=== PATIENT | male | born 1940 | race Caucasian/White ===

== ENCOUNTER → 2018-01-01 | Outpatient (CLI) | payer MEDICARE, OTHER ==
[~2018-01-01] VITALS: Ht 177.8 cm; Wt 96.2 kg
[~2018-01-01] MED LIST: ACET325T49 PO; ACHYD1T PO; ACYSUS PO; ASP81TEC; Amiodarone Hcl PO; Apixaban PO; CATHETER FLUSH 10 ML SYR IV PRN; DICL100G13 TOP; FAMO20TA3 PO; FRSM40T PO; GUAI600T43 PO; HCTZ12.5T; HYDR-32; KCL20TCR PO; LEVO125T6 PO; LEVO200T30; LISI5TAB14 PO; LORA10CA PO; LVT.025T PO; LVT.112T PO; Lidocaine Hcl PO; METO25TA2 PO; OMG1KC PO; PNT40TEC PO; PRNMV1T; REGADENOSON 0.4 MG/5 ML SYR (LEXISCAN) IV ONE; TAMS0.4C2 PO; TRAM50TA2 PO; TRZ100T; VLS80C
[2018-01-01 13:09] VITALS: BP 167/67
[2018-01-01 13:13] VITALS: BP 163/94
[2018-01-01 13:15] VITALS: BP 160/91
--- NOTE | 2018-01-01 14:46 | Cardiology Stress Test Report ---
Stress Test Report Type of NM Stress Test: Test Type: LEXISCAN 0.4MG/5ML Date of Procedure/Referring: Date of Procedure: Jan 01, 2018 PCP Bryon Regalado MD Admitting Physician Meghan Bhat MD Indications: This is a 77-year-old gentleman with history of non-STEMI, cardiogenic shock, systolic dysfunction previously. Plans to undergo gallbladder surgery under general anesthesia. Poor functional capacity. Nuclear stress test was done as a part of preoperative cardiovascular risk assessment. Baseline Heart Rate: 87 Baseline Blood Pressure: Blood Pressure Systolic: 157 Blood Pressure Diastolic: 83 Baseline EKG: Baseline EKG: sinus rhythm with prolonged VT interval. Summary: The patient was brought to the stress lab of informed consent was taken. Lexiscan stress test was performed according to the protocol. Low-grade exercise was performed. Baseline EKG showed sinus rhythm with PACs at 70 BPM. Blood pressure 167/67 mmHg. Maximum heart rate 90 bpm and blood pressure 163/ 94 mmHg. No chest pain, ST-T wave abnormalities, arrhythmias noted. 10.74 mCi of Myoview was given for rest imaging and 29.3 mCi of Myoview was given for stress imaging. Transient ischemic dilatation score 0.96. Ejection fraction 82 percent with no wall motion abnormalities. There is a mild small anterior reversible defect noted. SSS 2. Conclusion: Pharmacological nuclear stress test is negative for ischemia. Normal LV function with no wall motion abnormalities. Evidence of small area of anterior ischemia. Clinical correlation is recommended. Bryon REGALADO MD Jan 01, 2018 2:46 pm
[2018-01-01 15:04] VITALS: BP 157/83
== END ==
LOC: CARD 11:12
PROVIDERS: ATTEND Internal Medicine Interventional Cardiology
DX: Z01.810 Encounter for preprocedural cardiovascular examination (principal); I25.10 Atherosclerotic heart disease of native coronary artery without angina pectoris; I42.9 Cardiomyopathy, unspecified; I48.0 Paroxysmal atrial fibrillation
CPT/HCPCS: 78452; 93017

== ENCOUNTER 2018-01-02 09:54 | Day surgery (SDC) | payer MEDICARE, OTHER ==
[2018-01-02] VITALS (11 sets, daily range): BP systolic 126–172; BP diastolic 72–96
[~2018-01-02] VITALS: Ht 177.8 cm; Wt 96.2 kg
[~2018-01-02 09:54] MED LIST changes: -ACET325T49 PO; -CATHETER FLUSH 10 ML SYR IV PRN; -FAMO20TA3 PO; -GUAI600T43 PO; -LEVO125T6 PO; -LORA10CA PO; -OMG1KC PO; -REGADENOSON 0.4 MG/5 ML SYR (LEXISCAN) IV ONE; -TAMS0.4C2 PO; -TRAM50TA2 PO
[2018-01-02] MEDS ORDERED: LIDOCAINE 1% INJ 50 ML (XYLOCAINE) VIAL ONE (10:02)
[2018-01-02] MEDS ORDERED: HEParin (CATH LAB) 2,000 ML IV ONE (10:02)
[2018-01-02] MEDS ORDERED: NS IV 1000 ML 1,000 ML ONE (10:02)
[2018-01-02] MEDS ORDERED: NS IV 1000 ML 1,000 ML IV SCH ×2 (10:17→15:08)
[2018-01-02 10:41] LABS: HEMOGLOBIN 13.9 G/DL (13.3-17.7); MEAN PLATELET VOLUME 8.9 FL (7.4-10.4); RED BLOOD COUNT 3.86 10^6/uL (4.35-5.85); RED CELL DISTRIBUTION WIDTH 12.7 % (10.0-14.5); WHITE BLOOD COUNT 5.7 10^3/uL (4.3-11.0)
[2018-01-02 10:51] LABS: PROTHROMBIN TIME PATIENT 13.7 SEC (12.2-14.7)
[2018-01-02 10:58] LABS: ALANINE AMINOTRANSFERASE 19 U/L (0-55); ALBUMIN 3.8 GM/DL (3.2-4.5); ALKALINE PHOSPHATASE 91 U/L (40-136); BILIRUBIN,TOTAL 0.9 MG/DL (0.1-1.0); BUN/CREATININE RATIO 11; CALCIUM 9.2 MG/DL (8.5-10.1); CARBON DIOXIDE 24 MMOL/L (21-32); CHLORIDE 105 MMOL/L (98-107); CREATININE SERUM 0.89 MG/DL (0.60-1.30); GFR ESTIMATED > 60; GLUCOSE 112 MG/DL (70-105); POTASSIUM 4.2 MMOL/L (3.6-5.0); SODIUM 137 MMOL/L (135-145); TOTAL PROTEIN 7.3 GM/DL (6.4-8.2)
[2018-01-02] MEDS ORDERED: LEVO125T6 PO ×2 (10:58)
[2018-01-02] MEDS ORDERED: FAMO20TA3 PO ×2 (10:58)
[2018-01-02] MEDS ORDERED: GUAI600T43 PO ×2 (10:58)
[2018-01-02] MEDS ORDERED: OMG1KC PO ×2 (10:58)
[2018-01-02] MEDS ORDERED: TRAM50TA2 PO ×2 (10:58)
[2018-01-02] MEDS ORDERED: LORA10CA PO ×2 (10:58)
[2018-01-02] MEDS ORDERED: ACET325T49 PO ×2 (10:58)
[2018-01-02] MEDS ORDERED: TAMS0.4C2 PO ×2 (10:58)
--- NOTE | 2018-01-02 14:04 | Cardiac Procedure Note-CS/ASA ---
Pre-Procedure Note Pre-Op Procedure Note H&P Reviewed The H&P was reviewed, patient examined and no changes noted. Date H&P Reviewed: Jan 02, 2018 Time H&P Reviewed: 12:00 Conscious Sedation Pre-Proced Time Reviewed: 12:00 ASA Class: 3 Airway Mallampati Classification: (tyonek appropriate class) I. II. III, IV Lungs Heart ASA score ASA 1: a normal healthy patient ASA 2: a patient with a mild systemic disease (mid diabetes, controlled hypertension, obesity ASA 3: a patient with a severe systemic disease that limits activity (angina , COPD, prior Myocardial infarction) ASA 4: a patient with an incapacitating disease that is a constant threat to life (CHF, renal failure) ASA 5: a moribund patient not expected to survive 24 hrs. (ruptured aneurysm) ASA 6: a declared brain patient whose organs are being harvested. For emergent operations, add the letter E after the classification Grade 1 Sedation Plan: Analgesia, Amnesia, Plan communicated to team members, Discussed options with patient/fam, Discussed risks with patient/fam Note The patient is an appropriate candidate to undergo the planned procedure, sedation, and anesthesia. The patient immediately re-assessed prior to indication. Bryon SOSA MD Jan 02, 2018 2:04 pm
[2018-01-02] MEDS ORDERED: fentaNYL INJECTION 100 MCG/2 ML AMP ONE (14:06)
[2018-01-02] MEDS ORDERED: MIDAZOLAM 5 MG/5 ML (VERSED) VIAL ONE (14:06)
[2018-01-02] MEDS ORDERED: HEParin 1000 UNIT/ML (10ML VIAL) FOR BOLUS ONE (14:06)
[2018-01-02] MEDS ORDERED: NITROGLYCERIN DRIP 25 MG/D5W 250 ML IV ONE (14:06)
[2018-01-02] MEDS ORDERED: VERAPAMIL 5 MG/2 ML (CALAN) VIAL IV ONE (14:06)
--- NOTE | 2018-01-02 15:08 | Coronary Angiography Report ---
Coronary Angiography Report DATE OF PROCEDURE: 01/02/18 INDICATION: Preoperative cardiovascular risk assessment, history of non-STEMI, cardiogenic shock, severe LV systolic dysfunction, shortness of breath, abnormal nuclear stress test. PREOPERATIVE DIAGNOSIS: Preoperative cardiovascular risk assessment, history of non-STEMI, cardiogenic shock, severe LV systolic dysfunction, shortness of breath, abnormal nuclear stress test. POSTOPERATIVE DIAGNOSIS: 1. Mild to moderate CAD. 2. Normal LV function. HISTORY: this is a 77-year-old gentleman who needs to undergo gallbladder surgery under general anesthesia. He has complicated past medical history including history of non-STEMI, cardiogenic shock, severe LV systolic dysfunction, shortness of breath. Nuclear stress test was performed with showed evidence of mild apical ischemia.Therefore, the patient was scheduled for coronary angiography. PROCEDURES PERFORMED: 1.Coronary angiography. 2.Left heart catheterization. 3. Aortic root injection. 4. Aortic arch angiography. COMPLICATIONS: None. SPECIMENS: None. ESTIMATED BLOOD LOSS: 10 mL ANESTHESIA: Conscious sedation ANTICOAGULATION: IV heparin CONTRAST: 93 mL of Omnipaque. FLUOROSCOPY: 6.5 minutes. FLOUROSCOPY DOSE:477 mgy. PROCEDURE DETAILS: The patient is a 77 male and was brought to the laboratory engineer after informed consent was taken. All the risks and complications were explained in detail; this included the risk of bleeding, vascular damage, stroke , AL and even . The patient was draped and prepped in the usual sterile fashion. Access was gained in the right radial artery with a 6 Pashto sheath. Coronary angiography of the left coronary system, aortic root injection, aortic arch angiography and left heart catheterization was performed with the [place] catheter. coronary angiography of the right coronary system was performed with a JR4 catheter. FINDINGS: 1.Left main: patent. 2.LAD: mild CAD with calcification. Transapical vessel. 3.Left circumflex artery: mild disease with calcification. 4.RCA: moderate proximal and mid disease. Stenosis severity 40-50 percent. Dominant vessel. 5.Left heart catheterization: aortic pressure 101/65 mmHg. LV pressure 95/10 mmHg. LVEDP 15 mmHg. Normal LV function with no wall motion abnormalities. There is no gradient across the aortic valve. 6. Aortic root injection: No significant aortic regurgitation and patent ostium of the left main. 7. Aortic arch angiography: No evidence of aneurysm or dissection. CONCLUSIONS: [id number] coronary artery disease. Normal LV function. Roxie Regalado MD, FACP, FACC, [facility] Interventional Cardiology Bryon REGALADO MD Jan 02, 2018 3:08 pm
--- NOTE | 2018-01-02 15:10 | Discharge Inst-Post CATH ---
Discharge Inst-CATH Post Cardiac Cath D/C Inst Follow Up/Plan Dr Regalado in one month CARDIAC CATH DISCHARGE INSTRUCTIONS *Hold Metformin for 48 hours post heart cath. ACTIVITY * Go Home directly and rest. * Limit activity of the leg (or wrist if it was used) for 7 days including aerobics, swimming, jogging, bicycling, etc. * Restrict stair-climbing for 7 days if possible, if not, climb up with your non -cath leg, then bring together on the same step. * Avoid lifting, pushing, pulling or excessive movement of the affected extremity for 7 days. * Customary sexual activity may be resumed after 2 days-use caution not to use a position that strains or causes pain to the affected extremity. * No driving for 24 hours. * NO SMOKING. * Avoid straining for bowel movements for 7 days. * Gentle walking on level ground is allowed. * Returning to work will depend on the type of procedure and the results. Your doctor will discuss this with you. CALL YOUR DOCTOR FOR ANY OF THE FOLLOWING: *If bleeding from the puncture site occurs- Apply gentle pressure to site with clean cloth and call your doctor or EMS. * If a knot or lump forms under the skin, increases in size, or causes pain. * If bruising appears to be worsening or moving further down your leg instead of disappearing. * Temperature above 101 F. CARE OF YOUR GROIN INCISION; * Bruising or purple discoloration of the skin near the puncture site is common. * You may shower only, no bathtub bathing for 5 days. Be careful to avoid slipping as your leg may feel stiff. * If a closure device was used on your femoral artery, please see the attached guide regarding care of the device and your leg. * REMOVE the dressing from your groin the next day after your procedure in the shower. CARE OF YOUR WRIST INCISION; * Bruising or purple discoloration of the skin near the puncture site is common. * You may shower. * DO NOT submerge wrist. * Remove dressing in 24 hours. Bryon REGALADO MD Jan 02, 2018 3:10 pm
[2018-01-02] MEDS ORDERED: PATIENT MAY USE OWN MEDS, ALL PO SCH (15:15)
--- NOTE | 2018-01-02 15:15 | Cardiology Discharge Summary ---
Diagnosis/Chief Complaint Date of Admission 01/02/2018 Date of Discharge 01/02/2018 Admission Diagnosis shortness of breath, preoperative cardiovascular risk assessment, history of non -STEMI, history of severe LV systolic dysfunction, abnormal nuclear stress test. Final/Discharge Diagnosis mild to moderate CAD. Normal LV function. Chief Complaint/HPI Chief Complaint/HPI this is a 77-year-old gentleman who needs to undergo gallbladder surgery under general anesthesia. Preoperative cardiovascular risk assessment was requested. Patient has history of shortness of breath, previous history of non-STEMI, cardiac shock, severe LV systolic dysfunction. Nuclear stress test was performed which showed mild apical ischemia. Coronary angiography was recommended. Discharge Summary Procedures coronary angiography showed mild to moderate CAD. Normal LV systolic function. Discharge Physical Examination unremarkable. Hospital Course stable. Pending Labs Laboratory Tests 01/02/18 10:31: White Blood Count 5.7, Red Blood Count 3.86, Hemoglobin 13.9, Hematocrit 40, Mean Corpuscular Volume 104, Mean Corpuscular Hemoglobin 36, Mean Corpuscular Hemoglobin Concent 35, Red Cell Distribution Width 12.7, Platelet Count 199, Mean Platelet Volume 8.9, Prothrombin Time 13.7, INR Comment 1.0, Activated Partial Thromboplast Time 28, Sodium Level 137, Potassium Level 4.2, Chloride Level 105, Carbon Dioxide Level 24, Anion Gap 8, Blood Urea Nitrogen 10, Creatinine 0.89, Estimat Glomerular Filtration Rate > 60, BUN/Creatinine Ratio 11, Glucose Level 112, Calcium Level 9.2, Total Bilirubin 0.9, Aspartate Amino Transf (AST/SGOT) 20, Alanine Aminotransferase (ALT/SGPT) 19, Alkaline Phosphatase 91, Total Protein 7.3, Albumin 3.8 Discussion & Recommendations Discussion continue secondary prevention for CAD. No cardiac contraindication to gallbladder surgery. Patient is at intermediate risk. Follow up appt.: Dr. Regalado in one month. Dicharge Diet: Cardiac Diet Activity as Tolerated: Yes Home Medications Reviewed patient Home Medication Reconciliation Form Discharge Home Medications: Reviewed and agree with Discharge Medication list on patient's Discharge Instruction sheet Condition at discharge stable Instructions to patient/family Dr Regalado in one month Bryon REGALADO MD Jan 02, 2018 3:14 pm
== END 2018-01-02 19:15 | disposition home or self-care (01) ==
LOC: CATH 09:54
PROVIDERS: ATTEND Internal Medicine Interventional Cardiology
DX: I25.10 Atherosclerotic heart disease of native coronary artery without angina pectoris (principal); I10 Essential (primary) hypertension; E78.5 Hyperlipidemia, unspecified; E11.9 Type 2 diabetes mellitus without complications; I48.0 Paroxysmal atrial fibrillation; E03.9 Hypothyroidism, unspecified; F10.10 Alcohol abuse, uncomplicated; I25.2 Old myocardial infarction; Z79.82 Long term (current) use of aspirin; Z79.899 Other long term (current) drug therapy; Z87.891 Personal history of nicotine dependence
CPT/HCPCS: 36221; 36415; 80053; 85027; 85610; 85730; 87081; 93458; 93567

== ENCOUNTER → 2018-04-23 | Outpatient (CLI) | payer MEDICARE, OTHER ==
[~2018-04-23] MED LIST changes: +ACET325T49 PO; +FAMO20TA3 PO; +GUAI600T43 PO; +LEVO125T6 PO; +LORA10CA PO; +OMG1KC PO; +TAMS0.4C2 PO; +TRAM50TA2 PO
[2018-04-23 16:45] LABS: BASOPHILS % (AUTO) 0 % (0-10); EOSINOPHILS # (AUTO) 0.2 10^3/uL (0.0-0.3); EOSINOPHILS % (AUTO) 3 % (0-10); HEMATOCRIT 39 % (40-54); HEMOGLOBIN 13.1 G/DL (13.3-17.7); LYMPHOCYTES # (AUTO) 2.3 X 10^3 (1.0-4.0); LYMPHOCYTES % (AUTO) 38 % (12-44); MEAN CORPUSCULAR HEMOGLOBIN 33 PG (25-34); MEAN CORPUSCULAR HGB CONC 34 G/DL (32-36); MEAN CORPUSCULAR VOLUME 96 FL (80-99); MEAN PLATELET VOLUME 8.7 FL (7.4-10.4); MONOCYTES # (AUTO) 0.6 X 10^3 (0.0-1.0); MONOCYTES % (AUTO) 11 % (0-12); NEUTROPHILS % (AUTO) 49 % (42-75); PLATELET COUNT 219 10^3/uL (130-400); RED BLOOD COUNT 4.03 10^6/uL (4.35-5.85); RED CELL DISTRIBUTION WIDTH 12.9 % (10.0-14.5); WHITE BLOOD COUNT 6.1 10^3/uL (4.3-11.0)
[2018-04-23 17:03] LABS: ALANINE AMINOTRANSFERASE 24 U/L (0-55); ALBUMIN 3.8 GM/DL (3.2-4.5); ALKALINE PHOSPHATASE 89 U/L (40-136); BILIRUBIN,TOTAL 0.5 MG/DL (0.1-1.0); BUN/CREATININE RATIO 21; CALCIUM 9.5 MG/DL (8.5-10.1); CARBON DIOXIDE 21 MMOL/L (21-32); CHLORIDE 103 MMOL/L (98-107); CREATININE SERUM 0.78 MG/DL (0.60-1.30); GFR ESTIMATED > 60; GLUCOSE 93 MG/DL (70-105); POTASSIUM 4.2 MMOL/L (3.6-5.0); SODIUM 135 MMOL/L (135-145); TOTAL PROTEIN 7.7 GM/DL (6.4-8.2)
== END ==
LOC: LAB 16:19
PROVIDERS: ATTEND Surgery
DX: I70.232 Atherosclerosis of native arteries of right leg with ulceration of calf (principal); L97.212 Non-pressure chronic ulcer of right calf with fat layer exposed; I87.331 Chronic venous hypertension (idiopathic) with ulcer and inflammation of right lower extremity; I87.322 Chronic venous hypertension (idiopathic) with inflammation of left lower extremity
CPT/HCPCS: 36415; 80053; 85025

== ENCOUNTER → 2018-04-23 | Outpatient (CLI) | payer MEDICARE, OTHER | LOC: WOUNDCARE 14:13 | PROVIDERS: ATTEND Surgery | DX: I70.232 Atherosclerosis of native arteries of right leg with ulceration of calf (principal); L97.212 Non-pressure chronic ulcer of right calf with fat layer exposed; I87.331 Chronic venous hypertension (idiopathic) with ulcer and inflammation of right lower extremity; I87.322 Chronic venous hypertension (idiopathic) with inflammation of left lower extremity | CPT/HCPCS: 99214 ==

== ENCOUNTER → 2018-04-30 | Outpatient (CLI) | payer MEDICARE, OTHER | LOC: WOUNDCARE 11:30 | PROVIDERS: ATTEND Surgery | DX: I70.232 Atherosclerosis of native arteries of right leg with ulceration of calf (principal); L97.212 Non-pressure chronic ulcer of right calf with fat layer exposed; I87.331 Chronic venous hypertension (idiopathic) with ulcer and inflammation of right lower extremity; I87.322 Chronic venous hypertension (idiopathic) with inflammation of left lower extremity | CPT/HCPCS: 11042; 87070; 87075; 87077; 87186; 87205 ==

== ENCOUNTER → 2018-05-14 | Outpatient (CLI) | payer MEDICARE, OTHER | LOC: WOUNDCARE 11:00 | PROVIDERS: ATTEND Surgery | DX: L72.12 Trichodermal cyst (principal); I87.331 Chronic venous hypertension (idiopathic) with ulcer and inflammation of right lower extremity; I87.322 Chronic venous hypertension (idiopathic) with inflammation of left lower extremity; I70.232 Atherosclerosis of native arteries of right leg with ulceration of calf | CPT/HCPCS: 15271 ==

== ENCOUNTER → 2018-05-21 | Outpatient (CLI) | payer MEDICARE, OTHER | LOC: WOUNDCARE 11:30 | PROVIDERS: ATTEND Surgery | DX: I70.232 Atherosclerosis of native arteries of right leg with ulceration of calf (principal); I87.331 Chronic venous hypertension (idiopathic) with ulcer and inflammation of right lower extremity; L97.212 Non-pressure chronic ulcer of right calf with fat layer exposed; I87.322 Chronic venous hypertension (idiopathic) with inflammation of left lower extremity | CPT/HCPCS: 11042 ==

== ENCOUNTER → 2018-05-28 | Outpatient (CLI) | payer MEDICARE, OTHER | LOC: WOUNDCARE 11:29 | PROVIDERS: ATTEND Surgery | DX: I70.232 Atherosclerosis of native arteries of right leg with ulceration of calf (principal); L97.212 Non-pressure chronic ulcer of right calf with fat layer exposed; I87.331 Chronic venous hypertension (idiopathic) with ulcer and inflammation of right lower extremity; I87.322 Chronic venous hypertension (idiopathic) with inflammation of left lower extremity | CPT/HCPCS: 87070; 87075; 87186; 87205 ==

== ENCOUNTER → 2018-05-30 | Outpatient (CLI) | payer MEDICARE, OTHER | LOC: WOUNDCARE 08:10 | PROVIDERS: ATTEND Surgery | DX: I70.232 Atherosclerosis of native arteries of right leg with ulceration of calf (principal); L97.212 Non-pressure chronic ulcer of right calf with fat layer exposed; I87.331 Chronic venous hypertension (idiopathic) with ulcer and inflammation of right lower extremity; I87.322 Chronic venous hypertension (idiopathic) with inflammation of left lower extremity | CPT/HCPCS: 99212 ==

== ENCOUNTER → 2018-06-04 | Outpatient (CLI) | payer MEDICARE, OTHER | LOC: WOUNDCARE 10:56 | PROVIDERS: ATTEND Surgery | DX: I70.232 Atherosclerosis of native arteries of right leg with ulceration of calf (principal); I87.331 Chronic venous hypertension (idiopathic) with ulcer and inflammation of right lower extremity; L97.212 Non-pressure chronic ulcer of right calf with fat layer exposed; I87.322 Chronic venous hypertension (idiopathic) with inflammation of left lower extremity; L97.221 Non-pressure chronic ulcer of left calf limited to breakdown of skin | CPT/HCPCS: 15271 ==

== ENCOUNTER → 2018-06-11 | Outpatient (CLI) | payer MEDICARE, OTHER | LOC: WOUNDCARE 11:32 | PROVIDERS: ATTEND Surgery | DX: I70.232 Atherosclerosis of native arteries of right leg with ulceration of calf (principal); I87.331 Chronic venous hypertension (idiopathic) with ulcer and inflammation of right lower extremity; L97.212 Non-pressure chronic ulcer of right calf with fat layer exposed; I87.322 Chronic venous hypertension (idiopathic) with inflammation of left lower extremity; L97.221 Non-pressure chronic ulcer of left calf limited to breakdown of skin | CPT/HCPCS: 29581 ==

== ENCOUNTER → 2018-06-18 | Outpatient (CLI) | payer MEDICARE, OTHER | LOC: WOUNDCARE 11:27 | PROVIDERS: ATTEND Surgery | DX: I70.232 Atherosclerosis of native arteries of right leg with ulceration of calf (principal); I87.331 Chronic venous hypertension (idiopathic) with ulcer and inflammation of right lower extremity; L97.212 Non-pressure chronic ulcer of right calf with fat layer exposed | CPT/HCPCS: 99212 ==

== ENCOUNTER 2019-06-09 09:28 | Inpatient (IN) | payer MEDICARE, OTHER ==
[~2019-06-09] VITALS: Ht 172.7 cm; Wt 97.8 kg
--- NOTE | 2019-06-09 09:28 | NUR ---
Freeman Caballero admitted to room 225-1, with an admitting diagnosis of R hip and R elbow ORIF, on 06/09/19 from [facility] via EMS, accompanied by staff.FREEMAN CABALLERO introduced to surroundings, call light, bed controls, phone, TV, temperature control, lights, meal times, smoking policy, visitor policy, side rail policy, bathrooms and showers. Patient Rights given to patient in the handbook.FREEMAN CABALLERO verbalizes understanding that [facility] is not responsible for the loss or damage to any personal effects or valuables that are kept in the patients possession during their hospitalization. The following Patient Care Plans were discussed with the patient: Discharge Planning, Fracture, Activity Intolerance, Pain Control. FREEMAN CABALLERO verbalizes understanding of Interdisciplinary Patient Education. Patient received Patient Rights Booklet, which includes Privacy Act Statement and Data Collection Information Summary.
[2019-06-09 10:21] VITALS: BP 139/68
[2019-06-09] MEDS ORDERED: BISACODYL 10 MG SUPP (DULCOLAX) PR PRN ×2 (10:30→15:30)
[2019-06-09] MEDS ORDERED: MILK OF MAGNESIA 400 MG/5 ML 30 ML UDC PO PRN (10:30)
[2019-06-09 11:01] LABS: BASOPHILS % (AUTO) 0 % (0-10); EOSINOPHILS # (AUTO) 0.1 10^3/uL (0.0-0.3); EOSINOPHILS % (AUTO) 1 % (0-10); HEMATOCRIT 23 % (40-54); HEMOGLOBIN 7.5 G/DL (13.3-17.7); LYMPHOCYTES # (AUTO) 1.1 X 10^3 (1.0-4.0); LYMPHOCYTES % (AUTO) 13 % (12-44); MEAN CORPUSCULAR HEMOGLOBIN 31 PG (25-34); MEAN CORPUSCULAR HGB CONC 33 G/DL (32-36); MEAN CORPUSCULAR VOLUME 94 FL (80-99); MONOCYTES # (AUTO) 0.6 X 10^3 (0.0-1.0); MONOCYTES % (AUTO) 8 % (0-12); NEUTROPHILS # (AUTO) 6.4 X 10^3 (1.8-7.8); NEUTROPHILS % (AUTO) 78 % (42-75); PLATELET COUNT 174 10^3/uL (130-400); RED CELL DISTRIBUTION WIDTH 13.5 % (10.0-14.5); WHITE BLOOD COUNT 8.2 10^3/uL (4.3-11.0)
[2019-06-09 11:17] LABS: ALANINE AMINOTRANSFERASE 9 U/L (0-55); ALBUMIN 2.7 GM/DL (3.2-4.5); ALKALINE PHOSPHATASE 56 U/L (40-136); BILIRUBIN,TOTAL 0.9 MG/DL (0.1-1.0); BUN/CREATININE RATIO 13; CALCIUM 8.4 MG/DL (8.5-10.1); CARBON DIOXIDE 29 MMOL/L (21-32); CHLORIDE 94 MMOL/L (98-107); CREATININE SERUM 0.75 MG/DL (0.60-1.30); GFR ESTIMATED > 60; GLUCOSE 207 MG/DL (70-105); POTASSIUM 4.1 MMOL/L (3.6-5.0); SODIUM 133 MMOL/L (135-145); TOTAL PROTEIN 5.6 GM/DL (6.4-8.2)
--- NOTE | 2019-06-09 11:33 | PM&R H&P / Post Admit Assess ---
History of Present Illness HPI/Chief Complaint Chief complaint: Right hip fracture and right elbow fracture in need of inpatient rehab to return home History of present illness: This is a 79-year-old white male known to me from prior admissions long ago whose primary care provider is Dr. Bhat but who does not see a glue clamp operator regularly who has a history of atrial fibrillation, diabetes mellitus and falls in the past who presented to inpatient rehab after discharge from [facility] after suffering a right femoral fracture and right elbow fracture which required surgery for repair after a fall sustained at home when he was using his leaf blower on 06/04/2019. He did not require a transfusion while hospitalized at [facility]. He has not had a bowel movement for 5 days. Pain is currently controlled with oxycodone. Patient does not usually require oxygen or CPAP machine. His prior level of functioning was without assistive device and completely independent with ADLs. I will consult Dr Rgealado for Cardiology management. Source: patient, RN/, old records Exam Limitations: no limitations Date Seen 06/09/19 Time Seen by a Provider: 10:10 Attending Physician María Mascorro Lisa A MD Referring Physician Date of Admission Jun 09, 2019 at 09:28 Home Medications & Allergies Home Medications Reviewed patient Home Medication Reconciliation performed by pharmacy medication reconciliations formula technician and/or nursing. Patients Allergies have been reviewed. Allergies Allergies Coded Allergies No Known Drug Allergies (Unverified Allergy, Mild, 09/30/08) No Known Allergies (Verified Allergy, Unknown, 01/09/06) Past [id number] Hx Past Med/Social Hx: Reviewed Nursing Past Med/Soc Hx, Reviewed and Corrections made Patient Social History Marrital Status: , cohabiting Employed/Student: retired Alcohol Use: Denies Use Smoking Status: Never a Smoker Former Smoker, Quit: Jan 02, 1997 Type Used: Cigarettes Recent Foreign Travel: No Contact w/other who traveled: No Recent Infectious Disease Expo: No Immunizations Up To Date Date of Pneumonia Vaccine: Feb 04, 2014 Date of Influenza Vaccine: Sep 01, 2017 Past Medical History Surgeries: Abdominal, Orthopedic Cardiac: Atrial Fibrillation, Coronary Artery Disease, High Cholesterol, Hypertension Reproductive: No Sexually Transmitted Disease: No Musculoskeletal: Chronic Back Pain Endocrine: Diabetes, Non-Insulin dep Psychosocial: Anxiety, Depression Review of Systems Constitutional: see HPI EENTM: no symptoms reported Respiratory: no symptoms reported Cardiovascular: no symptoms reported Gastrointestinal: constipation Genitourinary: no symptoms reported Musculoskeletal: joint pain (right elbow and right hip) Skin: no symptoms reported Psychiatric/Neurological: No Symptoms Reported All Other Systems Reviewed Negative Unless Noted: Yes Physical Exam Exam Vital Signs Vital Signs Date Time Temp Pulse Resp B/P (MAP) Pulse Ox O2 Delivery O2 Flow Rate FiO2 06/09/19 19:45 99.8 06/09/19 17:15 89 17 127/67 (87) 94 Nasal Cannula 2.00 Capillary Refill : General Appearance: No Apparent Distress, WD/WN, Chronically ill, Obese HEENT: PERRL/EOMI, Normal ENT Inspection, Pharynx Normal, Moist Mucous Membranes Neck: Full Range of Motion, Normal Inspection, Non Tender, Supple Respiratory: Chest Non Tender, Lungs Clear, Normal Breath Sounds, No Accessory Muscle Use, No Respiratory Distress Cardiovascular: Regular Rate, Rhythm, No Edema, No Gallop, No JVD, No Murmur Gastrointestinal: Normal Bowel Sounds, No Organomegaly, No Pulsatile Mass, Non Tender, Soft Back: Normal Inspection, No CVA Tenderness, No Vertebral Tenderness Extremity: Normal Capillary Refill, Normal Inspection, Normal Range of Motion (except right arm in sling and dressing and right leg due to hip pain), Non Tender, No Calf Tenderness, No Pedal Edema Neurologic/Psychiatric: Alert, Oriented x3, No Motor/Sensory Deficits, Normal Mood/Affect Skin: Normal Color, Warm/Dry Lymphatic: No Adenopathy Results Results/Procedures Labs Laboratory Tests 06/09/19 10:55 Patient resulted labs reviewed. Assessment/Plan Assessment and Plan Assess & Plan/Chief Complaint Assessment: Status post right femoral fracture on 06/04/2019 Right elbow fracture status post repair 06/04/2019 History of atrial fibrillation on amiodarone Multiple falls in the past Emotional problems Hypothyroidism GERD Hypertension Diabetes mellitus insulin requiring line hyperlipidemia Anemia from acute blood loss Iron deficiency Hyponatremia Low albumin Plan: Pain control Constipation resolution Home meds Monitor labs IV iron infusions Fall risk prevention Inpatient rehab protocols (1) Right femoral fracture (2) Elbow fracture, right (3) Anemia due to acute blood loss (4) Iron deficiency (5) Atrial fibrillation (6) Hypertension (7) Fall (8) Constipation (9) Fever (10) GERD without esophagitis (11) Hypothyroidism (12) Hx of emotional problems (13) Hyponatremia (14) Serum albumin decreased (15) Diabetes mellitus Post Admission Physician Asses Date seen by provider: Jun 09, 2019 Time seen by provider: 10:10 Admisison Dx: (1) Right femoral fracture The preadmission screen agrees with the post admission assessment that the p atient is a good candidate for inpatient rehabilitation. The patient will have a comprehensive program of inpatient rehabilitation with a goal of maximizing level of functional independence prior to discharge home with family. The patient will have PT/OT ninety minutes per day, each discipline, f brigitte days a week for gait, strengthening, conditioning, balance, ADLs, any patient/family/caregiver training as necessary. Speech therapy to do cognitive assessment and treat as indicated. Rehabilitation nursing to assist with bowel, bladder, skin, wound care, medication administration, pain management. Rag Cutting Machine Tender to assist with discharge planning, community reentry. SCD's for DVT prophylaxis. He appears to be well motivated to participate in three hours of therapy a day. He should be able to tolerate three hours of therapy a day from a medical standpoint. He should benefit from the three hours of therapy a day. He has a reasonable discharge plan, reasonable discharge rehabilitation goals and a supportive family. He has various comorbidities that need to be closely monitored with medications and treatments adjusted on a daily basis as needed. These include: see list Barriers to discharge for this patient who had been independent prior to this are for him to be modified independent to supervision for ADLs and mobility skills prior to discharge home with family, so as to lessen the burden of the caregivers. Risks for this patient include: 1. Fall 2. Fracture 3. DVT 4. Pulmonary embolism 5. Wound infection 6. Skin breakdown 7. Contractures 8. Poorly controlled pain 9. Urinary retention 10. UTI 11. Respiratory infection 12. Aspiration Estimated Length of Stay: 10 days Prognosis: Rehab prognosis appears good for goal of discharge home with family modified independent to supervision for ADLs and mobility skills. MARÍA MASCORRO DO Jun 09, 2019 11:33
--- NOTE | 2019-06-09 11:43 | Consultation-Cardiology ---
HPI-Cardiology Cardiology Consultation: Date of Consultation 06/09/19 Date of Admission Attending Physician María Mascorro DO Admitting Physician Meghan Bhat MD Consulting Physician Bryon REGALADO MD HPI: Time Seen by a Provider: 11:00 Chief Complaint: mechanical fall This is a 79-year-old gentleman who presented with a mechanical fall and injured his right arm and right hip. He is status post right hip surgery at [facility]. He has been transferred to our hospital for inpatient rehabilitation. He denies any cardiac complaints and any cardiac history. However he is on am iodarone and does not know whether he has atrial fibrillation or not. According to the patient he had cardiac workup 3-5 years ago which according to him was negative. Review of Systems-Cardiology Review of Systems Constitutional: As described under HPI; No As described under HPI, No no symptoms reported, No chills, No fever, No lightheadedness Eyes: No As described under HPI, No no symptoms reported, No blindness, No blurred vision, No contact lenses, No drainage, No decreased acuity, No foreign body sensation, No pain, No vision change Ears/Nose/Throat: No As described under HPI, No no symptoms reported, No chronic hearing loss, No ear discharge, No ear pain, No nasal drainage, No ulcerations Respiratory: No no symptoms reported; As described under HPI; No As described u nder HPI, No cough, No orthopnea, No shortness of breath, No SOB with excertion Cardiovascular: No no symptoms reported; As described under HPI; No As described under HPI, No chest pain, No edema, No irregular heart rate, No lightheadedness, No palpitations Gastrointestinal: No no symptoms reported, No As described under HPI, No abdomen distended, No abdominal pain, No blood streaked bowels, No constipation, No diarrhea, No nausea, No vomiting, No stool coloration changes Genitourinary: No As described under HPI, No burning, No dysuria, No discharge, No frequency, No flank pain, No hematuria, No urgency Skin: No rash, No skin related problems, No ulcerations Psychiatric/Neurological: No anxiety, No depression, No seizure, No focal weakness, No syncope Hematologic: No bleeding abnormalities [id number] Hx Patient Social History Type Used: Cigarettes Recent Foreign Travel: No Recent Infectious Disease Expo: No Immunizations Up To Date Date of Pneumonia Vaccine: Feb 04, 2014 Date of Influenza Vaccine: Sep 01, 2017 Past Medical History PMH As described under Assessment. Allergies and Home Medications Allergies Coded Allergies: No Known Drug Allergies (Unverified Allergy, Mild, 09/30/08) No Known Allergies (Verified Allergy, Unknown, 01/09/06) Home Medications Acetaminophen 325 Mg Tablet, 325 MG PO DAILY, (Reported) Famotidine 20 Mg Tablet, 20 MG PO BID, (Reported) Guaifenesin 600 Mg Tab.er.12h, 600 MG PO Q12H, (Reported) Levothyroxine Sodium 125 Mcg Tablet, 125 MCG PO DAILY, (Reported) Loratadine 10 Mg Capsule, 10 MG PO DAILY, (Reported) Metoprolol Tartrate 25 Mg Tablet, 25 MG PO BID Prescribed by: MYLA BEACH on 02/19/15 1027 [place] 3 Polyunsat Fatty Acids 1,000 Mg Cap, 1,000 MG PO DAILY, (Reported) Pantoprazole Sod 40 Mg Tab, 40 MG PO DAILY@0700 Prescribed by: INGRID STERLING on 02/19/15 1656 Tamsulosin HCl 0.4 Mg Cap.er.24h, 0.4 MG PO DAILY, (Reported) Tramadol HCl 50 Mg Tablet, 50 MG PO TID PRN for PAIN-MODERATE, (Reported) Patient Home Medication List Home Medication List Reviewed: Yes Physical Exam-Cardiology Physical Exam Vital Signs/I&O 06/09/19 10:21 Temp 98.4 Pulse 76 Resp 18 B/P (MAP) 139/68 Pulse Ox 99 O2 Delivery Nasal Cannula O2 Flow Rate 2.00 Capillary Refill : Constitutional: appears stated age, AAO x 3; No apparent distress; well- developed, well-nourished HEENT: PERRL; No normal ENT inspection, No TMs normal, No pharynx normal, No scleral icterus (R), No scleral icterus (L), No pale conjunctivae (R), No pale conjunctivae (L), No photophobia, No TM abnormal (R), No TM abnormal (L), No pharyngeal erythema, No tonsillar exudate, No other, No discharge, No EOMI; hearing is well preserved; No hard of hearing; oral hygience is good; No ulceration, No xanthelasmas are seen Neck: No non-tender, No full range of motion, No supple, No normal inspection, No carotid bruit, No limited range of motion, No lymphadenopathy (R), No lymphadenopathy (L), No tender lateral, No tender midline, No thyromegaly, No other; carotid pulses are 2 + bilaterally; No with good upstrokes Respiratory: No accessory muscle use, No respiratory distress, No chest tender, No chest expansion is symmetric; chest is bilaterally symmetric; No lungs clear to percussion; lungs clear to auscultation; No crackles, No rhonchi, No rales, No stridor, No wheezing, No pleural rub, No other Cardiovascular: regular rate-rhythm; No irregularly irregular, No extra beats, No parasternal heave is noted, No JVD, No edema, No bradycardia, No tachycardia, No point of maximal impulse, No cardiac thrills are palpable; S1 and S2; No ga llop/S3, No gallop/S4, No diastolic murmur, No systolic murmur, No friction rub, No click, No other Gastrointestinal: No tender, No soft, No round, No distended, No pulsatile mass, No organomegaly, No guarding, No rebound, No tenderness, No hernia, No mass, No audible bowel sounds, No abnormal bowel sounds, No abdominal bruits, No spleenomegaly, No other Rectal: deferred Extremities: No normal range of motion, No non-tender, No normal inspection, No pedal edema, No calf tenderness, No normal capillary refill, No pelvis stable, No calf tenderness, No inflammation, No pedal edema, No slow capillary refill, No swelling, No other, No abrasion, No clubbing, No cyanosis, No ecchymosis, No laceration, No no lower extremity edema bilateral, No significant edema, No tenderness, No wound Neurologic/Psychiatric: no motor/sensory deficits, alert, normal mood/affect, oriented x 3, power is 5/5 both on sides Skin: No normal color, No warm/dry, No cyanosis, No cool, No diaphoresis, No damp, No ecchymosis, No jaundice, No mottled, No pallor, No rash, No tattoos/piercings, No ulcerations, No rash on exposed areas, No ulcerations on exposed areas, No other Data Review Labs Laboratory Tests 06/09/19 10:55: White Blood Count 8.2, Red Blood Count 2.40L, Hemoglobin 7.5L, Hematocrit 23L, Mean Corpuscular Volume 94, Mean Corpuscular Hemoglobin 31, Mean Corpuscular Hemoglobin Concent 33, Red Cell Distribution Width 13.5, Platelet Count 174, Mean Platelet Volume 8.0, Neutrophils (%) (Auto) 78H, Lymphocytes (%) (Auto) 13, Monocytes (%) (Auto) 8, Eosinophils (%) (Auto) 1, Basophils (%) (Auto) 0, Neutrophils # (Auto) 6.4, Lymphocytes # (Auto) 1.1, Monocytes # (Auto) 0.6, Eosinophils # (Auto) 0.1, Basophils # (Auto) 0.0, Sodium Level 133L, Potassium Level 4.1, Chloride Level 94L, Carbon Dioxide Level 29, Anion Gap 10, Blood Urea Nitrogen 10, Creatinine 0.75, Estimat Glomerular Filtration Rate > 60, BUN/Creatinine Ratio 13, Glucose Level 207H, Calcium Level 8.4L, Corrected Calc ium 9.4, Total Bilirubin 0.9, Aspartate Amino Transf (AST/SGOT) 24, Alanine Aminotransferase (ALT/SGPT) 9, Alkaline Phosphatase 56, Total Protein 5.6L, Albumin 2.7L 06/09/19 10:57: Glucometer 213H A/P-Cardiology Assessment/Admission Diagnosis Mechanical fall, status post right hip surgery, Hypertension, On amiodarone, Diabetes Plan Inpatient rehabilitation - post hip surgery. DVT prophylaxis. HTN - continue BP meds. Need to get old records. EKG, Echo. Need to find out why the patient is on amiodarone. DM Thank you for your consultation. Please call me if you have any questions. Roxie Regalado MD, FACP, FACC, FSCAI, FHRS, CCDS Interventional Cardiology Cardiac Electrophysiology Vascular Medicine and Endovascular Interventions Bryon REGALADO MD Jun 09, 2019 11:43
--- NOTE | 2019-06-09 13:00 | NUR ---
Upon admit assessment, patient is found to have bloody drainage to Right elbow site, leaking through JOHAN wrap on to gown and sling, which was saturated with drainage. According to report, this dressing/wrap is not to be changed by nursing staff and Physicians are aware of drainage. Drainage marked and dated, patient given bed bath, gown changed, sling removed and washed. Right hip is also saturated in drainage, dressings beginning to come off. Dressing removed, site is well approximated no s/s of infection noted at this time. Site cleansed, nonstick pads placed, covered in ABDs and Medipore tape. With pain medications on board, patient had a very hard time tolerating turning in bed for positioning and dressing changes. Two people required to turn due to pain.
[2019-06-09] MEDS: inSUlin ASPART (NovoLOG) 1 UNIT/0.01 ML (CHARGE PER UNIT) SC SCH ×3 (13:19→22:22)
[2019-06-09] MEDS ORDERED: POLYETHYLENE GLYCOL 17 GM (MIRALAX) PACK PO ONE (15:30)
[2019-06-09] MEDS ORDERED: BISACODYL 10 MG SUPP (DULCOLAX) PR ONE (15:30)
[2019-06-09] MEDS ORDERED: LACTULOSE SYRUP 10GM/15ML (ENULOSE) 30ML UDC PO ONE (15:30)
[2019-06-09] MEDS ORDERED: IRON SUCROSE 200 MG/10 ML (VENOFER) VIAL IV ONE (15:45)
[2019-06-09 17:15] VITALS: BP 127/67
[2019-06-09] MEDS: meTOprolol TARTRATE 25 MG (LOPRESSOR) TABLET PO SCH (17:57)
[2019-06-09] MEDS ORDERED: MELATONIN 3 MG TABLET PO PRN (18:30)
[2019-06-09] MEDS ORDERED: ACETAMINOPHEN 500 MG TAB (TYLENOL) PO PRN (18:30)
[2019-06-09] MEDS ORDERED: CALCIUM CARBONATE 500 MG (TUMS) TAB.CHEW PO PRN (18:30)
[2019-06-09] MEDS ORDERED: ONDANSETRON 4 MG (ZOFRAN) ORAL DISSOLVE TAB PO PRN (18:30)
[2019-06-09] MEDS ORDERED: DOCUSATE SODIUM 100 MG (COLACE) CAP PO PRN (18:30)
[2019-06-09] MEDS: KCL 20 MEQ TAB (K-DUR) PO SCH (22:14)
[2019-06-09] MEDS: SENNA W/DOCUSATE (SENOKOT S) TABLET PO SCH (22:15)
[2019-06-09] MEDS: QUEtiapine 25 MG (SEROquel) TAB IMMEDIATE RELEASE PO SCH (22:15)
[2019-06-09] MEDS: LACTULOSE SYRUP 10GM/15ML (ENULOSE) 30ML UDC PO SCH (22:16)
[2019-06-09] MEDS: MELATONIN 3 MG TABLET PO SCH (22:16)
[2019-06-09] MEDS: POLYETHYLENE GLYCOL 17 GM (MIRALAX) PACK PO SCH (22:17)
--- NOTE | 2019-06-09 23:45 | NUR ---
Dressing to R elbow surgical site continues to saturate chucks. JOHAN bandages et surgical dressings removed. ABDs applied, wrapped in Kerlix, et new JOHAN wrap applied. Placed arm on pillow for comfort. Gave medication for pain et anxiety.
[2019-06-09] MEDS: IBUPROFEN TABLET 200 MG TAB PO PRN (23:53)
[2019-06-09] MEDS: ALPRAZolam 0.25 MG (XANAX) TAB PO PRN (23:54)
[2019-06-10 05:43] VITALS: BP 110/54
[2019-06-10] MEDS: inSUlin ASPART (NovoLOG) 1 UNIT/0.01 ML (CHARGE PER UNIT) SC SCH ×4 (06:16→21:00)
[2019-06-10] MEDS: LEVOTHYROXINE 25 MCG (LEVOTHROID) TAB PO SCH (06:38)
[2019-06-10] MEDS: LEVOTHYROXINE 112 MCG (LEVOTHROID) TAB PO SCH (06:38)
--- NOTE | 2019-06-10 08:25 | PM&R Progress Note ---
Subjective HPI/CC On Admission Date Seen by Provider: Jun 10, 2019 Time Seen by Provider: 08:30 Chief complaint: Right hip fracture and right elbow fracture in need of inpatient rehab to return home History of present illness: This is a 79-year-old white male known to me from prior admissions long ago whose primary care provider is Dr. 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 He did not require a transfusion while hospitalized at [facility]. He has not had a bowel movement for 5 days. Pain is currently controlled with oxycodone. Patient does not usually require oxygen or CPAP machine. His prior level of functioning was without assistive device and completely independent with ADLs. I will consult Dr Regalado for Cardiology management. Subjective/Events-last exam Echocardiogram will be performed today Low grade fever resulting with Tylenol A lot of drainage of the right elbow so will monitor that closely but incision looks good BM ws either on 06/04 or 06/08 so will check with pt on that and give meds if needed Checked meds and labs Reviewed therapy notes Conferred with RN Overall feels much better and is ready to get started and participate Review of Systems General: Fatigue Musculoskeletal: arm pain, leg pain Neurological: Weakness, Numbness, Incoordination, Confusion Objective Exam Vital Signs Vital Signs Date Time Temp Pulse Resp B/P (MAP) Pulse Ox O2 Delivery O2 Flow Rate FiO2 06/10/19 17:03 Nasal Cannula 1.50 06/10/19 16:07 97.4 83 14 98/59 (72) 94 Capillary Refill : Less Than 3 Seconds General Appearance: No Apparent Distress, WD/WN, Chronically ill, Obese HEENT: PERRL/EOMI, Normal ENT Inspection, Pharynx Normal, Moist Mucous Membranes Neck: Full Range of Motion, Normal Inspection, Non Tender, Supple Respiratory: Chest Non Tender, Lungs Clear, Normal Breath Sounds, No Accessory Muscle Use, No Respiratory Distress Cardiovascular: Regular Rate, Rhythm, No Edema, No Gallop, No JVD, No Murmur Gastrointestinal: Normal Bowel Sounds, No Organomegaly, No Pulsatile Mass, Non Tender, Soft Back: Normal Inspection, No CVA Tenderness, No Vertebral Tenderness Extremity: Normal Capillary Refill, Normal Inspection, Normal Range of Motion (except right arm in sling and dressing and right leg due to hip pain), Non Tender, No Calf Tenderness, No Pedal Edema Neurologic/Psychiatric: Alert, Oriented x3, No Motor/Sensory Deficits, Normal Mood/Affect Skin: Normal Color, Warm/Dry Lymphatic: No Adenopathy Results/Procedures Lab Patient resulted labs reviewed. FIM Transfers Therapy Code Descriptions/Definitions Functional [place] Measure: 0=Not Assessed/NA 4=Minimal Assistance 1=Total Assistance 5=Supervision or Setup 2=Maximal Assistance 6=Modified [place] 3=Moderate Assistance 7=Complete [place] Therapy Quality Codes: 6 Independent with activity with or without an assistive device 5 Patient requires set up or clean up by helper. Patient completes activity by themselves 4 Supervision or touching assist (CGA). [place] provide cues , steadying assist 3 The helper provides less than half the effort to complete the activity 2 The helper provides more than half the effort to complete the activity 1 Dependent. The helper does all the effort to complete an activity 7 Patient refused to complete or attempt activity 9 The patient did not perform the activity before the current illness or injury 88 Not attempted due to Medical conditions or safety concerns Assessment/Plan Assessment and Plan Assess & Plan/Chief Complaint Assessment: Status post right femoral fracture on 06/04/2019 Right elbow fracture status post repair 06/04/2019 History of atrial fibrillation on amiodarone Multiple falls in the past Emotional problems Hypothyroidism GERD Hypertension Diabetes mellitus insulin requiring line hyperlipidemia Anemia from acute blood loss Iron deficiency Hyponatremia Low albumin Cognitive decline SLUMS Plan: Pain control Constipation resolution Home meds Monitor labs IV iron infusions Fall risk prevention Inpatient rehab protocols (1) Right femoral fracture (2) Cognitive decline (3) Diabetes mellitus (4) Hx of emotional problems (5) GERD without esophagitis (6) Hypothyroidism (7) Hyponatremia (8) Elbow fracture, right (9) Fall (10) Hypertension (11) Anemia due to acute blood loss (12) Fever (13) Iron deficiency (14) Constipation (15) Atrial fibrillation QUIN COFFEY DO Jun 10, 2019 08:25
[2019-06-10 08:30] VITALS: BP 123/70
[2019-06-10] MEDS: QUEtiapine 25 MG (SEROquel) TAB IMMEDIATE RELEASE PO SCH ×2 (08:47→20:46)
[2019-06-10] MEDS: AMIODARONE 200 MG (CORDARONE) TAB PO SCH (08:47)
[2019-06-10] MEDS: PANTOPRAZOLE 40 MG (PROTONIX) TAB PO SCH (08:47)
[2019-06-10] MEDS: ASPIRIN 81 MG CHEW (CHILDREN'S ASA) PO SCH (08:48)
[2019-06-10] MEDS: FUROSEMIDE 40 MG (LASIX) TAB PO SCH (08:48)
[2019-06-10] MEDS: KCL 20 MEQ TAB (K-DUR) PO SCH ×2 (08:48→20:45)
[2019-06-10] MEDS: meTOprolol TARTRATE 25 MG (LOPRESSOR) TABLET PO SCH ×2 (08:58→17:50)
[2019-06-10] MEDS: LACTULOSE SYRUP 10GM/15ML (ENULOSE) 30ML UDC PO SCH ×2 (09:04→20:45)
--- NOTE | 2019-06-10 09:04 | Physical Therapy Evaluation ---
PT Evaluation-General Medical Diagnosis Admission Date Jun 09, 2019 at 09:28 Medical Diagnosis: right femoral fracture; right elbow fracture Onset Date: Jun 09, 2019 Therapy Diagnosis Therapy Diagnosis: impaired mobility, strength, endurance Height/Weight Height (Feet): 5 Height (Inches): 8.00 Weight (Pounds): 235 Weight (Ounces): 0.5 Precautions Precautions/Isolations: Fall Prevention, Standard Precautions, Pressure Ulcer Weight Bear Status Non Weight Bearing also RUE NWB Referral Physician: María Mascorro DO Reason for Referral: Evaluation/Treatment Medical History Pertinent Medical History: DM, HTN Additional Medical History Past Medical History Surgeries: Abdominal, Orthopedic Cardiac: Atrial Fibrillation, Coronary Artery Disease, High Cholesterol, Hypertension Reproductive: No Sexually Transmitted Disease: No Musculoskeletal: Chronic Back Pain Endocrine: Diabetes, Non-Insulin dep Psychosocial: Anxiety, Depression Reviewed History: Yes Social History Current Living Status: Significant Other Entry Into Home: Level Entry Prior/Core FIM Prior Level of Function Therapy Code Descriptions/Definitions Functional [place] Measure: 0=Not Assessed/NA 4=Minimal Assistance 1=Total Assistance 5=Supervision or Setup 2=Maximal Assistance 6=Modified [place] 3=Moderate Assistance 7=Complete [place] Therapy Quality Codes: 6 Independent with activity with or without an assistive device 5 Patient requires set up or clean up by helper. Patient completes activity by themselves 4 Supervision or touching assist (CGA). [place] provide cues , steadying assist 3 The helper provides less than half the effort to complete the activity 2 The helper provides more than half the effort to complete the activity 1 Dependent. The helper does all the effort to complete an activity 7 Patient refused to complete or attempt activity 9 The patient did not perform the activity before the current illness or injury 88 Not attempted due to Medical conditions or safety concerns Functional Abilities and Goals: Independent: Patient completed the activities by him/herself, with or without an assistive device, with no assistance from a helper. Needed Some Help: Patient needed partial assistance from another person to complete activities. Dependent: A helper completed the activities for the patient. Unknown: Not Applicable: Bed Mobility: 6 Transfers (B,C,W/C) (FIM): 6 Gait: 6 Indoor Mobility (Ambulation): Independent Patient states he was using a single point cane all the time for ambulation and a rolling walker occasionally. PT Evaluation-Current Subjective Patient in bed pre tx, agrees to PT, has 10/10 pain in right leg and arm. Patient states he needs to have a BM and cannot sit on a bedside commode, he needs a bedpan. Bedpan placed under him and he has a BM, nurse aide assists with cleanup. Pt/Family Goals to be independent at home Objective Patient Orientation: Person, Situation Attachments: Oxygen ROM/Strength ROM Lower Extremities NT due to pain Strenght Lower Extremities NT Sensory Hearing: Functional Sensation Right Lower Extremit: Intact Sensation Left Lower Extremity: Intact Transfers Therapy Code Descriptions/Definitions Functional [place] Measure: 0=Not Assessed/NA 4=Minimal Assistance 1=Total Assistance 5=Supervision or Setup 2=Maximal Assistance 6=Modified [place] 3=Moderate Assistance 7=Complete [place] Therapy Quality Codes: 6 Independent with activity with or without an assistive device 5 Patient requires set up or clean up by helper. Patient completes activity by themselves 4 Supervision or touching assist (CGA). [place] provide cues , steadying assist 3 The helper provides less than half the effort to complete the activity 2 The helper provides more than half the effort to complete the activity 1 Dependent. The helper does all the effort to complete an activity 7 Patient refused to complete or attempt activity 9 The patient did not perform the activity before the current illness or injury 88 Not attempted due to Medical conditions or safety concerns Transfers (B, C, W/C) (FIM): 1 Scootin Rollin Roll Left to Right (QC): 1 Supine to/from Sit: 1 Sit to/from Stand: 1 bed t/f WC(FIM only if WC use): 1 Sit to Lying (QC): 1 Lying to Sitting/Side of Bed(Q: 1 Sit to Stand (QC): 1 Chair/[id number]-Mtxfp Xfer(QC): 1 Car Transfer (QC): 1 Patient is dependent for all bed mobility and transfers. He rolls several times for bedpan placement and to get it out and for cleaning and new sheets. He sit on the edge of the bed and then stand pivot transfer to recliner at bedside. Patient does not seem to be able to assist with his left arm or leg very much even with cues. When standing during the transfer he is not compliant with his weight bearing status and tries to take steps to the chair ineffectively. It is a dependent stand pivot transfer to recliner. Wheelchair Training Does the Pt Use a Wheelchair?: Yes Wheelchair (FIM): 1 Type of Wheelchair: Manual Stairs If not tested on admit;explain Patient is non-ambulatory at this time. Balance Sitting Static: Normal Sitting Dynamic: Fair Treatment seated BLE exercises x15 (AP, LAQ, hip flexion, hip abd/add) Assessment/Needs Patient has impaired mobility, strength, endurance, balance. He is dependent for bed mobility and transfers at this time. Patient in recliner post tx with nurse call, phone, tray, all needs met, has OT right after PT. Patient likely will not be able to ambulate for now until his weight bearing status changes. He cannot even use a platform walker due to RUE being NWB. Rehab Potential: Guarded PT Short Term Goals Short Term Goals Time Frame: Jun 17, 2019 Transfers (B,C,W/C) (FIM): 2 PT Media Relations Director Goals Fpc Goals PT Fpc Goals Time Frame: Jul 01, 2019 Transfers (B,C,W/C) (FIM): 4 Sit to Lying (QC): 3 Lying-Sitting on Side/Bed(QC): 3 Sit to Stand (QC): 3 Rollin Roll Left to Right (QC): 3 Chair/Vng-yv-Ponma Xfer(QC): 3 Car Transfer (QC): 3 Wheelchair (FIM): 6 Distance: 150' Wheelchair Level of Assist: 6 Wheel 50 feet with 2 turns (QC: 6 PT Plan Problem List Problem List: Activity Tolerance, Functional Strength, Safety, Balance, Gait, Transfer, Bed Mobility, ROM Treatment/Plan Treatment Plan: Continue Plan of Care Treatment Plan: Bed Mobility, Concurrent Therapy, Education, Functional Activity Tran, Functional Strength, Group Therapy, Gait, Safety, Therapeutic Exercise, Transfers Treatment Duration: Jul 01, 2019 Frequency: At least 5 of 7 days/Wk (IRF) Estimated Hrs Per Day: 1.5 hours per day Patient and/or Family Agrees t: Yes Safety Risks/Education Patient Education: Transfer Techniques, Reviewed Precautions, Correct Positioning, W/C Management, Safety Issues Teaching Recipient: Patient Teaching Methods: Demonstration, Discussion Response to Teaching: Reinforcement Needed Discharge Recommendations Plan Patient will perform bed mobility and transfer training, balance and endurance training, functional strengthening, gait training, and education, to improve functional mobility and independence at home. Therapy D/C Recommendations: Home w/ Family Support, Fpc (TCU/NH) Time/GCodes Time In: 0800 Time Out: 0900 Total Billed Treatment Time: 60 Total Billed Treatment 1 visit EVM 30' FA 30' WILLIAM KOROMA PT Jun 10, 2019 09:04
[2019-06-10] MEDS: SENNA W/DOCUSATE (SENOKOT S) TABLET PO SCH ×2 (09:05→20:46)
--- NOTE | 2019-06-10 09:09 | Occupational Therapy Eval ---
OT Evaluation-General/PLF Medical Diagnosis Admission Date Jun 09, 2019 at 09:28 Medical Diagnosis: right femoral fracture; right elbow fracture Onset Date: Jun 10, 2019 Therapy Diagnosis Therapy Diagnosis: impaired ADL and mobility Height/Weight Height (Feet): 5 Height (Inches): 8.00 Weight (Pounds): 235 Weight (Ounces): 0.5 Precautions Precautions/Isolations: Fall Prevention, Standard Precautions, Pressure Ulcer Safety Interventions: None Weight Bear Status Weight Bearing Restriction: Non Weight Bearing Location Restriction: R Marino ZAVALA Referral Physician: María Mascorro DO Referral Reason: Activity Tolerance, Self Care, Evaluation/Treatment, Strengthening/ROM Medical History Pertinent Medical History: Atrial Fib, DM, HTN Current History per H&P: "History of present illness: This is a 79-year-old white male known to me from prior admissions long ago whose primary care provider is Dr. 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 He did not require a transfusion while hospitalized at [facility]. He has not had a bowel movement for 5 days. Pain is currently controlled with oxycodone. Patient does not usually require oxygen or CPAP machine. His prior level of functioning was without assistive device and completely independent with ADLs" Reviewed History: Yes Social History Current Living Status: Significant Other Entry Into Home: Ramp, Level Entry ADL-Prior Level of Function Therapy Code Descriptions/Definitions Functional [place] Measure: 0=Not Assessed/NA 4=Minimal Assistance 1=Total Assistance 5=Supervision or Setup 2=Maximal Assistance 6=Modified [place] 3=Moderate Assistance 7=Complete [place] Therapy Quality Codes: 6 Independent with activity with or without an assistive device 5 Patient requires set up or clean up by helper. Patient completes activity by themselves 4 Supervision or touching assist (CGA). Wesley provide cues , steadying assist 3 The helper provides less than half the effort to complete the activity 2 The helper provides more than half the effort to complete the activity 1 Dependent. The helper does all the effort to complete an activity 7 Patient refused to complete or attempt activity 9 The patient did not perform the activity before the current illness or injury 88 Not attempted due to Medical conditions or safety concerns Functional Abilities and Goals: Independent: Patient completed the activities by him/herself, with or without an assistive device, with no assistance from a helper. Needed Some Help: Patient needed partial assistance from another person to complete activities. Dependent: A helper completed the activities for the patient. Unknown: Not Applicable: ADL PLOF Comments pt report indep with ADLS and functional mobility using SPC. pt stated he has urinals throughout house when needed to toilet secondary to frequent urges Self Care: Independent Functional Cognition: Independent DME/Equipment: Shower Drive Self: Yes OT Current Status Subjective pt sitting in recliner chair upon OT arrival in no appearnt distress. pt agreed to OT evaluation/ tx session pt reports 10/10 pain Rhip and Relbow. NSG is made aware. Mental Status/Objective Patient Orientation: Person, Place, Time, Situation Attachments: Oxygen (pt stated he did not wear O2 at home. currently on 1.5 L NC ) Current Glasses/Contacts: Yes (reading ) Hearing Aids: No Dentures/Partials: Yes (upper dentures ) Hand Dominance: Right Upper Extremity ROM left shoulder flex approx 120 degrees. pt stated he ROM is limited by arthritis. \\left elbow and wrist WFL \\R shoulder PROM WFL right elbow and forearm NT secondary to casting. Upper Extremity Coordination decrease opposition corie digits. Upper Extremity Sensation WNL to light touch Upper Extremity Strength left UE 2+/5 MMT Edema: right hand, right LE ADL-Treatment Eating (FIM): 5 (required set up. ) Eating (QC): 5 Grooming (FIM): 3 (pt education on one handed techniqes. reuqired assist with washing hands and apply deodorant) Oral Hygiene (QC): 2 Bathing (FIM): 2 (pt demo ability to wash 2/10 body parts. pt education on LHS. pt did not attenmpt use this date. ) Bathing Location: Chest, Abdomen Shower/Bathe Self (QC): 1 Upper Body Dressing (FIM): 1 (jacket. pt required assist with each step. pt educaiton on one handed dressing techniques. futher education will be required ) Upper Body Dressing (QC): 1 Lower Body Dressing (FIM): 1 (corie socks. pt dep. pt edudation on use of reahcer. further education will be required ) Lower Body Dressing (QC): 1 On/Off Footwear (QC): 1 Toileting (FIM): 1 (required assist with each step.) Toileting Hygiene (QC): 1 Transfers (B, C, W/C) (FIM): 1 (X 2 person assist ) Toilet/Commode Transfer (FIM): 1 Toilet Transfer (QC): 1 Shower Transfer (FIM): 0 (NT secondary to safety) intro of AE intro to pt. further education will be required. pt did not attempt use of AE. noted pt began to have flat affect and appeard "sleepy" keeping eyes close and opening for 1-2 seconds when asked questions. vitals taken BP: 93/54 HR 83BPM; O2 98%. NSG is made aware. pt left in NSG care post OT session seated in recliner chair, call light within reach, pt verbalized understanding of how to use call light Education OT Patient Education: Energy conservation, Modified ADL techniques, Progress toward Goal/Update tx plan, Purpose of tx/functional activities, Reviewed precautions, Rehab process, Safety issues, Transfer techniques, Use of adapted equipment Teaching Recipient: Patient Teaching Methods: Demonstration, Discussion Response to Teaching: Reinforcement Needed OT Short Term Goals Short Term Goals Eating(FIM): 6 Grooming(FIM): 4 Bathing(FIM): 3 Upper Body Dressing(FIM): 3 Lower Body Dressing(FIM): 3 Toileting(FIM): 3 Transfers (B,C,W/C) (FIM): 3 Toilet/Commode Transfer(FIM): 3 Shower Transfer(FIM): 3 1=Demonstrate adherence to instructed precautions during ADL tasks. 2=Patient will verbalize/demonstrate understanding of assistive devices/modifications for ADL. 3=Patient will improve strength/tolerance for activity to enable patient to perform ADL's. OT Cms Expert Goals Mcc Goals Time Frame: Jul 08, 2019 Eating (FIM): 6 Eating (QC): 6 Groomin Oral Hygiene (QC): 6 Bathing(FIM): 5 Bathing Location: L Arm, R Arm, L Upper Leg, R Upper Leg, L Lower Leg (including foot), R Lower Leg (including foot), Chest, Abdomen, Buttocks, Perin eal Area Shower/Bathe Self (QC): 5 Upper Body Dressing(FIM): 6 Upper Body Dressing (QC): 6 Lower Body Dressing(FIM): 6 Lower Body Dressing (QC): 5 On/Off Footwear (QC): 5 Toileting(FIM): 5 Toileting Hygiene (QC): 5 Transfers (B,C,W/C) (FIM): 5 Toilet/Commode Transfer(FIM): 5 Toilet/Commode Transfer (QC): 4 Shower Transfer(FIM): 5 Additional Goals: 1-Demonstrate ADL Tasks, 2-Verbalize Understanding, 3- ImproveStrength/Tran 1=Demonstrate adherence to instructed precautions during ADL tasks. 2=Patient will verbalize/demonstrate understanding of assistive devices/modifications for ADL. 3=Patient will improve strength/tolerance for activity to enable patient to perform ADL's. OT Education/Plan Problem List/Assessment Assessment: Decreased Activ Tolerance, Decreased Safety Aware, Decreased UE Strength, Dependent Transfers, Impaired Bed Mobility, Impaired Coordination, Impaired Funct Balance, Impaired I ADL's, Impaired Self-Care Skills, Restricted Funct UE ROM pt presents with functional limitations affecting areas of ADLs and functional transfers with then above mention deficits. pt would benefit from skilled OT services to increase independence with ADLS and functional transfers. noted pt h as decrease motivation to participate in therapy services and required cueing for motivation. Discharge Recommendations Plan/Recommendations: Continue POC Barriers to Progress decrease motivation Treatment Plan/Plan of Care Treatment,Training & Education: Yes Patient would benefit from OT for education, treatment and training to promote independence in ADL's, mobility, safety and/or upper extremity function for ADL's. Plan of Care: ADL Retraining, Caregiver Training, Functional Mobility, Group Exercise/Act as Ind, UE Funct Exercise/Act, W/C Management Training Treatment Duration: Jul 08, 2019 Frequency: At least 5 of 7 days/Wk (IRF) Estimated Hrs Per Day: 1 hour per day (60-90 minutes per day) Agreement: Yes Rehab Potential: Fair Time/GCodes Start Time: 09:00 Stop Time: 10:00 Billed Treatment Time EVM 15 minutes ADL 45 minutes, 3 units RAPHAEL VILLAFUERTE OT Jun 10, 2019 09:09
[2019-06-10 10:40] VITALS: BP 94/48
--- NOTE | 2019-06-10 10:40 | NUR ---
MEDICATED WITH OXY FOR RIGHT HIP PAIN. RIGHT HIP HAD A LARGE AMOUNT OF SEROSANGUINOUS DRAINAGE. O2 ON AT 1.5L. HAS BEEN UP IN CHAIR. MAX ASSIST OF 2 NURSES TO GET BACK TO BED.
--- NOTE | 2019-06-10 11:20 | NUR ---
Pastoral care visit.
--- NOTE | 2019-06-10 14:25 | Therapy Group Daily Note ---
Therapy Daily Group Note Patient Education Topic Exercises (benefit of exercises, how to modify various exercises for home) Exercises LE Seated Exercise, UE Exercise Session Ratio (pt:therapist): 4:1 Goal of Session: UE/LE Strengthing Goal Met for this Session: Yes Pt Benefit of Group: Increased Functional Strength, Socialization Other/Notes Pt. participated in group PT OT session . Pt. required max to mod assist of 2 for TRF in out bed , in out w/c. Pts introduced selves and and shared their 1st car and their memories of it. Pts. were educated on the benefits of exercise, as well as ways to modify exercises and add resistance at home etc. Pt. to room after and in bed with much assist. Call hui at hand. Start Time: 13:00 Stop Time: 14:10 Total Billed Treatment Time: 70 Total Billed Treatment 1,GRP GOLDIE GABRIEL SHEET ROLLER OPERATOR Jun 10, 2019 14:25
--- NOTE | 2019-06-10 15:07 | NUR ---
REGULATORY ATTORNEY met with patient to complete initial assessment. Patient was alert and oriented and agreeable to assessment. Patient admitted to ARU from [place] with right femoral fracture following a fall. Prior to hospitalization patient rented a room from a friend, Teresa who also resides there. 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 Prior to fall, patient reports independence with use of quad cane. He was independent with ADLs and continued to drive, if assistance is needed Teresa was available to help. Patient also possesses a walker and a walk in shower. A handle has been installed on the wall near his bed to assist with getting in and out of bed. Patient presents currently with 2 L of oxygen; however, does not utilizes at home. Primary contact identified as friend, Teresa at [phone] and secondary contact as Teresa's son, Ottoniel of [place] at [phone]. PCP identified as Meghan Bhat. Insurance verified as Medicare and [employer] with prescription coverage and preferred pharmacy as [facility]. REGULATORY ATTORNEY reviewed typical ARU length of stay and weekly team conferences, he expressed no concerns or questions at this time. REGULATORY ATTORNEY will continue to follow
--- NOTE | 2019-06-10 15:36 | ST Cognitive Linguistic Eval ---
Speech Evaluation-General Medical Diagnosis right femoral fracture; right elbow fracture Onset Date: Jun 09, 2019 Therapy Diagnosis Therapy Diagnosis: cognitive-communication Precautions Precautions: Fall Precautions/Isolations: Fall Prevention, Standard Precautions Referral Referring Physician: Dr. Mascorro Reason for Referral: Evaluation/Treatment Medical History Pertinent Medical History: Atrial Fib, DM, HTN HTN, atrial fib, DM Current History right femoral and elbow fracture Reviewed History: Yes Social History Home: Single Level Current Living Status: Significant Other Speech PLF-Current Status Prior Level of Function patient was at independence Subjective patient was alert and cooperative during today's session Language Eval: Auditory Comprehends Simple Yes/No Ques: Functional Follows 1-Step Commands: Functional Follows Complex Directions: Mild Follows General Conversations: Mild Language Eval: Verbal Language Completes Spontaneous Greeting: Functional Produces Auto, Serial Info: Functional Imitates Simple Words/Phrases: Functional Word Finding: Functional Requests Basic Needs: Functional States Basic Personal Info: Functional Expresses Complex Ideas: Mild Cognitive Patient Orientation patient was oriented to day, year, and place Objective Cognitive Domain Attention: Mild Memory: Moderate Problem Solving: Moderate Executive Functions: Moderate Visuospatial Skills: WNL Composite Severity Rating: Moderate Clock Drawing Severity Rating: WNL Score: 19/30 Range: dementia or moderate-severe cognitive-communication impairment Objective Formal/Standardized Tests [facility] Mental Status ([facility]) Examination Results Patient scored 19/30 on the UMS indicating a moderate cognitive impairment. Patient had most difficulty with problem solving and memory tasks Oral Motor/Speech Production Oral motor and speech were WNL Impression Patient demonstrates moderate cognitive-communication deficits Communication/Social Cognition Comprehension: 5 Expression: 5 Social Interaction: 7 Problem Solvin Memory: 5 Speech Patient Assess Expression of Ideas/Wants: Expression (4) Understanding Verbal Content: Understands (4) Brief Interview-Mental Status: Yes Repetition of Three Words: Three (3) Temporal Orientation: Year: Correct (3) Temporal Orientation: Month: Accurate within 5 days(2) Temporal Orientation: Day: Correct (1) Recall : Wear to say "Sock": Yes, no cue required (2) Recall : Color: Yes, after cueing (1) Recall : Bed: Yes,after cueing (1) Add-Enter 99 if pt cannot comp: 99 Memory/Recall Ability: That he or she is in a hsp/hsp unit Speech Short Term Goals Short Term Goals Short Term Goals Patient will demonstrate simple problem solving and memory with 80% accuracy when given minimal to moderate cues Speech Care Home Goals Medical Staff Services Coordinator Goals Patient will improve cognitive-communication necessary for safety and daily living tasks with minimal assist Speech-Plan Patient/Family Goals Patient/Family Goals: Patient plans to return home Treatment Plan Speech Therapy Treatment Plan: Continue Plan of Care Patient presents with moderate cognitive-communication deficits and would benefit from skilled ST services Treatment Duration: Jun 24, 2019 Frequency: 5 times per week Estimated Hrs Per Day: .5 hour per day Rehab Potential: Fair Barriers to Learning: cognitive-communication deficits Pt/Family Agrees to Plan: Yes Safety Risks/Education Teaching Recipient: Patient Teaching Methods: Discussion Response to Teaching: Verbalize Understanding Education Topics Provided: ST services Time Speech Therapy Time In: 10:45 Speech Therapy Time Out: 11:00 Total Billed Time: 15 Billed Treatment Time 1, DORIAN Kennedy Jun 10, 2019 15:36
[2019-06-10 16:07] VITALS: BP 98/59
--- NOTE | 2019-06-10 16:07 | Individualized Plan of Care ---
Individualized Plan of Care Rehab Nursing IPOC Order Admission Date Jun 09, 2019 at 09:28 Current Orders Orders Admission Order(Inpt,Obs,Sdc) (06/07/19 15:19) Vital Signs: Per Unit Policy ( 08,16,00 (06/07/19 15:19) Tallier-Inpt Rehab Con (06/07/19 15:19) Rehab Nursing Orders-Ipoc (06/07/19 15:19) Physical Therapy Rehab Orders (06/07/19 15:19) Occupational Therapy Rehab Ord (06/07/19 15:19) Speech Therapy Rehab Orders (06/07/19 15:19) Intake & Output 06,14,22 (06/07/19 15:19) Precautions (Aru) (06/07/19 15:19) Weekly Weight (Lbs) WEEK (06/07/19 15:19) Rehab-Intensity Of Therapy (06/07/19 15:19) Initiate Admission Nursing Pro .admission (06/07/19 15:19) Admission Arrival Bed Request (06/09/19 09:28) Bisacodyl Suppository (Dulcolax Supposit (06/09/19 10:30) Cyclobenzaprine Tablet (Flexeril Tablet) (06/09/19 10:30) Melatonin Tablet (Melatonin Tablet) (06/09/19 21:00) Magnesium Hydroxide Oral Susp (Mom Oral (06/09/19 10:30) Oxycodone Immediate Rel Tablet (Oxyir Ta (06/09/19 10:30) Senna S Tablet (Senokot S Tablet) (06/09/19 21:00) Amiodarone Tablet (Cordarone Tablet) (06/10/19 09:00) Aspirin Chewable Tablet (Baby Aspirin Ch (06/10/19 09:00) Furosemide Tablet (Lasix Tablet) (06/10/19 09:00) Insulin Determir (Per Unit) (Levemir (Pe (06/10/19 09:00) Metoprolol Tartrate (Ir) Tab (Lopressor (06/09/19 17:00) Pantoprazole Tablet (Protonix Tablet) (06/10/19 09:00) Potassium Chloride (Tablet) (K Dur Table (06/09/19 21:00) Quetiapine Immediate Release (Seroquel I (06/09/19 21:00) Insulin Aspart (Novolog) (Novolog (Charg (06/09/19 11:00) Cbc With Automated Diff (06/09/19 10:31) Comprehensive Metabolic Panel (06/09/19 10:31) Accucheck Achs ACHS (06/09/19 11:12) Cho 75g/M 0snack (21-2400 Jarvis) (06/09/19 Lunch) Levothyroxine Tablet (Synthroid Tablet) (06/10/19 06:30) Levothyroxine Tablet (Synthroid Tablet) (06/10/19 06:30) Ekg Tracing (06/09/19 13:35) Lactulose Oral Solution (Enulose Oral So (06/09/19 15:30) Lactulose Oral Solution (Enulose Oral So (06/09/19 21:00) Polyethylene Glycol Powder Pkt (Miralax (06/09/19 15:30) Polyethylene Glycol Powder Pkt (Miralax (06/09/19 21:00) Bisacodyl Suppository (Dulcolax Supposit (06/09/19 15:30) Bisacodyl Suppository (Dulcolax Supposit (06/09/19 15:30) Iron Sucrose Injection (Venofer Injectio (06/09/19 15:45) Iron Sucrose Injection (Venofer Injectio (06/11/19 09:00) Iron Test (Fe) (06/09/19 15:31) Acetaminophen Tablet (Tylenol Tablet) (06/09/19 18:30) Ibuprofen Tablet (Motrin Tablet) (06/09/19 18:30) Alprazolam Tablet (Xanax Tablet) (06/09/19 18:30) Calcium Carbonate Chew Tablet (Antacid C (06/09/19 18:30) Diphenhydramine Tablet (Benadryl Tablet) (06/09/19 18:30) Docusate Sodium Capsule (Colace Capsule) (06/09/19 18:30) Melatonin Tablet (Melatonin Tablet) (06/09/19 18:30) Ondansetron Oral Dissolve Tab (Zofran (06/09/19 18:30) Insulin Determir (Per Unit) (Levemir (Pe (06/10/19 09:00) Echo W Doppler/Color Flow (06/10/19 13:35) Patient Visit (06/10/19 ) Therapeutic, Group (06/10/19 ) Patient Visit (06/10/19 ) Pt Eval Moderate Complexity (06/10/19 ) Functional Activities, Ea 15 (06/10/19 ) Rehab Nursing Orders: Ongoing Assess. of Cognitive Status, Ongoing Assess. of Function Status, Bladder Management, Bladder Scan, Bladder Training, Bowel Management, Bowel Training, Disease Management & Educaiton, DVT Prophylaxis, Fall Prevention, Fluid/Electrolyte/Nutrition Mgmt, Infection Prevention, Medication Management & Education, Management of Risks & Complications, Management of Skin Intergrity, Nutrition Management, Pain Management, Patient/Family Support, Safety Management, Weight Bearing Precaution, Wound Management Intensity of Therapy to be met Patient to be seen: Min.3h per day/5 of 7d PT IPOC Problem List: Activity Tolerance, Functional Strength, Safety, Balance, Gait, Transfer, Bed Mobility, ROM Treatment Plan: Continue Plan of Care Bed Mobility, Concurrent Therapy, Education, Functional Activity Tran, Functional Strength, Group Therapy, Gait, Safety, Therapeutic Exercise, Transfers Treatment Duration: Jul 01, 2019 Frequency: At least 5 of 7 days/Wk (IRF) Estimated Hrs Per Day: 1.5 hours per day OT IPOC Problems: Decreased Activ Tolerance, Decreased Safety Aware, Decreased UE Strength, Dependent Transfers, Impaired Bed Mobility, Impaired Coordination, Impaired Funct Balance, Impaired I ADL's, Impaired Self-Care Skills, Restricted Funct UE ROM OT Treatment, Training and Edu: Yes OT Problems pt presents with functional limitations affecting areas of ADLs and functional transfers with then above mention deficits. pt would benefit from skilled OT services to increase independence with ADLS and functional transfers. noted pt has decrease motivation to participate in therapy services and required cueing for motivation. Plan of Care: ADL Retraining, Caregiver Training, Functional Mobility, Group Exercise/Act as Ind, UE Funct Exercise/Act, W/C Management Training Treatment Duration: Jul 08, 2019 Frequency: At least 5 of 7 days/Wk (IRF) Estimated Hrs Per Day: 1 hour per day (60-90 minutes per day) ST IPOC Speech Therapy Treatment Plan: Continue Plan of Care Treatment Duration: Jun 24, 2019 Frequency: 5 times per week Estimated Hrs Per Day: .5 hour per day Tallier/Case Mgmt Tallier/Case Managemen: Discharge Planning Dietitian/Supervisor Filtration Dietitian/Supervisor Filtration to monitor nutritional status and make changes and/or recommendations as needed and work with speech pathology on dietary upgrades as the occur. Physician IPOC Medical Issues being managed closely and that require the 24 hour availability of a physician: High risk for falls and decompensation due to anemia and AF hx with close monitoring of right elbow drainage from incision site and pain control and management of cognitive deficit noted SLUMS. Medical Issues: Bowel/Bladder Function, DVT Prophylaxis, Falls Precautions, Fluid/Electrolyte/Nutrition Balance, Infection Protection, Pain Management, Weight Bearing Precautions Brief Synthesis of Preadmission Screen, Post-Admission Evaluation, and Therapy Evaluations: PT will focus on ambulation with walker and fall risk prevention OT will focus on regaining ADL's ST will focus on cognition improvement Medical Prognosis: Good Anticipated Length of Stay: 14 days QUIN COFFEY DO Jun 10, 2019 16:06
[2019-06-10] MEDS ORDERED: CATHETER FLUSH 10 ML SYR IV PRN (19:45)
[2019-06-10] MEDS: POLYETHYLENE GLYCOL 17 GM (MIRALAX) PACK PO SCH (20:45)
[2019-06-10] MEDS: MELATONIN 3 MG TABLET PO SCH (20:45)
[2019-06-10] MEDS: CATHETER FLUSH 10 ML SYR IV SCH (20:50)
--- NOTE | 2019-06-10 21:08 | Cardiology Progress Note ---
Cardiology SOAP Progress Note Subjective: No cardiac complaints. Objective: I&O/Vital Signs 06/10/19 06/10/19 06/10/19 10:40 16:07 17:03 Temp 97.4 Pulse 83 Resp 14 B/P (MAP) 94/48 (63) 98/59 (72) Pulse Ox 94 O2 Delivery Nasal Cannula Nasal Cannula O2 Flow Rate 2.00 1.50 06/10/19 00:00 Intake Total 525 ml Output Total 475 ml Balance 50 ml Weight (Pounds): 235 Weight (Ounces): 0.5 Weight (Calculated Kilograms): [id number] Constitutional: appears stated age, AAO x 3; No apparent distress; well- developed, well-nourished Respiratory: No accessory muscle use, No respiratory distress, No chest tender, No chest expansion is symmetric; chest is bilaterally symmetric; No lungs clear to percussion; lungs clear to auscultation; No crackles, No rhonchi, No rales, No stridor, No wheezing, No pleural rub, No other Cardiovascular: regular rate-rhythm; No irregularly irregular, No extra beats, No parasternal heave is noted, No JVD, No edema, No bradycardia, No tachycardia, No point of maximal impulse, No cardiac thrills are palpable; S1 and S2; No gallop/S3, No gallop/S4, No diastolic murmur, No systolic murmur, No friction rub, No click, No other Gastrointestional: No tender, No soft, No round, No distended, No pulsatile mass, No organomegaly, No guarding, No rebound, No tenderness, No hernia, No mass, No audible bowel sounds, No abnormal bowel sounds, No abdominal bruits, No spleenomegaly, No other Extremities: No normal range of motion, No non-tender, No normal inspection, No pedal edema, No calf tenderness, No normal capillary refill, No pelvis stable, No calf tenderness, No inflammation, No pedal edema, No slow capillary refill, No swelling, No other, No abrasion, No clubbing, No cyanosis, No ecchymosis, No laceration, No no lower extremity edema bilateral, No significant edema, No tenderness, No wound Neurologic/Psychiatric: no motor/sensory deficits, alert, normal mood/affect, oriented x 3, power is 5/5 both on sides Skin: No normal color, No warm/dry, No cyanosis, No cool, No diaphoresis, No damp, No ecchymosis, No jaundice, No mottled, No pallor, No rash, No tattoos/piercings, No ulcerations, No rash on exposed areas, No ulcerations on exposed areas, No other Results/Procedures: Labs Laboratory Tests 06/10/19 05:18: Glucometer 139H 06/10/19 11:08: Glucometer 167H 06/10/19 16:05: Glucometer 218H A/P: Assessment/Dx: Mechanical fall, status post right hip surgery, Hypertension, On amiodarone, Diabetes Plan: Inpatient rehabilitation - post hip surgery. DVT prophylaxis. HTN - continue BP meds. Need to get old records. EKG, Echo. EKG 06/09/2019 shows sinus tachycardia. Echo 05/2019 shows LVH, Normal LVEF, DD 1, LAE. Need to find out why the patient is on amiodarone. DM Thank you for your consultation. Please call me if you have any questions. Roxie Regalado MD, FACP, FACC, FSCAI, FHRS, CCDS Interventional Cardiology Cardiac Electrophysiology Vascular Medicine and Endovascular Interventions Bryon REGALADO MD Jun 10, 2019 21:08
[2019-06-11 06:10] VITALS: BP 142/71
[2019-06-11] MEDS: inSUlin ASPART (NovoLOG) 1 UNIT/0.01 ML (CHARGE PER UNIT) SC SCH ×4 (06:27→21:41)
[2019-06-11] MEDS: LEVOTHYROXINE 25 MCG (LEVOTHROID) TAB PO SCH (06:31)
[2019-06-11] MEDS: LEVOTHYROXINE 112 MCG (LEVOTHROID) TAB PO SCH (06:32)
[2019-06-11] MEDS: CATHETER FLUSH 10 ML SYR IV SCH ×3 (06:33→22:01)
[2019-06-11] MEDS: meTOprolol TARTRATE 25 MG (LOPRESSOR) TABLET PO SCH ×2 (06:46→17:00)
[2019-06-11 08:58] VITALS: BP 122/67
[2019-06-11] MEDS: LACTULOSE SYRUP 10GM/15ML (ENULOSE) 30ML UDC PO SCH ×2 (09:00→21:40)
[2019-06-11] MEDS: SENNA W/DOCUSATE (SENOKOT S) TABLET PO SCH ×2 (09:00→22:01)
--- NOTE | 2019-06-11 09:02 | PM&R Progress Note ---
Subjective HPI/CC On Admission Date Seen by Provider: Jun 11, 2019 Time Seen by Provider: 08:30 Chief complaint: Right hip fracture and right elbow fracture in need of inpatient rehab to return home History of present illness: This is a 79-year-old white male known to me from prior admissions long ago whose primary care provider is Dr. Bhat but who does not see a medical billing specialist regularly who has a history of atrial fibrillation, diabetes mellitus and falls in the past who presented to inpatient rehab after discharge from [facility] after suffering a right femoral fracture and right elbow fracture which required surgery for repair after a fall sustained at home when he was using his leaf blower on 06/04/2019. He did not require a transfusion while hospitalized at [facility]. He has not had a bowel movement for 5 days. Pain is currently controlled with oxycodone. Patient does not usually require oxygen or CPAP machine. His prior level of functioning was without assistive device and completely independent with ADLs. I will consult Dr Regalado for Cardiology management. Subjective/Events-last exam A lot of drainage in the right elbow, multiple dressing changes have been required KUB will be checked for obstruction since he is having watery brown stool Maintain on room air, off oxygen now On fluid restriction due to sodium level of 133 and it was very low at [place] Overall feels much better and he is ready to work hard at therapy Checked meds and labs Reviewed therapy notes Conferred with RN After rounds KUB revealed ileus versus partial bowel obstruction so I placed him NPO and consulted Dr Abdullahi and started gentle IVF Review of Systems General: Fatigue Musculoskeletal: arm pain, leg pain Objective Exam Vital Signs Vital Signs Date Time Temp Pulse Resp B/P (MAP) Pulse Ox O2 Delivery O2 Flow Rate FiO2 06/11/19 16:54 98.0 81 16 110/58 (75) 93 Nasal Cannula 2.00 Capillary Refill : Less Than 3 Seconds General Appearance: No Apparent Distress, WD/WN, Chronically ill, Obese HEENT: PERRL/EOMI, Normal ENT Inspection, Pharynx Normal, Moist Mucous Membranes Neck: Full Range of Motion, Normal Inspection, Non Tender, Supple Respiratory: Chest Non Tender, Lungs Clear, Normal Breath Sounds, No Accessory Muscle Use, No Respiratory Distress Cardiovascular: Regular Rate, Rhythm, No Edema, No Gallop, No JVD, No Murmur Gastrointestinal: Normal Bowel Sounds, No Organomegaly, No Pulsatile Mass, Non Tender, Soft Back: Normal Inspection, No CVA Tenderness, No Vertebral Tenderness Extremity: Normal Capillary Refill, Normal Inspection, Normal Range of Motion (except right arm in sling and dressing and right leg due to hip pain), Non Tender, No Calf Tenderness, No Pedal Edema Neurologic/Psychiatric: Alert, Oriented x3, No Motor/Sensory Deficits, Normal Mood/Affect Skin: Normal Color, Warm/Dry Lymphatic: No Adenopathy Results/Procedures Lab Patient resulted labs reviewed. FIM Transfers Therapy Code Descriptions/Definitions Functional [place] Measure: 0=Not Assessed/NA 4=Minimal Assistance 1=Total Assistance 5=Supervision or Setup 2=Maximal Assistance 6=Modified [place] 3=Moderate Assistance 7=Complete [place] Therapy Quality Codes: 6 Independent with activity with or without an assistive device 5 Patient requires set up or clean up by helper. Patient completes activity by themselves 4 Supervision or touching assist (CGA). [place] provide cues , steadying assist 3 The helper provides less than half the effort to complete the activity 2 The helper provides more than half the effort to complete the activity 1 Dependent. The helper does all the effort to complete an activity 7 Patient refused to complete or attempt activity 9 The patient did not perform the activity before the current illness or injury 88 Not attempted due to Medical conditions or safety concerns Transfers (B, C, W/C) (FIM): 1 (X 2 person assist ) Scootin Rollin Roll Left to Right (QC): 1 Supine to/from Sit: 1 Sit to/from Stand: 1 Sit to Lying (QC): 1 Sit to Stand (QC): 1 Chair/Hrq-ct-Ojohb Xfer(QC): 1 Bed to/from Chair: 1 Car Transfer (QC): 1 Wheelchair Training Does the Pt Use a Wheelchair?: Yes Wheelchair (FIM): 1 Type of Wheelchair: Manual Mental Status/Objective Comprehension: 5 Expression: 5 Social Interaction: 7 Problem Solvin Memory: 5 ADL-Treatment Feedin (required set up. ) Eating (QC): 5 Groomin (pt education on one handed techniqes. reuqired assist with washing hands and apply deodorant) Oral Hygiene (QC): 2 Bathin (pt demo ability to wash 2/10 body parts. pt education on LHS. pt did not attenmpt use this date. ) Bathing Location: Chest, Abdomen Shower/Bathe Self (QC): 1 Upper Extremity Dressin (jacket. pt required assist with each step. pt educaiton on one handed dressing techniques. futher education will be required ) Upper Body Dressing (QC): 1 Lower Extremity Dressin (corie socks. pt dep. pt edudation on use of reahcer. further education will be required ) Lower Body Dressing (QC): 1 On/Off Footwear (QC): 1 Toiletin (required assist with each step.) Toileting Hygiene (QC): 1 Toilet/Commode Transfer: 1 Toilet Transfer (QC): 1 Shower: 0 (NT secondary to safety) Assessment/Plan Assessment and Plan Assess & Plan/Chief Complaint Assessment: Status post right femoral fracture on 06/04/2019 Right elbow fracture status post repair 06/04/2019 History of atrial fibrillation on amiodarone Multiple falls in the past Emotional problems Hypothyroidism GERD Hypertension Diabetes mellitus insulin requiring line hyperlipidemia Anemia from acute blood loss Iron deficiency Hyponatremia Low albumin Cognitive decline SLUMS Ileus versus partial bowel obstruction? Consulting Dr Abdullahi and placing NPO and starting gentle IVF 06/12/19 1330 Plan: Pain control Constipation resolution Home meds Monitor labs IV iron infusions Fall risk prevention Inpatient rehab protocols Appreciate Dr Abdullahi consultation (1) Right femoral fracture (2) Cognitive decline (3) Diabetes mellitus (4) Hx of emotional problems (5) GERD without esophagitis (6) Hypothyroidism (7) Hyponatremia (8) Elbow fracture, right (9) Fall (10) Hypertension (11) Anemia due to acute blood loss (12) Fever (13) Iron deficiency (14) Constipation (15) Atrial fibrillation QUIN COFFEY DO Jun 11, 2019 09:02
[2019-06-11] MEDS: PANTOPRAZOLE 40 MG (PROTONIX) TAB PO SCH (09:03)
[2019-06-11] MEDS: FUROSEMIDE 40 MG (LASIX) TAB PO SCH (09:03)
[2019-06-11] MEDS: AMIODARONE 200 MG (CORDARONE) TAB PO SCH (09:03)
[2019-06-11] MEDS: ASPIRIN 81 MG CHEW (CHILDREN'S ASA) PO SCH (09:03)
[2019-06-11] MEDS: KCL 20 MEQ TAB (K-DUR) PO SCH ×2 (09:04→22:00)
[2019-06-11] MEDS: IRON SUCROSE 200 MG/10 ML (VENOFER) VIAL IV SCH (09:04)
[2019-06-11] MEDS: QUEtiapine 25 MG (SEROquel) TAB IMMEDIATE RELEASE PO SCH ×2 (09:06→21:59)
--- NOTE | 2019-06-11 12:14 | Occupational Ther Daily Note ---
OT Current Status-Daily Note Subjective pt laying in bed upon OT/ PT arrival. pt agreed to TX session. pt reports 10/10 pain in RUE/ RLE. Mental Status/Objective Therapy Code Descriptions/Definitions Functional [place] Measure: 0=Not Assessed/NA 4=Minimal Assistance 1=Total Assistance 5=Supervision or Setup 2=Maximal Assistance 6=Modified [place] 3=Moderate Assistance 7=Complete [place] ADL-Treatment Therapy Code Descriptions/Definitions Functional [place] Measure: 0=Not Assessed/NA 4=Minimal Assistance 1=Total Assistance 5=Supervision or Setup 2=Maximal Assistance 6=Modified [place] 3=Moderate Assistance 7=Complete [place] Therapy Quality Codes: 6 Independent with activity with or without an assistive device 5 Patient requires set up or clean up by helper. Patient completes activity by themselves 4 Supervision or touching assist (CGA). [place] provide cues , steadying assist 3 The helper provides less than half the effort to complete the activity 2 The helper provides more than half the effort to complete the activity 1 Dependent. The helper does all the effort to complete an activity 7 Patient refused to complete or attempt activity 9 The patient did not perform the activity before the current illness or injury 88 Not attempted due to Medical conditions or safety concerns Upper Body (FIM): 2 (demo abiltiy to thread Left arm. button up shirt ) Lower Body Dressing (FIM): 1 (pants, corie socks. reuqired assist with each step.) Transfers (B, C, W/C) (FIM): 1 (2 person assist. required hevay cuing for techniques/ positioning ) Other Treatment Co- treatment with PT secondary to complexity of pt deficits requiring skilled o f both disciplines. OT focus on ADL task while OT focus on seated balance. pt required MAX A to perform supine to sit. pt required MIN-MOD A to maintain static seated balance during ADLs sitting EOB. pt transfer from bed to chair TA X 2 person assist. PT focus on i gross movement/ WB static while OT focused on proper hand positioning/ sequencing through transfers. pt education on self propelling w/c using left UE/ LE. noted pt required MOD A. pt then transported to TX gym. pt education on proper methods to perform sit to stand. pt perform 3 sit to stands with MAX A and maintain static standing for appro 30 seconds each time with heavy cuing for WB status. pt education on importance of keeping WB status. pt verbalized understanding but still required cuing during task. pt education on use of SB for functional transfer with demo. SB not attempted this date secondary to pt fatigue level and increased pain. pt education on UE ex. pt perform corie shoulder flex to approx 80 degrees 5X3 and 5X3 shoulder shrugs to increase ROM for daily use. pt transported back to room and transfer from w/c to recliner chair TA X2 person assist. call light within reach, all needs met. PT focused on bed mobility, transfers, positioning during dressing, standing, LE exercise, and wheelchair mobility. While OT focused on ADL tasks of dressing, assist with transfers, proper hand placement/sequencing, and UE positioning and safety during activity. Education OT Patient Education: Correct positioning, Energy conservation, Modified ADL techniques, Progress toward Goal/Update tx plan, Purpose of tx/functional activities, Safety issues, Transfer techniques, Use of adapted equipment, W/C management Teaching Recipient: Patient, Family Teaching Methods: Demonstration, Discussion Response to Teaching: Verbalize Understanding, Return Demonstration OT Short Term Goals Short Term Goals Eating(FIM): 6 Grooming(FIM): 4 Bathing(FIM): 3 Upper Body Dressing(FIM): 3 Lower Body Dressing(FIM): 3 Toileting(FIM): 3 Transfers (B,C,W/C) (FIM): 3 Toilet/Commode Transfer(FIM): 3 Shower Transfer(FIM): 3 1=Demonstrate adherence to instructed precautions during ADL tasks. 2=Patient will verbalize/demonstrate understanding of assistive devices/modifications for ADL. 3=Patient will improve strength/tolerance for activity to enable patient to perform ADL's. OT Pants Cutter Goals Pants Cutter Goals Time Frame: Jul 08, 2019 Eating (FIM): 6 Eating (QC): 6 Groomin Oral Hygiene (QC): 6 Bathing(FIM): 5 Bathing Location: L Arm, R Arm, L Upper Leg, R Upper Leg, L Lower Leg (including foot), R Lower Leg (including foot), Chest, Abdomen, Buttocks, Perineal Area Shower/Bathe Self (QC): 5 Upper Body Dressing(FIM): 6 Upper Body Dressing (QC): 6 Lower Body Dressing(FIM): 6 Lower Body Dressing (QC): 5 On/Off Footwear (QC): 5 Toileting(FIM): 5 Toileting Hygiene (QC): 5 Transfers (B,C,W/C) (FIM): 5 Toilet/Commode Transfer(FIM): 5 Toilet/Commode Transfer (QC): 4 Shower Transfer(FIM): 5 Additional Goals: 1-Demonstrate ADL Tasks, 2-Verbalize Understanding, 3-ImproveStrength/Tran 1=Demonstrate adherence to instructed precautions during ADL tasks. 2=Patient will verbalize/demonstrate understanding of assistive devices/modifications for ADL. 3=Patient will improve strength/tolerance for activity to enable patient to perform ADL's. OT Education/Plan Problem List/Assessment Assessment: Decreased Activ Tolerance, Decreased Safety Aware, Decreased UE Strength, Dependent Transfers, Edema, Impaired Bed Mobility, Impaired Coordination, Impaired Funct Balance, Impaired I ADL's, Impaired Self-Care Skills, Restricted Funct UE ROM pt presents with functional limitations affecting areas of ADLs and functional transfers with then above mention deficits. pt would benefit from skilled OT services to increase independence with ADLS and functional transfers. noted pt has decrease motivation to participate in therapy services and required cueing for motivation. Discharge Recommendations Plan/Recommendations: Continue POC Barriers to Progress increase pain Treatment Plan/Plan of Care Treatment,Training & Education: Yes Patient would benefit from OT for education, treatment and training to promote independence in ADL's, mobility, safety and/or upper extremity function for ADL's. Plan of Care: ADL Retraining, Caregiver Training, Functional Mobility, Group Exercise/Act as Ind, UE Funct Exercise/Act, W/C Management Training Treatment Duration: Jul 08, 2019 Frequency: At least 5 of 7 days/Wk (IRF) Estimated Hrs Per Day: 1 hour per day (60-90 minutes per day) Agreement: Yes Rehab Potential: Fair Time/GCodes Start Time: 11:00 Stop Time: 12:15 Billed Treatment Time co treatment with PT 75 minutes ADL 30 minutes, 2 units FA 45 minutes, 3 units RAPHAEL VILLAFUERTE OT Jun 11, 2019 12:14
--- NOTE | 2019-06-11 12:14 | Physical Therapy Daily Note ---
PT Daily Note-Current Subjective Patient in bed pre tx, agrees to PT, has 10/10 pain, has already had pain meds. Will be co-treating with OT due to poor patient mobility, strength, endurance, the need to coordinate UE and LE activity especially with NWB and right UE and LE. Patient needs dressed. Appearance Patient in recliner post tx with nurse call, phone, tray, all needs met, family in the room. Mental Status Patient Orientation: Person, Place Transfers Therapy Code Descriptions/Definitions Functional [place] Measure: 0=Not Assessed/NA 4=Minimal Assistance 1=Total Assistance 5=Supervision or Setup 2=Maximal Assistance 6=Modified [place] 3=Moderate Assistance 7=Complete [place] Therapy Quality Codes: 6 Independent with activity with or without an assistive device 5 Patient requires set up or clean up by helper. Patient completes activity by themselves 4 Supervision or touching assist (CGA). [place] provide cues , steadying assist 3 The helper provides less than half the effort to complete the activity 2 The helper provides more than half the effort to complete the activity 1 Dependent. The helper does all the effort to complete an activity 7 Patient refused to complete or attempt activity 9 The patient did not perform the activity before the current illness or injury 88 Not attempted due to Medical conditions or safety concerns Transfers (B, C, W/C) (FIM): 1 Scootin Rollin Supine to/from Sit: 2 Sit to/from Stand: 2 Bed to/from Chair: 1 Patient is able to assist a little with supine to sit and standing. He is not able to fully comply with NWB on the right leg. Patient was able to swim instructor the parallel bars with max assist x3 for about 30 seconds each time. Also educated patient on how to perform a sliding board transfer and had demon stration. Weight Bearing Non Weight Bearing also RUE NWB Wheelchair Training Wheelchair (FIM): 2 Distance: 30' Wheelchair Level of Assist: 2 Type of Wheelchair: Manual Patient is able to push wheel a little with his left arm but cannot seem to manage coordination of UE and LE to propel wheelchair (can only use LLE and LUE). Exercises Seated Therapy Exercises: Ankle pumps, Long arc quads Seated Reps: 15 Treatments dressing, bed mobility and transfers, standing, wheelchair mobility, ROM. PT worked on bed mobility, transfers, positioning during dressing, standing, LE exercise, wheelchair mobility, OT worked on dressing, assist with transfers and standing, UE positioning and safety during activity. Assessment Current Status: Poor Progress Patient has poor mobility, is not compliant with WBS on the right leg. PT Short Term Goals Short Term Goals Time Frame: Jun 17, 2019 Transfers (B,C,W/C) (FIM): 3 PT Penitentiary Goals Penitentiary Goals PT Crane Operator Cab Goals Time Frame: Jul 01, 2019 Transfers (B,C,W/C) (FIM): 4 Sit to Lying (QC): 3 Lying-Sitting on Side/Bed(QC): 3 Sit to Stand (QC): 3 Rollin Roll Left to Right (QC): 3 Chair/Hlj-kx-Brgpe Xfer(QC): 3 Car Transfer (QC): 3 Wheelchair (FIM): 6 Distance: 150' Wheelchair Level of Assist: 6 Wheel 50 feet with 2 turns (QC: 6 PT Plan Problem List Problem List: Activity Tolerance, Functional Strength, Safety, Balance, Gait, Transfer, Bed Mobility, ROM Treatment/Plan Treatment Plan: Continue Plan of Care Treatment Plan: Bed Mobility, Concurrent Therapy, Education, Functional Activity Tran, Functional Strength, Group Therapy, Gait, Safety, Therapeutic Exercise, Transfers Treatment Duration: Jul 01, 2019 Frequency: At least 5 of 7 days/Wk (IRF) Estimated Hrs Per Day: 1.5 hours per day Patient and/or Family Agrees t: Yes Safety Risks/Education Patient Education: Transfer Techniques, Reviewed Precautions, Correct Positioning, W/C Management, Safety Issues Teaching Recipient: Patient Teaching Methods: Demonstration, Discussion Response to Teaching: Reinforcement Needed Time/GCodes Time In: 1100 Time Out: 1200 Total Billed Treatment Time: 60 Total Billed Treatment 1 visit FA 75' WILLIAM KOROMA PT Jun 11, 2019 12:14
--- NOTE | 2019-06-11 12:46 | Speech Therapy Daily Note ---
Speech Daily Progress Note Subjective Date Seen by Provider: Jun 11, 2019 Time Seen by Provider: 00:30 Patient was alert and cooperative. Patient expressed he had pain 08/22 Objective Patient participated in cognitive-communication tasks targeting memory with 50% success requiring moderate verbal cues Assessment Assessment Current Status: Good Progress Treatment Plan Continue Plan of Care Communication Comprehension: 5 Expression: 5 Social Cognition Social Interaction: 7 Problem Solvin Memory: 5 Speech Short Term Goals Short Term Goals Short Term Goals Patient will demonstrate simple problem solving and memory with 80% accuracy when given minimal to moderate cues Speech Skilled Nursing Goals Shipper Receiver Goals Patient will improve cognitive-communication necessary for safety and daily leila ing tasks with minimal assist Speech-Plan Patient/Family Goals Patient/Family Goals: Patient plans to improve cognition Treatment Plan Speech Therapy Treatment Plan: Continue Plan of Care Patient is making good progress on goals. Patient demonstrates cognitive- communication deficits and benefits from moderate verbal cues Treatment Duration: Jun 24, 2019 Frequency: 5 times per week Estimated Hrs Per Day: .5 hour per day Rehab Potential: Fair Barriers to Learning: cognitive-communication Pt/Family Agrees to Plan: Yes Safety Risks/Education Teaching Recipient: Patient Teaching Methods: Discussion Response to Teaching: Verbalize Understanding Education Topics Provided: room safety Time Speech Therapy Time In: 10:30 Speech Therapy Time Out: 11:00 Total Billed Time: 30 Billed Treatment Time 1MELISA SEAN ST Jun 11, 2019 12:46
--- NOTE | 2019-06-11 13:11 | Diagnostic Imaging Report ---
INDICATION: Liquid stools, diarrhea. COMPARISON: None available. TECHNIQUE: Two radiographs of abdomen dated June 11, 2019. FINDINGS: Surgical clips are present within the right upper quadrant of the abdomen. Minimally visualized lung bases are clear. Moderate amount of stool is noted throughout the colon. A loop of bowel within the central abdomen measures up to 6.3 cm, though it is unclear whether this relates to large or small bowel. No free air. Chronic right-sided rib fractures. Bilateral total hip arthroplasties. Scattered osseous degenerative changes. Minimal apex right curvature of the spine. Multiple phleboliths within the lower pelvis. IMPRESSION: Single prominent gas-filled loop of bowel within the central abdomen. It is unclear whether this relates to large or small bowel. It is favored that this relates to sigmoid colon which will be at the upper limits of normal in size. However, if there is clinical concern of underlying bowel obstruction, then a CT of the abdomen and pelvis should be obtained. Dictated by: Dictated on workstation # [id number]
[2019-06-11] MEDS ORDERED: NS IV 1000 ML 1,000 ML IV SCH (14:00)
[2019-06-11] MEDS: NS IV 1000 ML 1,000 ML IV SCH (14:13)
[2019-06-11] MEDS: IBUPROFEN TABLET 200 MG TAB PO PRN (14:13)
[2019-06-11] MEDS ORDERED: TOLT4CAP13 PO (15:05)
[2019-06-11] MEDS ORDERED: FOLI1TAB24 PO (15:05)
[2019-06-11] MEDS ORDERED: HYDR-3812 PO (15:05)
[2019-06-11] MEDS ORDERED: TAMS0.4C98 PO (15:05)
[2019-06-11] MEDS ORDERED: MULT-436 PO (15:05)
[2019-06-11] MEDS ORDERED: METO-333 PO (15:05)
[2019-06-11] MEDS ORDERED: CYCL5TAB PO (15:05)
[2019-06-11] MEDS ORDERED: FURO20TA4 PO (15:05)
[2019-06-11] MEDS ORDERED: POTA10TA10 PO (15:05)
[2019-06-11] MEDS ORDERED: NAPR-915 PO (15:09)
--- NOTE | 2019-06-11 15:10 | NUR ---
SPOKE WITH PT ABOUT HOME MEDS AND WENT THRU THE EX MED HISTORY TO COMPLETE MED REC. NO NOTABLE CHANGES. OTC MEDS: FISH OIL CLARITIN ONE A DAY MULTIVITAMIN
[2019-06-11 16:54] VITALS: BP 110/58
--- NOTE | 2019-06-11 16:55 | Consultation - Surgery ---
History of Present Illness History of Present Illness Patient Consulted On(atul/time) 06/11/19 16:49 Date Seen by Provider: Jun 11, 2019 Time Seen by Provider: 16:50 History of Present Illness consult requested by Dr. Mascorro for constipation possible obstruction Patient is a 79-year-old male with recent fall which sustaining a right femur fracture right elbow fracture requiring surgical intervention. Patienthere for rehabilitation. Patient has difficulty with bowel movements. Patient has had 2 liquid stools last few days. Not had any sepsis. Passing some flatus. Abdominal x-ray that demonstrated loop of bowel suspected to be a sigmoid colon which is upper limits of normal. Patient states is not have any abdominal pain or discomfort at this time. He may be is a little bit distended possibly. Patient's main concern is his pain control. He denies any nausea vomiting fever sweats chills shortness of breath or chest pain. Allergies and Home Medications Allergies Coded Allergies: No Known Drug Allergies (Unverified Allergy, Mild, 09/30/08) No Known Allergies (Verified Allergy, Unknown, 01/09/06) Home Medications Cyclobenzaprine HCl 5 Mg Tablet, 5 MG PO TID PRN for MUSCLE SPASMS, (Reported) Famotidine 20 Mg Tablet, 20 MG PO BID, (Reported) Folic Acid 1 Mg Tablet, 1 MG PO DAILY, (Reported) Furosemide 20 Mg Tablet, 20 MG PO DAILY, (Reported) Hydrocodone/Acetaminophen 1 Each Tablet, 1 TAB PO Q6H, (Reported) Levothyroxine Sodium 125 Mcg Tablet, 125 MCG PO DAILY, (Reported) Loratadine 10 Mg Capsule, 10 MG PO DAILY, (Reported) Metoprolol Tartrate 25 Mg Tablet, 25 MG PO BID, (Reported) Multivitamin with Minerals 1 Each Tablet, 1 EACH PO DAILY, (Reported) Naproxen 500 Mg Tablet, 500 MG PO BID, (Reported) [place] 3 Polyunsat Fatty Acids 1,000 Mg Cap, 1,000 MG PO DAILY, (Reported) Potassium Chloride 10 Meq Tablet.er, 10 MEQ PO BID, (Reported) Tamsulosin HCl 0.4 Mg Cap, 0.4 MG PO HS, (Reported) Tolterodine Tartrate 4 Mg Cap.er.24h, 4 MG PO DAILY, (Reported) Tramadol HCl 50 Mg Tablet, 50 MG PO TID PRN for PAIN-MODERATE, (Reported) Patient Home Medication List Home Medication List Reviewed: Yes Past Kdxixhu-Sdaicf-Ovbxrv Hx Patient Social History Alcohol Use: Denies Use Recreational Drug Use: No Smoking Status: Never a Smoker Former Smoker, Quit: Jan 02, 1997 Type Used: Cigarettes Recent Foreign Travel: No Contact w/Someone Who Travel: No Recent Infectious Disease Expo: No Recent Hopitalizations: Yes (SEE SURGERIES, ) Physical Abuse Screen: No Sexual Abuse: No Immunizations Up To Date Date of Pneumonia Vaccine: Feb 04, 2014 Date of Influenza Vaccine: Sep 01, 2017 Seasonal Allergies Seasonal Allergies: Yes Surgeries History of Surgeries: Yes (L THR,APPY,CATARACTS,MUKUL.ING.HERNIA REPAIR,UMB.HERNIA REPAIR) Surgeries: Abdominal, Orthopedic Respiratory History of Respiratory Disorde: No Cardiovascular History of Cardiac Disorders: Yes (HTN) Cardiac Disorders: Atrial Fibrillation, Coronary Artery Disease, High Cholesterol, Hypertension Neurological History of Neurological Disord: No Reproductive System Hx Reproductive Disorders: No Sexually Transmitted Disease: No Genitourinary History of Genitourinary Disor: No Gastrointestinal History of Gastrointestinal Di: Yes (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) Musculoskeletal History of Musculoskeletal Dis: Yes Musculoskeletal Disorders: Chronic Back Pain Endocrine History of Endocrine Disorders: Yes Endocrine Disorders: Diabetes, Non-Insulin dep Cancer History of Cancer: No Psychosocial History of Psychiatric Problem: Yes Behavioral Health Disorders: Anxiety, Depression Integumentary History of Skin or Integumenta: No Blood Transfusions History of Blood Disorders: No Family Medical History Significant Family History: No Pertinent Family Hx Review of Systems-General Constitutional: no symptoms reported EENTM: no symptoms reported Respiratory: no symptoms reported Cardiovascular: no symptoms reported Gastrointestinal: see HPI Genitourinary: no symptoms reported Musculoskeletal: no symptoms reported Skin: no symptoms reported Psychiatric/Neurological: No Symptoms Reported Physical Exam-General Problems Physical Exam Vital Signs Vital Signs - First Documented 06/09/19 10:21 Temp 98.4 Pulse 76 Resp 18 B/P (MAP) 139/68 Pulse Ox 99 O2 Delivery Nasal Cannula O2 Flow Rate 2.00 Capillary Refill : Less Than 3 Seconds General Appearance: WD/WN, no apparent distress HEENT: PERRL/EOMI, normal ENT inspection Neck: full range of motion, supple, normal inspection Respiratory: chest non-tender, no respiratory distress, no accessory muscle use Cardiovascular: regular rate, rhythm Gastrointestinal: non tender, soft, no organomegaly Rectal: deferred Extremities: other (right arm wrapped, right lower extremity with bandages intact) 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 We'll repeat abdominal x-ray in the morning. He is having a couple liquid stools. Bowels could be sluggish due to narcotics. If still dilated loop with consider CT scan abdomen and pelvis with oral contrast. No surgical intervention at this time will follow. Clinical Quality Measures DVT/VTE Risk/Contraindication: Risk Factor Score Per Nursin RFS Level Per Nursing on Admit: 4+=Very High LULU WHALEN DO Jun 11, 2019 16:55
--- NOTE | 2019-06-11 20:29 | Cardiology Progress Note ---
Cardiology SOAP Progress Note Subjective: No cardiac complaints Objective: I&O/Vital Signs 06/11/19 06/11/19 06/11/19 06/11/19 08:58 09:00 16:54 20:24 Temp 98.0 Pulse 85 81 Resp 16 B/P (MAP) 122/67 (85) 110/58 (75) Pulse Ox 93 O2 Delivery Room Air Nasal Cannula Nasal Cannula O2 Flow Rate 2.00 2.00 06/11/19 00:00 Intake Total 900 ml Output Total 1375 ml Balance -475 ml Weight (Pounds): 235 Weight (Ounces): 0.5 Weight (Calculated Kilograms): 106.389396 Constitutional: appears stated age, AAO x 3; No apparent distress; well- developed, well-nourished Respiratory: No accessory muscle use, No respiratory distress, No chest tender, No chest expansion is symmetric; chest is bilaterally symmetric; No lungs clear to percussion; lungs clear to auscultation; No crackles, No rhonchi, No rales, No stridor, No wheezing, No pleural rub, No other Cardiovascular: regular rate-rhythm; No irregularly irregular, No extra beats, No parasternal heave is noted, No JVD, No edema, No bradycardia, No tachycardia, No point of maximal impulse, No cardiac thrills are palpable; S1 and S2; No gallop/S3, No gallop/S4, No diastolic murmur, No systolic murmur, No friction rub, No click, No other Gastrointestional: No tender, No soft, No round, No distended, No pulsatile mass, No organomegaly, No guarding, No rebound, No tenderness, No hernia, No mass, No audible bowel sounds, No abnormal bowel sounds, No abdominal bruits, No spleenomegaly, No other Extremities: No normal range of motion, No non-tender, No normal inspection, No pedal edema, No calf tenderness, No normal capillary refill, No pelvis stable, No calf tenderness, No inflammation, No pedal edema, No slow capillary refill, No swelling, No other, No abrasion, No clubbing, No cyanosis, No ecchymosis, No laceration, No no lower extremity edema bilateral, No significant edema, No tenderness, No wound Neurologic/Psychiatric: no motor/sensory deficits, alert, normal mood/affect, oriented x 3, power is 5/5 both on sides Skin: No normal color, No warm/dry, No cyanosis, No cool, No diaphoresis, No damp, No ecchymosis, No jaundice, No mottled, No pallor, No rash, No tattoos/piercings, No ulcerations, No rash on exposed areas, No ulcerations on exposed areas, No other Results/Procedures: Labs Laboratory Tests 06/10/19 21:56: Glucometer 136H 06/11/19 05:40: Glucometer 125H 06/11/19 10:47: Glucometer 210H 06/11/19 16:52: Glucometer 133H A/P: Assessment/Dx: Mechanical fall, status post right hip surgery, Hypertension, On amiodarone, Diabetes Plan: Inpatient rehabilitation - post hip surgery. DVT prophylaxis. HTN - continue BP meds. Need to get old records. EKG, Echo. EKG 06/09/2019 shows sinus tachycardia. Echo 05/2019 shows LVH, Normal LVEF, DD 1, LAE. Need to find out why the patient is on amiodarone. I requested the RN to find out from Dr Bhat's office the above information. DM Thank you for your consultation. Please call me if you have any questions. Roxie Regalado MD, FACP, FACC, FSCAI, FHRS, CCDS Interventional Cardiology Cardiac Electrophysiology Vascular Medicine and Endovascular Interventions Bryon REGALADO MD Jun 11, 2019 20:29
[2019-06-11] MEDS: POLYETHYLENE GLYCOL 17 GM (MIRALAX) PACK PO SCH (21:59)
[2019-06-11] MEDS: MELATONIN 3 MG TABLET PO SCH (22:00)
[2019-06-12] MEDS: NS IV 1000 ML 1,000 ML IV SCH ×2 (02:19→15:30)
[2019-06-12 05:32] LABS: BASOPHILS % (AUTO) 0 % (0-10); EOSINOPHILS # (AUTO) 0.3 10^3/uL (0.0-0.3); EOSINOPHILS % (AUTO) 4 % (0-10); HEMATOCRIT 22 % (40-54); HEMOGLOBIN 7.1 G/DL (13.3-17.7); LYMPHOCYTES # (AUTO) 1.5 X 10^3 (1.0-4.0); LYMPHOCYTES % (AUTO) 21 % (12-44); MEAN CORPUSCULAR HEMOGLOBIN 31 PG (25-34); MEAN CORPUSCULAR HGB CONC 32 G/DL (32-36); MEAN CORPUSCULAR VOLUME 96 FL (80-99); MEAN PLATELET VOLUME 8.7 FL (7.4-10.4); MONOCYTES # (AUTO) 0.7 X 10^3 (0.0-1.0); MONOCYTES % (AUTO) 10 % (0-12); NEUTROPHILS # (AUTO) 4.5 X 10^3 (1.8-7.8); NEUTROPHILS % (AUTO) 65 % (42-75); PLATELET COUNT 233 10^3/uL (130-400); WHITE BLOOD COUNT 6.9 10^3/uL (4.3-11.0)
[2019-06-12 05:56] LABS: ALANINE AMINOTRANSFERASE 11 U/L (0-55); ALBUMIN 2.6 GM/DL (3.2-4.5); ALKALINE PHOSPHATASE 54 U/L (40-136); BILIRUBIN,TOTAL 0.9 MG/DL (0.1-1.0); BUN/CREATININE RATIO 14; CALCIUM 8.5 MG/DL (8.5-10.1); CARBON DIOXIDE 27 MMOL/L (21-32); CHLORIDE 100 MMOL/L (98-107); CREATININE SERUM 0.76 MG/DL (0.60-1.30); GFR ESTIMATED > 60; GLUCOSE 85 MG/DL (70-105); POTASSIUM 3.7 MMOL/L (3.6-5.0); SODIUM 138 MMOL/L (135-145); TOTAL PROTEIN 5.3 GM/DL (6.4-8.2)
[2019-06-12] MEDS: inSUlin ASPART (NovoLOG) 1 UNIT/0.01 ML (CHARGE PER UNIT) SC SCH ×4 (06:23→22:21)
[2019-06-12] MEDS: meTOprolol TARTRATE 25 MG (LOPRESSOR) TABLET PO SCH ×2 (06:25→17:18)
[2019-06-12] MEDS: CATHETER FLUSH 10 ML SYR IV SCH ×3 (06:25→22:22)
[2019-06-12] MEDS: LEVOTHYROXINE 25 MCG (LEVOTHROID) TAB PO SCH (06:25)
[2019-06-12] MEDS: LEVOTHYROXINE 112 MCG (LEVOTHROID) TAB PO SCH (06:25)
[2019-06-12 08:14] VITALS: BP 169/84
[2019-06-12] MEDS: FUROSEMIDE 40 MG (LASIX) TAB PO SCH (09:00)
[2019-06-12] MEDS: LACTULOSE SYRUP 10GM/15ML (ENULOSE) 30ML UDC PO SCH ×2 (09:00→22:20)
[2019-06-12] MEDS: KCL 20 MEQ TAB (K-DUR) PO SCH ×2 (09:00→21:48)
[2019-06-12] MEDS: PANTOPRAZOLE 40 MG (PROTONIX) TAB PO SCH (09:00)
[2019-06-12] MEDS: AMIODARONE 200 MG (CORDARONE) TAB PO SCH (09:00)
[2019-06-12] MEDS: SENNA W/DOCUSATE (SENOKOT S) TABLET PO SCH ×2 (09:00→22:20)
[2019-06-12] MEDS: QUEtiapine 25 MG (SEROquel) TAB IMMEDIATE RELEASE PO SCH ×2 (09:00→21:48)
[2019-06-12] MEDS: ASPIRIN 81 MG CHEW (CHILDREN'S ASA) PO SCH (09:00)
--- NOTE | 2019-06-12 09:00 | PM&R Progress Note ---
Subjective HPI/CC On Admission Date Seen by Provider: Jun 12, 2019 Time Seen by Provider: 08:30 Chief complaint: Right hip fracture and right elbow fracture in need of inpatient rehab to return home History of present illness: This is a 79-year-old white male known to me from prior admissions long ago whose primary care provider is Dr. Bhat but who does not see a comprehensive advisor regularly who has a history of atrial fibrillation, diabetes mellitus and falls in the past who presented to inpatient rehab after discharge from [facility] after suffering a right femoral fracture and right elbow fracture which required surgery for repair after a fall sustained at home when he was using his leaf blower on 06/04/2019. He did not require a transfusion while hospitalized at [facility]. He has not had a bowel mov ement for 5 days. Pain is currently controlled with oxycodone. Patient does not usually require oxygen or CPAP machine. His prior level of functioning was without assistive device and completely independent with ADLs. I will consult Dr Regalado for Cardiology management. Subjective/Events-last exam Ileus remains vs obstruction Repeat KUB will be evaluated and will need CT per Dr. Abdullahi Back on oxygen Iron levels 18 already on Venofer Iron infusions Oxycontin immediate release of 10 before PT and 5 when he needs it when he's not working with them NPO except for sips of water with meds Hemoglobin remains low at 7.1, iron infusions since iron very low confirmed on results today Has mental capacity issues confirmed on memory testing Will reach out to wound care or general surgery to evaluate the surgical site Very complex case but he is stable and will hopefully obtain regaining Bowel function today Checked meds and labs Reviewed therapy notes Conferred with account planner of Systems General: Fatigue Musculoskeletal: arm pain, leg pain Objective Exam Vital Signs Vital Signs Date Time Temp Pulse Resp B/P (MAP) Pulse Ox O2 Delivery O2 Flow Rate FiO2 06/12/19 20:40 Nasal Cannula 2.00 06/12/19 17:42 99.4 75 20 147/62 (90) 95 Capillary Refill : Less Than 3 Seconds General Appearance: No Apparent Distress, WD/WN, Chronically ill, Obese HEENT: PERRL/EOMI, Normal ENT Inspection, Pharynx Normal, Moist Mucous Membranes Neck: Full Range of Motion, Normal Inspection, Non Tender, Supple Respiratory: Chest Non Tender, Lungs Clear, Normal Breath Sounds, No Accessory Muscle Use, No Respiratory Distress Cardiovascular: Regular Rate, Rhythm, No Edema, No Gallop, No JVD, No Murmur Gastrointestinal: No Organomegaly, No Pulsatile Mass, Non Tender, Soft, Abnormal Bowel Sounds (minimal noted) Back: Normal Inspection, No CVA Tenderness, No Vertebral Tenderness Extremity: Normal Capillary Refill, Normal Inspection, Normal Range of Motion (except right arm in sling and dressing and right leg due to hip pain), Non Tender, No Calf Tenderness, No Pedal Edema Neurologic/Psychiatric: Alert, Oriented x3, No Motor/Sensory Deficits, Normal Mood/Affect, 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 FIM Transfers Therapy Code Descriptions/Definitions Functional [place] Measure: 0=Not Assessed/NA 4=Minimal Assistance 1=Total Assistance 5=Supervision or Setup 2=Maximal Assistance 6=Modified [place] 3=Moderate Assistance 7=Complete [place] Therapy Quality Codes: 6 Independent with activity with or without an assistive device 5 Patient requires set up or clean up by helper. Patient completes activity by themselves 4 Supervision or touching assist (CGA). [place] provide cues , steadying assist 3 The helper provides less than half the effort to complete the activity 2 The helper provides more than half the effort to complete the activity 1 Dependent. The helper does all the effort to complete an activity 7 Patient refused to complete or attempt activity 9 The patient did not perform the activity before the current illness or injury 88 Not attempted due to Medical conditions or safety concerns Transfers (B, C, W/C) (FIM): 1 Scootin Rollin Roll Left to Right (QC): 1 Supine to/from Sit: 2 Sit to/from Stand: 2 Sit to Lying (QC): 1 Sit to Stand (QC): 1 Chair/[id number]-[id number] Xfer(QC): 1 Bed to/from Chair: 1 Car Transfer (QC): 1 Wheelchair Training Does the Pt Use a Wheelchair?: Yes Wheelchair (FIM): 2 Distance: 30' Wheelchair Level of Assist: 2 Type of Wheelchair: Manual Mental Status/Objective Comprehension: 5 Expression: 5 Social Interaction: 7 Problem Solvin Memory: 5 ADL-Treatment Feedin (required set up. ) Eating (QC): 5 Groomin (pt education on one handed techniqes. reuqired assist with washing hands and apply deodorant) Oral Hygiene (QC): 2 Bathin (pt demo ability to wash 2/10 body parts. pt education on LHS. pt did not attenmpt use this date. ) Bathing Location: Chest, Abdomen Shower/Bathe Self (QC): 1 Upper Extremity Dressin (demo abiltiy to thread Left arm. button up shirt ) Upper Body Dressing (QC): 1 Lower Extremity Dressin (pants, corie socks. reuqired assist with each step.) Lower Body Dressing (QC): 1 On/Off Footwear (QC): 1 Toiletin (required assist with each step.) Toileting Hygiene (QC): 1 Toilet/Commode Transfer: 1 Toilet Transfer (QC): 1 Shower: 0 (NT secondary to safety) Assessment/Plan Assessment and Plan Assess & Plan/Chief Complaint Assessment: Status post right femoral fracture on 06/04/2019 Right elbow fracture status post repair 06/04/2019 History of atrial fibrillation on amiodarone Multiple falls in the past Emotional problems Hypothyroidism GERD Hypertension Diabetes mellitus insulin requiring line hyperlipidemia Anemia from acute blood loss Iron deficiency receiving iron infusions Hyponatremia Low albumin Cognitive decline SLUMS Ileus versus partial bowel obstruction? Consulting Dr Abdullahi and placing NPO and starting gentle IVF 06/12/19 1330 Plan: Pain control Constipation resolution Home meds Monitor labs IV iron infusions Fall risk prevention Inpatient rehab protocols Appreciate Dr Abdullahi consultation Will reach out to Dr Walker for wound care advice or general surgery (1) Right femoral fracture (2) Cognitive decline (3) Diabetes mellitus (4) Hx of emotional problems (5) GERD without esophagitis (6) Hypothyroidism (7) Hyponatremia (8) Elbow fracture, right (9) Fall (10) Hypertension (11) Anemia due to acute blood loss (12) Fever (13) Iron deficiency (14) Constipation (15) Atrial fibrillation QUIN COFFEY DO Jun 12, 2019 09:00
--- NOTE | 2019-06-12 10:12 | Physical Therapy Daily Note ---
PT Daily Note-Current Subjective Patient in bed pre tx, agrees to PT, has 10/10 in right leg. Will be co- treating with OT this morning due to poor patient mobility, strength, endurance, balance, the need to coordinate UE and LE activity, and pain. Appearance Patient in recliner post tx with nurse call, phone, tray, all needs met. Mental Status Patient Orientation: Person, Place, Situation Attachments: IV Transfers Therapy Code Descriptions/Definitions Functional [place] Measure: 0=Not Assessed/NA 4=Minimal Assistance 1=Total Assistance 5=Supervision or Setup 2=Maximal Assistance 6=Modified [place] 3=Moderate Assistance 7=Complete [place] Therapy Quality Codes: 6 Independent with activity with or without an assistive device 5 Patient requires set up or clean up by helper. Patient completes activity by themselves 4 Supervision or touching assist (CGA). [place] provide cues , steadying assist 3 The helper provides less than half the effort to complete the activity 2 The helper provides more than half the effort to complete the activity 1 Dependent. The helper does all the effort to complete an activity 7 Patient refused to complete or attempt activity 9 The patient did not perform the activity before the current illness or injury 88 Not attempted due to Medical conditions or safety concerns Transfers (B, C, W/C) (FIM): 1 Scootin Rollin Supine to/from Sit: 1 Sit to/from Stand: 1 Bed to/from Chair: 2 Patient was able to assist a little more during a stand pivot transfer but it is suspected that this improvement was due to bearing weight on his right leg. Patient is not complaint with his weight bearing status, he says he is keeping weight off of his right leg but he obviously is not. Patient had to stand about 4 times during treatment and he is dependent for this. the stand pivot transfer was also from an elevated surface. Patient supine to sit and then transferred to wheelchair, undressed, taken to bathroom, bathed and groomed, redressed, charlette hose on, stood and placed in recliner Weight Bearing Non Weight Bearing also RUE NWB Treatments bathing, dressing, bed mobility and transfers Assessment Current Status: Poor Progress Poor mobility, poor weight bearing compliance, patient wants healthcare workers to perform activities for him and move him around instead of trying to do it himself PT Short Term Goals Short Term Goals Time Frame: Jun 17, 2019 Transfers (B,C,W/C) (FIM): 3 Wheelchair Distance: 30' PT Snf Goals Snf Goals PT English And Reading Instructor Goals Time Frame: Jul 01, 2019 Transfers (B,C,W/C) (FIM): 4 Sit to Lying (QC): 3 Lying-Sitting on Side/Bed(QC): 3 Sit to Stand (QC): 3 Rollin Roll Left to Right (QC): 3 Chair/Zlj-kv-Rtbag Xfer(QC): 3 Car Transfer (QC): 3 Wheelchair (FIM): 6 Distance: 150' Wheelchair Level of Assist: 6 Wheel 50 feet with 2 turns (QC: 6 PT Plan Problem List Problem List: Activity Tolerance, Functional Strength, Safety, Balance, Gait, Transfer, Bed Mobility, ROM Treatment/Plan Treatment Plan: Continue Plan of Care Treatment Plan: Bed Mobility, Concurrent Therapy, Education, Functional Activity Tran, Functional Strength, Group Therapy, Gait, Safety, Therapeutic Exercise, Transfers Treatment Duration: Jul 01, 2019 Frequency: At least 5 of 7 days/Wk (IRF) Estimated Hrs Per Day: 1.5 hours per day Patient and/or Family Agrees t: Yes Safety Risks/Education Patient Education: Transfer Techniques, Reviewed Precautions, Correct Positioning, Safety Issues Teaching Recipient: Patient Teaching Methods: Demonstration, Discussion Response to Teaching: Reinforcement Needed Time/GCodes Time In: 0900 Time Out: 1015 Total Billed Treatment Time: 75 Total Billed Treatment 1 visit FA 75' Co-treated for the whole '. PT performed bed mobility and transfers, and standing and assisted with positioning during bathing and dressing, OT performed bathing and dressing and assist with standing. WILLIAM KOROMA PT Jun 12, 2019 10:12
--- NOTE | 2019-06-12 10:15 | Occupational Ther Daily Note ---
OT Current Status-Daily Note Subjective pt agreed to OT/. PT tx session with focus on increasing independence with ADLs and functional transfers. pt reports 10/10 pain in RUE/ RLE. during session pt stated "I wish I would have just " NSG is aware that pt stated this, Mental Status/Objective Therapy Code Descriptions/Definitions Functional [place] Measure: 0=Not Assessed/NA 4=Minimal Assistance 1=Total Assistance 5=Supervision or Setup 2=Maximal Assistance 6=Modified [place] 3=Moderate Assistance 7=Complete [place] Attachments: IV, Oxygen ADL-Treatment Therapy Code Descriptions/Definitions Functional [place] Measure: 0=Not Assessed/NA 4=Minimal Assistance 1=Total Assistance 5=Supervision or Setup 2=Maximal Assistance 6=Modified [place] 3=Moderate Assistance 7=Complete [place] Therapy Quality Codes: 6 Independent with activity with or without an assistive device 5 Patient requires set up or clean up by helper. Patient completes activity by themselves 4 Supervision or touching assist (CGA). [place] provide cues , steadying assist 3 The helper provides less than half the effort to complete the activity 2 The helper provides more than half the effort to complete the activity 1 Dependent. The helper does all the effort to complete an activity 7 Patient refused to complete or attempt activity 9 The patient did not perform the activity before the current illness or injury 88 Not attempted due to Medical conditions or safety concerns Eating (FIM): 5 (set up. pt required encouregment to feed self. ) Eating (QC): 4 Grooming (FIM): 5 (required set up/ superivison. comb hair, wash face, wash hand. pt education on one handed technqies. ) Oral Hygiene (QC): 4 Bathing (FIM): 3 (education on use of LHS. pt demo correctly) Bathing Location: L Lower Leg (including foot), R Lower Leg (including foot), Chest, Abdomen, Perineal Area Shower/Bathe Self (QC): 2 Upper Body (FIM): 2 (required encourgement to complete tasks w/o assist. 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 ) Upper Body Dressing (QC): 1 Lower Body Dressing (FIM): 1 (pt education on use of AE (bulk tank driver) pt attempt use and was able to thread corie LE part way but still required assist. futher education will be requried ) Lower Body Dressing (QC): 1 On/Off Footwear (QC): 1 Toileting (FIM): 1 Toileting Hygiene (QC): 1 Transfers (B, C, W/C) (FIM): 1 (X 2 person assist ) Toilet/Commode Transfer (FIM): 1 (X 2 person assist ) Toilet Transfer (QC): 1 Shower Transfer(FIM): 0 (NT secodanry to safety of pt ) co-treatment with PT secondary to complexity of pt deficits requiring skills of both discipline. OT focus on ADL task with use of AE while OT focus on gross movements, sit to stands, and transfers. noted pt becomes easily frustrated during tasks and stated multiple inappropriate use of languages when frustrated. pt required encouragement to attempt each task without assist. pt stated "i don't know why you cant just do things for me." " I should have never have came here, at home they would do it for me I am sick." post OT session pt sitting in recliner chair, call light within reach, all needs met. Education OT Patient Education: Modified ADL techniques, Progress toward Goal/Update tx plan, Purpose of tx/functional activities, Reviewed precautions, Rehab process, Safety issues, Transfer techniques, Use of adapted equipment Teaching Recipient: Patient Teaching Methods: Demonstration, Discussion Response to Teaching: Verbalize Understanding, Return Demonstration OT Short Term Goals Short Term Goals Eating(FIM): 6 Grooming(FIM): 4 Bathing(FIM): 3 Upper Body Dressing(FIM): 3 Lower Body Dressing(FIM): 3 Toileting(FIM): 3 Transfers (B,C,W/C) (FIM): 3 Toilet/Commode Transfer(FIM): 3 Shower Transfer(FIM): 3 1=Demonstrate adherence to instructed precautions during ADL tasks. 2=Patient will verbalize/demonstrate understanding of assistive devices/modifications for ADL. 3=Patient will improve strength/tolerance for activity to enable patient to perform ADL's. OT Prison Goals Assistant Professor Of Radiology Goals Time Frame: Jul 08, 2019 Eating (FIM): 6 Eating (QC): 6 Groomin Oral Hygiene (QC): 6 Bathing(FIM): 5 Bathing Location: L Arm, R Arm, L Upper Leg, R Upper Leg, L Lower Leg (including foot), R Lower Leg (including foot), Chest, Abdomen, Buttocks, Perineal Area Shower/Bathe Self (QC): 5 Upper Body Dressing(FIM): 6 Upper Body Dressing (QC): 6 Lower Body Dressing(FIM): 6 Lower Body Dressing (QC): 5 On/Off Footwear (QC): 5 Toileting(FIM): 5 Toileting Hygiene (QC): 5 Transfers (B,C,W/C) (FIM): 5 Toilet/Commode Transfer(FIM): 5 Toilet/Commode Transfer (QC): 4 Shower Transfer(FIM): 5 Additional Goals: 1-Demonstrate ADL Tasks, 2-Verbalize Understanding, 3- ImproveStrength/Tran 1=Demonstrate adherence to instructed precautions during ADL tasks. 2=Patient will verbalize/demonstrate understanding of assistive devices/modifications for ADL. 3=Patient will improve strength/tolerance for activity to enable patient to perform ADL's. OT Education/Plan Problem List/Assessment Assessment: Decreased Activ Tolerance, Decreased Safety Aware, Decreased UE Strength, Dependent Transfers, Edema, Impaired Bed Mobility, Impaired Coordination, Impaired Funct Balance, Impaired I ADL's, Impaired Self-Care Skills, Restricted Funct UE ROM pt presents with functional limitations affecting areas of ADLs and functional transfers with then above mention deficits. pt would benefit from skilled OT services to increase independence with ADLS and functional transfers. noted pt h as decrease motivation to participate in therapy services and required cueing for motivation. Discharge Recommendations Plan/Recommendations: Continue POC Barriers to Progress pain Treatment Plan/Plan of Care Treatment,Training & Education: Yes Patient would benefit from OT for education, treatment and training to promote independence in ADL's, mobility, safety and/or upper extremity function for ADL's. Plan of Care: ADL Retraining, Caregiver Training, Functional Mobility, Group Exercise/Act as Ind, UE Funct Exercise/Act, W/C Management Training Treatment Duration: Jul 08, 2019 Frequency: At least 5 of 7 days/Wk (IRF) Estimated Hrs Per Day: 1 hour per day (60-90 minutes per day) Agreement: Yes Rehab Potential: Fair Time/GCodes Start Time: 09:00 Stop Time: 10:15 Billed Treatment Time ADL 75 minutes, 5 units RAPHAEL VILLAFUERTE OT Jun 12, 2019 10:15
[2019-06-12] MEDS: TRIAMCINOLONE 0.1% CR (KENALOG) 15 GM TUBE TOP SCH ×2 (10:30→22:21)
--- NOTE | 2019-06-12 11:09 | Speech Therapy Daily Note ---
Speech Daily Progress Note Subjective Date Seen by Provider: Jun 12, 2019 Time Seen by Provider: 00:30 Patient was alert, sitting upright 90 degrees in chair. Patient was talkative, pleasant, and actively participated in session activities Objective Patient participated in memory tasks with 50% accuracy requiring moderate- maximal verbal/visual cues. Patient required frequent repetition. Assessment Assessment Current Status: Good Progress Treatment Plan Continue Plan of Care Communication Comprehension: 5 Expression: 5 Social Cognition Social Interaction: 7 Problem Solvin Memory: 5 Speech Short Term Goals Short Term Goals Short Term Goals Patient will demonstrate simple problem solving and memory with 80% accuracy when given minimal to moderate cues Speech Skilled Nursing Goals Skilled Nursing Goals Patient will improve cognitive-communication necessary for safety and daily living tasks with minimal assist Speech-Plan Patient/Family Goals Patient/Family Goals: Patient plans to return home with Treatment Plan Speech Therapy Treatment Plan: Continue Plan of Care Patient is making good progress towards goals. Patient is successful with memory tasks given moderate-maximal cueing. Patient benefits from frequent repetition. Treatment Duration: Jun 24, 2019 Frequency: 5 times per week Estimated Hrs Per Day: .5 hour per day Rehab Potential: Fair Barriers to Learning: Cognitive-communication Pt/Family Agrees to Plan: Yes Safety Risks/Education Teaching Recipient: Patient Teaching Methods: Discussion Response to Teaching: Verbalize Understanding Education Topics Provided: services and room safety Time Speech Therapy Time In: 10:30 Speech Therapy Time Out: 11:00 Total Billed Time: 30 Billed Treatment Time AliaEMMANUELSID Phylicia DORIAN BERRY Jun 12, 2019 11:09
--- NOTE | 2019-06-12 14:52 | Diagnostic Imaging Report ---
EXAMINATION: Abdominal radiographs, single portable supine view, 2 images. DATE: June 12, 2019. CLINICAL INDICATION: 79-year-old male, constipation. Followup dilated bowel. COMPARISON: June 11, 2019. COMMENTS: There are surgical clips in the right abdomen. There is a left total hip prosthesis. There is a right hip prosthesis as well as sideplate and screw fixation device with trochanteric claw and cerclage wires. There are gas-filled distended segments of bowel most likely including predominantly large bowel. Overall bowel distention is similar to June 11, 2019. There is no identified free intraperitoneal air on limited supine assessment. There is at least moderate volume stool within the transverse colon. There are predominantly linear opacities in the left lung base. There is also nonspecific bibasilar airspace consolidation. IMPRESSION: 1. Grossly unchanged bowel gas pattern with abnormally dilated gas-filled segments of bowel. This is an abnormal but nonspecific pattern. 2. Nonspecific bibasilar airspace consolidation which may relate to infiltrate and/or atelectasis. Dictated by: Dictated on workstation # [id number]
[2019-06-12 17:42] VITALS: BP 147/62
[2019-06-12] MEDS ORDERED: HOLD METFORMIN - RECEIVED CONTRAST 20 ML VIAL IV SCH (18:45)
[2019-06-12] MEDS ORDERED: NS 100 ML (IVPB) BAG IV ONE (18:45)
[2019-06-12] MEDS ORDERED: IOHEXOL 350 MG/ML 100 ML (OMNIPAQUE 350) VIAL IV ONE (18:45)
[2019-06-12] MEDS ORDERED: CATHETER FLUSH 10 ML SYR IV PRN (18:45)
[2019-06-12] MEDS ORDERED: DIATRIZOATE MEGLUM/SODIUM 37% 120 ML (GASTROGRAFIN) PO ONE (18:45)
--- NOTE | 2019-06-12 21:25 | Diagnostic Imaging Report ---
PROCEDURE: CT abdomen and pelvis with contrast. TECHNIQUE: Multiple contiguous axial images were obtained through the abdomen and pelvis after administration of intravenous contrast. Auto Exposure Controls were utilized during the CT exam to meet ALARA standards for radiation dose reduction. INDICATION: Constipation, dilated loops of bowel, history of hernia repair. Oral contrast media administered has reached the hepatic flexure of the colon with no contrast extravasation. There is an elevated stool load in the transverse colon in this patient with apparent previous right hepatectomy. No perianastomotic abnormality. No contrast extravasation. No free air. No evidence for maninder mechanical obstruction. The small bowel is nondilated. Portions of the colon and small bowel as well as mesenteric fat interposed between the dome of the right hepatic lobe and the undersurface of the elevated right diaphragm. Gallbladder surgically absent. No pathological bile duct dilatation. The spleen, adrenals, pancreas unremarkable. The aortoiliac vessels atherosclerotic but nonaneurysmal. The kidneys are unobstructed and nonacute. There are postsurgical changes of bilateral hip replacement resulting in limited visualization of pelvic structures. No appreciable pelvic abnormality. IMPRESSION: Right hemicolectomy with no evidence for anastomotic leak or obstruction. The proximal residual colon shows moderate constipation without obstruction, perforation, free air, abscess or hemorrhage. No focal inflammatory process. Fat in the intestines interpose between the elevated right diaphragm and right hepatic dome. No focal inflammatory process. No ascites. No fluid collection. Dictated by: Dictated on workstation # [id number]
--- NOTE | 2019-06-12 21:45 | NUR ---
Talked to Dr. Abdullahi about CT results. New order for patient to have clear, liquid diet.
[2019-06-12] MEDS: MELATONIN 3 MG TABLET PO SCH (21:48)
--- NOTE | 2019-06-12 22:06 | Progress Note - Surgery ---
Subjective Date Seen by a Provider: Jun 12, 2019 Time Seen by a Provider: 09:05 Subjective/Events-last exam Patient no new complaints. Pain controlled and from recent surgical in tervention. Denies any abdominal pain at this time. Denies n/v fever sweats chills shortness of breath or chest pain. Kub not performed yet for comparison of yesterdays. Objective Exam Vital Signs Date Time Temp Pulse Resp B/P (MAP) Pulse Ox O2 Delivery O2 Flow Rate FiO2 06/12/19 20:40 Nasal Cannula 2.00 06/12/19 17:42 99.4 75 20 147/62 (90) 95 Nasal Cannula 2.00 06/12/19 09:00 Nasal Cannula 2.00 06/12/19 08:14 97 169/84 (112) 92 Room Air I & O 06/12/19 07:00 Intake Total 1390 ml Output Total 2050 ml Balance -660 ml Capillary Refill : Less Than 3 Seconds General Appearance: No Apparent Distress, WD/WN, Chronically ill, Obese HEENT: PERRL/EOMI, Normal ENT Inspection, Pharynx Normal, Moist Mucous Membranes Neck: Full Range of Motion, Non Tender, Supple Respiratory: Chest Non Tender, No Accessory Muscle Use, No Respiratory Distress Cardiovascular: Regular Rate, Rhythm Gastrointestinal: non tender, soft, no organomegaly, distended (minimally) Extremity: Normal Capillary Refill, Normal Inspection, Non Tender, No Calf Tenderness, No Pedal Edema, Other (right arm in sling and right lower extremity clean bandage) Neurologic/Psychiatric: Alert, Oriented x3, No Motor/Sensory Deficits, Normal Mood/Affect Skin: Normal Color, Warm/Dry Lymphatic: No Adenopathy Results Lab Laboratory Tests 06/12/19 05:06: White Blood Count 6.9, Red Blood Count 2.28L, Hemoglobin 7.1L, Hematocrit 22L, Mean Corpuscular Volume 96, Mean Corpuscular Hemoglobin 31, Mean Corpuscular Hemoglobin Concent 32, Red Cell Distribution Width 14.0, Platelet Count 233, Mean Platelet Volume 8.7, Neutrophils (%) (Auto) 65, Lymphocytes (%) (Auto) 21, Monocytes (%) (Auto) 10, Eosinophils (%) (Auto) 4, Basophils (%) (Auto) 0, Neutrophils # (Auto) 4.5, Lymphocytes # (Auto) 1.5, Monocytes # (Auto) 0.7, Eosinophils # (Auto) 0.3, Basophils # (Auto) 0.0, Sodium Level 138, Potassium Level 3.7, Chloride Level 100, Carbon Dioxide Level 27, Anion Gap 11, Blood Urea Nitrogen 11, Creatinine 0.76, Estimat Glomerular Filtration Rate > 60, BUN/Creatinine Ratio 14, Glucose Level 85, Calcium Level 8.5, Corrected Calcium 9.6, Total Bilirubin 0.9, Aspartate Amino Transf (AST/SGOT) 18, Alanine Aminotransferase (ALT/SGPT) 11, Alkaline Phosphatase 54, Total Protein 5.3L, Albumin 2.6L 06/12/19 06:04: Glucometer 97 06/12/19 11:09: Glucometer 99 06/12/19 15:59: Glucometer 88 06/12/19 20:56: Glucometer 80 Assessment/Plan Assessment/Plan Assessment/Plan constipation, questionable bowel obstruction, fall, right femur/right elbow fractures postoperative Debility patient with a bowel loop which I suspect to be the sigmoid which is upper limits of normal. We'll repeat abdominal x-ray today. He has had a couple liquid stools. Bowels could be sluggish due to narcotics. If still dilated loop with consider CT scan abdomen and pelvis with oral contrast. No surgical intervention at this time will follow. Clinical Quality Measures DVT/VTE Risk/Contraindication: Risk Factor Score Per Nursin RFS Level Per Nursing on Admit: 4+=Very High LULU WHALEN DO Jun 12, 2019 22:06
[2019-06-12] MEDS: POLYETHYLENE GLYCOL 17 GM (MIRALAX) PACK PO SCH (22:20)
--- NOTE | 2019-06-12 23:37 | Cardiology Progress Note ---
Cardiology SOAP Progress Note Subjective: No cardiac complaints. Objective: I&O/Vital Signs 06/12/19 06/12/19 06/12/19 17:42 20:00 20:40 Temp 99.4 Pulse 75 Resp 20 B/P (MAP) 147/62 (90) Pulse Ox 95 O2 Delivery Nasal Cannula Nasal Cannula Nasal Cannula O2 Flow Rate 2.00 2.00 2.00 06/12/19 00:00 Intake Total 540 ml Output Total 1025 ml Balance -485 ml Weight (Pounds): 235 Weight (Ounces): 0.5 Weight (Calculated Kilograms): 106.061941 Constitutional: appears stated age, AAO x 3; No apparent distress; well- developed, well-nourished Respiratory: No accessory muscle use, No respiratory distress, No chest tender, No chest expansion is symmetric; chest is bilaterally symmetric; No lungs clear to percussion; lungs clear to auscultation; No crackles, No rhonchi, No rales, No stridor, No wheezing, No pleural rub, No other Cardiovascular: regular rate-rhythm; No irregularly irregular, No extra beats, No parasternal heave is noted, No JVD, No edema, No bradycardia, No tachycardia, No point of maximal impulse, No cardiac thrills are palpable; S1 and S2; No gallop/S3, No gallop/S4, No diastolic murmur, No systolic murmur, No friction rub, No click, No other Gastrointestional: No tender, No soft, No round, No distended, No pulsatile mass, No organomegaly, No guarding, No rebound, No tenderness, No hernia, No mass, No audible bowel sounds, No abnormal bowel sounds, No abdominal bruits, No spleenomegaly, No other Extremities: No normal range of motion, No non-tender, No normal inspection, No pedal edema, No calf tenderness, No normal capillary refill, No pelvis stable, No calf tenderness, No inflammation, No pedal edema, No slow capillary refill, No swelling, No other, No abrasion, No clubbing, No cyanosis, No ecchymosis, No laceration, No no lower extremity edema bilateral, No significant edema, No tenderness, No wound Neurologic/Psychiatric: no motor/sensory deficits, alert, normal mood/affect, oriented x 3, power is 5/5 both on sides Skin: No normal color, No warm/dry, No cyanosis, No cool, No diaphoresis, No damp, No ecchymosis, No jaundice, No mottled, No pallor, No rash, No tattoo s/piercings, No ulcerations, No rash on exposed areas, No ulcerations on exposed areas, No other Results/Procedures: Labs Laboratory Tests 06/12/19 05:06: White Blood Count 6.9, Red Blood Count 2.28L, Hemoglobin 7.1L, Hematocrit 22L, Mean Corpuscular Volume 96, Mean Corpuscular Hemoglobin 31, Mean Corpuscular Hemoglobin Concent 32, Red Cell Distribution Width 14.0, Platelet Count 233, Mean Platelet Volume 8.7, Neutrophils (%) (Auto) 65, Lymphocytes (%) (Auto) 21, Monocytes (%) (Auto) 10, Eosinophils (%) (Auto) 4, Basophils (%) (Auto) 0, N eutrophils # (Auto) 4.5, Lymphocytes # (Auto) 1.5, Monocytes # (Auto) 0.7, Eosinophils # (Auto) 0.3, Basophils # (Auto) 0.0, Sodium Level 138, Potassium Level 3.7, Chloride Level 100, Carbon Dioxide Level 27, Anion Gap 11, Blood Urea Nitrogen 11, Creatinine 0.76, Estimat Glomerular Filtration Rate > 60, BUN/Creatinine Ratio 14, Glucose Level 85, Calcium Level 8.5, Corrected Calcium 9.6, Total Bilirubin 0.9, Aspartate Amino Transf (AST/SGOT) 18, Alanine Aminotransferase (ALT/SGPT) 11, Alkaline Phosphatase 54, Total Protein 5.3L, Albumin 2.6L 06/12/19 06:04: Glucometer 97 06/12/19 11:09: Glucometer 99 06/12/19 15:59: Glucometer 88 06/12/19 20:56: Glucometer 80 A/P: Assessment/Dx: Mechanical fall, status post right hip surgery, Hypertension, On amiodarone, Diabetes Plan: Inpatient rehabilitation - post hip surgery. DVT prophylaxis. HTN - continue BP meds. Need to get old records. EKG, Echo. EKG 06/09/2019 shows sinus tachycardia. Echo 05/2019 shows LVH, Normal LVEF, DD 1, LAE. Need to find out why the patient is on amiodarone. I requested the RN to find out from Dr Bhat's office the above information. DM Thank you for your consultation. Please call me if you have any questions. Roxie Regalado MD, FACP, FACC, FSCAI, FHRS, CCDS Interventional Cardiology Cardiac Electrophysiology Vascular Medicine and Endovascular Interventions Bryon REGALADO MD Jun 12, 2019 23:37
[2019-06-13] MEDS: NS IV 1000 ML 1,000 ML IV SCH ×2 (05:00→17:40)
[2019-06-13] MEDS: CATHETER FLUSH 10 ML SYR IV SCH ×3 (05:35→21:45)
[2019-06-13] MEDS: inSUlin ASPART (NovoLOG) 1 UNIT/0.01 ML (CHARGE PER UNIT) SC SCH ×4 (05:36→21:45)
[2019-06-13 05:37] VITALS: BP 116/70
[2019-06-13] MEDS: meTOprolol TARTRATE 25 MG (LOPRESSOR) TABLET PO SCH ×2 (06:29→17:40)
[2019-06-13] MEDS: LEVOTHYROXINE 25 MCG (LEVOTHROID) TAB PO SCH (06:29)
[2019-06-13] MEDS: LEVOTHYROXINE 112 MCG (LEVOTHROID) TAB PO SCH (06:29)
--- NOTE | 2019-06-13 09:00 | Physical Therapy Daily Note ---
PT Daily Note-Current Subjective Patient in bed pre tx, agrees to PT, has 10/10 pain in right arm and leg, nurse gives him pain meds. Will be co-treating with OT due to poor patient mobility, strength, endurance, balance, pain, the need to coordinate UE and LE positioning during activity. Appearance Patient in recliner post tx with nurse call, phone, tray, all needs met. Mental Status Patient Orientation: Person, Place, Situation Attachments: Oxygen, IV Transfers Therapy Code Descriptions/Definitions Functional [place] Measure: 0=Not Assessed/NA 4=Minimal Assistance 1=Total Assistance 5=Supervision or Setup 2=Maximal Assistance 6=Modified [place] 3=Moderate Assistance 7=Complete [place] Therapy Quality Codes: 6 Independent with activity with or without an assistive device 5 Patient requires set up or clean up by helper. Patient completes activity by themselves 4 Supervision or touching assist (CGA). [place] provide cues , steadying assist 3 The helper provides less than half the effort to complete the activity 2 The helper provides more than half the effort to complete the activity 1 Dependent. The helper does all the effort to complete an activity 7 Patient refused to complete or attempt activity 9 The patient did not perform the activity before the current illness or injury 88 Not attempted due to Medical conditions or safety concerns Transfers (B, C, W/C) (FIM): 2 Scootin Rollin Supine to/from Sit: 2 Sit to/from Stand: 3 Bed to/from Chair: 2 Cues for hand placement and positioning. Weight Bearing Non Weight Bearing also RUE NWB Wheelchair Training Does the Pt Use a Wheelchair?: Yes Wheelchair (FIM): 1 Distance: 40' Wheelchair Level of Assist: 3 Type of Wheelchair: Manual Exercises standing in parallel bars x4 for about 2'' the first time and about 30 sec the last time. Patient performed UE ROM during standing with OT. Treatments bed mobility and transfers, dressing, wheelchair mobility, standing, UE ROM Assessment Current Status: Fair Progress Patient stood better in the parallel bars, seemed to bear less weight on his right leg but still bears some weight through it. PT Short Term Goals Short Term Goals Time Frame: Jun 17, 2019 Transfers (B,C,W/C) (FIM): 3 Wheelchair Distance: 30' PT Chcf Goals Scraper Operator Goals PT Scraper Operator Goals Time Frame: Jul 01, 2019 Transfers (B,C,W/C) (FIM): 4 Sit to Lying (QC): 3 Lying-Sitting on Side/Bed(QC): 3 Sit to Stand (QC): 3 Rollin Roll Left to Right (QC): 3 Chair/[id number] Xfer(QC): 3 Car Transfer (QC): 3 Wheelchair (FIM): 6 Distance: 150' Wheelchair Level of Assist: 6 Wheel 50 feet with 2 turns (QC: 6 PT Plan Problem List Problem List: Activity Tolerance, Functional Strength, Safety, Balance, Gait, Transfer, Bed Mobility, ROM Treatment/Plan Treatment Plan: Continue Plan of Care Treatment Plan: Bed Mobility, Concurrent Therapy, Education, Functional Activity Tran, Functional Strength, Group Therapy, Gait, Safety, Therapeutic Exercise, Transfers Treatment Duration: Jul 01, 2019 Frequency: At least 5 of 7 days/Wk (IRF) Estimated Hrs Per Day: 1.5 hours per day Patient and/or Family Agrees t: Yes Safety Risks/Education Patient Education: Transfer Techniques, Reviewed Precautions, Correct Positioning, W/C Management, Safety Issues Teaching Recipient: Patient Teaching Methods: Demonstration, Discussion Response to Teaching: Reinforcement Needed Time/GCodes Time In: 0800 Time Out: 0900 Total Billed Treatment Time: 60 Total Billed Treatment 1 visit [facility] 15' FA 45' co-treated for 60 min, PT worked on bed mobility and transfers, standing, wheelchair mobility, assist with dressing, OT worked on dressing, UE ROM and assist with WC mobility and transfers WILLIAM KOROMA PT Jun 13, 2019 09:00
--- NOTE | 2019-06-13 09:11 | PM&R Progress Note ---
Subjective HPI/CC On Admission Date Seen by Provider: Jun 13, 2019 Time Seen by Provider: 08:45 Chief complaint: Right hip fracture and right elbow fracture in need of inpatient rehab to return home History of present illness: This is a 79-year-old white male known to me from prior admissions long ago whose primary care provider is Dr. Bhat but who does not see a physical optics teacher regularly who has a history of atrial fibrillation, diabetes mellitus and falls in the past who presented to inpatient rehab after discharge from [facility] after suffering a right femoral fracture and right elbow fracture which required surgery for repair after a fall sustained at home when he was using his leaf blower on 06/04/2019. He did not require a transfusion while hospitalized at [facility]. He has not had a bowel movement for 5 days. Pain is currently controlled with oxycodone. Patient does not usually require oxygen or CPAP machine. His prior level of functioning was without assistive device and completely independent with ADLs. I will consult Dr Regalado for Cardiology management. Subjective/Events-last exam Psych evaluation today KUB shows no obstruction and that is confirmed on CT scan per Dr. Abdullahi Advanced clear liquids yesterday urinary retention may be a problem requiring Dr. Horta consultation so we will evaluate that Pt doing pretty well but having a lot of pain Dr. Abdullahi will start evaluating the elbow surgical wound and the hip wound since there is drainage and he will take over that expertise Very complex case but he is stable and will hopefully obtain regaining Bowel function soon Checked meds and labs Reviewed therapy notes Conferred with pit steward of Systems General: Fatigue Musculoskeletal: arm pain, leg pain Neurological: Confusion Objective Exam Vital Signs Vital Signs Date Time Temp Pulse Resp B/P (MAP) Pulse Ox O2 Delivery O2 Flow Rate FiO2 06/13/19 20:00 Nasal Cannula 2.00 06/13/19 15:40 97.8 89 16 111/79 (90) 94 Capillary Refill : Less Than 3 Seconds General Appearance: No Apparent Distress, WD/WN, Chronically ill, Obese HEENT: PERRL/EOMI, Normal ENT Inspection, Pharynx Normal, Moist Mucous Membranes Neck: Full Range of Motion, Normal Inspection, Non Tender, Supple Respiratory: Chest Non Tender, Lungs Clear, Normal Breath Sounds, No Accessory Muscle Use, No Respiratory Distress Cardiovascular: Regular Rate, Rhythm, No Edema, No Gallop, No JVD, No Murmur Gastrointestinal: No Organomegaly, No Pulsatile Mass, Non Tender, Soft, Abnormal Bowel Sounds (minimal noted) Back: Normal Inspection, No CVA Tenderness, No Vertebral Tenderness Extremity: Normal Capillary Refill, Normal Inspection, Normal Range of Motion (except right arm in sling and dressing and right leg due to hip pain), Non Tender, No Calf Tenderness, No Pedal Edema Neurologic/Psychiatric: Alert, Oriented x3, No Motor/Sensory Deficits, Normal Mood/Affect, automotive 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 FIM Transfers Therapy Code Descriptions/Definitions Functional [place] Measure: 0=Not Assessed/NA 4=Minimal Assistance 1=Total Assistance 5=Supervision or Setup 2=Maximal Assistance 6=Modified [place] 3=Moderate Assistance 7=Complete [place] Therapy Quality Codes: 6 Independent with activity with or without an assistive device 5 Patient requires set up or clean up by helper. Patient completes activity by themselves 4 Supervision or touching assist (CGA). [place] provide cues , steadying as sist 3 The helper provides less than half the effort to complete the activity 2 The helper provides more than half the effort to complete the activity 1 Dependent. The helper does all the effort to complete an activity 7 Patient refused to complete or attempt activity 9 The patient did not perform the activity before the current illness or injury 88 Not attempted due to Medical conditions or safety concerns Transfers (B, C, W/C) (FIM): 2 Scootin Rollin Roll Left to Right (QC): 1 Supine to/from Sit: 2 Sit to/from Stand: 3 Sit to Lying (QC): 1 Sit to Stand (QC): 1 Chair/Vjd-sc-Smepd Xfer(QC): 1 Bed to/from Chair: 2 Car Transfer (QC): 1 Gait Training Does the Patient Walk?: No and Walking Goal IS indicated Wheelchair Training Does the Pt Use a Wheelchair?: Yes Wheelchair (FIM): 1 Distance: 40' Wheelchair Level of Assist: 3 Type of Wheelchair: Manual Mental Status/Objective Comprehension: 5 Expression: 5 Social Interaction: 7 Problem Solvin Memory: 5 ADL-Treatment Feedin (set up. pt required encouregment to feed self. ) Eating (QC): 4 Groomin (required set up/ superivison. comb hair, wash face, wash hand. pt education on one handed technqies. ) Oral Hygiene (QC): 4 Bathin (education on use of LHS. pt demo correctly) Bathing Location: L Lower Leg (including foot), R Lower Leg (including foot), Chest, Abdomen, Perineal Area Shower/Bathe Self (QC): 2 Upper Extremity Dressin (required encourgement to complete tasks w/o assist. pt education on one handed techniqes for puller out shirt. ) Upper Body Dressing (QC): 1 Lower Extremity Dressin (pt education on use of AE (hadoop analyst) pt attempt use and was able to thread corie LE part way but still required assist. futher education will be requried ) Lower Body Dressing (QC): 1 On/Off Footwear (QC): 1 Toiletin Toileting Hygiene (QC): 1 Toilet/Commode Transfer: 1 (X 2 person assist ) Toilet Transfer (QC): 1 Shower: 0 (NT secodanry to safety of pt ) Assessment/Plan Assessment and Plan Assess & Plan/Chief Complaint Assessment: Status post right femoral fracture on 06/04/2019 Right elbow fracture status post repair 06/04/2019 History of atrial fibrillation on amiodarone Multiple falls in the past Emotional problems Hypothyroidism GERD Hypertension Diabetes mellitus insulin requiring line hyperlipidemia Anemia from acute blood loss Iron deficiency receiving iron infusions Hyponatremia Low albumin Cognitive decline SLUMS Ileus versus partial bowel obstruction? Consulting Dr Abdullahi and placing NPO and starting gentle IVF 06/12/19 1330 Plan: Pain control Constipation resolution after ileus and obstipation resolved with the help of Dr Abdullahi Home meds Monitor labs IV iron infusions Fall risk prevention Inpatient rehab protocols Appreciate Dr Abdullahi consultation Appreciate Dr Abdullahi managing the ortho surgical wounds (1) Right femoral fracture (2) Cognitive decline (3) Diabetes mellitus (4) Hx of emotional problems (5) GERD without esophagitis (6) Hypothyroidism (7) Hyponatremia (8) Elbow fracture, right (9) Fall (10) Hypertension (11) Anemia due to acute blood loss (12) Fever (13) Iron deficiency (14) Constipation (15) Atrial fibrillation QUIN COFFEY DO Jun 13, 2019 09:11
--- NOTE | 2019-06-13 09:15 | Occupational Ther Daily Note ---
OT Current Status-Daily Note Subjective pt laying in bed upon OT / PT arrival. pt agreed to TX session. pt stated 7/10 RUE/RLE pain prior to session. post session pt reports 10/10 pain. NSG is aware and NSG did give pain medications Mental Status/Objective Patient Orientation: Normal For Age Therapy Code Descriptions/Definitions Functional [place] Measure: 0=Not Assessed/NA 4=Minimal Assistance 1=Total Assistance 5=Supervision or Setup 2=Maximal Assistance 6=Modified [place] 3=Moderate Assistance 7=Complete [place] Attachments: IV, Oxygen ADL-Treatment Therapy Code Descriptions/Definitions Functional [place] Measure: 0=Not Assessed/NA 4=Minimal Assistance 1=Total Assistance 5=Supervision or Setup 2=Maximal Assistance 6=Modified [place] 3=Moderate Assistance 7=Complete [place] Therapy Quality Codes: 6 Independent with activity with or without an assistive device 5 Patient requires set up or clean up by helper. Patient completes activity by themselves 4 Supervision or touching assist (CGA). [place] provide cues , steadying assist 3 The helper provides less than half the effort to complete the activity 2 The helper provides more than half the effort to complete the activity 1 Dependent. The helper does all the effort to complete an activity 7 Patient refused to complete or attempt activity 9 The patient did not perform the activity before the current illness or injury 88 Not attempted due to Medical conditions or safety concerns Eating (FIM): 5 (requires cuing to complete without assist to taske drink of water. ) Grooming (FIM): 5 (wash face, brush teeth. required assist to open containers and cuign to complete without assist. ) Lower Body Dressing (FIM): 1 (pants, corie socks ) Transfers (B, C, W/C) (FIM): 1 (X 2 person assist ) Other Treatment co-treatment completed with PT secondary to complexity of pt deficits requiring skills of both disciplines. OT focus on ADL tasks, UE positioning, UE ROM, and sequencing while OT focus on gross transfers, LE positioning and WBS. pt perform bed mobility with MAX A and SPT X 2 person assist. pt required cuing to sequencing through tasks/ proper positioning. PT TRANSPORTED TO tx GYM. PT EDUCATION ON PROPER SIT TO STAND METHODS while maintaining WBS. pt perform 4 sit to stand with MOD_MAX A and maintain standing for approx 1 minutes. while standing pt perform UE ROM with R shoulder. noted increase timing for rest breaks secondary to limited activity tolerance. pt perform 10X3 shoulder flex/ ext, and 10X3 shoulder shrugs. pt education on self propelled w/c. pt required strong tackle and VC's to propel w/c with MOD A. pt then transferred back to recliner chair with MAX A X 2 person assist. OT session: pt perform ADL tasks (see FIM scores for details) Education OT Patient Education: Energy conservation, Modified ADL techniques, Progress to snider Goal/Update tx plan, Purpose of tx/functional activities, Reviewed precautions, Rehab process, Safety issues, Transfer techniques Teaching Recipient: Patient Teaching Methods: Demonstration, Discussion Response to Teaching: Verbalize Understanding, Return Demonstration OT Short Term Goals Short Term Goals Eating(FIM): 6 Grooming(FIM): 4 Bathing(FIM): 3 Upper Body Dressing(FIM): 3 Lower Body Dressing(FIM): 3 Toileting(FIM): 3 Transfers (B,C,W/C) (FIM): 3 Toilet/Commode Transfer(FIM): 3 Shower Transfer(FIM): 3 1=Demonstrate adherence to instructed precautions during ADL tasks. 2=Patient will verbalize/demonstrate understanding of assistive devices/modifications for ADL. 3=Patient will improve strength/tolerance for activity to enable patient to perform ADL's. OT [facility] Goals [facility] Goals Time Frame: Jul 08, 2019 Eating (FIM): 6 Eating (QC): 6 Groomin Oral Hygiene (QC): 6 Bathing(FIM): 5 Bathing Location: L Arm, R Arm, L Upper Leg, R Upper Leg, L Lower Leg (including foot), R Lower Leg (including foot), Chest, Abdomen, Buttocks, Perineal Area Shower/Bathe Self (QC): 5 Upper Body Dressing(FIM): 6 Upper Body Dressing (QC): 6 Lower Body Dressing(FIM): 6 Lower Body Dressing (QC): 5 On/Off Footwear (QC): 5 Toileting(FIM): 5 Toileting Hygiene (QC): 5 Transfers (B,C,W/C) (FIM): 5 Toilet/Commode Transfer(FIM): 5 Toilet/Commode Transfer (QC): 4 Shower Transfer(FIM): 5 Additional Goals: 1-Demonstrate ADL Tasks, 2-Verbalize Understanding, 3- ImproveStrength/Tran 1=Demonstrate adherence to instructed precautions during ADL tasks. 2=Patient will verbalize/demonstrate understanding of assistive devices/modifications for ADL. 3=Patient will improve strength/tolerance for activity to enable patient to perform ADL's. OT Education/Plan Problem List/Assessment Assessment: Decreased Activ Tolerance, Decreased Safety Aware, Decreased UE Strength, Dependent Transfers, Impaired Bed Mobility, Impaired Coordination, Impaired Funct Balance, Impaired I ADL's, Impaired Self-Care Skills pt presents with functional limitations affecting areas of ADLs and functional transfers with then above mention deficits. pt would benefit from skilled OT services to increase independence with ADLS and functional transfers. noted pt has decrease motivation to participate in therapy services and required cueing for motivation. Discharge Recommendations Plan/Recommendations: Continue POC Treatment Plan/Plan of Care Patient would benefit from OT for education, treatment and training to promote independence in ADL's, mobility, safety and/or upper extremity function for ADL's. Plan of Care: ADL Retraining, Caregiver Training, Functional Mobility, Group Exercise/Act as Ind, UE Funct Exercise/Act, W/C Management Training Treatment Duration: Jul 08, 2019 Frequency: At least 5 of 7 days/Wk (IRF) Estimated Hrs Per Day: 1 hour per day (60-90 minutes per day) Agreement: Yes Rehab Potential: Fair Time/GCodes Start Time: 08:00 Stop Time: 09:15 Billed Treatment Time co treatment with PT 60 minutes 15 minutes individual. ADL 25 minutes, 2 units FA 50 minutes, 3 units RAPHAEL VILLAFUERTE OT Jun 13, 2019 09:15
[2019-06-13] MEDS: FUROSEMIDE 40 MG (LASIX) TAB PO SCH (09:20)
[2019-06-13] MEDS: IRON SUCROSE 200 MG/10 ML (VENOFER) VIAL IV SCH (09:20)
[2019-06-13] MEDS: KCL 20 MEQ TAB (K-DUR) PO SCH ×2 (09:21→20:21)
[2019-06-13] MEDS: ASPIRIN 81 MG CHEW (CHILDREN'S ASA) PO SCH (09:21)
[2019-06-13] MEDS: LACTULOSE SYRUP 10GM/15ML (ENULOSE) 30ML UDC PO SCH ×2 (09:21→20:22)
[2019-06-13] MEDS: SENNA W/DOCUSATE (SENOKOT S) TABLET PO SCH ×2 (09:21→20:21)
[2019-06-13] MEDS: AMIODARONE 200 MG (CORDARONE) TAB PO SCH (09:21)
[2019-06-13] MEDS: PANTOPRAZOLE 40 MG (PROTONIX) TAB PO SCH (09:21)
[2019-06-13] MEDS: QUEtiapine 25 MG (SEROquel) TAB IMMEDIATE RELEASE PO SCH ×2 (09:21→20:21)
[2019-06-13] MEDS: TRIAMCINOLONE 0.1% CR (KENALOG) 15 GM TUBE TOP SCH ×2 (09:22→21:45)
--- NOTE | 2019-06-13 10:26 | NUR ---
COMPUTER SYSTEMS SOFTWARE ENGINEER met with patient to review team conference summary. As patient continues to struggle with pain management, maintaining weightbearing restrictions, remains dependent for transfers and min assist for ADLs, team has recommended patient be reevaluated at next team conference on 87. Patient is in agreement with this.
--- NOTE | 2019-06-13 13:38 | Physical Therapy Daily Note ---
PT Daily Note-Current Subjective Patient agrees to PT. He continues to c/o 10/10 right hip pain with any movement. Pain Numeric Pain Scale: 10-Worst Possible Pain Location: Right Location Body Site: Hip Pain Description: Acute Mental Status Patient Orientation: Person, Time, Situation Transfers Therapy Code Descriptions/Definitions Functional [place] Measure: 0=Not Assessed/NA 4=Minimal Assistance 1=Total Assistance 5=Supervision or Setup 2=Maximal Assistance 6=Modified [place] 3=Moderate Assistance 7=Complete [place] Therapy Quality Codes: 6 Independent with activity with or without an assistive device 5 Patient requires set up or clean up by helper. Patient completes activity by themselves 4 Supervision or touching assist (CGA). [place] provide cues , steadying assist 3 The helper provides less than half the effort to complete the activity 2 The helper provides more than half the effort to complete the activity 1 Dependent. The helper does all the effort to complete an activity 7 Patient refused to complete or attempt activity 9 The patient did not perform the activity before the current illness or injury 88 Not attempted due to Medical conditions or safety concerns Weight Bearing Non Weight Bearing also RUE NWB Exercises Supine Ex: Ankle pumps, Quad Set, Glut sets, Heel Slides, Straight leg raise (left LE only) Supine Reps: 15 (2 sets AAROM with HS right LE) Seated Therapy Exercises: Ankle pumps, Long arc quads Seated Reps: 15 (2 sets AROM bilaterally) Assessment Patient becomes very verbal with any right LE exercises. He is slowly progressing with treatment plan. PT Short Term Goals Short Term Goals Time Frame: Jun 17, 2019 Transfers (B,C,W/C) (FIM): 3 Wheelchair Distance: 40' PT Qa Software Test Engineer Goals Long-Term Goals PT Long-Term Goals Time Frame: Jul 01, 2019 Transfers (B,C,W/C) (FIM): 4 Sit to Lying (QC): 3 Lying-Sitting on Side/Bed(QC): 3 Sit to Stand (QC): 3 Rollin Roll Left to Right (QC): 3 Chair/Fmm-jy-Eerkl Xfer(QC): 3 Car Transfer (QC): 3 Wheelchair (FIM): 6 Distance: 150' Wheelchair Level of Assist: 6 Wheel 50 feet with 2 turns (QC: 6 PT Plan Treatment/Plan Treatment Plan: Continue Plan of Care Treatment Plan: Bed Mobility, Concurrent Therapy, Education, Functional Act ivity Tran, Functional Strength, Group Therapy, Gait, Safety, Therapeutic Exercise, Transfers Treatment Duration: Jul 01, 2019 Frequency: At least 5 of 7 days/Wk (IRF) Estimated Hrs Per Day: 1.5 hours per day Patient and/or Family Agrees t: Yes Time/GCodes Time In: 1240 Time Out: 1305 Total Billed Treatment Time: 25 Total Billed Treatment 1 visit EX x 2 25 min WINDY FORD PT Jun 13, 2019 13:37
--- NOTE | 2019-06-13 14:24 | Cardiology Progress Note ---
Cardiology SOAP Progress Note Subjective: No cardiac complaints. Objective: I&O/Vital Signs 06/13/19 05:37 Temp 98.4 Pulse 66 Resp 16 B/P (MAP) 116/70 (85) Pulse Ox 97 O2 Delivery Nasal Cannula O2 Flow Rate 2.00 06/13/19 00:00 Intake Total 0 ml Output Total 550 ml Balance -550 ml Weight (Pounds): 235 Weight (Ounces): 0.5 Weight (Calculated Kilograms): 106.257815 Constitutional: appears stated age, AAO x 3; No apparent distress; well- developed, well-nourished Respiratory: No accessory muscle use, No respiratory distress, No chest tender, No chest expansion is symmetric; chest is bilaterally symmetric; No lungs clear to percussion; lungs clear to auscultation; No crackles, No rhonchi, No rales, No stridor, No wheezing, No pleural rub, No other Cardiovascular: regular rate-rhythm; No irregularly irregular, No extra beats, No parasternal heave is noted, No JVD, No edema, No bradycardia, No tachycardia, No point of maximal impulse, No cardiac thrills are palpable; S1 and S2; No gallop/S3, No gallop/S4, No diastolic murmur, No systolic murmur, No friction rub, No click, No other Gastrointestional: No tender, No soft, No round, No distended, No pulsatile mass, No organomegaly, No guarding, No rebound, No tenderness, No hernia, No mass, No audible bowel sounds, No abnormal bowel sounds, No abdominal bruits, No spleenomegaly, No other Extremities: No normal range of motion, No non-tender, No normal inspection, No pedal edema, No calf tenderness, No normal capillary refill, No pelvis stable, No calf tenderness, No inflammation, No pedal edema, No slow capillary refill, No swelling, No other, No abrasion, No clubbing, No cyanosis, No ecchymosis, No laceration, No no lower extremity edema bilateral, No significant edema, No tenderness, No wound Neurologic/Psychiatric: no motor/sensory deficits, alert, normal mood/affect, oriented x 3, power is 5/5 both on sides Skin: No normal color, No warm/dry, No cyanosis, No cool, No diaphoresis, No damp, No ecchymosis, No jaundice, No mottled, No pallor, No rash, No tattoos/piercings, No ulcerations, No rash on exposed areas, No ulcerations on exposed areas, No other Results/Procedures: Labs Laboratory Tests 06/12/19 15:59: Glucometer 88 06/12/19 20:56: Glucometer 80 06/13/19 05:17: Glucometer 64L 06/13/19 10:55: Glucometer 236H A/P: Assessment/Dx: Mechanical fall, status post right hip surgery, Hypertension, On amiodarone, Diabetes Plan: Inpatient rehabilitation - post hip surgery. DVT prophylaxis. HTN - continue BP meds. Need to get old records. EKG, Echo. EKG 06/09/2019 shows sinus tachycardia. Echo 05/2019 shows LVH, Normal LVEF, DD 1, LAE. Need to find out why the patient is on amiodarone. I requested the RN to find out from Dr Bhat's office the above information. I have reviewed all the information sent from Dr. Bhat's office. All EKGs have sinus rhythm. We will discontinue amiodarone. DM Thank you for your consultation. Please call me if you have any questions. Roxie Regalado MD, FACP, FACC, FSCAI, FHRS, CCDS Interventional Cardiology Cardiac Electrophysiology Vascular Medicine and Endovascular Interventions Bryon REGALADO MD Jun 13, 2019 2:24 pm
--- NOTE | 2019-06-13 14:53 | Speech Therapy Daily Note ---
Speech Daily Progress Note Subjective Date Seen by Provider: Jun 13, 2019 Time Seen by Provider: 00:30 Patient was alert and sitting upright in chair. Patient was pleasant and cooperative. Objective Patient participated in memory tasks with 70% success given moderate cueing Assessment Assessment Current Status: Good Progress Treatment Plan Continue Plan of Care Communication Comprehension: 5 Expression: 5 Social Cognition Social Interaction: 7 Problem Solvin Memory: 5 Speech Short Term Goals Short Term Goals Short Term Goals Patient will demonstrate simple problem solving and memory with 80% accuracy when given minimal to moderate cues Speech Roller Bearing Inspector Goals Roller Bearing Inspector Goals Patient will improve cognitive-communication necessary for safety and daily living tasks with minimal assist Speech-Plan Patient/Family Goals Patient/Family Goals: return to home, improved cognition Treatment Plan Speech Therapy Treatment Plan: Continue Plan of Care Patient is making good progress towards goals. Patient requires moderate cueing for success with memory tasks. Treatment Duration: Jun 24, 2019 Frequency: 5 times per week Estimated Hrs Per Day: .5 hour per day Rehab Potential: Fair Barriers to Learning: cognitive-communication Pt/Family Agrees to Plan: Yes Safety Risks/Education Teaching Recipient: Patient Teaching Methods: Discussion Response to Teaching: Verbalize Understanding Education Topics Provided: cognition and room safety Time Speech Therapy Time In: 09:30 Speech Therapy Time Out: 10:00 Total Billed Time: 30 Billed Treatment Time 1, DORIAN iDallo Jun 13, 2019 14:53
[2019-06-13 15:40] VITALS: BP 111/79
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
--- NOTE | 2019-06-13 17:22 | Progress Note - Surgery ---
Subjective Date Seen by a Provider: Jun 13, 2019 Time Seen by a Provider: 17:16 Subjective/Events-last exam patient no abdominal pain. passing flatus. ct scan showing moderate stool, no other acute abnormality. right arm and right thigh pain no change and post-surgical. Denies n/v fever sweats chills shortness of breath or chest pain. Objective Exam Vital Signs Date Time Temp Pulse Resp B/P (MAP) Pulse Ox O2 Delivery O2 Flow Rate FiO2 06/13/19 15:40 97.8 89 16 111/79 (90) 94 Nasal Cannula 2.00 06/13/19 08:25 Nasal Cannula 2.00 06/13/19 05:37 98.4 66 16 116/70 (85) 97 Nasal Cannula 2.00 06/12/19 20:40 Nasal Cannula 2.00 06/12/19 20:00 Nasal Cannula 2.00 06/12/19 17:42 99.4 75 20 147/62 (90) 95 Nasal Cannula 2.00 I & O 06/13/19 07:00 Intake Total 1100 ml Output Total 900 ml Balance 200 ml Capillary Refill : Less Than 3 Seconds General Appearance: No Apparent Distress, WD/WN, Chronically ill, Obese HEENT: PERRL/EOMI, Normal ENT Inspection, Pharynx Normal, Moist Mucous Membranes Neck: Full Range of Motion, Normal Inspection, Non Tender, Supple Respiratory: Chest Non Tender, No Accessory Muscle Use, No Respiratory Distress Cardiovascular: Regular Rate, Rhythm Gastrointestinal: non tender, soft, no organomegaly, distended (minimally) Extremity: Normal Capillary Refill, Normal Inspection, Normal Range of Motion (except right arm in sling and dressing and right leg due to hip pain, bandages taken down, bruising present and small superficial abrasion right upper ext, no signs of infection), Non Tender, No Calf Tenderness, No Pedal Edema Neurologic/Psychiatric: Alert, Oriented x3, No Motor/Sensory Deficits, Normal Mood/Affect, manager file II-XII Norm as Tested Skin: Normal Color, Warm/Dry Lymphatic: No Adenopathy Results Lab Laboratory Tests 06/12/19 20:56: Glucometer 80 06/13/19 05:17: Glucometer 64L 06/13/19 10:55: Glucometer 236H 06/13/19 15:39: Glucometer 170H Assessment/Plan Assessment/Plan Assessment/Plan constipation, questionable bowel obstruction, fall, right femur/right elbow fractures postoperative Debility, anemia stable likely postop Patient continue with bowel regimen for moderate stool in colon, clear liquids once having good bm would advance incisions no signs of infection Clinical Quality Measures DVT/VTE Risk/Contraindication: Risk Factor Score Per Nursin RFS Level Per Nursing on Admit: 4+=Very High LULU WHALEN DO Jun 13, 2019 17:22
[2019-06-13] MEDS: MELATONIN 3 MG TABLET PO SCH (20:21)
[2019-06-13] MEDS: POLYETHYLENE GLYCOL 17 GM (MIRALAX) PACK PO SCH (20:21)
[2019-06-14] MEDS: CATHETER FLUSH 10 ML SYR IV SCH ×4 (00:09→21:50)
[2019-06-14] MEDS: inSUlin ASPART (NovoLOG) 1 UNIT/0.01 ML (CHARGE PER UNIT) SC SCH ×4 (05:18→21:50)
[2019-06-14 05:43] VITALS: BP 115/67
[2019-06-14] MEDS: NS IV 1000 ML 1,000 ML IV SCH ×2 (06:04→17:42)
[2019-06-14] MEDS: LEVOTHYROXINE 112 MCG (LEVOTHROID) TAB PO SCH (06:04)
[2019-06-14] MEDS: meTOprolol TARTRATE 25 MG (LOPRESSOR) TABLET PO SCH ×2 (06:04→17:42)
[2019-06-14] MEDS: LEVOTHYROXINE 25 MCG (LEVOTHROID) TAB PO SCH (06:04)
--- NOTE | 2019-06-14 08:58 | PM&R Progress Note ---
Subjective HPI/CC On Admission Date Seen by Provider: Jun 14, 2019 Time Seen by Provider: 09:00 Chief complaint: Right hip fracture and right elbow fracture in need of inpatient rehab to return home History of present illness: This is a 79-year-old white male known to me from prior admissions long ago whose primary care provider is Dr. 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 He did not require a transfusion while hospitalized at [facility]. He has not had a bowel movement for 5 days. Pain is currently controlled with oxycodone. Patient does not usually require oxygen or CPAP machine. His prior level of functioning was without assistive device and completely independent with ADLs. I will consult Dr Regalado for Cardiology management. Subjective/Events-last exam Jayro HERNANDEZII obtained this: Discussed barriers that he needs addressed while before he gets home including - Driving - Entering vehicle - Needs chairs with proper handrails and cushions - Rehab to sit down and get out of chairs just using his left arm Areas of living that already have assistance includes - Gentle slope at the back of his house - Has a rug in his bedroom that he is taking out. - Does have a dog and cat, but says they will not get in the way. - Lives with Teresa and Jerome who will help him with cooking, cleaning, getting into bed. 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 Regalado spoke to me and recommended discontinuation of amiodarone since there was no evidence of any atrial fibrillation even though it was on past records and especially since he was not on any oral anticoagulation will place telemetry for 48 hours and discontinue if no A. fib noted and may need a loop recorder but will monitor closely in the meantime. Motivated to improve Conferred with RN Reviewed therapy notes Review of Systems General: Fatigue Musculoskeletal: arm pain, leg pain Objective Exam Vital Signs Vital Signs Date Time Temp Pulse Resp B/P (MAP) Pulse Ox O2 Delivery O2 Flow Rate FiO2 06/14/19 14:46 Nasal Cannula 2.00 06/14/19 05:43 98.8 78 20 115/67 (83) 93 Capillary Refill : Less Than 3 Seconds General Appearance: No Apparent Distress, WD/WN, Chronically ill, Obese HEENT: PERRL/EOMI, Normal ENT Inspection, Pharynx Normal, Moist Mucous Membranes Neck: Full Range of Motion, Normal Inspection, Non Tender, Supple Respiratory: Chest Non Tender, Lungs Clear, Normal Breath Sounds, No Accessory Muscle Use, No Respiratory Distress Cardiovascular: Regular Rate, Rhythm, No Edema, No Gallop, No JVD, No Murmur Gastrointestinal: No Organomegaly, No Pulsatile Mass, Non Tender, Soft, Abnormal Bowel Sounds (minimal noted) Back: Normal Inspection, No CVA Tenderness, No Vertebral Tenderness Extremity: Normal Capillary Refill, Normal Inspection, Normal Range of Motion (except right arm in sling and dressing and right leg due to hip pain), Non Tender, No Calf Tenderness, No Pedal Edema Neurologic/Psychiatric: Alert, Oriented x3, No Motor/Sensory Deficits, Normal Mood/Affect, sql server consultant II-XII Norm as Tested, Disoriented Skin: Normal Color, Warm/Dry Lymphatic: No Adenopathy Results/Procedures Lab Patient resulted labs reviewed. FIM Transfers Therapy Code Descriptions/Definitions Functional [place] Measure: 0=Not Assessed/NA 4=Minimal Assistance 1=Total Assistance 5=Supervision or Setup 2=Maximal Assistance 6=Modified [place] 3=Moderate Assistance 7=Complete [place] Therapy Quality Codes: 6 Independent with activity with or without an assistive device 5 Patient requires set up or clean up by helper. Patient completes activity by themselves 4 Supervision or touching assist (CGA). [place] provide cues , steadying assist 3 The helper provides less than half the effort to complete the activity 2 The helper provides more than half the effort to complete the activity 1 Dependent. The helper does all the effort to complete an activity 7 Patient refused to complete or attempt activity 9 The patient did not perform the activity before the current illness or injury 88 Not attempted due to Medical conditions or safety concerns Transfers (B, C, W/C) (FIM): 1 (X 2 person assist ) Scootin Rollin Roll Left to Right (QC): 1 Supine to/from Sit: 2 Sit to/from Stand: 3 Sit to Lying (QC): 1 Sit to Stand (QC): 1 Chair/Oxj-lu-Fkffg Xfer(QC): 1 Bed to/from Chair: 2 Car Transfer (QC): 1 Gait Training Does the Patient Walk?: No and Walking Goal IS indicated Wheelchair Training Does the Pt Use a Wheelchair?: Yes Wheelchair (FIM): 1 Distance: 40' Wheelchair Level of Assist: 3 Type of Wheelchair: Manual Mental Status/Objective Comprehension: 5 Expression: 5 Social Interaction: 7 Problem Solvin Memory: 5 ADL-Treatment Feedin (requires cuing to complete without assist to taske drink of water. ) Eating (QC): 4 Groomin (wash face, brush teeth. required assist to open containers and cuign to complete without assist. ) Oral Hygiene (QC): 4 Bathin (education on use of LHS. pt demo correctly) Bathing Location: L Lower Leg (including foot), R Lower Leg (including foot), Chest, Abdomen, Perineal Area Shower/Bathe Self (QC): 2 Upper Extremity Dressin (required encourgement to complete tasks w/o assist. pt education on one handed techniqes for tail puller shirt. ) Upper Body Dressing (QC): 1 Lower Extremity Dressin (pants, corie socks ) Lower Body Dressing (QC): 1 On/Off Footwear (QC): 1 Toiletin Toileting Hygiene (QC): 1 Toilet/Commode Transfer: 1 (X 2 person assist ) Toilet Transfer (QC): 1 Shower: 0 (NT secodanry to safety of pt ) Assessment/Plan Assessment and Plan Assess & Plan/Chief Complaint Assessment: Status post right femoral fracture on 06/04/2019 Right elbow fracture status post repair 06/04/2019 History of atrial fibrillation on amiodarone Multiple falls in the past Emotional problems Hypothyroidism GERD Hypertension Diabetes mellitus insulin requiring line hyperlipidemia Anemia from acute blood loss Iron deficiency receiving iron infusions Hyponatremia Low albumin Cognitive decline SLUMS Ileus versus partial bowel obstruction? Consulting Dr Abdullahi and s/p IVF NPO now on CLD Plan: Pain control Constipation resolution after ileus and obstipation resolved with the help of Dr Abdullahi Home meds Monitor labs IV iron infusions Fall risk prevention Inpatient rehab protocols Appreciate Dr Abdullahi consultation Appreciate Dr Abdullahi managing the ortho surgical wounds (1) Right femoral fracture (2) Cognitive decline (3) Diabetes mellitus (4) Hx of emotional problems (5) GERD without esophagitis (6) Hypothyroidism (7) Hyponatremia (8) Elbow fracture, right (9) Fall (10) Hypertension (11) Anemia due to acute blood loss (12) Fever (13) Iron deficiency (14) Constipation (15) Atrial fibrillation QUIN COFFEY DO Jun 14, 2019 08:58
--- NOTE | 2019-06-14 09:38 | Occupational Ther Daily Note ---
OT Current Status-Daily Note Subjective pt laying in bed upon OT / PT arrival. pt agreed to TX session. pt stated 6/10 RUE/RLE pain prior to session. post treatment session pt reports 10/10 pain in RUE and Rhip. . NSG is aware and NSG did give pain medications during session. Mental Status/Objective Therapy Code Descriptions/Definitions Functional [place] Measure: 0=Not Assessed/NA 4=Minimal Assistance 1=Total Assistance 5=Supervision or Setup 2=Maximal Assistance 6=Modified [place] 3=Moderate Assistance 7=Complete [place] Attachments: IV, Oxygen ADL-Treatment Therapy Code Descriptions/Definitions Functional [place] Measure: 0=Not Assessed/NA 4=Minimal Assistance 1=Total Assistance 5=Supervision or Setup 2=Maximal Assistance 6=Modified [place] 3=Moderate Assistance 7=Complete [place] Therapy Quality Codes: 6 Independent with activity with or without an assistive device 5 Patient requires set up or clean up by helper. Patient completes activity by themselves 4 Supervision or touching assist (CGA). [place] provide cues , steadying assist 3 The helper provides less than half the effort to complete the activity 2 The helper provides more than half the effort to complete the activity 1 Dependent. The helper does all the effort to complete an activity 7 Patient refused to complete or attempt activity 9 The patient did not perform the activity before the current illness or injury 88 Not attempted due to Medical conditions or safety concerns Lower Body Dressing (FIM): 2 (pants corie socks. pt reeducation on useof AE (web page designer) pt demo ability to thread corie LE but required assist to pull up pants. pt required TA to watson corie socks ) Transfers (B, C, W/C) (FIM): 1 (X 2 person assist. ) PT focused on seated balance/ positioning while OT focus on ADL task with use of AE. Other Treatment co-treatment completed with PT secondary to complexity of pt deficits requiring skills of both disciplines that a rehabilitation counsellor could not complete secondary to skill level required. . OT focused on ADL tasks, UE positioning, UE ROM, while PT focus on gross transfers, LE positioning, seated balance, LE exercises, and maintaining WBS. pt perform bed mobility with MAX A required cuing for pooper positioning of RUE. LE and sequencing through task. noted pt easily frustrated with tasks. pt perform SPT X 2 person assist toward left side. noted increase in understanding of UE positioning during transfer. pt self propelled w/c from room toward TX gym (please refer to PT note) required cuing from OT for sequencing LUE/LLE for propelling of chair. pt attempted sit to stands in parallel bars with MOD_MAX A requiring cuing to maintaining WBS. while standing pt perform UE Right ROM ex. to increase functional use of Right shoulder in prep for daily activities while PT focused on standing balance. noted increase timing for rest breaks between stands secondary to limited activity tolerance. pt perform 15X1 shoulder flex/ ext, 15 X1 shoulder ABB/ABD, and 15X1 shoulder shrugs. pt transported back to room then transferred back to recliner chair with MAX A X 2 person assist toward left side. pt siting in recliner chair, call light within reach, all needs met. Education OT Patient Education: Energy conservation, Exercise program, Modified ADL techniques, Progress toward Goal/Update tx plan, Purpose of tx/functional activities, Reviewed precautions, Rehab process, Safety issues, Transfer techniques, Use of adapted equipment, W/C management Teaching Recipient: Patient Teaching Methods: Demonstration, Discussion Response to Teaching: Verbalize Understanding, Return Demonstration OT Short Term Goals Short Term Goals Eating(FIM): 6 Grooming(FIM): 4 Bathing(FIM): 3 Upper Body Dressing(FIM): 3 Lower Body Dressing(FIM): 3 Toileting(FIM): 3 Transfers (B,C,W/C) (FIM): 3 Toilet/Commode Transfer(FIM): 3 Shower Transfer(FIM): 3 1=Demonstrate adherence to instructed precautions during ADL tasks. 2=Patient will verbalize/demonstrate understanding of assistive devices/modifications for ADL. 3=Patient will improve strength/tolerance for activity to enable patient to perform ADL's. OT Intermediate Goals Intermediate Goals Time Frame: Jul 08, 2019 Eating (FIM): 6 Eating (QC): 6 Groomin Oral Hygiene (QC): 6 Bathing(FIM): 5 Bathing Location: L Arm, R Arm, L Upper Leg, R Upper Leg, L Lower Leg (including foot), R Lower Leg (including foot), Chest, Abdomen, Buttocks, Perineal Area Shower/Bathe Self (QC): 5 Upper Body Dressing(FIM): 6 Upper Body Dressing (QC): 6 Lower Body Dressing(FIM): 6 Lower Body Dressing (QC): 5 On/Off Footwear (QC): 5 Toileting(FIM): 5 Toileting Hygiene (QC): 5 Transfers (B,C,W/C) (FIM): 5 Toilet/Commode Transfer(FIM): 5 Toilet/Commode Transfer (QC): 4 Shower Transfer(FIM): 5 Additional Goals: 1-Demonstrate ADL Tasks, 2-Verbalize Understanding, 3- ImproveStrength/Tran 1=Demonstrate adherence to instructed precautions during ADL tasks. 2=Patient will verbalize/demonstrate understanding of assistive devices/modifications for ADL. 3=Patient will improve strength/tolerance for activity to enable patient to perform ADL's. OT Education/Plan Problem List/Assessment Assessment: Decreased Activ Tolerance, Decreased Safety Aware, Decreased UE Strength, Dependent Transfers, Impaired Bed Mobility, Impaired Coordination, Impaired Funct Balance, Impaired I ADL's, Impaired Self-Care Skills, Restricted Funct UE ROM pt presents with functional limitations affecting areas of ADLs and functional transfers with then above mention deficits. pt would benefit from skilled OT services to increase independence with ADLS and functional transfers. noted pt has decrease motivation to participate in therapy services and required cueing for motivation. Discharge Recommendations Plan/Recommendations: Continue POC Barriers to Progress pain Treatment Plan/Plan of Care Treatment,Training & Education: Yes Patient would benefit from OT for education, treatment and training to promote independence in ADL's, mobility, safety and/or upper extremity function for ADL's. Plan of Care: ADL Retraining, Caregiver Training, Functional Mobility, Group Exercise/Act as Ind, UE Funct Exercise/Act, W/C Management Training Treatment Duration: Jul 08, 2019 Frequency: At least 5 of 7 days/Wk (IRF) Estimated Hrs Per Day: 1 hour per day (60-90 minutes per day) Agreement: Yes Rehab Potential: Fair Time/GCodes Start Time: 08:00 Stop Time: 09:00 Billed Treatment Time co treatment with PT (60 minutes) ADL 15 minutes, 1 unit FA 45 minutes, 3 units RAPHAEL VILLAFUERTE OT Jun 14, 2019 09:38
[2019-06-14] MEDS: LACTULOSE SYRUP 10GM/15ML (ENULOSE) 30ML UDC PO SCH ×2 (09:55→21:49)
[2019-06-14] MEDS: SENNA W/DOCUSATE (SENOKOT S) TABLET PO SCH ×2 (09:55→21:50)
[2019-06-14] MEDS: QUEtiapine 25 MG (SEROquel) TAB IMMEDIATE RELEASE PO SCH ×2 (09:55→21:08)
[2019-06-14] MEDS: ASPIRIN 81 MG CHEW (CHILDREN'S ASA) PO SCH (09:55)
[2019-06-14] MEDS: KCL 20 MEQ TAB (K-DUR) PO SCH ×2 (09:55→21:08)
[2019-06-14] MEDS: PANTOPRAZOLE 40 MG (PROTONIX) TAB PO SCH (09:55)
[2019-06-14] MEDS: TRIAMCINOLONE 0.1% CR (KENALOG) 15 GM TUBE TOP SCH ×2 (09:56→21:11)
[2019-06-14] MEDS: FUROSEMIDE 40 MG (LASIX) TAB PO SCH (09:56)
[2019-06-14] MEDS: POLYETHYLENE GLYCOL 17 GM (MIRALAX) PACK PO SCH ×2 (09:57→21:49)
--- NOTE | 2019-06-14 09:57 | NUR ---
Dr. Abdullahi in to see patient at this time. state he saw patient is on miralax. states to give miralax now with other scheduled medications this am. states that once patient's bowels are moving patient can be advanced back to his previous ADA diet.
--- NOTE | 2019-06-14 11:02 | Progress Note ---
MIREYA ANDREA,MED STUDENT 06/14/19 1102: Subjective Date Seen by a Provider: Jun 14, 2019 Time Seen by a Provider: 09:53 Subjective/Events-last exam PT denies flatus or bowel movements. Admits mild diffuse abdominal pain. Objective Exam Last Set of Vital Signs Vital Signs Date Time Temp Pulse Resp B/P (MAP) Pulse Ox O2 Delivery O2 Flow Rate FiO2 06/14/19 05:43 98.8 78 20 115/67 (83) 93 Nasal Cannula 2.00 Capillary Refill : Less Than 3 Seconds I&O Intake and Output 06/14/19 00:00 Intake Total 2210 ml Output Total 1650 ml Balance 560 ml Intake Oral 1210 ml IV Total 1000 ml Output Urine Total 1650 ml General: Alert, Cooperative, No Acute Distress Abdomen: Soft Extremities: Other (moderate pain in right arm involved in trauma ) Results Lab Laboratory Tests 06/13/19 10:55: Glucometer 236H 06/13/19 15:39: Glucometer 170H 06/13/19 20:12: Glucometer 208H 06/14/19 05:16: Glucometer 99 Assessment/Plan Assessment/Plan Assess & Plan/Chief Complaint A: Constipation P: Administer milk of magnesia and pro-kinetics. Monitor BM. At first BM advance diet as tolerated. Clinical Quality Measures DVT/VTE Risk/Contraindication: Risk Factor Score Per Nursin RFS Level Per Nursing on Admit: 4+=Very High LULU ABDULLAHI DO 06/14/19 1515: Subjective Subjective/Events-last exam Patient not had bm yet. Not much flatus either. Pain controlled. No significant abdominal pain. Pain in right arm/leg from surgery. No nause vomiting fever sweats chills shortness of breath or chest pain. Objective Exam Lungs: Normal Air Movement Heart: Regular Rate Abdomen: No Tenderness Extremities: Other (moderate pain in right arm involved in trauma right lower ext remity with incisional pain) Skin: Other (echymosis around incisions) Neuro: Normal Speech Psych/Mental Status: Mental Status NL, Mood NL Assessment/Plan Assessment/Plan Assess & Plan/Chief Complaint fall with right femur and right upper extremity fractures with surgical intervention plan bowel regimen await bowel function and then advance diet. Supervisory-Addendum Brief Verification & Attestation Time: Verification & Attestat.: 15:15 Participated in pt care: history, MDM, physical Personally performed: exam, history, MDM, supervision of care Care discussed with: Medical Student Procedures: n/a Results interpretation: Verified all documentation Verification and Attestation of Medical Student E/M Service A medical student performed and documented this service in my presence. I review ed and verified all information documented by the medical student and made modifications to such information, when appropriate. I personally performed the physical exam and medical decision making. Lulu Abdullahi, Jun 14, 2019,15:15 MIREYA ANDREA,MED STUDENT Jun 14, 2019 11:02 LULU ABDULLAHI DO Jun 14, 2019 15:15
--- NOTE | 2019-06-14 11:30 | Progress Note ---
[facility]OB[facility]Y [facility] 06/14/19 1130: Subjective Date Seen by a Provider: Jun 14, 2019 Time Seen by a Provider: 11:00 Subjective/Events-last exam CC: Fractured Right Arm and Right Femur HPI: Fractured Right arm and Right Femur while blowing leaves. Discussed barriers that he needs addressed while before he gets home including - Driving - Entering vehicle - Needs chairs with proper handrails and cushions - Rehab to sit down and get out of chairs just using his left arm Areas of living that already have assistance includes - Gentle slope at the back of his house - Has a rug in his bedroom that he is taking out. - Does have a dog and cat, but says they will not get in the way. - Lives with Teresa and Jerome who will help him with cooking, cleaning, getting into bed. - Has an attachment to wall to pull himself out of bed - A walker is next to his bed that have urinals for the middle of the night Focused Exam Peripheral Pulses: 2+ Carotid (L) Objective Exam Last Set of Vital Signs Vital Signs Date Time Temp Pulse Resp B/P (MAP) Pulse Ox O2 Delivery O2 Flow Rate FiO2 06/14/19 05:43 98.8 78 20 115/67 (83) 93 Nasal Cannula 2.00 Capillary Refill : Less Than 3 Seconds I&O Intake and Output 06/14/19 00:00 Intake Total 2210 ml Output Total 1650 ml Balance 560 ml Intake Oral 1210 ml IV Total 1000 ml Output Urine Total 1650 ml General: Alert, Oriented X3, Mild Distress Heart: Regular Rate, Normal S1, Normal S2 Abdomen: Normal Bowel Sounds, No Tenderness Results Lab Laboratory Tests 06/13/19 15:39: Glucometer 170H 06/13/19 20:12: Glucometer 208H 06/14/19 05:16: Glucometer 99 Clinical Quality Measures DVT/VTE Risk/Contraindication: Risk Factor Score Per Nursin RFS Level Per Nursing on Admit: 4+=Very High MARÍA COFFEY DO 06/14/19 1707: Subjective Subjective/Events-last exam Reviewed with medical student and copied into note Review of Systems General: Fatigue Musculoskeletal: leg pain Objective Exam General: Alert, Oriented X3, Cooperative, No Acute Distress Neuro: Strength at 5/5 X4 Ext Psych/Mental Status: Mental Status NL Assessment/Plan Assessment/Plan Assess & Plan/Chief Complaint See PM&R note Supervisory-Addendum Brief Verification & Attestation Time: Verification & Attestat.: 09:00 Participated in pt care: history, physical Personally performed: exam Care discussed with: Medical Student Procedures: n/a Verification and Attestation of Medical Student E/M Service A medical student performed and documented this service in my presence. I reviewed and verified all information documented by the medical student and made modifications to such information, when appropriate. I personally performed the physical exam and medical decision making. María Coffey, Jun 14, 2019,17:07 KASSY SANDHU [facility] Jun 14, 2019 11:30 MARÍA COFFEY DO Jun 14, 2019 17:07
--- NOTE | 2019-06-14 11:56 | Physical Therapy Daily Note ---
PT Daily Note-Current Subjective Patient in bed pre tx, agrees to PT, has 8/10 pain, nurse gives pain meds during treatment, will be co-treating with OT due to poor patient strength, mobility, balance, endurance, the need to coordinate UE and LE during activity, and weight bearing status. Patient needs dressed and he does so with max assist. Appearance Patient in recliner post tx with nurse call, phone, tray, all needs met. Mental Status Patient Orientation: Person, Place, Situation Attachments: Oxygen, IV Transfers Therapy Code Descriptions/Definitions Functional [place] Measure: 0=Not Assessed/NA 4=Minimal Assistance 1=Total Assistance 5=Supervision or Setup 2=Maximal Assistance 6=Modified [place] 3=Moderate Assistance 7=Complete [place] Therapy Quality Codes: 6 Independent with activity with or without an assistive device 5 Patient requires set up or clean up by helper. Patient completes activity by themselves 4 Supervision or touching assist (CGA). [place] provide cues , steadying assist 3 The helper provides less than half the effort to complete the activity 2 The helper provides more than half the effort to complete the activity 1 Dependent. The helper does all the effort to complete an activity 7 Patient refused to complete or attempt activity 9 The patient did not perform the activity before the current illness or injury 88 Not attempted due to Medical conditions or safety concerns Transfers (B, C, W/C) (FIM): 2 Scootin Rollin Supine to/from Sit: 3 Sit to/from Stand: 2 Bed to/from Chair: 2 Patient needs cues for hand placement and positioning during transfers, he seems to be trying but he bears weight through his right leg. Weight Bearing Non Weight Bearing also RUE NWB Wheelchair Training Does the Pt Use a Wheelchair?: Yes Wheelchair (FIM): 2 Distance: 50' Wheelchair Level of Assist: 4 Type of Wheelchair: Manual Patient needs min assist for turning and to stay going in a strait line, he has trouble coordinating using LLE and LUE. Exercises Patient stood in the parallel bars x3 and performed RUE exercises with OT while standing, cues for RLE weight bearing. Treatments dressing, bed mobility and transfers, standing, WC mobility. PT performed bed mobility and transfers, standing, WC mobility, OT performed UE exercise, dressing, assist with transfers Assessment Current Status: Fair Progress slightly improved standing PT Short Term Goals Short Term Goals Time Frame: Jun 17, 2019 Transfers (B,C,W/C) (FIM): 3 Wheelchair Distance: 40' PT Spool Salvager Goals Prison Goals PT Prison Goals Time Frame: Jul 01, 2019 Transfers (B,C,W/C) (FIM): 4 Sit to Lying (QC): 3 Lying-Sitting on Side/Bed(QC): 3 Sit to Stand (QC): 3 Rollin Roll Left to Right (QC): 3 Chair/Hlm-nn-Ikybw Xfer(QC): 3 Car Transfer (QC): 3 Wheelchair (FIM): 6 Distance: 150' Wheelchair Level of Assist: 6 Wheel 50 feet with 2 turns (QC: 6 PT Plan Problem List Problem List: Activity Tolerance, Functional Strength, Safety, Balance, Gait, Transfer, Bed Mobility, ROM Treatment/Plan Treatment Plan: Continue Plan of Care Treatment Plan: Bed Mobility, Concurrent Therapy, Education, Functional Activity Tran, Functional Strength, Group Therapy, Gait, Safety, Therapeutic Exercise, Transfers Treatment Duration: Jul 01, 2019 Frequency: At least 5 of 7 days/Wk (IRF) Estimated Hrs Per Day: 1.5 hours per day Patient and/or Family Agrees t: Yes Safety Risks/Education Patient Education: Transfer Techniques, Reviewed Precautions, Correct Positioning, W/C Management, Safety Issues Teaching Recipient: Patient Teaching Methods: Demonstration, Discussion Response to Teaching: Reinforcement Needed Time/GCodes Time In: 0800 Time Out: 0900 Total Billed Treatment Time: 60 Total Billed Treatment 1 visit [facility] 15' FA 45' co-treated for 60' WILLIAM KOROMA PT Jun 14, 2019 11:56
--- NOTE | 2019-06-14 13:17 | Cardiology Progress Note ---
Cardiology SOAP Progress Note Subjective: No cardiac complaints. Objective: I&O/Vital Signs 06/14/19 06/14/19 05:43 05:43 Temp 98.8 98.8 Pulse 78 78 Resp 20 20 B/P (MAP) 115/67 (83) 115/67 (83) Pulse Ox 93 93 O2 Delivery Nasal Cannula Nasal Cannula O2 Flow Rate 2.00 2.00 06/14/19 00:00 Intake Total 1110 ml Output Total 1300 ml Balance -190 ml Weight (Pounds): 235 Weight (Ounces): 0.5 Weight (Calculated Kilograms): 106.296194 Constitutional: appears stated age, AAO x 3; No apparent distress; well- developed, well-nourished Respiratory: No accessory muscle use, No respiratory distress, No chest tender, No chest expansion is symmetric; chest is bilaterally symmetric; No lungs clear to percussion; lungs clear to auscultation; No crackles, No rhonchi, No rales, No stridor, No wheezing, No pleural rub, No other Cardiovascular: regular rate-rhythm; No irregularly irregular, No extra beats, No parasternal heave is noted, No JVD, No edema, No bradycardia, No tachycardia, No point of maximal impulse, No cardiac thrills are palpable; S1 and S2; No g allop/S3, No gallop/S4, No diastolic murmur, No systolic murmur, No friction rub, No click, No other Gastrointestional: No tender, No soft, No round, No distended, No pulsatile mass, No organomegaly, No guarding, No rebound, No tenderness, No hernia, No mass, No audible bowel sounds, No abnormal bowel sounds, No abdominal bruits, No spleenomegaly, No other Extremities: No normal range of motion, No non-tender, No normal inspection, No pedal edema, No calf tenderness, No normal capillary refill, No pelvis stable, No calf tenderness, No inflammation, No pedal edema, No slow capillary refill, No swelling, No other, No abrasion, No clubbing, No cyanosis, No ecchymosis, No laceration, No no lower extremity edema bilateral, No significant edema, No tenderness, No wound Neurologic/Psychiatric: no motor/sensory deficits, alert, normal mood/affect, oriented x 3, power is 5/5 both on sides Skin: No normal color, No warm/dry, No cyanosis, No cool, No diaphoresis, No damp, No ecchymosis, No jaundice, No mottled, No pallor, No rash, No tattoos/piercings, No ulcerations, No rash on exposed areas, No ulcerations on exposed areas, No other Results/Procedures: Labs Laboratory Tests 06/13/19 15:39: Glucometer 170H 06/13/19 20:12: Glucometer 208H 06/14/19 05:16: Glucometer 99 06/14/19 11:01: Glucometer 165H A/P: Assessment/Dx: Mechanical fall, status post right hip surgery, Hypertension, On amiodarone, Diabetes Plan: Inpatient rehabilitation - post hip surgery. DVT prophylaxis. HTN - continue BP meds. Need to get old records. EKG, Echo. EKG 06/09/2019 shows sinus tachycardia. Echo 05/2019 shows LVH, Normal LVEF, DD 1, LAE. Need to find out why the patient is on amiodarone. I requested the RN to find out from Dr Bhat's office the above information. I have reviewed all the information sent from Dr. Bhat's office. All EKGs have sinus rhythm. We will discontinue amiodarone. DM Thank you for your consultation. Please call me if you have any questions. Roxie Regalado MD, FACP, FACC, FSCAI, FHRS, CCDS Interventional Cardiology Cardiac Electrophysiology Vascular Medicine and Endovascular Interventions Bryon REGALADO MD Jun 14, 2019 13:17
--- NOTE | 2019-06-14 13:52 | Speech Therapy Daily Note ---
Speech Daily Progress Note Subjective Date Seen by Provider: Jun 14, 2019 Time Seen by Provider: 00:30 Patient was sitting upright, alert and cooperative. Patient was engaged in all treatment tasks. Objective Patient participated in memory tasks with 70% success and moderate verbal cues. He was able to recall and verbalize events of his recent injury. Assessment Assessment Current Status: Good Progress Treatment Plan Continue Plan of Care Communication Comprehension: 5 Expression: 5 Social Cognition Social Interaction: 7 Problem Solvin Memory: 5 Speech Short Term Goals Short Term Goals Short Term Goals Patient will demonstrate simple problem solving and memory with 80% accuracy when given minimal to moderate cues Speech Manager Call Center Goals Manager Call Center Goals Patient will improve cognitive-communication necessary for safety and daily living tasks with minimal assist Speech-Plan Patient/Family Goals Patient/Family Goals: Return to home Treatment Plan Speech Therapy Treatment Plan: Continue Plan of Care Patient is making good progress towards goals. He requires moderate cues for success with cognitive tasks. Treatment Duration: Jun 24, 2019 Frequency: 5 times per week Estimated Hrs Per Day: .5 hour per day Rehab Potential: Fair Barriers to Learning: cognitive-communication Pt/Family Agrees to Plan: Yes Safety Risks/Education Teaching Recipient: Patient Teaching Methods: Discussion Response to Teaching: Verbalize Understanding Education Topics Provided: room safety and cognition Time Speech Therapy Time In: 09:15 Speech Therapy Time Out: 09:45 Total Billed Time: 30 Billed Treatment Time 1MEL[address] SEAN ST Jun 14, 2019 13:52
[2019-06-14] MEDS: DICLOFENAC 1% GEL 100 GM (VOLTAREN) TUBE TOP SCH ×2 (14:13→21:11)
--- NOTE | 2019-06-14 14:33 | Therapy Group Daily Note ---
Therapy Daily Group Note Patient Education Topic Other List Below (benefits of exercise) Exercises LE Seated Exercise, UE Exercise, Other (eye exercises, neck exercises) Session Ratio (pt:therapist): 4:1 Goal of Session: Education on ARU Expectations Goal Met for this Session: Yes Pt Benefit of Group: Increased Functional Strength, Recognition of Peers, S ocialization Other/Notes Pt. participated in group PT OT session this date. Pt. came and went in w/c with mod to max assist to TRF in out bed and chair. Pts. were reviewed on ARU practices and requirements and weekend routine, scheduling etc. Pts. introduced themselves to one another and shared where their favorite place is. Pts. were educated in the benefits of exercise and participated in seated exercises. Pt. to room after Rx, in bed rosalina ko and hui at hand Start Time: 13:00 Stop Time: 14:05 Total Billed Treatment Time: 65 Total Billed Treatment 1,GRP GOLDIE GABRIEL BLOW DOWN HELPER Jun 14, 2019 14:33
[2019-06-14 17:40] VITALS: BP 145/69
[2019-06-14] MEDS: CYCLOBENZAPRINE 10 MG (FLEXERIL) TAB PO PRN (21:07)
[2019-06-14] MEDS: MELATONIN 3 MG TABLET PO SCH (21:08)
[2019-06-15] MEDS: NS IV 1000 ML 1,000 ML IV SCH (05:16)
[2019-06-15] MEDS: LEVOTHYROXINE 112 MCG (LEVOTHROID) TAB PO SCH (05:16)
[2019-06-15] MEDS: LEVOTHYROXINE 25 MCG (LEVOTHROID) TAB PO SCH (05:17)
[2019-06-15] MEDS: meTOprolol TARTRATE 25 MG (LOPRESSOR) TABLET PO SCH ×2 (05:21→16:01)
[2019-06-15] MEDS: CATHETER FLUSH 10 ML SYR IV SCH ×3 (05:51→21:49)
[2019-06-15] MEDS: inSUlin ASPART (NovoLOG) 1 UNIT/0.01 ML (CHARGE PER UNIT) SC SCH ×4 (05:52→21:49)
[2019-06-15 06:03] VITALS: BP 132/69
--- NOTE | 2019-06-15 08:02 | PM&R Progress Note ---
Subjective HPI/CC On Admission Date Seen by Provider: Jun 15, 2019 Time Seen by Provider: 07:15 Chief complaint: Right hip fracture and right elbow fracture in need of inpatient rehab to return home History of present illness: This is a 79-year-old white male known to me from prior admissions long ago whose primary care provider is Dr. Bhat but who does not see a tax advisor regularly who has a history of atrial fibrillation, diabetes mellitus and falls in the past who presented to inpatient rehab after discharge from [facility] [place] after suffering a right femoral fracture and right elbow fracture which required surgery for repair after a fall sustained at home when he was using his leaf blower on 06/04/2019. He did not require a transfusion while hospitalized at [facility] [place]. He has not had a bowel movement for 5 days. Pain is currently controlled with oxycodone. Patient does not usually require oxygen or CPAP machine. His prior level of functioning was without assistive device and completely independent with ADLs. I will consult Dr Regalado for Cardiology management. Subjective/Events-last exam Jayro DEE obtained this: Discussed barriers that he needs addressed while before he gets home including - Driving - Entering vehicle - Needs chairs with proper handrails and cushions - Rehab to sit down and get out of chairs just using his left arm Areas of living that already have assistance includes - Gentle slope at the back of his house - Has a rug in his bedroom that he is taking out. - Does have a dog and cat, but says they will not get in the way. - Lives with Teresa and Jerome who will help him with cooking, cleaning, getting into bed. - Has an attachment to wall to pull himself out of bed - A walker is next to his bed that have urinals for the middle of the night Reviewed barriers to returning home and it seems to be accurate BM+ Does have good bowel sounds now that the ileus is resolved Voltaren gel will be applied 3 times daily as needed to his shoulders and that seems to be helping a bit Cardiology Dr. Regalado spoke to me yesterday and recommended discontinuation of amiodarone since there was no evidence of any atrial fibrillation even though it was on past records and especially since he was not on any oral anticoagulation will place telemetry for 48 hours and discontinue if no A. fib noted and may need a loop recorder but will monitor closely in the meantime. Motivated to improve Conferred with RN Reviewed therapy notes Review of Systems Musculoskeletal: arm pain, leg pain Objective Exam Vital Signs Vital Signs Date Time Temp Pulse Resp B/P (MAP) Pulse Ox O2 Delivery O2 Flow Rate FiO2 06/16/19 13:00 66 06/16/19 08:00 Nasal Cannula 2.00 06/16/19 05:15 98.4 18 132/69 (90) 92 Capillary Refill : Less Than 3 Seconds General Appearance: No Apparent Distress, WD/WN, Chronically ill, Obese HEENT: PERRL/EOMI, Normal ENT Inspection, Pharynx Normal, Moist Mucous Membranes Neck: Full Range of Motion, Normal Inspection, Non Tender, Supple Respiratory: Chest Non Tender, Lungs Clear, Normal Breath Sounds, No Accessory Muscle Use, No Respiratory Distress Cardiovascular: Regular Rate, Rhythm, No Edema, No Gallop, No JVD, No Murmur Gastrointestinal: Normal Bowel Sounds, No Organomegaly, No Pulsatile Mass, Non Tender, Soft Back: Normal Inspection, No CVA Tenderness, No Vertebral Tenderness Extremity: Normal Capillary Refill, Normal Inspection, Normal Range of Motion (except right arm in sling and dressing and right leg due to hip pain), Non Tender, No Calf Tenderness, No Pedal Edema Neurologic/Psychiatric: Alert, Oriented x3, No Motor/Sensory Deficits, Normal Mood/Affect, rocket propellant plant supervisor II-XII Norm as Tested, Disoriented Skin: Normal Color, Warm/Dry Lymphatic: No Adenopathy Results/Procedures Lab Patient resulted labs reviewed. FIM Transfers Therapy Code Descriptions/Definitions Functional [place] Measure: 0=Not Assessed/NA 4=Minimal Assistance 1=Total Assistance 5=Supervision or Setup 2=Maximal Assistance 6=Modified [place] 3=Moderate Assistance 7=Complete [place] Therapy Quality Codes: 6 Independent with activity with or without an assistive device 5 Patient requires set up or clean up by helper. Patient completes activity by themselves 4 Supervision or touching assist (CGA). [place] provide cues , steadying assist 3 The helper provides less than half the effort to complete the activity 2 The helper provides more than half the effort to complete the activity 1 Dependent. The helper does all the effort to complete an activity 7 Patient refused to complete or attempt activity 9 The patient did not perform the activity before the current illness or injury 88 Not attempted due to Medical conditions or safety concerns Transfers (B, C, W/C) (FIM): 2 Scootin Rollin Roll Left to Right (QC): 1 Supine to/from Sit: 3 Sit to/from Stand: 2 Sit to Lying (QC): 1 Sit to Stand (QC): 1 Chair/Iwo-kj-Mjlfw Xfer(QC): 1 Bed to/from Chair: 2 Car Transfer (QC): 1 Gait Training Does the Patient Walk?: No and Walking Goal IS indicated Wheelchair Training Does the Pt Use a Wheelchair?: Yes Wheelchair (FIM): 2 Distance: 50' Wheelchair Level of Assist: 4 Type of Wheelchair: Manual Mental Status/Objective Comprehension: 5 Expression: 5 Social Interaction: 7 Problem Solvin Memory: 5 ADL-Treatment Feedin (requires cuing to complete without assist to taske drink of water. ) Eating (QC): 4 Groomin (wash face, brush teeth. required assist to open containers and cuign to complete without assist. ) Oral Hygiene (QC): 4 Bathin (education on use of LHS. pt demo correctly) Bathing Location: L Lower Leg (including foot), R Lower Leg (including foot), Chest, Abdomen, Perineal Area Shower/Bathe Self (QC): 2 Upper Extremity Dressin (required encourgement to complete tasks w/o assist. pt education on one handed techniqes for dust puller shirt. ) Upper Body Dressing (QC): 1 Lower Extremity Dressin (pants corie socks. pt reeducation on useof AE (trust and estates paralegal) pt demo ability to thread corie LE but required assist to pull up pants. pt required TA to watson corie socks ) Lower Body Dressing (QC): 1 On/Off Footwear (QC): 1 Toiletin Toileting Hygiene (QC): 1 Toilet/Commode Transfer: 1 (X 2 person assist ) Toilet Transfer (QC): 1 Shower: 0 (NT secodanry to safety of pt ) Assessment/Plan Assessment and Plan Assess & Plan/Chief Complaint Assessment: Status post right femoral fracture on 06/04/2019 Right elbow fracture status post repair 06/04/2019 History of atrial fibrillation on amiodarone but now DC per Cardiology since no evidence of AF and no OAC hx Multiple falls in the past Emotional problems Hypothyroidism GERD Hypertension Diabetes mellitus insulin requiring line hyperlipidemia Anemia from acute blood loss Iron deficiency receiving iron infusions Hyponatremia Low albumin Cognitive decline SLUMS Ileus versus partial bowel obstruction? Consulting Dr Abdullahi and s/p IVF NPO now on advanced diet since this is now resolved Plan: Pain control Constipation resolution after ileus and obstipation resolved with the help of Dr Abdullahi Home meds Monitor labs IV iron infusions Fall risk prevention Inpatient rehab protocols Appreciate Dr Abdullahi consultation Appreciate Dr Abdullahi managing the ortho surgical wounds Check labs soon (1) Right femoral fracture (2) Cognitive decline (3) Diabetes mellitus (4) Hx of emotional problems (5) GERD without esophagitis (6) Hypothyroidism (7) Hyponatremia (8) Elbow fracture, right (9) Fall (10) Hypertension (11) Anemia due to acute blood loss (12) Fever (13) Iron deficiency (14) Constipation (15) Atrial fibrillation QUIN COFFEY DO Jun 15, 2019 08:02
[2019-06-15] MEDS: KCL 20 MEQ TAB (K-DUR) PO SCH ×2 (09:13→20:25)
[2019-06-15] MEDS: ASPIRIN 81 MG CHEW (CHILDREN'S ASA) PO SCH (09:13)
[2019-06-15] MEDS: FUROSEMIDE 40 MG (LASIX) TAB PO SCH (09:13)
[2019-06-15] MEDS: QUEtiapine 25 MG (SEROquel) TAB IMMEDIATE RELEASE PO SCH ×2 (09:14→20:24)
[2019-06-15] MEDS: LACTULOSE SYRUP 10GM/15ML (ENULOSE) 30ML UDC PO SCH ×2 (09:14→20:33)
[2019-06-15] MEDS: SENNA W/DOCUSATE (SENOKOT S) TABLET PO SCH ×2 (09:14→20:33)
[2019-06-15] MEDS: PANTOPRAZOLE 40 MG (PROTONIX) TAB PO SCH (09:14)
[2019-06-15] MEDS: DICLOFENAC 1% GEL 100 GM (VOLTAREN) TUBE TOP SCH ×3 (09:17→20:39)
[2019-06-15] MEDS: TRIAMCINOLONE 0.1% CR (KENALOG) 15 GM TUBE TOP SCH ×2 (09:18→20:39)
[2019-06-15] MEDS: IRON SUCROSE 200 MG/10 ML (VENOFER) VIAL IV SCH (09:22)
--- NOTE | 2019-06-15 10:27 | Physical Therapy Daily Note ---
PT Daily Note-Current Subjective States that he is hurting a lot. Pain Numeric Pain Scale: 8 Transfers Therapy Code Descriptions/Definitions Functional [place] Measure: 0=Not Assessed/NA 4=Minimal Assistance 1=Total Assistance 5=Supervision or Setup 2=Maximal Assistance 6=Modified [place] 3=Moderate Assistance 7=Complete [place] Therapy Quality Codes: 6 Independent with activity with or without an assistive device 5 Patient requires set up or clean up by helper. Patient completes activity by themselves 4 Supervision or touching assist (CGA). [place] provide cues , steadying assist 3 The helper provides less than half the effort to complete the activity 2 The helper provides more than half the effort to complete the activity 1 Dependent. The helper does all the effort to complete an activity 7 Patient refused to complete or attempt activity 9 The patient did not perform the activity before the current illness or injury 88 Not attempted due to Medical conditions or safety concerns Scootin Rollin Supine to/from Sit: 3 Weight Bearing Non Weight Bearing also RUE NWB Exercises Supine Ex: LE Protocol Supine Reps: 15 Assessment Current Status: Excellent Progress The patient did well with sitting EOB. PT Short Term Goals Short Term Goals Time Frame: Jun 17, 2019 Transfers (B,C,W/C) (FIM): 3 Wheelchair Distance: 50' PT Manager Clinical Pharmacy Goals Manager Clinical Pharmacy Goals PT Manager Clinical Pharmacy Goals Time Frame: Jul 01, 2019 Transfers (B,C,W/C) (FIM): 4 Sit to Lying (QC): 3 Lying-Sitting on Side/Bed(QC): 3 Sit to Stand (QC): 3 Rollin Roll Left to Right (QC): 3 Chair/Elk-fb-Awlxv Xfer(QC): 3 Car Transfer (QC): 3 Wheelchair (FIM): 6 Distance: 150' Wheelchair Level of Assist: 6 Wheel 50 feet with 2 turns (QC: 6 PT Plan Treatment/Plan Treatment Plan: Continue Plan of Care Treatment Plan: Bed Mobility, Concurrent Therapy, Education, Functional Activity Tran, Functional Strength, Group Therapy, Gait, Safety, Therapeutic Exercise, Transfers Treatment Duration: Jul 01, 2019 Frequency: At least 5 of 7 days/Wk (IRF) Estimated Hrs Per Day: 1.5 hours per day Patient and/or Family Agrees t: Yes Time/GCodes Time In: 1005 Time Out: 1025 Total Billed Treatment Time: 20 Total Billed Treatment LACI Rojo RYAN PT Jun 15, 2019 10:27
--- NOTE | 2019-06-15 11:03 | Progress Note - Surgery ---
MIREYA ANDREA,MED STUDENT 06/15/19 1102: Subjective Date Seen by a Provider: Jun 15, 2019 Time Seen by a Provider: 10:08 Subjective/Events-last exam PT tolerating R UE and R LE pain. Admits several bowel movements on pro- kinetics. No family at bedside. No new complaints. Review of Systems General: No Chills, No Night Sweats, No Fatigue Gastrointestinal: No: Nausea, Vomiting, Abdominal Pain Focused Exam Respiratory: Chest Non Tender, No Respiratory Distress Cardiovascular: Regular Rate, Rhythm Skin: normal color, warm/dry Objective Exam Vital Signs Date Time Temp Pulse Resp B/P (MAP) Pulse Ox O2 Delivery O2 Flow Rate FiO2 06/15/19 09:59 Nasal Cannula 2.00 06/15/19 07:00 61 06/15/19 06:25 Nasal Cannula 2.00 06/15/19 06:03 98.4 69 18 132/69 (90) 92 Nasal Cannula 2.00 06/15/19 01:00 63 06/14/19 21:52 Nasal Cannula 2.00 06/14/19 19:00 65 06/14/19 18:19 72 06/14/19 17:40 98.4 71 18 145/69 (94) 97 Nasal Cannula 2.00 06/14/19 14:46 Nasal Cannula 2.00 I & O 06/15/19 07:00 Intake Total 1850 ml Output Total 1425 ml Balance 425 ml Capillary Refill : Less Than 3 Seconds General Appearance: No Apparent Distress, WD/WN, Chronically ill, Obese HEENT: PERRL/EOMI, Normal ENT Inspection, Pharynx Normal, Moist Mucous Membranes Neck: Full Range of Motion, Normal Inspection, Non Tender, Supple Respiratory: Chest Non Tender, Lungs Clear, Normal Breath Sounds, No Accessory Muscle Use, No Respiratory Distress Cardiovascular: Regular Rate, Rhythm, No Edema, No Gallop, No JVD, No Murmur Peripheral Pulses: 2+ Carotid (L) Gastrointestinal: non tender, soft, no organomegaly, distended (minimally) Extremity: Normal Capillary Refill, Normal Inspection, Normal Range of Motion (except right arm in sling and dressing and right leg due to hip pain), Non Tender, No Calf Tenderness, No Pedal Edema, Other (bandages clean no signs of infection in UE) Neurologic/Psychiatric: Alert, Oriented x3, No Motor/Sensory Deficits, Normal Mood/Affect, wet washer machine II-XII Norm as Tested, Disoriented Skin: Normal Color, Warm/Dry Lymphatic: No Adenopathy Results Lab Laboratory Tests 06/14/19 11:01: Glucometer 165H 06/14/19 15:28: Glucometer 183H 06/14/19 21:04: Glucometer 114H 06/15/19 05:24: Glucometer 100 Assessment/Plan Assessment/Plan Assessment/Plan Traumatic R UE and R LE fracture Bandages clean no signs of infection of UE advance diet as tolerated will follow Clinical Quality Measures DVT/VTE Risk/Contraindication: Risk Factor Score Per Nursin RFS Level Per Nursing on Admit: 4+=Very High LULU ABDULLAHI DO 06/15/19 1243: Subjective Subjective/Events-last exam pain controllled. +bm, tolerating diet. no new complaints, participating with pt Objective Exam Respiratory: Chest Non Tender, No Accessory Muscle Use, No Respiratory Distress Cardiovascular: Regular Rate, Rhythm Gastrointestinal: non tender, soft, no organomegaly; No distended Neurologic/Psychiatric: Alert, Oriented x3 Skin: Normal Color, Warm/Dry Lymphatic: No Adenopathy Assessment/Plan Assessment/Plan Assessment/Plan fall, with rue and right femur fx s/p surgical correction, constipation bowel function returned, diet as tolerates, bowel regimen continue rehab activities continue keeping incisions clean and dry. Supervisory-Addendum Brief Verification & Attestation Time: Verification & Attestat.: 12:43 Participated in pt care: history, MDM, physical Personally performed: exam, history, MDM, supervision of care Care discussed with: Medical Student Procedures: n/a Results interpretation: Verified all documentation Verification and Attestation of Medical Student E/M Service A medical student performed and documented this service in my presence. I reviewed and verified all information documented by the medical student and made modifications to such information, when appropriate. I personally performed the physical exam and medical decision making. Lulu Abdullahi, Jun 15, 2019,12:43 MIREYA ANDREA,MED STUDENT Jun 15, 2019 11:02 LULU ABDULLAHI DO Jun 15, 2019 12:43
--- NOTE | 2019-06-15 12:32 | NUR ---
Reluctant, but up to the chair X2 person assist. NWB to RUE and RLE.
--- NOTE | 2019-06-15 13:49 | NUR ---
Dressing change to right hip incision. Incision cleansed with alcohol pads. AllKare applied to surrounding tissue. Covered with [place] dressing. Incision is well approximated with gill intact. No drainage noted.
[2019-06-15 15:48] VITALS: BP 139/73
[2019-06-15] MEDS: CYCLOBENZAPRINE 10 MG (FLEXERIL) TAB PO PRN (20:24)
[2019-06-15] MEDS: MELATONIN 3 MG TABLET PO SCH (20:26)
[2019-06-15] MEDS: POLYETHYLENE GLYCOL 17 GM (MIRALAX) PACK PO SCH (20:33)
[2019-06-16 05:15] VITALS: BP 132/69
[2019-06-16] MEDS: inSUlin ASPART (NovoLOG) 1 UNIT/0.01 ML (CHARGE PER UNIT) SC SCH ×4 (06:00→20:33)
[2019-06-16] MEDS: meTOprolol TARTRATE 25 MG (LOPRESSOR) TABLET PO SCH ×2 (06:03→17:12)
[2019-06-16] MEDS: LEVOTHYROXINE 112 MCG (LEVOTHROID) TAB PO SCH (06:03)
[2019-06-16] MEDS: LEVOTHYROXINE 25 MCG (LEVOTHROID) TAB PO SCH (06:03)
[2019-06-16] MEDS: CATHETER FLUSH 10 ML SYR IV SCH ×3 (06:04→20:25)
[2019-06-16] MEDS: FUROSEMIDE 40 MG (LASIX) TAB PO SCH (09:19)
[2019-06-16] MEDS: QUEtiapine 25 MG (SEROquel) TAB IMMEDIATE RELEASE PO SCH ×2 (09:19→20:24)
[2019-06-16] MEDS: PANTOPRAZOLE 40 MG (PROTONIX) TAB PO SCH (09:19)
[2019-06-16] MEDS: KCL 20 MEQ TAB (K-DUR) PO SCH ×2 (09:19→20:23)
[2019-06-16] MEDS: ASPIRIN 81 MG CHEW (CHILDREN'S ASA) PO SCH (09:19)
[2019-06-16] MEDS: TRIAMCINOLONE 0.1% CR (KENALOG) 15 GM TUBE TOP SCH ×2 (09:20→20:26)
[2019-06-16] MEDS: LACTULOSE SYRUP 10GM/15ML (ENULOSE) 30ML UDC PO SCH ×2 (09:20→20:18)
[2019-06-16] MEDS: SENNA W/DOCUSATE (SENOKOT S) TABLET PO SCH ×2 (09:21→20:19)
[2019-06-16] MEDS: DICLOFENAC 1% GEL 100 GM (VOLTAREN) TUBE TOP SCH ×3 (09:22→20:26)
--- NOTE | 2019-06-16 11:35 | NUR ---
RIGHT ARM AND RIGHT HIP DRSG REMOVED BY DR WHALEN TO SEE INCISIONS. DRESSINGS REAPPLIED BY THIS RN.
--- NOTE | 2019-06-16 12:49 | PM&R Progress Note ---
Subjective HPI/CC On Admission Date Seen by Provider: Jun 16, 2019 Time Seen by Provider: 12:30 Chief complaint: Right hip fracture and right elbow fracture in need of inpatient rehab to return home History of present illness: This is a 79-year-old white male known to me from prior admissions long ago whose primary care provider is Dr. Bhat but who does not see a money market dealer regularly who has a history of atrial fibrillation, diabetes mellitus and falls in the past who presented to inpatient rehab after discharge from [facility] after suffering a right femoral fracture and right elbow fracture which required surgery for repair after a fall sustained at home when he was using his leaf blower on 06/04/2019. He did not require a transfusion while hospitalized at [facility]. He has not had a bowel movement for 5 days. Pain is currently controlled with oxycodone. Patient does not usually require oxygen or CPAP machine. His prior level of functioning was without assistive device and completely independent with ADLs. I will consult Dr Regalado for Cardiology management. Subjective/Events-last exam Ileus now resolved and bowels are moving very well and eating and drinking without difficulties Pain is still present but improving Overall in good spirits Weaning off oxygen We will check labs in the morning Iron infusions tolerated well Motivated to improve Conferred with RN Reviewed therapy notes Jayro Lynch MSIII obtained this: Discussed barriers that he needs addressed while before he gets home including - Driving - Entering vehicle - Needs chairs with proper handrails and cushions - Rehab to sit down and get out of chairs just using his left arm Areas of living that already have assistance includes - Gentle slope at the back of his house - Has a rug in his bedroom that he is taking out. - Does have a dog and cat, but says they will not get in the way. - Lives with Teresa and Jerome who will help him with cooking, cleaning, getting into bed. - Has an attachment to wall to pull himself out of bed - A walker is next to his bed that have urinals for the middle of the night Review of Systems General: Fatigue Musculoskeletal: arm pain, leg pain Objective Exam Vital Signs Vital Signs Date Time Temp Pulse Resp B/P (MAP) Pulse Ox O2 Delivery O2 Flow Rate FiO2 06/16/19 13:00 66 06/16/19 08:00 Nasal Cannula 2.00 8/4/19 05:15 98.4 18 132/69 (90) 92 Capillary Refill : Less Than 3 Seconds General Appearance: No Apparent Distress, WD/WN, Chronically ill, Obese HEENT: PERRL/EOMI, Normal ENT Inspection, Pharynx Normal, Moist Mucous Membranes Neck: Full Range of Motion, Normal Inspection, Non Tender, Supple Respiratory: Chest Non Tender, No Accessory Muscle Use, No Respiratory Distress Cardiovascular: Regular Rate, Rhythm Gastrointestinal: Normal Bowel Sounds, No Organomegaly, No Pulsatile Mass, Non Tender, Soft Back: Normal Inspection, No CVA Tenderness, No Vertebral Tenderness Extremity: Normal Capillary Refill, Normal Inspection, Normal Range of Motion (except right arm in sling and dressing and right leg due to hip pain), Non Tender, No Calf Tenderness, No Pedal Edema, Other (bandages clean no signs of infection in UE) Neurologic/Psychiatric: Alert, Oriented x3 Skin: Normal Color, Warm/Dry Lymphatic: No Adenopathy Results/Procedures Lab Patient resulted labs reviewed. FIM Transfers Therapy Code Descriptions/Definitions Functional [place] Measure: 0=Not Assessed/NA 4=Minimal Assistance 1=Total Assistance 5=Supervision or Setup 2=Maximal Assistance 6=Modified [place] 3=Moderate Assistance 7=Complete [place] Therapy Quality Codes: 6 Independent with activity with or without an assistive device 5 Patient requires set up or clean up by helper. Patient completes activity by themselves 4 Supervision or touching assist (CGA). [place] provide cues , steadying assist 3 The helper provides less than half the effort to complete the activity 2 The helper provides more than half the effort to complete the activity 1 Dependent. The helper does all the effort to complete an activity 7 Patient refused to complete or attempt activity 9 The patient did not perform the activity before the current illness or injury 88 Not attempted due to Medical conditions or safety concerns Transfers (B, C, W/C) (FIM): 2 Scootin Rollin Roll Left to Right (QC): 1 Supine to/from Sit: 3 Sit to/from Stand: 2 Sit to Lying (QC): 1 Sit to Stand (QC): 1 Chair/Jgi-yb-Vitgw Xfer(QC): 1 Bed to/from Chair: 2 Car Transfer (QC): 1 Gait Training Does the Patient Walk?: No and Walking Goal IS indicated Wheelchair Training Does the Pt Use a Wheelchair?: Yes Wheelchair (FIM): 2 Distance: 50' Wheelchair Level of Assist: 4 Type of Wheelchair: Manual Mental Status/Objective Comprehension: 5 Expression: 5 Social Interaction: 7 Problem Solvin Memory: 5 ADL-Treatment Feedin (requires cuing to complete without assist to taske drink of water. ) Eating (QC): 4 Groomin (wash face, brush teeth. required assist to open containers and cuign to complete without assist. ) Oral Hygiene (QC): 4 Bathin (education on use of LHS. pt demo correctly) Bathing Location: L Lower Leg (including foot), R Lower Leg (including foot), Chest, Abdomen, Perineal Area Shower/Bathe Self (QC): 2 Upper Extremity Dressin (required encourgement to complete tasks w/o assist. pt education on one handed techniqes for char puller shirt. ) Upper Body Dressing (QC): 1 Lower Extremity Dressin (pants corie socks. 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 pt required TA to watson corie socks ) Lower Body Dressing (QC): 1 On/Off Footwear (QC): 1 Toiletin Toileting Hygiene (QC): 1 Toilet/Commode Transfer: 1 (X 2 person assist ) Toilet Transfer (QC): 1 Shower: 0 (NT secodanry to safety of pt ) Assessment/Plan Assessment and Plan Assess & Plan/Chief Complaint Assessment: Status post right femoral fracture on 06/04/2019 Right elbow fracture status post repair 06/04/2019 History of atrial fibrillation on amiodarone Multiple falls in the past Emotional problems Hypothyroidism GERD Hypertension Diabetes mellitus insulin requiring line hyperlipidemia Anemia from acute blood loss Iron deficiency receiving iron infusions Hyponatremia Low albumin Cognitive decline SLUMS Ileus versus partial bowel obstruction? Consulting Dr Abdullahi and s/p IVF NPO now on advanced age and resolved with BM+ Plan: Pain control Constipation resolution after ileus and obstipation resolved with the help of Dr Abdullahi Home meds Monitor labs byt checking tomorrow IV iron infusions Fall risk prevention Inpatient rehab protocols Appreciate Dr Abdullahi consultation Appreciate Dr Abdullahi managing the ortho surgical wounds (1) Right femoral fracture (2) Cognitive decline (3) Diabetes mellitus (4) Hx of emotional problems (5) GERD without esophagitis (6) Hypothyroidism (7) Hyponatremia (8) Elbow fracture, right (9) Fall (10) Hypertension (11) Anemia due to acute blood loss (12) Fever (13) Iron deficiency (14) Constipation (15) Atrial fibrillation QUIN COFFEY DO Jun 16, 2019 12:49
--- NOTE | 2019-06-16 14:30 | Progress Note - Surgery ---
MIREYA ANDREA,MED STUDENT 06/16/19 1430: Subjective Date Seen by a Provider: Jun 16, 2019 Time Seen by a Provider: 11:30 Subjective/Events-last exam PT states pain is well controlled. Participating in PT and adhering to exercise plan. No BM since last note but tolerating diet. No new complaints at this time Review of Systems General: No Chills, No Night Sweats HEENT: No Head Aches Pulmonary: No Dyspnea Cardiovascular: No: Chest Pain Gastrointestinal: No: Nausea, Vomiting Objective Exam Vital Signs Date Time Temp Pulse Resp B/P (MAP) Pulse Ox O2 Delivery O2 Flow Rate FiO2 06/16/19 13:00 66 06/16/19 08:00 Nasal Cannula 2.00 06/16/19 07:00 67 06/16/19 05:15 98.4 69 18 132/69 (90) 92 Nasal Cannula 2.00 06/16/19 01:00 68 06/15/19 20:25 Nasal Cannula 2.00 06/15/19 19:00 62 06/15/19 15:48 98.2 76 20 139/73 (95) 96 Nasal Cannula 2.00 I & O 06/16/19 07:00 Intake Total 1465 ml Output Total 3625 ml Balance -2160 ml Capillary Refill : Less Than 3 Seconds General Appearance: No Apparent Distress, WD/WN, Chronically ill, Obese HEENT: PERRL/EOMI Neck: Normal Inspection, Non Tender, Supple Respiratory: Chest Non Tender, No Accessory Muscle Use, No Respiratory Distress Cardiovascular: Regular Rate, Rhythm Peripheral Pulses: 2+ Carotid (L) Gastrointestinal: non tender, soft; No distended Extremity: Normal Inspection, No Calf Tenderness, Other (Changed dressing on R UE and over R femur. visualized RUE wound and RLE incision - both clean, dry without signs of infection. Significant R UE contusion. ) Neurologic/Psychiatric: Alert, Oriented x3, Normal Mood/Affect Skin: Normal Color, Warm/Dry Lymphatic: No Adenopathy Results Lab Laboratory Tests 06/15/19 15:47: Glucometer 152H 06/15/19 21:29: Glucometer 135H 06/16/19 05:46: Glucometer 126H 06/16/19 11:11: Glucometer 181H Assessment/Plan Assessment/Plan Assessment/Plan fall, with rue and right femur fx s/p surgical correction, constipation bowel function returned, diet as tolerates, bowel regimen continue rehab activities continue keeping incisions clean and dry. Clinical Quality Measures DVT/VTE Risk/Contraindication: Risk Factor Score Per Nursin RFS Level Per Nursing on Admit: 4+=Very High LULU ABDULLAHI DO 06/16/19 1542: Subjective Subjective/Events-last exam no new complaints. denies n/v fever sweats chill shortness of breath or chest pain. Objective Exam Extremity: Other (Changed dressing on R UE and over R femur. visualized RUE wound and RLE incision - both clean, dry without signs of infection. Significant R UE contusion. ) Skin: Ecchymosis (right upper ext, incisions no signs of infection) Assessment/Plan Assessment/Plan Assessment/Plan as above wounds clean and dry bowel function returned will follow periodically, call if needed. Supervisory-Addendum Brief Verification & Attestation Time: Verification & Attestat.: 15:42 Participated in pt care: history, MDM, physical Personally performed: exam, history, MDM, supervision of care Care discussed with: Medical Student Procedures: n/a Results interpretation: Verified all documentation Verification and Attestation of Medical Student E/M Service A medical student performed and documented this service in my presence. I reviewed and verified all information documented by the medical student and made modifications to such information, when appropriate. I personally performed the physical exam and medical decision making. Lulu Abdullahi, Jun 16, 2019,15:42 MIREYA ANDREA,MED STUDENT Jun 16, 2019 14:30 LULU ABDULLAHI DO Jun 16, 2019 15:42
[2019-06-16] MEDS: CYCLOBENZAPRINE 10 MG (FLEXERIL) TAB PO PRN (15:41)
[2019-06-16 15:51] VITALS: BP 119/67
[2019-06-16] MEDS: POLYETHYLENE GLYCOL 17 GM (MIRALAX) PACK PO SCH (20:19)
[2019-06-16] MEDS: MELATONIN 3 MG TABLET PO SCH (20:23)
[2019-06-16] MEDS: ALPRAZolam 0.25 MG (XANAX) TAB PO PRN (20:24)
[2019-06-16] MEDS: IBUPROFEN TABLET 200 MG TAB PO PRN (20:24)
[2019-06-17 05:30] LABS: BASOPHILS % (AUTO) 0 % (0-10); EOSINOPHILS # (AUTO) 0.2 10^3/uL (0.0-0.3); EOSINOPHILS % (AUTO) 3 % (0-10); HEMATOCRIT 28 % (40-54); HEMOGLOBIN 8.6 G/DL (13.3-17.7); LYMPHOCYTES # (AUTO) 1.8 X 10^3 (1.0-4.0); LYMPHOCYTES % (AUTO) 23 % (12-44); MEAN CORPUSCULAR HEMOGLOBIN 31 PG (25-34); MEAN CORPUSCULAR HGB CONC 31 G/DL (32-36); MEAN CORPUSCULAR VOLUME 100 FL (80-99); MEAN PLATELET VOLUME 8.7 FL (7.4-10.4); MONOCYTES # (AUTO) 0.7 X 10^3 (0.0-1.0); MONOCYTES % (AUTO) 9 % (0-12); NEUTROPHILS % (AUTO) 65 % (42-75); PLATELET COUNT 359 10^3/uL (130-400); RED CELL DISTRIBUTION WIDTH 17.1 % (10.0-14.5); WHITE BLOOD COUNT 7.7 10^3/uL (4.3-11.0)
[2019-06-17 05:41] VITALS: BP 133/67
[2019-06-17] MEDS: CATHETER FLUSH 10 ML SYR IV SCH ×3 (05:46→22:00)
[2019-06-17 05:56] LABS: ALANINE AMINOTRANSFERASE 10 U/L (0-55); ALBUMIN 2.8 GM/DL (3.2-4.5); ALKALINE PHOSPHATASE 68 U/L (40-136); BILIRUBIN,TOTAL 0.8 MG/DL (0.1-1.0); BUN/CREATININE RATIO 8; CALCIUM 8.7 MG/DL (8.5-10.1); CARBON DIOXIDE 28 MMOL/L (21-32); CHLORIDE 98 MMOL/L (98-107); CREATININE SERUM 0.84 MG/DL (0.60-1.30); GFR ESTIMATED > 60; GLUCOSE 87 MG/DL (70-105); POTASSIUM 3.7 MMOL/L (3.6-5.0); SODIUM 137 MMOL/L (135-145); TOTAL PROTEIN 6.6 GM/DL (6.4-8.2)
[2019-06-17] MEDS: inSUlin ASPART (NovoLOG) 1 UNIT/0.01 ML (CHARGE PER UNIT) SC SCH ×4 (05:56→21:00)
[2019-06-17] MEDS: LEVOTHYROXINE 112 MCG (LEVOTHROID) TAB PO SCH (06:15)
[2019-06-17] MEDS: meTOprolol TARTRATE 25 MG (LOPRESSOR) TABLET PO SCH ×2 (06:15→17:45)
[2019-06-17] MEDS: LEVOTHYROXINE 25 MCG (LEVOTHROID) TAB PO SCH (06:15)
--- NOTE | 2019-06-17 08:08 | Progress Note ---
[facility] 06/17/19 0808: Subjective Date Seen by a Provider: Jun 17, 2019 Time Seen by a Provider: 07:25 Subjective/Events-last exam Patient is in no general pain unless he is moving around. Has been able to pass gas and pass stool, but has not passed stool this morning Review of Systems General: No Chills, No Fatigue, No Other (fever) HEENT: No Visual Changes, No Other (changes in hearing) Pulmonary: No Other (Shortness of breath) Cardiovascular: No: Chest Pain, Palpitations Neurological: No: Weakness, Numbness No Hot or Cold intolerance Focused Exam Peripheral Pulses: 2+ Radial Pulses (L) Skin: normal color, warm/dry Objective Exam Last Set of Vital Signs Vital Signs Date Time Temp Pulse Resp B/P (MAP) Pulse Ox O2 Delivery O2 Flow Rate FiO2 06/17/19 05:41 97.0 55 20 133/67 (89) 97 Nasal Cannula 2.00 Capillary Refill : Less Than 3 Seconds I&O Intake and Output 06/17/19 00:00 Intake Total 1255 ml Output Total 3925 ml Balance -2670 ml Intake Oral 1255 ml Output Urine Total 3925 ml General: Alert, Oriented X3, No Acute Distress Heart: Regular Rate, Normal S1, Normal S2 Abdomen: Normal Bowel Sounds, No Tenderness, No Hepatosplenomegaly Extremities: Other (Tenderness on Right anterior Tibia) Neuro: Sensation Intact (Right UE and Bilaterally in the LE) Results Lab Laboratory Tests 06/16/19 11:11: Glucometer 181H 06/16/19 15:50: Glucometer 243H 06/16/19 20:23: Glucometer 150H 06/17/19 04:39: White Blood Count 7.7, Red Blood Count 2.77L, Hemoglobin 8.6#L, Hematocrit 28L, Mean Corpuscular Volume 100H, Mean Corpuscular Hemoglobin 31, Mean Corpuscular Hemoglobin Concent 31L, Red Cell Distribution Width 17.1H, Platelet Count 359, Mean Platelet Volume 8.7, Neutrophils (%) (Auto) 65, Lymphocytes (%) (Auto) 23, Monocytes (%) (Auto) 9, Eosinophils (%) (Auto) 3, Basophils (%) (Auto) 0, Neutrophils # (Auto) 5.0, Lymphocytes # (Auto) 1.8, Monocytes # (Auto) 0.7, Eosi nophils # (Auto) 0.2, Basophils # (Auto) 0.0, Sodium Level 137, Potassium Level 3.7, Chloride Level 98, Carbon Dioxide Level 28, Anion Gap 11, Blood Urea Nitrogen 7, Creatinine 0.84, Estimat Glomerular Filtration Rate > 60, BUN/Creatinine Ratio 8, Glucose Level 87, Calcium Level 8.7, Corrected Calcium 9.7, Total Bilirubin 0.8, Aspartate Amino Transf (AST/SGOT) 14, Alanine Aminotransferase (ALT/SGPT) 10, Alkaline Phosphatase 68, Total Protein 6.6, Albumin 2.8L Assessment/Plan Assessment/Plan Assess & Plan/Chief Complaint Assessment: Possible DVT Status post right femoral fracture on 06/04/2019 Right elbow fracture status post repair 06/04/2019 History of atrial fibrillation on amiodarone Multiple falls in the past Emotional problems Hypothyroidism GERD Hypertension Diabetes mellitus insulin requiring line hyperlipidemia Anemia from acute blood loss Iron deficiency receiving iron infusions Hyponatremia Low albumin Cognitive decline SLUMS Ileus versus partial bowel obstruction? Consulting Dr Abdullahi and s/p IVF NPO now on advanced age and resolved with BM+ Plan: Ultrasound on Right Tibia for possible DVT Pain control Constipation resolution after ileus and obstipation resolved with the help of Dr Abdullahi Home meds Monitor labs byt checking tomorrow IV iron infusions Fall risk prevention Inpatient rehab protocols Appreciate Dr Abdullahi consultation Appreciate Dr Abdullahi managing the ortho surgical wounds Clinical Quality Measures DVT/VTE Risk/Contraindication: Risk Factor Score Per Nursin RFS Level Per Nursing on Admit: 4+=Very High MARÍA COFFEY DO 06/17/19 2020: Supervisory-Addendum Brief Verification & Attestation Time: Verification & Attestat.: 09:00 Participated in pt care: history, MDM, physical Personally performed: exam, history, MDM, supervision of care Care discussed with: Medical Student Procedures: n/a Results interpretation: Verified all documentation Verification and Attestation of Medical Student E/M Service A medical student performed and documented this service in my presence. I reviewed and verified all information documented by the medical student and made modifications to such information, when appropriate. I personally performed the physical exam and medical decision making. María Coffey, Jun 17, 2019,20:19 [facility] Jun 17, 2019 08:08 MARÍA COFFEY DO Jun 17, 2019 20:20
--- NOTE | 2019-06-17 08:09 | Progress Note - Surgery ---
MIREYA ANDREA,MED STUDENT 06/17/19 0809: Subjective Date Seen by a Provider: Jun 17, 2019 Time Seen by a Provider: 07:25 Subjective/Events-last exam PT states pain is controlled. Participating in PT. No bowel movements but admits flatus. Denies nausea, vomiting, fever, chills, shortness of breath or chest pain. No new complaints at this time. Review of Systems General: No Chills, No Night Sweats Pulmonary: No Dyspnea Cardiovascular: No: Chest Pain Gastrointestinal: No: Nausea, Vomiting, Abdominal Pain Musculoskeletal: arm pain (RUE fx ), leg pain (R Femur fx) Objective Exam Vital Signs Date Time Temp Pulse Resp B/P (MAP) Pulse Ox O2 Delivery O2 Flow Rate FiO2 06/17/19 05:41 97.0 55 20 133/67 (89) 97 Nasal Cannula 2.00 06/16/19 20:33 Nasal Cannula 2.00 06/16/19 15:51 97.8 67 16 119/67 (84) 94 Nasal Cannula 2.00 06/16/19 15:08 Nasal Cannula 2.00 06/16/19 13:00 66 I & O 06/17/19 07:00 Intake Total 1180 ml Output Total 3500 ml Balance -2320 ml Capillary Refill : Less Than 3 Seconds General Appearance: No Apparent Distress, WD/WN, Chronically ill, Obese HEENT: PERRL/EOMI Neck: Normal Inspection, Non Tender, Supple Respiratory: Chest Non Tender, No Accessory Muscle Use, No Respiratory Distress Cardiovascular: Regular Rate, Rhythm Peripheral Pulses: 2+ Carotid (L) Gastrointestinal: non tender, soft; No distended Extremity: Other (Changed dressing on R UE and over R femur. visualized RUE wound and RLE incision - both clean, dry without signs of infection. Significant R UE contusion. ) Neurologic/Psychiatric: Alert, Oriented x3 Skin: Ecchymosis (right upper ext, incisions no signs of infection) Lymphatic: No Adenopathy Results Lab Laboratory Tests 06/16/19 11:11: Glucometer 181H 06/16/19 15:50: Glucometer 243H 06/16/19 20:23: Glucometer 150H 06/17/19 04:39: White Blood Count 7.7, Red Blood Count 2.77L, Hemoglobin 8.6#L, Hematocrit 28L, Mean Corpuscular Volume 100H, Mean Corpuscular Hemoglobin 31, Mean Corpuscular Hemoglobin Concent 31L, Red Cell Distribution Width 17.1H, Platelet Count 359, Mean Platelet Volume 8.7, Neutrophils (%) (Auto) 65, Lymphocytes (%) (Auto) 23, Monocytes (%) (Auto) 9, Eosinophils (%) (Auto) 3, Basophils (%) (Auto) 0, Neutrophils # (Auto) 5.0, Lymphocytes # (Auto) 1.8, Monocytes # (Auto) 0.7, Eosinophils # (Auto) 0.2, Basophils # (Auto) 0.0, Sodium Level 137, Potassium Level 3.7, Chloride Level 98, Carbon Dioxide Level 28, Anion Gap 11, Blood Urea Nitrogen 7, Creatinine 0.84, Estimat Glomerular Filtration Rate > 60, BUN/Creatinine Ratio 8, Glucose Level 87, Calcium Level 8.7, Corrected Calcium 9.7, Total Bilirubin 0.8, Aspartate Amino Transf (AST/SGOT) 14, Alanine Aminotransferase (ALT/SGPT) 10, Alkaline Phosphatase 68, Total Protein 6.6, Albumin 2.8L Assessment/Plan Assessment/Plan Assessment/Plan fall, with rue and right femur fx s/p surgical correction constipation bowel function returned, diet as tolerates, bowel regimen prn continue rehab activities continue keeping wounds clean and dry. will follow periodically, call if needed. Clinical Quality Measures DVT/VTE Risk/Contraindication: Risk Factor Score Per Nursin RFS Level Per Nursing on Admit: 4+=Very High LULU ABDULLAHI DO 06/17/19 1713: Subjective Subjective/Events-last exam agree with above, no new issues or complaints. Supervisory-Addendum Brief Verification & Attestation Time: Verification & Attestat.: 17:13 Participated in pt care: history, MDM, physical Personally performed: exam, history, MDM, supervision of care Care discussed with: Medical Student Procedures: n/a Results interpretation: Verified all documentation Verification and Attestation of Medical Student E/M Service A medical student performed and documented this service in my presence. I reviewed and verified all information documented by the medical student and made modifications to such information, when appropriate. I personally performed the physical exam and medical decision making. Lulu Abdullahi, Jun 17, 2019,17:13 MIREYA ANDREA,MED STUDENT Jun 17, 2019 08:09 LULU ABDULLAHI DO Jun 17, 2019 17:13
[2019-06-17] MEDS: SENNA W/DOCUSATE (SENOKOT S) TABLET PO SCH ×2 (08:56→20:16)
[2019-06-17] MEDS: KCL 20 MEQ TAB (K-DUR) PO SCH ×2 (08:56→20:16)
[2019-06-17] MEDS: QUEtiapine 25 MG (SEROquel) TAB IMMEDIATE RELEASE PO SCH ×2 (08:56→20:16)
[2019-06-17] MEDS: FUROSEMIDE 40 MG (LASIX) TAB PO SCH (08:56)
[2019-06-17] MEDS: IBUPROFEN TABLET 200 MG TAB PO PRN (08:56)
[2019-06-17] MEDS: PANTOPRAZOLE 40 MG (PROTONIX) TAB PO SCH (08:56)
[2019-06-17] MEDS: ASPIRIN 81 MG CHEW (CHILDREN'S ASA) PO SCH (08:56)
[2019-06-17] MEDS: TRIAMCINOLONE 0.1% CR (KENALOG) 15 GM TUBE TOP SCH ×2 (08:57→20:17)
[2019-06-17] MEDS: DICLOFENAC 1% GEL 100 GM (VOLTAREN) TUBE TOP SCH ×3 (08:57→20:17)
[2019-06-17] MEDS: IRON SUCROSE 200 MG/10 ML (VENOFER) VIAL IV SCH (09:00)
[2019-06-17] MEDS: LACTULOSE SYRUP 10GM/15ML (ENULOSE) 30ML UDC PO SCH ×2 (09:00→20:16)
--- NOTE | 2019-06-17 09:00 | Physical Therapy Daily Note ---
PT Daily Note-Current Subjective Patient in bed pre tx, agrees to PT, has unrated pain but states he needs some pain meds, nurse notified and she says she will check to see if he can have some, will be co-treating with OT due to poor patient mobility, strength, endurance, balance, the need to coordinate UE and LE during activity. Patient needs dressed lowers and does so with max assist. Appearance Patient in recliner post tx with OT to continue to work on ADL's Mental Status Patient Orientation: Person, Place, Situation Attachments: Oxygen Transfers Therapy Code Descriptions/Definitions Functional [place] Measure: 0=Not Assessed/NA 4=Minimal Assistance 1=Total Assistance 5=Supervision or Setup 2=Maximal Assistance 6=Modified [place] 3=Moderate Assistance 7=Complete [place] Therapy Quality Codes: 6 Independent with activity with or without an assistive device 5 Patient requires set up or clean up by helper. Patient completes activity by themselves 4 Supervision or touching assist (CGA). [place] provide cues , steadying assist 3 The helper provides less than half the effort to complete the activity 2 The helper provides more than half the effort to complete the activity 1 Dependent. The helper does all the effort to complete an activity 7 Patient refused to complete or attempt activity 9 The patient did not perform the activity before the current illness or injury 88 Not attempted due to Medical conditions or safety concerns Transfers (B, C, W/C) (FIM): 2 Scootin Rollin Supine to/from Sit: 2 Sit to/from Stand: 2 Bed to/from Chair: 2 Patient needs cues for positioning with every transfer, he is not compliant with his weight bearing status and cannot use a sliding board. Weight Bearing Non Weight Bearing also RUE NWB Wheelchair Training Does the Pt Use a Wheelchair?: Yes Wheelchair (FIM): 2 Distance: 100' Wheelchair Level of Assist: 4 Type of Wheelchair: Manual MIn assist, patient has trouble coordinating LUE and LLE to turn Exercises Seated Therapy Exercises: Ankle pumps, Long arc quads Seated Reps: 20 seated reaching exercises and sit to stand 3 sets of 5 Treatments dressing, bed mobility, transfers, standing, wheelchair mobility, reaching activity Assessment Current Status: Poor Progress no change in transfers, patient is not compliant with his weight bearing status, he cannot seem to get it that he is not allowed to bear weight on his right leg. PT Short Term Goals Short Term Goals Time Frame: Jun 17, 2019 Transfers (B,C,W/C) (FIM): 3 Wheelchair Distance: 50' PT Customer Care Team Coach Goals Longterm Goals PT Longterm Goals Time Frame: Jul 01, 2019 Transfers (B,C,W/C) (FIM): 4 Sit to Lying (QC): 3 Lying-Sitting on Side/Bed(QC): 3 Sit to Stand (QC): 3 Rollin Roll Left to Right (QC): 3 Chair/Gac-oc-Zulwq Xfer(QC): 3 Car Transfer (QC): 3 Wheelchair (FIM): 6 Distance: 150' Wheelchair Level of Assist: 6 Wheel 50 feet with 2 turns (QC: 6 PT Plan Problem List Problem List: Activity Tolerance, Functional Strength, Safety, Balance, Gait, Transfer, Bed Mobility, ROM Treatment/Plan Treatment Plan: Continue Plan of Care Treatment Plan: Bed Mobility, Concurrent Therapy, Education, Functional Activity Tran, Functional Strength, Group Therapy, Gait, Safety, Therapeutic Exercise, Transfers Treatment Duration: Jul 01, 2019 Frequency: At least 5 of 7 days/Wk (IRF) Estimated Hrs Per Day: 1.5 hours per day Patient and/or Family Agrees t: Yes Safety Risks/Education Patient Education: Transfer Techniques, Correct Positioning, W/C Management, Safety Issues Teaching Recipient: Patient Teaching Methods: Demonstration, Discussion Response to Teaching: Reinforcement Needed Time/GCodes Time In: 0800 Time Out: 0900 Total Billed Treatment Time: 60 Total Billed Treatment 1 visit [facility] 15' EX 15' FA 30' co-treated for the whole 60 min. PT worked on transfers, bed mobility, wheelchair training, sit to stands, OT worked on dressing, UE activity, assist with transfers and UE positioning during mobility WILLIAM KOROMA PT Jun 17, 2019 09:00
--- NOTE | 2019-06-17 09:12 | Occupational Ther Daily Note ---
OT Current Status-Daily Note Subjective pt laying in bed upon OT arrival. pt agreed to OT/ PT TX session. pt agreed to therapy session. pt reports 10/10 pain with movement in LLE Mental Status/Objective Therapy Code Descriptions/Definitions Functional [place] Measure: 0=Not Assessed/NA 4=Minimal Assistance 1=Total Assistance 5=Supervision or Setup 2=Maximal Assistance 6=Modified [place] 3=Moderate Assistance 7=Complete [place] Attachments: Oxygen ADL-Treatment Therapy Code Descriptions/Definitions Functional [place] Measure: 0=Not Assessed/NA 4=Minimal Assistance 1=Total Assistance 5=Supervision or Setup 2=Maximal Assistance 6=Modified [place] 3=Moderate Assistance 7=Complete [place] Therapy Quality Codes: 6 Independent with activity with or without an assistive device 5 Patient requires set up or clean up by helper. Patient completes activity by themselves 4 Supervision or touching assist (CGA). [place] provide cues , steadying assist 3 The helper provides less than half the effort to complete the activity 2 The helper provides more than half the effort to complete the activity 1 Dependent. The helper does all the effort to complete an activity 7 Patient refused to complete or attempt activity 9 The patient did not perform the activity before the current illness or injury 88 Not attempted due to Medical conditions or safety concerns Other Treatment co-treatment completed with PT secondary to complexity of pt deficits requiring skills of both disciplines that a rehabilitation services coordinator could not complete secondary to skill level required. . OT focused on ADL tasks, UE positioning, UE ROM, and sequencing though tasks. while PT focus on gross transfers, LE positioning, seated balance, LE exercises, and maintaining WBS. pt perform bed mobility with MOD A required cuing for pooper positioning of RUE. pt education on use of leg area field manager. pt demo correctly of advancing corie LE toward EOB. pt required assist with trunk. pt perform SPT X 2 person assist toward left side required MAX cuing to maintain WBS. noted pt is non compliant with WBS. pt demo poor sequencing and required strong demo and hand over hand positioning. pt then self propelled w/c from room toward TX gym (please refer to PT note) required cuing from OT for sequencing LUE/LLE for propelling of chair. pt transfer from chair to mat table X 2 person assist. PT focused on gross movement of transfer and OT focus on sequencing. once on mat table to perform cone activity with OT to increase UE ROM in RUE while PT focus on seated balance. pt perform shoulder ABB/ABD/ FLEX/ EXT for task. pt education on left lateral leaning in prep for bed mobility. pt required strong tactile cuing for lateral lean and sequencing to understanding steps. pt perform 5X2 lateral leans on left side. pt education on scoot pivot transfer while maintaining WBS toward left side with demo. pt non compliant with WBS. more education will be required. pt transported back to room and transfer from w/c to home energy rater chair X 2 person assist. so treatment ended. OT session: pt education on use of finishing range supervisor dressing stick, and sock aid. pt v erbalized understanding and demo ability to doff corie socks with reach and MOD cuing. pt demo ability to use sock aid and watson left sock but required assist with right sock. noted increased timing to perform task.. pt siting in recliner chair, call light within reach, all needs met. Education OT Patient Education: Energy conservation, Exercise program, Modified ADL techniques, Progress toward Goal/Update tx plan, Purpose of tx/functional activities, Safety issues, Transfer techniques, Use of adapted equipment, W/C management Teaching Recipient: Patient Teaching Methods: Demonstration, Discussion Response to Teaching: Reinforcement Needed OT Short Term Goals Short Term Goals Eating(FIM): 6 Grooming(FIM): 4 Bathing(FIM): 3 Upper Body Dressing(FIM): 3 Lower Body Dressing(FIM): 3 Toileting(FIM): 3 Transfers (B,C,W/C) (FIM): 3 Toilet/Commode Transfer(FIM): 3 Shower Transfer(FIM): 3 1=Demonstrate adherence to instructed precautions during ADL tasks. 2=Patient will verbalize/demonstrate understanding of assistive devices/modifications for ADL. 3=Patient will improve strength/tolerance for activity to enable patient to perform ADL's. OT Clinical Resource Director Goals Nursing Home Goals Time Frame: Jul 08, 2019 Eating (FIM): 6 Eating (QC): 6 Groomin Oral Hygiene (QC): 6 Bathing(FIM): 5 Bathing Location: L Arm, R Arm, L Upper Leg, R Upper Leg, L Lower Leg (including foot), R Lower Leg (including foot), Chest, Abdomen, Buttocks, Perineal Area Shower/Bathe Self (QC): 5 Upper Body Dressing(FIM): 6 Upper Body Dressing (QC): 6 Lower Body Dressing(FIM): 6 Lower Body Dressing (QC): 5 On/Off Footwear (QC): 5 Toileting(FIM): 5 Toileting Hygiene (QC): 5 Transfers (B,C,W/C) (FIM): 5 Toilet/Commode Transfer(FIM): 5 Toilet/Commode Transfer (QC): 4 Shower Transfer(FIM): 5 Additional Goals: 1-Demonstrate ADL Tasks, 2-Verbalize Understanding, 3- ImproveStrength/Tran 1=Demonstrate adherence to instructed precautions during ADL tasks. 2=Patient will verbalize/demonstrate understanding of assistive devices/modifications for ADL. 3=Patient will improve strength/tolerance for activity to enable patient to perform ADL's. OT Education/Plan Problem List/Assessment Assessment: Decreased Activ Tolerance, Decreased Safety Aware, Decreased UE Strength, Dependent Transfers, Edema, Impaired Bed Mobility, Impaired Cognition, Impaired Coordination, Impaired Funct Balance, Impaired I ADL's, Impaired Self- Care Skills, Restricted Funct UE ROM pt presents with functional limitations affecting areas of ADLs and functional transfers with then above mention deficits. pt would benefit from skilled OT services to increase independence with ADLS and functional transfers. Discharge Recommendations Plan/Recommendations: Continue POC Barriers to Progress increase hip pain with movement Treatment Plan/Plan of Care Treatment,Training & Education: Yes Patient would benefit from OT for education, treatment and training to promote independence in ADL's, mobility, safety and/or upper extremity function for ADL's. Plan of Care: ADL Retraining, Caregiver Training, Functional Mobility, Group Exercise/Act as Ind, UE Funct Exercise/Act, W/C Management Training Treatment Duration: Jul 08, 2019 Frequency: At least 5 of 7 days/Wk (IRF) Estimated Hrs Per Day: 1 hour per day (60-90 minutes per day) Agreement: Yes Rehab Potential: Fair Time/GCodes Start Time: 08:00 Stop Time: 09:15 Billed Treatment Time Co-treatment with PT 60 minutes, individual 15 minutes ADL 30 minutes, 2 units FA 45 minutes, 3 units RAPHAEL VILLAFUERTE OT Jun 17, 2019 09:12
--- NOTE | 2019-06-17 09:31 | PM&R Progress Note ---
Subjective HPI/CC On Admission Date Seen by Provider: Jun 17, 2019 Time Seen by Provider: 09:15 Chief complaint: Right hip fracture and right elbow fracture in need of inpatient rehab to return home History of present illness: This is a 79-year-old white male known to me from prior admissions long ago whose primary care provider is Dr. Bhat but who does not see a program aide group work regularly who has a history of atrial fibrillation, diabetes mellitus and falls in the past who presented to inpatient rehab after discharge from [facility] after suffering a right femoral fracture and right elbow fracture which required surgery for repair after a fall sustained at home when he was using his leaf blower on 06/04/2019. He did not require a transfusion while hospitalized at [facility]. He has not had a bowel move ment for 5 days. Pain is currently controlled with oxycodone. Patient does not usually require oxygen or CPAP machine. His prior level of functioning was without assistive device and completely independent with ADLs. I will consult Dr Regalado for Cardiology management. Subjective/Events-last exam BM+ and eating well 2L/o2 maintained but will wean soon Pain is still present but improving on pain meds Overall in good spirits Labs reviewed and hgb improved 8.6 Right leg more edematous and has some slight pain so will check USG and it was negative for DVT Iron infusions tolerated well Motivated to improve Conferred with RN Reviewed therapy notes Jayro Lynch MSIII obtained this: Discussed barriers that he needs addressed while before he gets home including - Driving - Entering vehicle - Needs chairs with proper handrails and cushions - Rehab to sit down and get out of chairs just using his left arm Areas of living that already have assistance includes - Gentle slope at the back of his house - Has a rug in his bedroom that he is taking out. - Does have a dog and cat, but says they will not get in the way. - Lives with Teresa and Jerome who will help him with cooking, cleaning, getting into bed. - Has an attachment to wall to pull himself out of bed - A walker is next to his bed that have urinals for the middle of the night Review of Systems General: Fatigue Musculoskeletal: leg pain Objective Exam Vital Signs Vital Signs Date Time Temp Pulse Resp B/P (MAP) Pulse Ox O2 Delivery O2 Flow Rate FiO2 06/17/19 09:00 Nasal Cannula 2.00 06/17/19 05:41 97.0 55 20 133/67 (89) 97 Capillary Refill : Less Than 3 Seconds General Appearance: No Apparent Distress, WD/WN, Chronically ill, Obese HEENT: PERRL/EOMI Neck: Normal Inspection, Non Tender, Supple Respiratory: Chest Non Tender, No Accessory Muscle Use, No Respiratory Distress Cardiovascular: Regular Rate, Rhythm Gastrointestinal: Normal Bowel Sounds, No Organomegaly, No Pulsatile Mass, Non Tender, Soft Back: Normal Inspection, No CVA Tenderness, No Vertebral Tenderness Extremity: Other (Changed dressing on R UE and over R femur. visualized RUE wound and RLE incision - both clean, dry without signs of infection. Significant R UE contusion. ) Neurologic/Psychiatric: Alert, Oriented x3 Skin: Ecchymosis (right upper ext, incisions no signs of infection) Lymphatic: No Adenopathy Results/Procedures Lab Laboratory Tests 06/17/19 04:39 Patient resulted labs reviewed. FIM Transfers Therapy Code Descriptions/Definitions Functional [place] Measure: 0=Not Assessed/NA 4=Minimal Assistance 1=Total Assistance 5=Supervision or Setup 2=Maximal Assistance 6=Modified [place] 3=Moderate Assistance 7=Complete [place] Therapy Quality Codes: 6 Independent with activity with or without an assistive device 5 Patient requires set up or clean up by helper. Patient completes activity by themselves 4 Supervision or touching assist (CGA). [place] provide cues , steadying assist 3 The helper provides less than half the effort to complete the activity 2 The helper provides more than half the effort to complete the activity 1 Dependent. The helper does all the effort to complete an activity 7 Patient refused to complete or attempt activity 9 The patient did not perform the activity before the current illness or injury 88 Not attempted due to Medical conditions or safety concerns Transfers (B, C, W/C) (FIM): 2 Scootin Rollin Roll Left to Right (QC): 1 Supine to/from Sit: 2 Sit to/from Stand: 2 Sit to Lying (QC): 1 Sit to Stand (QC): 1 Chair/Quy-om-Dmsib Xfer(QC): 1 Bed to/from Chair: 2 Car Transfer (QC): 1 Gait Training Does the Patient Walk?: No and Walking Goal IS indicated Wheelchair Training Does the Pt Use a Wheelchair?: Yes Wheelchair (FIM): 2 Distance: 100' Wheelchair Level of Assist: 4 Type of Wheelchair: Manual Mental Status/Objective Comprehension: 5 Expression: 5 Social Interaction: 7 Problem Solvin Memory: 5 ADL-Treatment Feedin (requires cuing to complete without assist to taske drink of water. ) Eating (QC): 4 Groomin (wash face, brush teeth. required assist to open containers and cuign to complete without assist. ) Oral Hygiene (QC): 4 Bathin (education on use of LHS. pt demo correctly) Bathing Location: L Lower Leg (including foot), R Lower Leg (including foot), Chest, Abdomen, Perineal Area Shower/Bathe Self (QC): 2 Upper Extremity Dressin (required encourgement to complete tasks w/o assist. pt education on one handed techniqes for pin puller shirt. ) Upper Body Dressing (QC): 1 Lower Extremity Dressin (pants corie socks. pt reeducation on useof AE (metal loader) pt demo ability to thread corie LE but required assist to pull up pants. pt required TA to watson corie socks ) Lower Body Dressing (QC): 1 On/Off Footwear (QC): 1 Toiletin Toileting Hygiene (QC): 1 Toilet/Commode Transfer: 1 (X 2 person assist ) Toilet Transfer (QC): 1 Shower: 0 (NT secodanry to safety of pt ) Assessment/Plan Assessment and Plan Assess & Plan/Chief Complaint Assessment: Status post right femoral fracture on 06/04/2019 Right elbow fracture status post repair 06/04/2019 History of atrial fibrillation on amiodarone Multiple falls in the past Emotional problems Hypothyroidism GERD Hypertension Diabetes mellitus insulin requiring line hyperlipidemia Anemia from acute blood loss Iron deficiency receiving iron infusions Hyponatremia Low albumin Cognitive decline SLUMS Ileus versus partial bowel obstruction? Consulting Dr Abdullahi and s/p IVF NPO now on advanced age and resolved with BM+ Plan: Pain control Constipation resolution after ileus and obstipation resolved with the help of Dr Abdullahi Home meds Labs reviewed IV iron infusions to be completed Fall risk prevention Inpatient rehab protocols Appreciate Dr Abdullahi consultation Appreciate Dr Abdullahi managing the ortho surgical wounds Checked USG for right DVT which was negative Cognition seems to be clearing (1) Right femoral fracture (2) Cognitive decline (3) Diabetes mellitus (4) Hx of emotional problems (5) GERD without esophagitis (6) Hypothyroidism (7) Hyponatremia (8) Elbow fracture, right (9) Fall (10) Hypertension (11) Anemia due to acute blood loss (12) Fever (13) Iron deficiency (14) Constipation (15) Atrial fibrillation QUIN COFFEY DO Jun 17, 2019 09:31
--- NOTE | 2019-06-17 11:43 | Physical Therapy Daily Note ---
PT Daily Note-Current Subjective Patient in recliner finishing up with a procedure with another healthcare worker, she needs assist getting patient's pants back up and into the recliner. Appearance Patient in recliner post tx with nurse call, phone, tray, all needs met. Legs elevated. Mental Status Patient Orientation: Person, Place, Situation Transfers Therapy Code Descriptions/Definitions Functional [place] Measure: 0=Not Assessed/NA 4=Minimal Assistance 1=Total Assistance 5=Supervision or Setup 2=Maximal Assistance 6=Modified [place] 3=Moderate Assistance 7=Complete [place] Therapy Quality Codes: 6 Independent with activity with or without an assistive device 5 Patient requires set up or clean up by helper. Patient completes activity by themselves 4 Supervision or touching assist (CGA). Sanderson provide cues , steadying assist 3 The helper provides less than half the effort to complete the activity 2 The helper provides more than half the effort to complete the activity 1 Dependent. The helper does all the effort to complete an activity 7 Patient refused to complete or attempt activity 9 The patient did not perform the activity before the current illness or injury 88 Not attempted due to Medical conditions or safety concerns Sit to/from Stand: 2 Patient is not able to come to a complete stand, he has to try to stand twice and the other healthcare worker is able to get his pants back up. Weight Bearing Non Weight Bearing also RUE NWB Exercises Seated Therapy Exercises: Ankle pumps, Long arc quads, Hip flexion, Hip abd/add Seated Reps: 15 Treatments standing, dressing, BLE seated exercises Assessment Current Status: Poor Progress Patient not able to stand completely, not compliant with his weight bearing status on the right leg. PT Short Term Goals Short Term Goals Time Frame: Jun 17, 2019 Transfers (B,C,W/C) (FIM): 3 Wheelchair Distance: 100' PT Sql Consultant Goals Sql Consultant Goals PT Senior Care Goals Time Frame: Jul 01, 2019 Transfers (B,C,W/C) (FIM): 4 Sit to Lying (QC): 3 Lying-Sitting on Side/Bed(QC): 3 Sit to Stand (QC): 3 Rollin Roll Left to Right (QC): 3 Chair/Rxn-yp-Aqufb Xfer(QC): 3 Car Transfer (QC): 3 Wheelchair (FIM): 6 Distance: 150' Wheelchair Level of Assist: 6 Wheel 50 feet with 2 turns (QC: 6 PT Plan Problem List Problem List: Activity Tolerance, Functional Strength, Safety, Balance, Gait, Transfer, Bed Mobility, ROM Treatment/Plan Treatment Plan: Continue Plan of Care Treatment Plan: Bed Mobility, Concurrent Therapy, Education, Functional Activity Tran, Functional Strength, Group Therapy, Gait, Safety, Therapeutic Exercise, Transfers Treatment Duration: Jul 01, 2019 Frequency: At least 5 of 7 days/Wk (IRF) Estimated Hrs Per Day: 1.5 hours per day Patient and/or Family Agrees t: Yes Safety Risks/Education Patient Education: Reviewed Precautions, Correct Positioning, Safety Issues Teaching Recipient: Patient Teaching Methods: Demonstration, Discussion Response to Teaching: Reinforcement Needed Time/GCodes Time In: 1125 Time Out: 1140 Total Billed Treatment Time: 15 Total Billed Treatment 1 visit EX WILLIAM BURCIAGA PT Jun 17, 2019 11:43
--- NOTE | 2019-06-17 12:09 | Diagnostic Imaging Report ---
PROCEDURE: US right lower extremity venous. TECHNIQUE: Multiple real-time grayscale images were obtained over the right lower extremity in various projections. Additional spectral analysis and color Doppler duplex images were also obtained. INDICATION: Right lower extremity edema. FINDINGS: There is no evidence of right lower extremity DVT. The right lower kidney deep venous system demonstrates normal compressibility with normal response to augmentation and Valsalva. No fluid collection or mass is seen. IMPRESSION: No evidence of right lower extremity DVT. Dictated by: Dictated on workstation # [id number]
--- NOTE | 2019-06-17 15:42 | Speech Therapy Daily Note ---
Speech Daily Progress Note Subjective Date Seen by Provider: Jun 17, 2019 Time Seen by Provider: 00:30 The patient was waiting to be put back to bed by the aids when I entered his room. He was very pleasant and cooperative during the session. Objective Patient completed memory and problem solving tasks related to his daily needs at 75% with mild to moderate cues. Assessment Assessment Current Status: Good Progress Treatment Plan Continue Plan of Care Communication Comprehension: 5 Expression: 5 Social Cognition Social Interaction: 7 Problem Solvin Memory: 5 Speech Short Term Goals Short Term Goals Short Term Goals Patient will demonstrate simple problem solving and memory with 80% accuracy when given minimal to moderate cues Speech Penitentiary Goals Penitentiary Goals Patient will improve cognitive-communication necessary for safety and daily living tasks with minimal assist Speech-Plan Patient/Family Goals Patient/Family Goals: The patient plans on returning to his apartment upon his discharge from rehab. Treatment Plan Speech Therapy Treatment Plan: Continue Plan of Care Patient is progressing well as a result of skilled ST. Treatment Duration: Jun 24, 2019 Frequency: 5 times per week Estimated Hrs Per Day: .5 hour per day Rehab Potential: Fair Barriers to Learning: Patient has mild to moderate cognitive deficits. Pt/Family Agrees to Plan: Yes Safety Risks/Education Teaching Recipient: Patient Teaching Methods: Demonstration, Discussion Response to Teaching: Verbalize Understanding, Return Demonstration Education Topics Provided: Safety within his room and during daily tasks. Time Speech Therapy Time In: 14:30 Speech Therapy Time Out: 15:00 Total Billed Time: 30 Billed Treatment Time 1MELISA BETHANIA ST Jun 17, 2019 15:42
[2019-06-17 17:15] VITALS: BP 136/69
[2019-06-17] MEDS: ALPRAZolam 0.25 MG (XANAX) TAB PO PRN (20:16)
[2019-06-17] MEDS: MELATONIN 3 MG TABLET PO SCH (20:16)
[2019-06-17] MEDS: POLYETHYLENE GLYCOL 17 GM (MIRALAX) PACK PO SCH (21:13)
--- NOTE | 2019-06-17 21:40 | Cardiology Progress Note ---
Cardiology SOAP Progress Note Subjective: No cardiac complaints. Objective: I&O/Vital Signs 06/17/19 06/17/19 14:55 17:15 Temp 99.4 Pulse 69 Resp 16 B/P (MAP) 136/69 (91) Pulse Ox 95 O2 Delivery Nasal Cannula Nasal Cannula O2 Flow Rate 2.00 3.00 06/17/19 00:00 Intake Total 780 ml Output Total 2800 ml Balance -2020 ml Weight (Pounds): 235 Weight (Ounces): 0.5 Weight (Calculated Kilograms): 106.375124 Constitutional: appears stated age, AAO x 3; No apparent distress; well- developed, well-nourished Respiratory: No accessory muscle use, No respiratory distress, No chest tender, No chest expansion is symmetric; chest is bilaterally symmetric; No lungs clear to percussion; lungs clear to auscultation; No crackles, No rhonchi, No rales, No stridor, No wheezing, No pleural rub, No other Cardiovascular: regular rate-rhythm; No irregularly irregular, No extra beats, No parasternal heave is noted, No JVD, No edema, No bradycardia, No tachycardia, No point of maximal impulse, No cardiac thrills are palpable; S1 and S2; No gallop/S3, No gallop/S4, No diastolic murmur, No systolic murmur, No friction rub, No click, No other Gastrointestional: No tender, No soft, No round, No distended, No pulsatile mass, No organomegaly, No guarding, No rebound, No tenderness, No hernia, No m ass, No audible bowel sounds, No abnormal bowel sounds, No abdominal bruits, No spleenomegaly, No other Extremities: No normal range of motion, No non-tender, No normal inspection, No pedal edema, No calf tenderness, No normal capillary refill, No pelvis stable, No calf tenderness, No inflammation, No pedal edema, No slow capillary refill, No swelling, No other, No abrasion, No clubbing, No cyanosis, No ecchymosis, No laceration, No no lower extremity edema bilateral, No significant edema, No tenderness, No wound Neurologic/Psychiatric: no motor/sensory deficits, alert, normal mood/affect, oriented x 3, power is 5/5 both on sides Skin: normal color, warm/dry Results/Procedures: Labs Laboratory Tests 06/17/19 04:39: White Blood Count 7.7, Red Blood Count 2.77L, Hemoglobin 8.6#L, Hematocrit 28L, Mean Corpuscular Volume 100H, Mean Corpuscular Hemoglobin 31, Mean Corpuscular Hemoglobin Concent 31L, Red Cell Distribution Width 17.1H, Platelet Count 359, Mean Platelet Volume 8.7, Neutrophils (%) (Auto) 65, Lymphocytes (%) (Auto) 23, Monocytes (%) (Auto) 9, Eosinophils (%) (Auto) 3, Basophils (%) (Auto) 0, Neutrophils # (Auto) 5.0, Lymphocytes # (Auto) 1.8, Monocytes # (Auto) 0.7, Eosinophils # (Auto) 0.2, Basophils # (Auto) 0.0, Sodium Level 137, Potassium Level 3.7, Chloride Level 98, Carbon Dioxide Level 28, Anion Gap 11, Blood Urea Nitrogen 7, Creatinine 0.84, Estimat Glomerular Filtration Rate > 60, BUN/Creatinine Ratio 8, Glucose Level 87, Calcium Level 8.7, Corrected Calcium 9.7, Total Bilirubin 0.8, Aspartate Amino Transf (AST/SGOT) 14, Alanine Aminotransferase (ALT/SGPT) 10, Alkaline Phosphatase 68, Total Protein 6.6, Albumin 2.8L 06/17/19 11:44: Glucometer 137H 06/17/19 15:30: Glucometer 179H 06/17/19 20:51: Glucometer 160H A/P: Assessment/Dx: Mechanical fall, status post right hip surgery, Hypertension, On amiodarone, Diabetes Plan: Inpatient rehabilitation - post hip surgery. DVT prophylaxis. HTN - continue BP meds. EKG, Echo. EKG 06/09/2019 shows sinus tachycardia. Echo 05/2019 shows LVH, Normal LVEF, DD 1, LAE. Need to find out why the patient is on amiodarone. I requested the RN to find out from Dr Bhat's office the above information. I have reviewed all the information sent from Dr. Bhat's office. All EKGs have sinus rhythm. We will discontinue amiodarone. DM Thank you for your consultation. Please call me if you have any questions. Roxie Regalado MD, FACP, FACC, FSCAI, FHRS, CCDS Interventional Cardiology Cardiac Electrophysiology Vascular Medicine and Endovascular Interventions Bryon REGALADO MD Jun 17, 2019 21:40
[2019-06-18] MEDS: CATHETER FLUSH 10 ML SYR IV SCH ×3 (06:00→21:42)
[2019-06-18 06:36] VITALS: BP 158/70
[2019-06-18] MEDS: inSUlin ASPART (NovoLOG) 1 UNIT/0.01 ML (CHARGE PER UNIT) SC SCH ×4 (06:49→22:11)
[2019-06-18] MEDS: LEVOTHYROXINE 25 MCG (LEVOTHROID) TAB PO SCH (06:54)
[2019-06-18] MEDS: LEVOTHYROXINE 112 MCG (LEVOTHROID) TAB PO SCH (06:54)
[2019-06-18] MEDS: meTOprolol TARTRATE 25 MG (LOPRESSOR) TABLET PO SCH ×2 (06:54→17:22)
--- NOTE | 2019-06-18 08:10 | Progress Note - Surgery ---
MIREYA ANDREA,MED STUDENT 06/18/19 0810: Subjective Date Seen by a Provider: Jun 18, 2019 Time Seen by a Provider: 07:50 Subjective/Events-last exam Pt tolerating diet and having flatus. Denies bowel movements. Believes pain to be improving. Participating in PT. No new complaints at this time. Denies fever, chills, nausea, vomiting, chest pain or shortness of breath. Review of Systems General: No Chills Pulmonary: No Dyspnea Cardiovascular: No: Chest Pain Gastrointestinal: No: Nausea, Vomiting Musculoskeletal: arm pain, leg pain Objective Exam Vital Signs Date Time Temp Pulse Resp B/P (MAP) Pulse Ox O2 Delivery O2 Flow Rate FiO2 06/18/19 06:36 98.1 69 20 158/70 (99) 93 Nasal Cannula 3.00 06/17/19 21:00 Nasal Cannula 2.00 06/17/19 17:15 99.4 69 16 136/69 (91) 95 Nasal Cannula 3.00 06/17/19 14:55 Nasal Cannula 2.00 06/17/19 09:00 Nasal Cannula 2.00 I & O 06/18/19 07:00 Intake Total 1840 ml Output Total 3200 ml Balance -1360 ml Capillary Refill : Less Than 3 Seconds General Appearance: No Apparent Distress, WD/WN, Chronically ill, Obese HEENT: PERRL/EOMI Neck: Normal Inspection, Non Tender, Supple Respiratory: Chest Non Tender, No Accessory Muscle Use, No Respiratory Distress Cardiovascular: Regular Rate, Rhythm Peripheral Pulses: 2+ Carotid (L), 2+ Radial Pulses (L) Gastrointestinal: non tender, soft; No distended Extremity: Other (Changed dressing on R UE and over R femur. visualized RUE wound and RLE incision - both clean, dry without signs of infection. Significant R UE contusion. ) Neurologic/Psychiatric: Alert, Oriented x3 Skin: Ecchymosis (right upper ext, incisions no signs of infection) Lymphatic: No Adenopathy Results Lab Laboratory Tests 06/17/19 11:44: Glucometer 137H 06/17/19 15:30: Glucometer 179H 06/17/19 20:51: Glucometer 160H 06/18/19 06:09: Glucometer 108 Assessment/Plan Assessment/Plan Assessment/Plan fall, with rue and right femur fx s/p surgical correction constipation No evidence of DVT on USG bowel function returned, advance diet as tolerates, bowel regimen prn continue rehab activities continue keeping wounds clean and dry. will follow periodically, call if needed. Clinical Quality Measures DVT/VTE Risk/Contraindication: Risk Factor Score Per Nursin RFS Level Per Nursing on Admit: 4+=Very High LULU ABDULLAHI DO 06/18/19 1641: Subjective Subjective/Events-last exam Patient with no new complaints. Took some stuff since no bm last couple days. No discomfort besides surgical pain. Assessment/Plan Assessment/Plan Assessment/Plan as above Supervisory-Addendum Brief Verification & Attestation Time: Verification & Attestat.: 16:40 Participated in pt care: history, MDM, physical Personally performed: exam, history, MDM, supervision of care Care discussed with: Medical Student Procedures: n/a Results interpretation: Verified all documentation Verification and Attestation of Medical Student E/M Service A medical student performed and documented this service in my presence. I reviewed and verified all information documented by the medical student and made modifications to such information, when appropriate. I personally performed the physical exam and medical decision making. Lulu Abdullahi, Jun 18, 2019,16:41 MIREYA ANDREA,MED STUDENT Jun 18, 2019 08:10 LULU ABDULLAHI DO Jun 18, 2019 16:41
--- NOTE | 2019-06-18 08:56 | Physical Therapy Daily Note ---
PT Daily Note-Current Subjective Patient in bed pre tx, agrees to PT, has 6/10 pain in right arm and leg. Will be co-treating with OT this morning due to poor patient mobility, strength, endurance, balance, ROM, and the need to coordinate UE and LE during activity. Appearance Patient in recliner post tx with nurse call, phone, tray, with OT to finish up with UE activity. Mental Status Patient Orientation: Person, Place, Situation Attachments: Oxygen Transfers Therapy Code Descriptions/Definitions Functional [place] Measure: 0=Not Assessed/NA 4=Minimal Assistance 1=Total Assistance 5=Supervision or Setup 2=Maximal Assistance 6=Modified [place] 3=Moderate Assistance 7=Complete [place] Therapy Quality Codes: 6 Independent with activity with or without an assistive device 5 Patient requires set up or clean up by helper. Patient completes activity by themselves 4 Supervision or touching assist (CGA). [place] provide cues , steadying assist 3 The helper provides less than half the effort to complete the activity 2 The helper provides more than half the effort to complete the activity 1 Dependent. The helper does all the effort to complete an activity 7 Patient refused to complete or attempt activity 9 The patient did not perform the activity before the current illness or injury 88 Not attempted due to Medical conditions or safety concerns Transfers (B, C, W/C) (FIM): 2 Scootin Rollin Supine to/from Sit: 4 Sit to/from Stand: 2 Bed to/from Chair: 2 Improved bed mobility and supine to sit but still requires max assist to stand and is not compliant with weight bearing on the right leg, tomorrow will try a sliding board again. For treatment patient goes from supine to sit and then transfers to the wheelchair, stands to get pants down, goes to bathroom for ADL's and bathing, puts on shirt, stands to clean bottom, sits and then stands again to get pants on, transfers to recliner. Weight Bearing Non Weight Bearing also RUE NWB Treatments bed mobility and transfers, standing, dressing, bathing, ADL's Assessment Current Status: Fair Progress improved bed mobility. PT worked on bed mobility and transfers and standing and positioning and cues for weight bearing, OT worked on ADL's, cleaning, bathing, UE positioning. Patient has improved some but continues to be max assist to stand and needs detailed cues for positioning and safety during every act of mobility. PT Short Term Goals Short Term Goals Time Frame: Jun 17, 2019 Transfers (B,C,W/C) (FIM): 3 Wheelchair Distance: 100' PT Retirement Goals Retirement Goals PT Retirement Goals Time Frame: Jul 01, 2019 Transfers (B,C,W/C) (FIM): 4 Sit to Lying (QC): 3 Lying-Sitting on Side/Bed(QC): 3 Sit to Stand (QC): 3 Rollin Roll Left to Right (QC): 3 Chair/Mlv-ar-Suajx Xfer(QC): 3 Car Transfer (QC): 3 Wheelchair (FIM): 6 Distance: 150' Wheelchair Level of Assist: 6 Wheel 50 feet with 2 turns (QC: 6 PT Plan Problem List Problem List: Activity Tolerance, Functional Strength, Safety, Balance, Gait, Transfer, Bed Mobility, ROM Treatment/Plan Treatment Plan: Continue Plan of Care Treatment Plan: Bed Mobility, Concurrent Therapy, Education, Functional Activity Tran, Functional Strength, Group Therapy, Gait, Safety, Therapeutic Exercise, Transfers Treatment Duration: Jul 01, 2019 Frequency: At least 5 of 7 days/Wk (IRF) Estimated Hrs Per Day: 1.5 hours per day Patient and/or Family Agrees t: Yes Safety Risks/Education Patient Education: Transfer Techniques, Reviewed Precautions, Correct Posit ioning, Safety Issues Teaching Recipient: Patient Teaching Methods: Demonstration, Discussion Response to Teaching: Reinforcement Needed Time/GCodes Time In: 0800 Time Out: 0900 Total Billed Treatment Time: 60 Total Billed Treatment 1 visit FA 60' WILLIAM KOROMA PT Jun 18, 2019 08:56
--- NOTE | 2019-06-18 09:04 | Occupational Ther Daily Note ---
OT Current Status-Daily Note Subjective pt laying in bed upon OT arrival. pt agreed to OT/ PT tx session with focus on increasing independence with ADLS and functional transfers. pt c/o 3/10 pain in RUE/ LE prior to TX session and 1010 pain post OT session in RUE/ LE Mental Status/Objective Patient Orientation: Normal For Age Therapy Code Descriptions/Definitions Functional [place] Measure: 0=Not Assessed/NA 4=Minimal Assistance 1=Total Assistance 5=Supervision or Setup 2=Maximal Assistance 6=Modified [place] 3=Moderate Assistance 7=Complete [place] Attachments: Oxygen (3L NC) ADL-Treatment Therapy Code Descriptions/Definitions Functional [place] Measure: 0=Not Assessed/NA 4=Minimal Assistance 1=Total Assistance 5=Supervision or Setup 2=Maximal Assistance 6=Modified [place] 3=Moderate Assistance 7=Complete [place] Therapy Quality Codes: 6 Independent with activity with or without an assistive device 5 Patient requires set up or clean up by helper. Patient completes activity by themselves 4 Supervision or touching assist (CGA). [place] provide cues , steadying assist 3 The helper provides less than half the effort to complete the activity 2 The helper provides more than half the effort to complete the activity 1 Dependent. The helper does all the effort to complete an activity 7 Patient refused to complete or attempt activity 9 The patient did not perform the activity before the current illness or injury 88 Not attempted due to Medical conditions or safety concerns Eating (FIM): 5 (requires set up) Eating (QC): 5 Grooming (FIM): 5 (required set up and sba for safety. blance, pt demo ability to perform shaving, washing face, washing hair, comb hair. ot reuqired cung to use LUE. pt stated "how am I suposed to do this" pt required reminders to use LUE ) Oral Hygiene (QC): 4 Bathing (FIM): 1 (X 2 person assist to stand to wash buttock. pt only required assist with washing buttock. ) Bathing Location: L Arm, R Arm, L Upper Leg, R Upper Leg, L Lower Leg (including foot), R Lower Leg (including foot), Chest, Abdomen, Buttocks, Perineal Area Shower/Bathe Self (QC): 1 (X 2 person assist ) Upper Body (FIM): 5 (required cuing for sequencing ) Upper Body Dressing (QC): 4 Lower Body Dressing (FIM): 1 (X 2 person assist to stand and 2nd person pulls up pants. pt demo ability to thread corie LE through pants with use of quality engineer medical device and VC to techn. ) Lower Body Dressing (QC): 1 (X2 person assist ) On/Off Footwear (QC): 4 (corie socks with useof sock aid. set up provided and cuign for techn. ) Toileting (FIM): 1 (X 2 person assist. pt reuqired asist with all 3 steps. ) Transfers (B, C, W/C) (FIM): 1 (MAX A X 2 person assist. ) Toilet/Commode Transfer (FIM): 1 (MAX A X2 person assist ) co-treatment completed with PT secondary to complexity of pt deficits requiring skills of both disciplines that a rehab liaison could not complete secondary to skill level required. OT focused on ADL tasks, UE positioning, UE ROM, and sequencing though tasks. while PT focus on gross transfers, LE positioning, s eated/ standing balance,and maintaining WBS. pt required cuing to maintain WBS as he is non compliant noted improvement with ADLS and using AE. pt is able to dress UB with MOD cuing of appropriate technique and additional timing. pt demo ability to use sock aid and watson corie socks with cuing and quality engineer medical device to doff corie socks. pt also demo ability to thread corie LE through pants but required 2 person assist to stand to pull up pants. Other Treatment post co-treatment with PT pt complete peg board to increase FMC in corie hand for daily activities.. pt required increasing timing to perform tasks. pt then transported to room. sitting in recliner chair, call light within reach, all needs met. Education OT Patient Education: Correct positioning, Modified ADL techniques, Progress toward Goal/Update tx plan, Purpose of tx/functional activities, Reviewed precautions, Safety issues, Transfer techniques, Use of adapted equipment Teaching Recipient: Patient Teaching Methods: Demonstration, Discussion Response to Teaching: Verbalize Understanding, Return Demonstration OT Short Term Goals Short Term Goals Eating(FIM): 6 Grooming(FIM): 4 Bathing(FIM): 3 Upper Body Dressing(FIM): 3 Lower Body Dressing(FIM): 3 Toileting(FIM): 3 Transfers (B,C,W/C) (FIM): 3 Toilet/Commode Transfer(FIM): 3 Shower Transfer(FIM): 3 1=Demonstrate adherence to instructed precautions during ADL tasks. 2=Patient will verbalize/demonstrate understanding of assistive dev ices/modifications for ADL. 3=Patient will improve strength/tolerance for activity to enable patient to perform ADL's. OT Medical Radiation Tech Goals Medical Radiation Tech Goals Time Frame: Jul 08, 2019 Eating (FIM): 6 Eating (QC): 6 Groomin Oral Hygiene (QC): 6 Bathing(FIM): 5 Bathing Location: L Arm, R Arm, L Upper Leg, R Upper Leg, L Lower Leg (incl uding foot), R Lower Leg (including foot), Chest, Abdomen, Buttocks, Perineal Area Shower/Bathe Self (QC): 5 Upper Body Dressing(FIM): 6 Upper Body Dressing (QC): 6 Lower Body Dressing(FIM): 6 Lower Body Dressing (QC): 5 On/Off Footwear (QC): 5 Toileting(FIM): 5 Toileting Hygiene (QC): 5 Transfers (B,C,W/C) (FIM): 5 Toilet/Commode Transfer(FIM): 5 Toilet/Commode Transfer (QC): 4 Shower Transfer(FIM): 5 Additional Goals: 1-Demonstrate ADL Tasks, 2-Verbalize Understanding, 3-Impr oveStrength/Tran 1=Demonstrate adherence to instructed precautions during ADL tasks. 2=Patient will verbalize/demonstrate understanding of assistive devices/modifications for ADL. 3=Patient will improve strength/tolerance for activity to enable patient to perform ADL's. OT Education/Plan Problem List/Assessment Assessment: Decreased Activ Tolerance, Decreased Safety Aware, Decreased UE Strength, Dependent Transfers, Impaired Bed Mobility, Impaired Cognition, Im paired Coordination, Impaired Funct Balance, Impaired I ADL's, Impaired Self- Care Skills, Restricted Funct UE ROM pt presents with functional limitations affecting areas of ADLs and functional transfers with then above mention deficits. pt would benefit from skilled OT services to increase independence with ADLS and functional transfers. Discharge Recommendations Plan/Recommendations: Continue POC Equpiment Recommendations-D/C: Sock Aide, Dressing Stick Treatment Plan/Plan of Care Treatment,Training & Education: Yes Patient would benefit from OT for education, treatment and training to promote independence in ADL's, mobility, safety and/or upper extremity function for A DL's. Plan of Care: ADL Retraining, Caregiver Training, Functional Mobility, Group Exercise/Act as Ind, UE Funct Exercise/Act, W/C Management Training Treatment Duration: Jul 08, 2019 Frequency: At least 5 of 7 days/Wk (IRF) Estimated Hrs Per Day: 1 hour per day (60-90 minutes per day) Agreement: Yes Rehab Potential: Fair Time/GCodes Start Time: 08:00 Stop Time: 09:15 Billed Treatment Time ADL 75 minutes, 5 units RAPHAEL VILLAFUERTE OT Jun 18, 2019 09:04
[2019-06-18] MEDS: PANTOPRAZOLE 40 MG (PROTONIX) TAB PO SCH (10:24)
[2019-06-18] MEDS: ASPIRIN 81 MG CHEW (CHILDREN'S ASA) PO SCH (10:25)
[2019-06-18] MEDS: FUROSEMIDE 40 MG (LASIX) TAB PO SCH (10:25)
[2019-06-18] MEDS: SENNA W/DOCUSATE (SENOKOT S) TABLET PO SCH ×2 (10:25→21:42)
[2019-06-18] MEDS: QUEtiapine 25 MG (SEROquel) TAB IMMEDIATE RELEASE PO SCH ×2 (10:25→21:40)
[2019-06-18] MEDS: LACTULOSE SYRUP 10GM/15ML (ENULOSE) 30ML UDC PO SCH ×2 (10:25→21:42)
[2019-06-18] MEDS: KCL 20 MEQ TAB (K-DUR) PO SCH ×2 (10:25→21:40)
[2019-06-18] MEDS: DICLOFENAC 1% GEL 100 GM (VOLTAREN) TUBE TOP SCH ×3 (10:26→21:41)
[2019-06-18] MEDS: TRIAMCINOLONE 0.1% CR (KENALOG) 15 GM TUBE TOP SCH ×2 (10:26→21:41)
--- NOTE | 2019-06-18 11:14 | Speech Therapy Daily Note ---
Speech Daily Progress Note Subjective Date Seen by Provider: Jun 18, 2019 Time Seen by Provider: 00:30 The patient was finishing his breakfast when I entered this am. He stated he was feeling better and was having a better day. Objective The patient completed a series of safety scenarios with 78% accuracy given minimal verbal cues. Assessment Assessment Current Status: Good Progress Treatment Plan Continue Plan of Care Communication Comprehension: 5 Expression: 5 Social Cognition Social Interaction: 7 Problem Solvin Memory: 5 Speech Short Term Goals Short Term Goals Short Term Goals Patient will demonstrate simple problem solving and memory with 80% accuracy when given minimal to moderate cues Speech Care Home Goals Care Home Goals Patient will improve cognitive-communication necessary for safety and daily living tasks with minimal assist Speech-Plan Patient/Family Goals Patient/Family Goals: The patient plans on returning home to his apartment upon hospital discharge. Treatment Plan Speech Therapy Treatment Plan: Continue Plan of Care The patient is making good progress as a result of skilled ST services. Treatment Duration: Jun 24, 2019 Frequency: 5 times per week Estimated Hrs Per Day: .5 hour per day Rehab Potential: Fair Barriers to Learning: The patient has mild cognitive deficits. Pt/Family Agrees to Plan: Yes Safety Risks/Education Teaching Recipient: Patient Teaching Methods: Demonstration, Discussion Response to Teaching: Verbalize Understanding, Return Demonstration Education Topics Provided: Safety within his room. Time Speech Therapy Time In: 10:30 Speech Therapy Time Out: 11:00 Total Billed Time: 30 Billed Treatment Time 1M[address] Jun 18, 2019 11:14
--- NOTE | 2019-06-18 11:34 | Physical Therapy Daily Note ---
PT Daily Note-Current Subjective Patient in recliner pre tx, agrees to PT, has 6/10 pain in right leg. Appearance Patient in recliner post tx with nurse call, phone, tray, all needs met. Mental Status Patient Orientation: Person, Place, Situation Attachments: Oxygen Transfers Therapy Code Descriptions/Definitions Functional [place] Measure: 0=Not Assessed/NA 4=Minimal Assistance 1=Total Assistance 5=Supervision or Setup 2=Maximal Assistance 6=Modified [place] 3=Moderate Assistance 7=Complete [place] Therapy Quality Codes: 6 Independent with activity with or without an assistive device 5 Patient requires set up or clean up by helper. Patient completes activity by themselves 4 Supervision or touching assist (CGA). [place] provide cues , steadying assist 3 The helper provides less than half the effort to complete the activity 2 The helper provides more than half the effort to complete the activity 1 Dependent. The helper does all the effort to complete an activity 7 Patient refused to complete or attempt activity 9 The patient did not perform the activity before the current illness or injury 88 Not attempted due to Medical conditions or safety concerns Weight Bearing Non Weight Bearing also RUE NWB Exercises Supine Ex: Ankle pumps, Quad Set, Glut sets, Straight leg raise Supine Reps: 15 (done with legs elevated in recliner) Seated Therapy Exercises: Long arc quads, Hip flexion, Hip abd/add Seated Reps: 15 Treatments LE exercise Assessment Current Status: Fair Progress improving AROM in right leg PT Short Term Goals Short Term Goals Time Frame: Jun 17, 2019 Transfers (B,C,W/C) (FIM): 3 Wheelchair Distance: 100' PT Environmental Journalist Goals Environmental Journalist Goals PT Environmental Journalist Goals Time Frame: Jul 01, 2019 Transfers (B,C,W/C) (FIM): 4 Sit to Lying (QC): 3 Lying-Sitting on Side/Bed(QC): 3 Sit to Stand (QC): 3 Rollin Roll Left to Right (QC): 3 Chair/Nqp-dl-Jofqg Xfer(QC): 3 Car Transfer (QC): 3 Wheelchair (FIM): 6 Distance: 150' Wheelchair Level of Assist: 6 Wheel 50 feet with 2 turns (QC: 6 PT Plan Problem List Problem List: Activity Tolerance, Functional Strength, Safety, Balance, Gait, Transfer, Bed Mobility, ROM Treatment/Plan Treatment Plan: Continue Plan of Care Treatment Plan: Bed Mobility, Concurrent Therapy, Education, Functional Activity Tran, Functional Strength, Group Therapy, Gait, Safety, Therapeutic Exercise, Transfers Treatment Duration: Jul 01, 2019 Frequency: At least 5 of 7 days/Wk (IRF) Estimated Hrs Per Day: 1.5 hours per day Patient and/or Family Agrees t: Yes Safety Risks/Education Patient Education: Correct Positioning, Safety Issues Teaching Recipient: Patient Teaching Methods: Demonstration, Discussion Response to Teaching: Reinforcement Needed Time/GCodes Time In: 1115 Time Out: 1130 Total Billed Treatment Time: 15 Total Billed Treatment 1 visit EX Isiah' WILLIAM KOROMA PT Jun 18, 2019 11:34
--- NOTE | 2019-06-18 13:06 | PM&R Progress Note ---
Subjective HPI/CC On Admission Chief complaint: Right hip fracture and right elbow fracture in need of inpatient rehab to return home History of present illness: This is a 79-year-old white male known to me from prior admissions long ago whose primary care provider is Dr. Bhat but who does not see a english lecturer regularly who has a history of atrial fibrillation, diabetes mellitus and falls in the past who presented to inpatient rehab after discharge from [facility] after suffering a right femoral fracture and right elbow fracture which required surgery for repair after a fall sustained at home when he was using his leaf blower on 06/04/2019. He did not require a transfusion while hospitalized at [facility]. He has not had a bowel movement for 5 days. Pain is currently controlled with oxycodone. Patient does not usually require oxygen or CPAP machine. His prior level of functioning was without assistive device and completely independent with ADLs. I will consult Dr Regalado for Cardiology management. Subjective/Events-last exam Federico was very tired this morning and stated that he could not find his urinal during the night and had to have assistance cleaning himself up. Complains of similar right arm and right leg pain. Stated that he did not have a bowel movement yesterday. No lung or heart abnormalities Radial pulse on left 2/4 Abdominal tenderness in the RL Kassy Lynch MSIII obtained this: Discussed barriers that he needs addressed while before he gets home including - Driving - Entering vehicle - Needs chairs with proper handrails and cushions - Rehab to sit down and get out of chairs just using his left arm Areas of living that already have assistance includes - Gentle slope at the back of his house - Has a rug in his bedroom that he is taking out. - Does have a dog and cat, but says they will not get in the way. - Lives with Teresa and Jerome who will help him with cooking, cleaning, getting into bed. - Has an attachment to wall to pull himself out of bed - A walker is next to his bed that have urinals for the middle of the night Review of Systems No Hot or Cold intolerance Objective Exam Vital Signs Vital Signs Date Time Temp Pulse Resp B/P (MAP) Pulse Ox O2 Delivery O2 Flow Rate FiO2 06/18/19 06:36 98.1 69 20 158/70 (99) 93 Nasal Cannula 3.00 Capillary Refill : Less Than 3 Seconds General Appearance: No Apparent Distress, WD/WN, Chronically ill, Obese HEENT: PERRL/EOMI Neck: Normal Inspection, Non Tender, Supple Respiratory: Chest Non Tender, No Accessory Muscle Use, No Respiratory Distress Cardiovascular: Regular Rate, Rhythm Gastrointestinal: Normal Bowel Sounds, No Organomegaly, No Pulsatile Mass, Non Tender, Soft Back: Normal Inspection, No CVA Tenderness, No Vertebral Tenderness Extremity: Other (Changed dressing on R UE and over R femur. visualized RUE wound and RLE incision - both clean, dry without signs of infection. Significant R UE contusion. ) Neurologic/Psychiatric: Alert, Oriented x3 Skin: Ecchymosis (right upper ext, incisions no signs of infection) Lymphatic: No Adenopathy Results/Procedures Lab Patient resulted labs reviewed. FIM Transfers Therapy Code Descriptions/Definitions Functional [place] Measure: 0=Not Assessed/NA 4=Minimal Assistance 1=Total Assistance 5=Supervision or Setup 2=Maximal Assistance 6=Modified [place] 3=Moderate Assistance 7=Complete [place] Therapy Quality Codes: 6 Independent with activity with or without an assistive device 5 Patient requires set up or clean up by helper. Patient completes activity by themselves 4 Supervision or touching assist (CGA). [place] provide cues , steadying assist 3 The helper provides less than half the effort to complete the activity 2 The helper provides more than half the effort to complete the activity 1 Dependent. The helper does all the effort to complete an activity 7 Patient refused to complete or attempt activity 9 The patient did not perform the activity before the current illness or injury 88 Not attempted due to Medical conditions or safety concerns Transfers (B, C, W/C) (FIM): 1 (MAX A X 2 person assist. ) Scootin Rollin Roll Left to Right (QC): 1 Supine to/from Sit: 4 Sit to/from Stand: 2 Sit to Lying (QC): 1 Sit to Stand (QC): 1 Chair/Dat-gl-Ipmej Xfer(QC): 1 Bed to/from Chair: 2 Car Transfer (QC): 1 Gait Training Does the Patient Walk?: No and Walking Goal IS indicated Wheelchair Training Does the Pt Use a Wheelchair?: Yes Wheelchair (FIM): 2 Distance: 100' Wheelchair Level of Assist: 4 Type of Wheelchair: Manual Mental Status/Objective Comprehension: 5 Expression: 5 Social Interaction: 7 Problem Solvin Memory: 5 ADL-Treatment Feedin (requires set up) Eating (QC): 5 Groomin (required set up and sba for safety. kar, pt demo ability to perform shaving, washing face, washing hair, comb hair. ot reuqired cung to use LUE. pt stated "how am I suposed to do this" pt required reminders to use LUE ) Oral Hygiene (QC): 4 Bathin (X 2 person assist to stand to wash buttock. pt only required assist with washing buttock. ) Bathing Location: L Arm, R Arm, L Upper Leg, R Upper Leg, L Lower Leg (including foot), R Lower Leg (including foot), Chest, Abdomen, Buttocks, Perineal Area Shower/Bathe Self (QC): 1 (X 2 person assist ) Upper Extremity Dressin (required cuing for sequencing ) Upper Body Dressing (QC): 4 Lower Extremity Dressin (X 2 person assist to stand and 2nd person pulls up pants. pt demo ability to thread corie LE through pants with use of chief business development officer and VC to techn. ) Lower Body Dressing (QC): 1 (X2 person assist ) On/Off Footwear (QC): 4 (corie socks with useof sock aid. set up provided and cuign for techn. ) Toiletin (X 2 person assist. pt reuqired asist with all 3 steps. ) Toileting Hygiene (QC): 1 Toilet/Commode Transfer: 1 (MAX A X2 person assist ) Toilet Transfer (QC): 1 Shower: 0 (NT secodanry to safety of pt ) Assessment/Plan Assessment and Plan (1) Right femoral fracture (2) Cognitive decline (3) Diabetes mellitus (4) Hx of emotional problems (5) GERD without esophagitis (6) Hypothyroidism (7) Hyponatremia (8) Elbow fracture, right (9) Fall (10) Hypertension (11) Anemia due to acute blood loss (12) Fever (13) Iron deficiency (14) Constipation (15) Atrial fibrillation KASSY LYNCH MED STUDEN Jun 18, 2019 13:06
--- NOTE | 2019-06-18 13:10 | PM&R Progress Note ---
KASSY LYNCH [facility] 06/18/19 1310: Subjective HPI/CC On Admission Date Seen by Provider: Jun 18, 2019 Time Seen by Provider: 06:19 Chief complaint: Right hip fracture and right elbow fracture in need of inpatient rehab to return home History of present illness: This is a 79-year-old white male known to me from prior admissions long ago whose primary care provider is Dr. Bhat but who does not see a technology coach regularly who has a history of atrial fibrillation, diabetes mellitus and falls in the past who presented to inpatient rehab after discharge from [facility] after suffering a right femoral fracture and right elbow fracture which required surgery for repair after a fall sustained at home when he was using his leaf blower on 06/04/2019. He did not require a transfusion while hospitalized at [facility]. He has not had a bowel movement for 5 days. Pain is currently controlled with oxycodone. Patient does not usually require oxygen or CPAP machine. His prior level of functioning was without assistive device and completely independent with ADLs. I will consult Dr Regalado for Cardiology management. Subjective/Events-last exam Federico was very tired today and stated that he could not find his urinal at night and had to have assistance to clean himself up. He also fell asleep during the physical examination. Continually yawned during interview. Still notes pain in Right Arm and Right leg. Did not have a bowel movement yesterday. Physical exam showed normal breath sounds and RRR. Normal bowels sounds with pain in the RLQ. Tender on the anterior aspect of Right tibia. Radial pulse 2/4. No edema in UE or LE Kassy Lynch MSIII obtained this: Barrier discussed since last exam - Rug is being removed from home today (06/18/19) - Has an easily accessible shower but believes he needs a rubber placement mat to prevent slips and falls. - Would not like a chair for the shower because he will not be able to sit down or get up. - Has access to a walker and can but only uses the cane in his right hand. May need rehab with cane and left hand use. - Confident that rehab will address issue that he may face with driving, entering a vehicle, Sitting down and getting out of chairs. Discussed barriers that he needs addressed before he gets home including - Driving - Entering vehicle - Needs chairs with proper handrails and cushions - Rehab to sit down and get out of chairs just using his left arm Areas of living that already have assistance includes - Gentle slope at the back of his house - Has a rug in his bedroom that he is taking out. - Does have a dog and cat, but says they will not get in the way. - Lives with Teresa and Jerome who will help him with cooking, cleaning, getting into bed. - Has an attachment to wall to pull himself out of bed - A walker is next to his bed that have urinals for the middle of the night Review of Systems General: No Chills; Fatigue HEENT: No Visual Changes, No Other (Hearing loss) Pulmonary: No Dyspnea Cardiovascular: No: Chest Pain Gastrointestinal: No: Nausea, Vomiting Neurological: No: Numbness No Hot or Cold intolerance Objective Exam Vital Signs Vital Signs Date Time Temp Pulse Resp B/P (MAP) Pulse Ox O2 Delivery O2 Flow Rate FiO2 06/18/19 06:36 98.1 69 20 158/70 (99) 93 Nasal Cannula 3.00 Capillary Refill : Less Than 3 Seconds General Appearance: No Apparent Distress, WD/WN, Chronically ill, Obese HEENT: PERRL/EOMI Neck: Normal Inspection, Non Tender, Supple Respiratory: Chest Non Tender, No Accessory Muscle Use, No Respiratory Distress Cardiovascular: Regular Rate, Rhythm Gastrointestinal: Normal Bowel Sounds, No Organomegaly, No Pulsatile Mass, Non Tender, Soft Back: Normal Inspection, No CVA Tenderness, No Vertebral Tenderness Extremity: Other (Changed dressing on R UE and over R femur. visualized RUE wound and RLE incision - both clean, dry without signs of infection. Significant R UE contusion. ) Neurologic/Psychiatric: Alert, Oriented x3 Skin: Ecchymosis (right upper ext, incisions no signs of infection) Lymphatic: No Adenopathy Results/Procedures Lab Patient resulted labs reviewed. FIM Transfers Therapy Code Descriptions/Definitions Functional [place] Measure: 0=Not Assessed/NA 4=Minimal Assistance 1=Total Assistance 5=Supervision or Setup 2=Maximal Assistance 6=Modified [place] 3=Moderate Assistance 7=Complete [place] Therapy Quality Codes: 6 Independent with activity with or without an assistive device 5 Patient requires set up or clean up by helper. Patient completes activity by themselves 4 Supervision or touching assist (CGA). [place] provide cues , steadying assist 3 The helper provides less than half the effort to complete the activity 2 The helper provides more than half the effort to complete the activity 1 Dependent. The helper does all the effort to complete an activity 7 Patient refused to complete or attempt activity 9 The patient did not perform the activity before the current illness or injury 88 Not attempted due to Medical conditions or safety concerns Transfers (B, C, W/C) (FIM): 1 (MAX A X 2 person assist. ) Scootin Rollin Roll Left to Right (QC): 1 Supine to/from Sit: 4 Sit to/from Stand: 2 Sit to Lying (QC): 1 Sit to Stand (QC): 1 Chair/Hfp-uz-Vllhh Xfer(QC): 1 Bed to/from Chair: 2 Car Transfer (QC): 1 Gait Training Does the Patient Walk?: No and Walking Goal IS indicated Wheelchair Training Does the Pt Use a Wheelchair?: Yes Wheelchair (FIM): 2 Distance: 100' Wheelchair Level of Assist: 4 Type of Wheelchair: Manual Mental Status/Objective Comprehension: 5 Expression: 5 Social Interaction: 7 Problem Solvin Memory: 5 ADL-Treatment Feedin (requires set up) Eating (QC): 5 Groomin (required set up and sba for safety. blance, pt demo ability to perform shaving, washing face, washing hair, comb hair. ot reuqired cung to use LUE. pt stated "how am I suposed to do this" pt required reminders to use LUE ) Oral Hygiene (QC): 4 Bathin (X 2 person assist to stand to wash buttock. pt only required assist with washing buttock. ) Bathing Location: L Arm, R Arm, L Upper Leg, R Upper Leg, L Lower Leg (including foot), R Lower Leg (including foot), Chest, Abdomen, Buttocks, Perineal Area Shower/Bathe Self (QC): 1 (X 2 person assist ) Upper Extremity Dressin (required cuing for sequencing ) Upper Body Dressing (QC): 4 Lower Extremity Dressin (X 2 person assist to stand and 2nd person pulls up pants. pt demo ability to thread corie LE through pants with use of fluid dynamicist and VC to techn. ) Lower Body Dressing (QC): 1 (X2 person assist ) On/Off Footwear (QC): 4 (corie socks with useof sock aid. set up provided and cuign for techn. ) Toiletin (X 2 person assist. pt reuqired asist with all 3 steps. ) Toileting Hygiene (QC): 1 Toilet/Commode Transfer: 1 (MAX A X2 person assist ) Toilet Transfer (QC): 1 Shower: 0 (NT secodanry to safety of pt ) Assessment/Plan Assessment and Plan Assess & Plan/Chief Complaint Assess & Plan/Chief Complaint Assessment: Status post right femoral fracture on 06/04/2019 Right elbow fracture status post repair 06/04/2019 History of atrial fibrillation on amiodarone Multiple falls in the past Emotional problems Hypothyroidism GERD Hypertension Diabetes mellitus insulin requiring line hyperlipidemia Anemia from acute blood loss Iron deficiency receiving iron infusions Low albumin Constipation Plan: Pain control Home meds Labs reviewed IV iron infusions to be completed Fall risk prevention Inpatient rehab protocols Appreciate Dr Abdullahi consultation Appreciate Dr Abdullahi managing the ortho surgical wounds Checked USG for right DVT which was negative Cognition seems to be clearing Laxitive for constipation (1) Right femoral fracture (2) Cognitive decline (3) Diabetes mellitus (4) Hx of emotional problems (5) GERD without esophagitis (6) Hypothyroidism (7) Hyponatremia (8) Elbow fracture, right (9) Fall (10) Hypertension (11) Anemia due to acute blood loss (12) Fever (13) Iron deficiency (14) Constipation (15) Atrial fibrillation MARÍA COFFEY DO 06/18/191936: Subjective Subjective/Events-last exam Cognition seems to have improved since slum score was 19/30 on first assessment when he arrived Right leg US was negative for DVT Was incontinent last night no history of UTI's will monitor that and if that is an isolated case will not pursue Continued pain A little bit tired was falling asleep this morning but he seems alert and eating breakfast currently No BM yet for the past day or so Right lower quadrant abdomen has a little bit of tenderness Review of Systems General: Fatigue Gastrointestinal: Constipation Musculoskeletal: leg pain Objective Exam General Appearance: No Apparent Distress, WD/WN, Chronically ill, Obese Respiratory: Chest Non Tender, Lungs Clear, Normal Breath Sounds, No Accessory Muscle Use, No Respiratory Distress Cardiovascular: Regular Rate, Rhythm, No Edema, No Gallop, No JVD, No Murmur, Normal Peripheral Pulses Gastrointestinal: Normal Bowel Sounds, No Organomegaly, No Pulsatile Mass, Soft, Tenderness (subtle RLQ) Neurologic/Psychiatric: Alert, Oriented x3, No Motor/Sensory Deficits, Normal Mood/Affect, exercise equipment specialist II-XII Norm as Tested, Other (limited ROM right leg and arm) Assessment/Plan Assessment and Plan Assess & Plan/Chief Complaint BM regimen Pain meds PT/OT Prep for needs at home (1) Right femoral fracture (2) Elbow fracture, right (3) Constipation (4) Iron deficiency (5) Fever (6) Anemia due to acute blood loss (7) Hypertension (8) Fall (9) Hypothyroidism (10) GERD without esophagitis (11) Hx of emotional problems (12) Diabetes mellitus (13) Hyponatremia (14) Serum albumin decreased (15) Cognitive decline Supervisory-Addendum Brief Verification & Attestation Time: Verification & Attestat.: 09:00 Participated in pt care: history, MDM, physical Personally performed: exam, history, MDM, supervision of care Care discussed with: Medical Student Procedures: n/a Results interpretation: Verified all documentation Verification and Attestation of Medical Student E/M Service A medical student performed and documented this service in my presence. I reviewed and verified all information documented by the medical student and made modifications to such information, when appropriate. I personally performed the physical exam and medical decision making. María Coffey, Jun 18, 2019,19:37 KASSY LYNCH [facility] Jun 18, 2019 13:10 MARÍA COFFEY DO Jun 18, 2019 19:37
[2019-06-18 16:02] VITALS: BP 112/65
--- NOTE | 2019-06-18 20:05 | Cardiology Progress Note ---
Cardiology SOAP Progress Note Subjective: No cardiac complaints Objective: I&O/Vital Signs 06/18/19 06/18/19 06/18/19 08:15 16:02 19:52 Temp 97.2 Pulse 69 Resp 16 B/P (MAP) 112/65 (81) Pulse Ox 96 O2 Delivery Nasal Cannula Nasal Cannula Nasal Cannula O2 Flow Rate 2.00 2.00 2.00 06/18/19 00:00 Intake Total 1090 ml Output Total 1925 ml Balance -835 ml Weight (Pounds): 220 Weight (Ounces): 5.0 Weight (Calculated Kilograms): [id number] Constitutional: appears stated age, AAO x 3; No apparent distress; well- developed, well-nourished Respiratory: No accessory muscle use, No respiratory distress, No chest tender, No chest expansion is symmetric; chest is bilaterally symmetric; No lungs clear to percussion; lungs clear to auscultation; No crackles, No rhonchi, No rales, No stridor, No wheezing, No pleural rub, No other Cardiovascular: regular rate-rhythm; No irregularly irregular, No extra beats, No parasternal heave is noted, No JVD, No edema, No bradycardia, No tachycardia, No point of maximal impulse, No cardiac thrills are palpable; S1 and S2; No gallop/S3, No gallop/S4, No diastolic murmur, No systolic murmur, No friction rub, No click, No other Gastrointestional: No tender, No soft, No round, No distended, No pulsatile mass, No organomegaly, No guarding, No rebound, No tenderness, No hernia, No mass, No audible bowel sounds, No abnormal bowel sounds, No abdominal bruits, No spleenomegaly, No other Extremities: No normal range of motion, No non-tender, No normal inspection, No pedal edema, No calf tenderness, No normal capillary refill, No pelvis stable, No calf tenderness, No inflammation, No pedal edema, No slow capillary refill, No swelling, No other, No abrasion, No clubbing, No cyanosis, No ecchymosis, No laceration, No no lower extremity edema bilateral, No significant edema, No tenderness, No wound Neurologic/Psychiatric: no motor/sensory deficits, alert, normal mood/affect, oriented x 3, power is 5/5 both on sides Skin: normal color, warm/dry Results/Procedures: Labs Laboratory Tests 06/17/19 20:51: Glucometer 160H 06/18/19 06:09: Glucometer 108 06/18/19 10:53: Glucometer 187H 06/18/19 16:00: Glucometer 207H A/P: Assessment/Dx: Mechanical fall, status post right hip surgery, Hypertension, On amiodarone, Diabetes Plan: Inpatient rehabilitation - post hip surgery. DVT prophylaxis. HTN - continue BP meds. EKG, Echo. EKG 06/09/2019 shows sinus tachycardia. Echo 05/2019 shows LVH, Normal LVEF, DD 1, LAE. Need to find out why the patient is on amiodarone. I requested the RN to find out from Dr Bhat's office the above information. I have reviewed all the information sent from Dr. Bhat's office. All EKGs have sinus rhythm. We will discontinue amiodarone. DM Thank you for your consultation. Please call me if you have any questions. Roxie Regalado MD, FACP, FACC, FSCAI, FHRS, CCDS Interventional Cardiology Cardiac Electrophysiology Vascular Medicine and Endovascular Interventions Bryon REGALADO MD Jun 18, 2019 20:05
[2019-06-18] MEDS: MELATONIN 3 MG TABLET PO SCH (21:40)
[2019-06-18] MEDS: POLYETHYLENE GLYCOL 17 GM (MIRALAX) PACK PO SCH (21:42)
[2019-06-19 05:50] VITALS: BP 110/65
[2019-06-19] MEDS: CATHETER FLUSH 10 ML SYR IV SCH ×3 (06:19→21:03)
[2019-06-19] MEDS: inSUlin ASPART (NovoLOG) 1 UNIT/0.01 ML (CHARGE PER UNIT) SC SCH ×4 (06:19→21:03)
[2019-06-19] MEDS: LEVOTHYROXINE 25 MCG (LEVOTHROID) TAB PO SCH (06:31)
[2019-06-19] MEDS: meTOprolol TARTRATE 25 MG (LOPRESSOR) TABLET PO SCH ×2 (06:31→17:11)
[2019-06-19] MEDS: LEVOTHYROXINE 112 MCG (LEVOTHROID) TAB PO SCH (06:31)
--- NOTE | 2019-06-19 07:50 | PM&R Progress Note ---
[facility] 06/19/19 0750: Subjective HPI/CC On Admission Date Seen by Provider: Jun 19, 2019 Time Seen by Provider: 07:25 Chief complaint: Right hip fracture and right elbow fracture in need of inpatient rehab to return home History of present illness: This is a 79-year-old white male known to me from prior admissions long ago whose primary care provider is Dr. Bhat but who does not see a development disability specialist regularly who has a history of atrial fibrillation, diabetes mellitus and falls in the past who presented to inpatient rehab after discharge from [facility] after suffering a right femoral fracture and right elbow fracture which required surgery for repair after a fall sustained at home when he was using his leaf blower on 06/04/2019. He did not require a transfusion while hospitalized at [facility]. He has not had a bowel movement for 5 days. Pain is currently controlled with oxycodone. Patient does not usually require oxygen or CPAP machine. His prior level of functioning was without assistive device and completely independent with ADLs. I will consult Dr Regalado for Cardiology management. Subjective/Events-last exam Patient was tired. Seemed to be bothered by questions and mood was not as pleasant today. Stated that the same pain persists in his right arm and leg, but does not have any new pain at the moment. Was able to have a bowel movement yesterday in the afternoon and seemed relieved. States to be compliant with leg exercises. Denies fevers, chills, fatigue, chest pain, SOB, hot or cold intolerance, no numbness or tingling. RRR, Lungs CTAB, Bowel sounds were on the upper limits of normal. Dorsalis pedis Pulse 2/4 bilaterally, Radial pulse was 2/4 on the left. Said anterior tibia was tender to palpation Review of Systems General: No Chills, No Fatigue HEENT: No Visual Changes, No Other (Hearing changes) Cardiovascular: No: Chest Pain Gastrointestinal: No: Nausea, Vomiting Neurological: No: Weakness, Numbness No Hot or Cold intolerance Focused Exam Cardiovascular: Regular Rate, Rhythm, No Edema, No JVD, No Murmur Peripheral Pulses: 2+ Dorsalis Pedis (R), 2+ Left Dors-Pedis (L) Skin: normal color, warm/dry Objective Exam Vital Signs Vital Signs Date Time Temp Pulse Resp B/P (MAP) Pulse Ox O2 Delivery O2 Flow Rate FiO2 06/19/19 05:50 97.6 67 18 110/65 (80) 96 Nasal Cannula 2.00 Capillary Refill : Less Than 3 Seconds General Appearance: No Apparent Distress, WD/WN, Chronically ill, Obese HEENT: PERRL/EOMI Neck: Normal Inspection, Non Tender, Supple Respiratory: Chest Non Tender, Lungs Clear, Normal Breath Sounds, No Accessory Muscle Use, No Respiratory Distress Cardiovascular: Regular Rate, Rhythm, No Edema, No Gallop, No JVD, No Murmur, Normal Peripheral Pulses Gastrointestinal: Normal Bowel Sounds, No Organomegaly, No Pulsatile Mass, Soft, Tenderness (subtle RLQ) Back: Normal Inspection, No CVA Tenderness, No Vertebral Tenderness Extremity: Other (Changed dressing on R UE and over R femur. visualized RUE wound and RLE incision - both clean, dry without signs of infection. Significant R UE contusion. ) Neurologic/Psychiatric: Alert, Oriented x3, No Motor/Sensory Deficits, Normal Mood/Affect, date night sitter II-XII Norm as Tested, Other (limited ROM right leg and arm) Skin: Ecchymosis (right upper ext, incisions no signs of infection) Lymphatic: No Adenopathy Results/Procedures Lab Patient resulted labs reviewed. FIM Transfers Therapy Code Descriptions/Definitions Functional [place] Measure: 0=Not Assessed/NA 4=Minimal Assistance 1=Total Assistance 5=Supervision or Setup 2=Maximal Assistance 6=Modified [place] 3=Moderate Assistance 7=Complete [place] Therapy Quality Codes: 6 Independent with activity with or without an assistive device 5 Patient requires set up or clean up by helper. Patient completes activity by themselves 4 Supervision or touching assist (CGA). [place] provide cues , steadying assist 3 The helper provides less than half the effort to complete the activity 2 The helper provides more than half the effort to complete the activity 1 Dependent. The helper does all the effort to complete an activity 7 Patient refused to complete or attempt activity 9 The patient did not perform the activity before the current illness or injury 88 Not attempted due to Medical conditions or safety concerns Transfers (B, C, W/C) (FIM): 1 (MAX A X 2 person assist. ) Scootin Rollin Roll Left to Right (QC): 1 Supine to/from Sit: 4 Sit to/from Stand: 2 Sit to Lying (QC): 1 Sit to Stand (QC): 1 Chair/Htq-de-Bgyqj Xfer(QC): 1 Bed to/from Chair: 2 Car Transfer (QC): 1 Gait Training Does the Patient Walk?: No and Walking Goal IS indicated Wheelchair Training Does the Pt Use a Wheelchair?: Yes Wheelchair (FIM): 2 Distance: 100' Wheelchair Level of Assist: 4 Type of Wheelchair: Manual Mental Status/Objective Comprehension: 5 Expression: 5 Social Interaction: 7 Problem Solvin Memory: 5 ADL-Treatment Feedin (requires set up) Eating (QC): 5 Groomin (required set up and sba for safety. blance, pt demo ability to perform shaving, washing face, washing hair, comb hair. ot reuqired cung to use LUE. pt stated "how am I suposed to do this" pt required reminders to use LUE ) Oral Hygiene (QC): 4 Bathin (X 2 person assist to stand to wash buttock. pt only required assist with washing buttock. ) Bathing Location: L Arm, R Arm, L Upper Leg, R Upper Leg, L Lower Leg (including foot), R Lower Leg (including foot), Chest, Abdomen, Buttocks, Perineal Area Shower/Bathe Self (QC): 1 (X 2 person assist ) Upper Extremity Dressin (required cuing for sequencing ) Upper Body Dressing (QC): 4 Lower Extremity Dressin (X 2 person assist to stand and 2nd person pulls up pants. pt demo ability to thread corie LE through pants with use of manager banquet and VC to techn. ) Lower Body Dressing (QC): 1 (X2 person assist ) On/Off Footwear (QC): 4 (corie socks with useof sock aid. set up provided and cuign for techn. ) Toiletin (X 2 person assist. pt reuqired asist with all 3 steps. ) Toileting Hygiene (QC): 1 Toilet/Commode Transfer: 1 (MAX A X2 person assist ) Toilet Transfer (QC): 1 Shower: 0 (NT secodanry to safety of pt ) Assessment/Plan Assessment and Plan Assess & Plan/Chief Complaint Assess & Plan/Chief Complaint Assessment: Status post right femoral fracture on 06/04/2019 Right elbow fracture status post repair 06/04/2019 History of atrial fibrillation on amiodarone Multiple falls in the past Emotional problems Hypothyroidism GERD Hypertension Diabetes mellitus insulin requiring line hyperlipidemia Anemia from acute blood loss Iron deficiency receiving iron infusions Low albumin Possible Hyperglycemia Plan: Pain control Home meds Labs reviewed IV iron infusions to be completed Fall risk prevention Inpatient rehab protocols Appreciate Dr Abdullahi consultation Appreciate Dr Abdullahi managing the ortho surgical wounds Checked USG for right DVT which was negative Cognition seems to be clearing Check insulin medication (1) Right femoral fracture (2) Elbow fracture, right (3) Constipation (4) Iron deficiency (5) Fever (6) Anemia due to acute blood loss (7) Hypertension (8) Fall (9) Hypothyroidism (10) GERD without esophagitis (11) Hx of emotional problems (12) Diabetes mellitus (13) Hyponatremia (14) Serum albumin decreased (15) Cognitive decline MARÍA COFFEY DO 06/19/192031: Subjective Subjective/Events-last exam BMs are regular. Fills his urinal at times and we're working on that. Non-weight bearing will be addressed with Dr. Donaldson's service over at [place] to see when that can be lifted since he has plateaued. Sugars are varied. Pain continues but it seems to be less. Needs increased cues to help with participation and therapy. Will re-check Monday due to lack of progress until weight-bearing status can be lifted. Review of Systems General: Fatigue Musculoskeletal: leg pain Neurological: Confusion Objective Exam General Appearance: No Apparent Distress, WD/WN, Chronically ill Respiratory: Chest Non Tender, Lungs Clear, Normal Breath Sounds, No Accessory Muscle Use, No Respiratory Distress Cardiovascular: Regular Rate, Rhythm, No Edema, No Gallop, No JVD, No Murmur, Normal Peripheral Pulses Gastrointestinal: Normal Bowel Sounds, Soft Back: Normal Inspection, No CVA Tenderness, No Vertebral Tenderness Extremity: Other (Changed dressing on R UE and over R femur. visualized RUE wound and RLE incision - both clean, dry without signs of infection. Significant R UE contusion. ) Neurologic/Psychiatric: Alert, Oriented x3, No Motor/Sensory Deficits, Normal Mood/Affect, date night sitter II-XII Norm as Tested, Disoriented Assessment/Plan Assessment and Plan Assess & Plan/Chief Complaint Reviewed assessment and plan. Monitor pain which seems to be improved Incisions are improved and Dr Abdullahi has essentially signed off BM regimen to continue Reach out to Dr Donaldson to see when weight bearing restriction can be lifted (1) Right femoral fracture (2) Elbow fracture, right (3) Atrial fibrillation (4) Constipation (5) Iron deficiency (6) Fever (7) Anemia due to acute blood loss (8) Hypertension (9) Fall (10) Hypothyroidism (11) GERD without esophagitis (12) Hx of emotional problems (13) Diabetes mellitus (14) Hyponatremia (15) Serum albumin decreased (16) Cognitive decline Supervisory-Addendum Brief Verification & Attestation Time: Verification & Attestat.: 08:30 Participated in pt care: history, MDM, physical Personally performed: exam, history, MDM, supervision of care Care discussed with: Medical Student Procedures: n/a Results interpretation: Verified all documentation Verification and Attestation of Medical Student E/M Service A medical student performed and documented this service in my presence. I reviewed and verified all information documented by the medical student and made modifications to such information, when appropriate. I personally performed the physical exam and medical decision making. María Coffey, Jun 19, 2019,20:29 [facility] Jun 19, 2019 07:50 MARÍA COFFEY DO Jun 19, 2019 20:32
--- NOTE | 2019-06-19 09:18 | Physical Therapy Daily Note ---
PT Daily Note-Current Subjective Patient in bed pre tx, agrees to PT, has 9/10 pain in right leg and arm, will be co-treating with OT due to poor patient mobility, strength, endurance, poor weight bearing compliance, the need to coordinate UE and LE during activity. Patient needs dressed and cleaned for a partial BM Appearance Patient in recliner post tx with nurse call, phone, tray, all needs met, legs elevated. Mental Status Patient Orientation: Person, Place, Situation Attachments: Oxygen Transfers Therapy Code Descriptions/Definitions Functional [place] Measure: 0=Not Assessed/NA 4=Minimal Assistance 1=Total Assistance 5=Supervision or Setup 2=Maximal Assistance 6=Modified [place] 3=Moderate Assistance 7=Complete [place] Therapy Quality Codes: 6 Independent with activity with or without an assistive device 5 Patient requires set up or clean up by helper. Patient completes activity by themselves 4 Supervision or touching assist (CGA). [place] provide cues , steadying assist 3 The helper provides less than half the effort to complete the activity 2 The helper provides more than half the effort to complete the activity 1 Dependent. The helper does all the effort to complete an activity 7 Patient refused to complete or attempt activity 9 The patient did not perform the activity before the current illness or injury 88 Not attempted due to Medical conditions or safety concerns Transfers (B, C, W/C) (FIM): 3 Scootin Rollin Supine to/from Sit: 3 Sit to/from Stand: 2 Bed to/from Chair: 2 Cues for hand placement and positioning. Sliding board transfer practiced today and patient can perform it with min assist but only to the left side. Practiced supine <-> sit several times using hoop to assist with right leg. Weight Bearing Non Weight Bearing also RUE NWB Wheelchair Training Does the Pt Use a Wheelchair?: Yes Wheelchair (FIM): 2 Distance: 100' Wheelchair Level of Assist: 4 Type of Wheelchair: Manual Exercises Supine Ex: Ankle pumps, Quad Set, Glut sets, Heel Slides Supine Reps: 20 Seated Therapy Exercises: Long arc quads Seated Reps: 20 Treatments dressing, cleaning, transfers and bed mobility, LE exercise. PT performed bed mobility and transfers, LE exercise, wheelchair mobility, assist with dressing and cleaning with positioning and balance, OT worked on dressing, cleaning, UE exercise, assist with transfers Assessment Current Status: Fair Progress slightly improved transfers PT Short Term Goals Short Term Goals Time Frame: Jun 17, 2019 Transfers (B,C,W/C) (FIM): 3 Wheelchair Distance: 100' PT Public Health Inspector Goals Public Health Inspector Goals PT Group Home Goals Time Frame: Jul 01, 2019 Transfers (B,C,W/C) (FIM): 4 Sit to Lying (QC): 3 Lying-Sitting on Side/Bed(QC): 3 Sit to Stand (QC): 3 Rollin Roll Left to Right (QC): 3 Chair/Wum-ex-Ofetz Xfer(QC): 3 Car Transfer (QC): 3 Wheelchair (FIM): 6 Distance: 150' Wheelchair Level of Assist: 6 Wheel 50 feet with 2 turns (QC: 6 PT Plan Problem List Problem List: Activity Tolerance, Functional Strength, Safety, Balance, Gait, Transfer, Bed Mobility, ROM Treatment/Plan Treatment Plan: Continue Plan of Care Treatment Plan: Bed Mobility, Concurrent Therapy, Education, Functional Activity Tran, Functional Strength, Group Therapy, Gait, Safety, Therapeutic Exercise, Transfers Treatment Duration: Jul 01, 2019 Frequency: At least 5 of 7 days/Wk (IRF) Estimated Hrs Per Day: 1.5 hours per day Patient and/or Family Agrees t: Yes Safety Risks/Education Patient Education: Transfer Techniques, Reviewed Precautions, Correct Philo julius, W/C Management, Safety Issues Teaching Recipient: Patient Teaching Methods: Demonstration, Discussion Response to Teaching: Reinforcement Needed Time/GCodes Time In: 0800 Time Out: 0915 Total Billed Treatment Time: 75 Total Billed Treatment 1 visit EX 15' FA 60' WILLIAM KOROMA PT Jun 19, 2019 09:18
--- NOTE | 2019-06-19 09:34 | NUR ---
Per request from PT, LICENSED PSYCHOLOGIST left voicemail for Dr. Ej Donaldson's RN to inquire about weightbearing status on right upper and right lower extremities.
[2019-06-19] MEDS: IRON SUCROSE 200 MG/10 ML (VENOFER) VIAL IV SCH (09:40)
[2019-06-19] MEDS: PANTOPRAZOLE 40 MG (PROTONIX) TAB PO SCH (09:40)
[2019-06-19] MEDS: ASPIRIN 81 MG CHEW (CHILDREN'S ASA) PO SCH (09:40)
[2019-06-19] MEDS: LACTULOSE SYRUP 10GM/15ML (ENULOSE) 30ML UDC PO SCH ×2 (09:41→21:03)
[2019-06-19] MEDS: FUROSEMIDE 40 MG (LASIX) TAB PO SCH (09:41)
[2019-06-19] MEDS: KCL 20 MEQ TAB (K-DUR) PO SCH ×2 (09:41→21:02)
[2019-06-19] MEDS: QUEtiapine 25 MG (SEROquel) TAB IMMEDIATE RELEASE PO SCH ×2 (09:41→21:02)
[2019-06-19] MEDS: SENNA W/DOCUSATE (SENOKOT S) TABLET PO SCH ×2 (09:41→21:03)
[2019-06-19] MEDS: DICLOFENAC 1% GEL 100 GM (VOLTAREN) TUBE TOP SCH ×3 (09:42→21:02)
[2019-06-19] MEDS: TRIAMCINOLONE 0.1% CR (KENALOG) 15 GM TUBE TOP SCH ×2 (09:42→21:02)
--- NOTE | 2019-06-19 10:58 | Occupational Ther Daily Note ---
OT Current Status-Daily Note Subjective pt agreed to OT/ PT tx session. pt c/o of 08/22 RUE/ RLE pain with activity. NSG did give pain medication. Mental Status/Objective Therapy Code Descriptions/Definitions Functional [place] Measure: 0=Not Assessed/NA 4=Minimal Assistance 1=Total Assistance 5=Supervision or Setup 2=Maximal Assistance 6=Modified [place] 3=Moderate Assistance 7=Complete [place] Attachments: Oxygen ADL-Treatment Therapy Code Descriptions/Definitions Functional [place] Measure: 0=Not Assessed/NA 4=Minimal Assistance 1=Total Assistance 5=Supervision or Setup 2=Maximal Assistance 6=Modified [place] 3=Moderate Assistance 7=Complete [place] Therapy Quality Codes: 6 Independent with activity with or without an assistive device 5 Patient requires set up or clean up by helper. Patient completes activity by themselves 4 Supervision or touching assist (CGA). [place] provide cues , steadying assist 3 The helper provides less than half the effort to complete the activity 2 The helper provides more than half the effort to complete the activity 1 Dependent. The helper does all the effort to complete an activity 7 Patient refused to complete or attempt activity 9 The patient did not perform the activity before the current illness or injury 88 Not attempted due to Medical conditions or safety concerns Other Treatment co-treatment completed with PT secondary to complexity of pt deficits requiring skills of both disciplines that a rehab department manager could not complete secondary to skill level required. . OT focused on ADL tasks, UE positioning, UE ROM, and sequencing though tasks. while PT focus on gross transfers, LE positioning, seated balance, LE exercises, and maintaining WBS. noted not is not compliant with WBS and required MAX cuing to maintain. pt perform supine to sit with MIN A required heavy cuing from OT while PT addressed gross movement. noted no carry through of trained technique from day prior. pt education on SB transfer to left side. pt required assist with positioning and demo/ MAX tactile/ VC from OT to sequence through tasks. pt required MIN A to use SB. pt then self propelled w/c with MOD cuing for sequencing LUE/ LLE. pt required motivation to perform task longer than 20 seconds at a time. once in tx gym pt required re- education on SB transfer secondary to no carry through from room. pt required MOD A to perform SB in gym from w/c to mat table. once on mat pt education on sit to supine. pt required MAX cuing and MAX A to perform task while using leg merchandise appraiser. while laying supine pt demo LB/ UE exercises. pt education on supine to sit. pt required MIN A to perform task. pt demo SB transfer back to w/c with MIN A. pt transported back to room. and perform SPT with MAX A./ call light within reach, all needs met. Education OT Patient Education: Correct positioning, Energy conservation, Progress toward Goal/Update tx plan, Purpose of tx/functional activities, Reviewed precautions, Rehab process, Safety issues, Transfer techniques, Use of adapted equipment Teaching Recipient: Patient Teaching Methods: Demonstration, Discussion Response to Teaching: Return Demonstration OT Short Term Goals Short Term Goals Eating(FIM): 6 Grooming(FIM): 4 Bathing(FIM): 3 Upper Body Dressing(FIM): 3 Lower Body Dressing(FIM): 3 Toileting(FIM): 3 Transfers (B,C,W/C) (FIM): 3 Toilet/Commode Transfer(FIM): 3 Shower Transfer(FIM): 3 1=Demonstrate adherence to instructed precautions during ADL tasks. 2=Patient will verbalize/demonstrate understanding of assistive devices/modifications for ADL. 3=Patient will improve strength/tolerance for activity to enable patient to perform ADL's. OT Custodial Goals Icing 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 Goals Time Frame: Jul 08, 2019 Eating (FIM): 6 Eating (QC): 6 Groomin Oral Hygiene (QC): 6 Bathing(FIM): 5 Bathing Location: L Arm, R Arm, L Upper Leg, R Upper Leg, L Lower Leg (including foot), R Lower Leg (including foot), Chest, Abdomen, Buttocks, Perineal Area Shower/Bathe Self (QC): 5 Upper Body Dressing(FIM): 6 Upper Body Dressing (QC): 6 Lower Body Dressing(FIM): 6 Lower Body Dressing (QC): 5 On/Off Footwear (QC): 5 Toileting(FIM): 5 Toileting Hygiene (QC): 5 Transfers (B,C,W/C) (FIM): 5 Toilet/Commode Transfer(FIM): 5 Toilet/Commode Transfer (QC): 4 Shower Transfer(FIM): 5 Additional Goals: 1-Demonstrate ADL Tasks, 2-Verbalize Understanding, 3- ImproveStrength/Tran 1=Demonstrate adherence to instructed precautions during ADL tasks. 2=Patient will verbalize/demonstrate understanding of assistive devic es/modifications for ADL. 3=Patient will improve strength/tolerance for activity to enable patient to perform ADL's. OT Education/Plan Problem List/Assessment Assessment: Decreased Activ Tolerance, Decreased Safety Aware, Decreased UE Strength, Dependent Transfers, Edema, Impaired Bed Mobility, Impaired Cognition, Impaired Coordination, Impaired Funct Balance, Impaired I ADL's, Impaired Self- Care Skills, Restricted Funct UE ROM pt presents with functional limitations affecting areas of ADLs and functional transfers with then above mention deficits. pt would benefit from skilled OT services to increase independence with ADLS and functional transfers. Discharge Recommendations Plan/Recommendations: Continue POC Barriers to Progress pain, cognition Treatment Plan/Plan of Care Treatment,Training & Education: Yes Patient would benefit from OT for education, treatment and training to promote independence in ADL's, mobility, safety and/or upper extremity function for ADL's. Plan of Care: ADL Retraining, Caregiver Training, Functional Mobility, Group Exercise/Act as Ind, UE Funct Exercise/Act, W/C Management Training Treatment Duration: Jul 08, 2019 Frequency: At least 5 of 7 days/Wk (IRF) Estimated Hrs Per Day: 1 hour per day (60-90 minutes per day) Agreement: Yes Rehab Potential: Fair Time/GCodes Start Time: 08:00 Stop Time: 09:15 Billed Treatment Time FA 75 minutes, 5 units RAPHAEL VILLAFUERTE OT Jun 19, 2019 10:58
--- NOTE | 2019-06-19 11:11 | Cardiology Progress Note ---
Cardiology SOAP Progress Note Subjective: No cardiac complaints. Objective: I&O/Vital Signs 06/19/19 05:50 Temp 97.6 Pulse 67 Resp 18 B/P (MAP) 110/65 (80) Pulse Ox 96 O2 Delivery Nasal Cannula O2 Flow Rate 2.00 06/19/19 00:00 Intake Total 480 ml Output Total 1175 ml Balance -695 ml Weight (Pounds): 220 Weight (Ounces): 5.0 Weight (Calculated Kilograms): [id number] Constitutional: appears stated age, AAO x 3; No apparent distress; well- developed, well-nourished Respiratory: No accessory muscle use, No respiratory distress, No chest tender, No chest expansion is symmetric; chest is bilaterally symmetric; No lungs clear to percussion; lungs clear to auscultation; No crackles, No rhonchi, No rales, No stridor, No wheezing, No pleural rub, No other Cardiovascular: regular rate-rhythm; No irregularly irregular, No extra beats, No parasternal heave is noted, No JVD, No edema, No bradycardia, No tachycardia, No point of maximal impulse, No cardiac thrills are palpable; S1 and S2; No gallop/S3, No gallop/S4, No diastolic murmur, No systolic murmur, No friction rub, No click, No other Gastrointestional: No tender, No soft, No round, No distended, No pulsatile mass, No organomegaly, No guarding, No rebound, No tenderness, No hernia, No mass, No audible bowel sounds, No abnormal bowel sounds, No abdominal bruits, No spleenomegaly, No other Extremities: No normal range of motion, No non-tender, No normal inspection, No pedal edema, No calf tenderness, No normal capillary refill, No pelvis stable, No calf tenderness, No inflammation, No pedal edema, No slow capillary refill, No swelling, No other, No abrasion, No clubbing, No cyanosis, No ecchymosis, No laceration, No no lower extremity edema bilateral, No significant edema, No tenderness, No wound Neurologic/Psychiatric: no motor/sensory deficits, alert, normal mood/affect, oriented x 3, power is 5/5 both on sides Skin: normal color, warm/dry Results/Procedures: Labs Laboratory Tests 06/18/19 16:00: Glucometer 207H 06/18/19 22:08: Glucometer 181H 06/19/19 06:03: Glucometer 119H A/P: Assessment/Dx: Mechanical fall, status post right hip surgery, Hypertension, On amiodarone, Diabetes Plan: Inpatient rehabilitation - post hip surgery. DVT prophylaxis. HTN - continue BP meds. EKG, Echo. EKG 06/09/2019 shows sinus tachycardia. Echo 05/2019 shows LVH, Normal LVEF, DD 1, LAE. I have reviewed all the information sent from Dr. Bhat's office. All EKGs have sinus rhythm. We will discontinue amiodarone. DM Thank you for your consultation. Please call me if you have any questions. Roxie Regalado MD, FACP, FACC, FSCAI, FHRS, CCDS Interventional Cardiology Cardiac Electrophysiology Vascular Medicine and Endovascular Interventions Bryon REGALADO MD Jun 19, 2019 11:11 am
--- NOTE | 2019-06-19 11:39 | Progress Note - Surgery ---
Subjective Date Seen by a Provider: Jun 19, 2019 Time Seen by a Provider: 11:35 Subjective/Events-last exam Patient doing well. BM today. No n/v fever sweats chills shortness of breath or chest pain. Pain controlled. Denies fever sweats chills shortness of breath or chest pain. Objective Exam Vital Signs Date Time Temp Pulse Resp B/P (MAP) Pulse Ox O2 Delivery O2 Flow Rate FiO2 06/19/19 05:50 97.6 67 18 110/65 (80) 96 Nasal Cannula 2.00 06/18/19 21:00 Nasal Cannula 2.00 06/18/19 19:52 Nasal Cannula 2.00 06/18/19 16:02 97.2 69 16 112/65 (81) 96 Nasal Cannula 2.00 I & O 06/19/19 07:00 Intake Total 780 ml Output Total 2525 ml Balance -1745 ml Capillary Refill : Less Than 3 Seconds General Appearance: No Apparent Distress, WD/WN, Chronically ill, Obese HEENT: PERRL/EOMI Neck: Normal Inspection, Non Tender, Supple Respiratory: Chest Non Tender, Lungs Clear, Normal Breath Sounds, No Accessory Muscle Use, No Respiratory Distress Cardiovascular: Regular Rate, Rhythm, No Edema, No Gallop, No JVD, No Murmur, Normal Peripheral Pulses Peripheral Pulses: 2+ Carotid (L), 2+ Dorsalis Pedis (R), 2+ Left Dors-Pedis (L), 2+ Radial Pulses (L) Gastrointestinal: non tender, soft; No distended Extremity: Other (Changed dressing on R UE and over R femur. visualized RUE wound and RLE incision - both clean, dry without signs of infection. Significant R UE contusion. ) Neurologic/Psychiatric: Alert, Oriented x3, No Motor/Sensory Deficits, Normal Mood/Affect, hand scudder II-XII Norm as Tested, Other (limited ROM right leg and arm) Skin: Ecchymosis (right upper ext, incisions no signs of infection) Lymphatic: No Adenopathy Results Lab Laboratory Tests 06/18/19 16:00: Glucometer 207H 06/18/19 22:08: Glucometer 181H 06/19/19 06:03: Glucometer 119H 06/19/19 11:03: Glucometer 154H Assessment/Plan Assessment/Plan Assessment/Plan fall, with rue and right femur fx s/p surgical correction constipation No evidence of DVT on USG bowel function returned, advance diet as tolerates, bowel regimen prn continue rehab activities continue keeping wounds clean and dry. will sign off call if needed. Clinical Quality Measures DVT/VTE Risk/Contraindication: Risk Factor Score Per Nursin RFS Level Per Nursing on Admit: 4+=Very High LULU WHALEN DO Jun 19, 2019 11:39
--- NOTE | 2019-06-19 15:18 | Speech Therapy Daily Note ---
Speech Daily Progress Note Subjective Date Seen by Provider: Jun 19, 2019 Time Seen by Provider: 00:30 The patient was very pleasant and attentive during our therapy session today. Objective The patient completed a series of safety scenarios with 72% accuracy given moderate verbal cues and/or repetitions. Assessment Assessment Current Status: Good Progress Communication Comprehension: 5 Expression: 5 Social Cognition Social Interaction: 7 Problem Solvin Memory: 5 Speech Short Term Goals Short Term Goals Short Term Goals Patient will demonstrate simple problem solving and memory with 80% accuracy when given minimal to moderate cues Speech [facility] Goals Health Promotion Educator Goals Patient will improve cognitive-communication necessary for safety and daily living tasks with minimal assist Speech-Plan Patient/Family Goals Patient/Family Goals: The patient plans on returning home, however at this time his progress has been slow and a facility for further rehab is indicated. Treatment Plan Speech Therapy Treatment Plan: Continue Plan of Care The patient has made some progress, however he does require frequent repet itions. Treatment Duration: Jun 24, 2019 Frequency: 5 times per week Estimated Hrs Per Day: .5 hour per day Rehab Potential: Fair Barriers to Learning: The patient scored in the dementia range on the SLUMS Pt/Family Agrees to Plan: Yes Safety Risks/Education Teaching Recipient: Patient Teaching Methods: Demonstration, Discussion Response to Teaching: Verbalize Understanding, Return Demonstration Education Topics Provided: Safety and communication of his wants/needs Time Speech Therapy Time In: 10:00 Speech Therapy Time Out: 10:30 Total Billed Time: 30 Billed Treatment Time 1[address] Jun 19, 2019 15:18
--- NOTE | 2019-06-19 15:45 | NUR ---
IT ADMINISTRATIVE ASSISTANT met with patient to review team conference summary. As patient requires cues and instructions for all activity, is completing bed mobility with min assist, stand pivot transfer with max assist, max assist and cues for adaptive equipment techniques and min assist for wheelchair mobility, team has recommended patient be reevaluated at next team conference. Patient is agreeable to this. IT ADMINISTRATIVE ASSISTANT continue to follow.
[2019-06-19 17:28] VITALS: BP 118/67
[2019-06-19] MEDS: MELATONIN 3 MG TABLET PO SCH (21:02)
[2019-06-19] MEDS: POLYETHYLENE GLYCOL 17 GM (MIRALAX) PACK PO SCH (21:02)
[2019-06-20] MEDS: inSUlin ASPART (NovoLOG) 1 UNIT/0.01 ML (CHARGE PER UNIT) SC SCH ×4 (05:37→21:05)
[2019-06-20 05:53] VITALS: BP 124/72
[2019-06-20] MEDS: LEVOTHYROXINE 112 MCG (LEVOTHROID) TAB PO SCH (05:56)
[2019-06-20] MEDS: CATHETER FLUSH 10 ML SYR IV SCH (05:56)
[2019-06-20] MEDS: LEVOTHYROXINE 25 MCG (LEVOTHROID) TAB PO SCH (05:57)
[2019-06-20] MEDS: meTOprolol TARTRATE 25 MG (LOPRESSOR) TABLET PO SCH ×2 (05:57→16:21)
--- NOTE | 2019-06-20 08:00 | NUR ---
MESSAGE LEFT WITH DR. GREEN'S NURSE REGARDING WEIGHT BEARING STATUS ON RIGHT ARM AND LEG. 5 DOSES OF VENOFER COMPLETE AND IV WILL NOT BE RESTARTED.
[2019-06-20] MEDS: DICLOFENAC 1% GEL 100 GM (VOLTAREN) TUBE TOP SCH ×3 (08:39→21:03)
--- NOTE | 2019-06-20 09:09 | Physical Therapy Daily Note ---
PT Daily Note-Current Subjective Patient in bed pre tx, agrees to PT, has no complaints of pain at rest but does with activity, wants pain meds, nurse notified. Will be co-treating with OT due to poor patient mobility, strength, endurance, balance, the need to coordinate UE and LE during activity, and poor WB compliance. Patient needs to get dressed. Appearance Patient in recliner post tx with nurse call, phone, tray, legs elevated. Mental Status Patient Orientation: Person, Place, Situation Attachments: Oxygen Transfers Therapy Code Descriptions/Definitions Functional [place] Measure: 0=Not Assessed/NA 4=Minimal Assistance 1=Total Assistance 5=Supervision or Setup 2=Maximal Assistance 6=Modified [place] 3=Moderate Assistance 7=Complete [place] Therapy Quality Codes: 6 Independent with activity with or without an assistive device 5 Patient requires set up or clean up by helper. Patient completes activity by themselves 4 Supervision or touching assist (CGA). [place] provide cues , steadying a ssist 3 The helper provides less than half the effort to complete the activity 2 The helper provides more than half the effort to complete the activity 1 Dependent. The helper does all the effort to complete an activity 7 Patient refused to complete or attempt activity 9 The patient did not perform the activity before the current illness or injury 88 Not attempted due to Medical conditions or safety concerns Transfers (B, C, W/C) (FIM): 2 Scootin Rollin Supine to/from Sit: 4 Sit to/from Stand: 2 Bed to/from Chair: 2 Patient performs a stand pivot transfer with max assist but can perform a sliding board transfer with min assist. He is not compliant with his weight bearing status and a sliding board would be the better option at this time because of his continued non-compliance. Weight Bearing Non Weight Bearing also RUE NWB Wheelchair Training Does the Pt Use a Wheelchair?: Yes Wheelchair (FIM): 2 Distance: 100' Wheelchair Level of Assist: 4 Type of Wheelchair: Manual Patient needs frequent rest breaks, has trouble coordinating left arm and leg Exercises Standing: Hip Abduction, Marching Standing Reps: 15 (just right leg) sit to stand from an elevated surface with chair in front to lean onto with his left arm and therapist keeping right leg extended in front of him so he has to use his left leg. Patient has a lot of trouble with sit to stand this way, it forces him to only use his left leg and arm, he is not able to stand completely even with using an elevated surface to where he is almost standing anyway. Did one set of 5. Treatments bed mobility and transfers, wheelchair mobility, patient stood 3 times in parallel bars and performed UE and LE exercises, sliding board transfers, scooting to the right and left on table Assessment Current Status: Poor Progress Patient needs detailed and patient cues and directions with every activity, he bears too much weight on the right leg. PT Short Term Goals Short Term Goals Time Frame: Jun 17, 2019 Transfers (B,C,W/C) (FIM): 3 Wheelchair Distance: 100' PT Residential Goals Structural Steel Fitter Goals PT Residential Goals Time Frame: Jul 01, 2019 Transfers (B,C,W/C) (FIM): 4 Sit to Lying (QC): 3 Lying-Sitting on Side/Bed(QC): 3 Sit to Stand (QC): 3 Rollin Roll Left to Right (QC): 3 Chair/Juq-xu-Unydl Xfer(QC): 3 Car Transfer (QC): 3 Wheelchair (FIM): 6 Distance: 150' Wheelchair Level of Assist: 6 Wheel 50 feet with 2 turns (QC: 6 PT Plan Problem List Problem List: Activity Tolerance, Functional Strength, Safety, Balance, Gait, Transfer, Bed Mobility, ROM Treatment/Plan Treatment Plan: Continue Plan of Care Treatment Plan: Bed Mobility, Concurrent Therapy, Education, Functional Activity Tran, Functional Strength, Group Therapy, Gait, Safety, Therapeutic Exercise, Transfers Treatment Duration: Jul 01, 2019 Frequency: At least 5 of 7 days/Wk (IRF) Estimated Hrs Per Day: 1.5 hours per day Patient and/or Family Agrees t: Yes Safety Risks/Education Patient Education: Transfer Techniques, Correct Positioning, W/C Management, Safety Issues Teaching Recipient: Patient Teaching Methods: Demonstration, Discussion Response to Teaching: Reinforcement Needed Time/GCodes Time In: 0800 Time Out: 914 Total Billed Treatment Time: 75 Total Billed Treatment 1 visit EX 15' FA 60' Co-treated with OT for 75 min, PT worked on LE exercises, bed mobility and transfers, WC mobility, sliding board, OT worked on UE activity and exercises, dressing, assist with transfers and bed mobility WILLIAM KOROMA PT Jun 20, 2019 09:09
--- NOTE | 2019-06-20 09:14 | Occupational Ther Daily Note ---
OT Current Status-Daily Note Subjective pt laying in bed upon OT arrival. pt agreed to OT/ PT TX session. pt reports 10/10 pain with activity . Mental Status/Objective Patient Orientation: Normal For Age Therapy Code Descriptions/Definitions Functional [place] Measure: 0=Not Assessed/NA 4=Minimal Assistance 1=Total Assistance 5=Supervision or Setup 2=Maximal Assistance 6=Modified [place] 3=Moderate Assistance 7=Complete [place] Attachments: Oxygen ADL-Treatment Therapy Code Descriptions/Definitions Functional [place] Measure: 0=Not Assessed/NA 4=Minimal Assistance 1=Total Assistance 5=Supervision or Setup 2=Maximal Assistance 6=Modified [place] 3=Moderate Assistance 7=Complete [place] Therapy Quality Codes: 6 Independent with activity with or without an assistive device 5 Patient requires set up or clean up by helper. Patient completes activity by themselves 4 Supervision or touching assist (CGA). [place] provide cues , steadying assist 3 The helper provides less than half the effort to complete the activity 2 The helper provides more than half the effort to complete the activity 1 Dependent. The helper does all the effort to complete an activity 7 Patient refused to complete or attempt activity 9 The patient did not perform the activity before the current illness or injury 88 Not attempted due to Medical conditions or safety concerns Other Treatment co-treatment completed with PT secondary to complexity of pt deficits requiring skills of both disciplines that a rehabilitation consultant could not complete secondary to skill level required. . OT focused on UE positioning, UE ROM, functional transfers, and sequencing though tasks. while PT focus on gross transfers, LE positioning, seated balance, LE exercises, and maintaining WBS. pt perform supine to sit with MIN A using leg nursing manager requiring MIN cuing from OT while PT addressed gross movement. pt perform SB transfer to left side with MIN A and positioning of SB. . pt then self propelled w/c with Min cuing for sequencing LUE/ LLE. once in tx gym pt performed sit to pug machine operator parallel with MOD A while standing pt perform UB/ LB ROM ex with right UE/ LE. to increase ROM for functional activities. pt then transported to TX mat to transfer using SB toward right side. pt required MAX encouragement and cuing for sequencing through tasks.pt required MOD A. on mat pt education on scooting from right to left side. pt required cuing for proper techniques. pt perform with CGA for safety/. balance. pt reeducation on sit ti stand from mat table. pt raised in high positioning=. pt perform 5 sit to stands with MOD_MAX A. and cuing to maintain WBS. pt then transfer back to w/c with sb and MIN A toward left side. pt transported back to room. pt sitting in recliner chair, all needs meet. Education OT Patient Education: Energy conservation, Modified ADL techniques, Progress toward Goal/Update tx plan, Purpose of tx/functional activities, Reviewed precautions, Rehab process, Safety issues, Transfer techniques, Use of adapted equipment Teaching Recipient: Patient Teaching Methods: Demonstration, Discussion Response to Teaching: Reinforcement Needed (secondary to lack of carry through) OT Short Term Goals Short Term Goals Eating(FIM): 6 Grooming(FIM): 4 Bathing(FIM): 3 Upper Body Dressing(FIM): 3 Lower Body Dressing(FIM): 3 Toileting(FIM): 3 Transfers (B,C,W/C) (FIM): 3 Toilet/Commode Transfer(FIM): 3 Shower Transfer(FIM): 3 1=Demonstrate adherence to instructed precautions during ADL tasks. 2=Patient will verbalize/demonstrate understanding of assistive devices/modifications for ADL. 3=Patient will improve strength/tolerance for activity to enable patient to perf orm ADL's. OT Cancer Registrar Goals [place] Goals Time Frame: Jul 08, 2019 Eating (FIM): 6 Eating (QC): 6 Groomin Oral Hygiene (QC): 6 Bathing(FIM): 5 Bathing Location: L Arm, R Arm, L Upper Leg, R Upper Leg, L Lower Leg (including foot), R Lower Leg (including foot), Chest, Abdomen, Buttocks, Perineal Area Shower/Bathe Self (QC): 5 Upper Body Dressing(FIM): 6 Upper Body Dressing (QC): 6 Lower Body Dressing(FIM): 6 Lower Body Dressing (QC): 5 On/Off Footwear (QC): 5 Toileting(FIM): 5 Toileting Hygiene (QC): 5 Transfers (B,C,W/C) (FIM): 5 Toilet/Commode Transfer(FIM): 5 Toilet/Commode Transfer (QC): 4 Shower Transfer(FIM): 5 Additional Goals: 1-Demonstrate ADL Tasks, 2-Verbalize Understanding, 3- ImproveStrength/Tran 1=Demonstrate adherence to instructed precautions during ADL tasks. 2=Patient will verbalize/demonstrate understanding of assistive devices/modifications for ADL. 3=Patient will improve strength/tolerance for activity to enable patient to perform ADL's. OT Education/Plan Problem List/Assessment Assessment: Decreased Activ Tolerance, Decreased Safety Aware, Decreased UE Strength, Dependent Transfers, Impaired Bed Mobility, Impaired Cognition, Impaired Coordination, Impaired Funct Balance, Impaired I ADL's, Restricted Funct UE ROM pt presents with functional limitations affecting areas of ADLs and functional transfers with then above mention deficits. pt would benefit from skilled OT services to increase independence with ADLS and functional transfers. Discharge Recommendations Plan/Recommendations: Continue POC Barriers to Progress pain Treatment Plan/Plan of Care Treatment,Training & Education: Yes Patient would benefit from OT for education, treatment and training to promote independence in ADL's, mobility, safety and/or upper extremity function for ADL's. Plan of Care: ADL Retraining, Caregiver Training, Functional Mobility, Group Exercise/Act as Ind, UE Funct Exercise/Act, W/C Management Training Treatment Duration: Jul 08, 2019 Frequency: At least 5 of 7 days/Wk (IRF) Estimated Hrs Per Day: 1 hour per day (60-90 minutes per day) Agreement: Yes Rehab Potential: Fair Time/GCodes Start Time: 08:00 Stop Time: 09:15 Billed Treatment Time FA 75 minutes, 5 units RAPHAEL VILLAFUERTE OT Jun 20, 2019 09:14
--- NOTE | 2019-06-20 09:20 | PM&R Progress Note ---
Subjective HPI/CC On Admission Date Seen by Provider: Jun 20, 2019 Time Seen by Provider: 09:00 Chief complaint: Right hip fracture and right elbow fracture in need of inpatient rehab to return home History of present illness: This is a 79-year-old white male known to me from prior admissions long ago whose primary care provider is Dr. Bhat but who does not see a manager program management regularly who has a history of atrial fibrillation, diabetes mellitus and falls in the past who presented to inpatient rehab after discharge from [facility] after suffering a right femoral fracture and right elbow fracture which required surgery for repair after a fall sustained at home when he was using his leaf blower on 06/04/2019. He did not require a transfusion while hospitalized at [facility]. He has not had a bowel movement for 5 days. Pain is currently controlled with oxycodone. Patient does not usually require oxygen or CPAP machine. His prior level of functioning was without assistive device and completely independent with ADLs. I will consult Dr Regalado for Cardiology management. Subjective/Events-last exam Was a little bit irritable this morning. Will discontinue IV and last dose of Venofer at his request, he did receive four other doses so I am okay with that. Dr. Donaldson pending to see if we can lift the weight-bearing restriction on hid right leg in order to continue progress with therapy. He is eating well. No BM yet. Conferred with RN Checked meds and labs Review of Systems General: Fatigue Musculoskeletal: leg pain Neurological: Weakness Objective Exam Vital Signs Vital Signs Date Time Temp Pulse Resp B/P (MAP) Pulse Ox O2 Delivery O2 Flow Rate FiO2 06/20/19 18:27 94 Room Air 06/20/19 15:33 97.4 64 16 114/63 (80) 06/20/19 09:00 2.00 Capillary Refill : Less Than 3 Seconds General Appearance: No Apparent Distress, WD/WN, Chronically ill HEENT: PERRL/EOMI Neck: Normal Inspection, Non Tender, Supple Respiratory: Chest Non Tender, Lungs Clear, Normal Breath Sounds, No Accessory Muscle Use, No Respiratory Distress Cardiovascular: Regular Rate, Rhythm, No Edema, No Gallop, No JVD, No Murmur, Normal Peripheral Pulses Gastrointestinal: Normal Bowel Sounds, Soft Back: Normal Inspection, No CVA Tenderness, No Vertebral Tenderness Extremity: Other (Changed dressing on R UE and over R femur. visualized RUE wound and RLE incision - both clean, dry without signs of infection. Significant R UE contusion. ) Neurologic/Psychiatric: Alert, Oriented x3, No Motor/Sensory Deficits, Normal Mood/Affect, glass technician/installer II-XII Norm as Tested, Disoriented Skin: Ecchymosis (right upper ext, incisions no signs of infection) Lymphatic: No Adenopathy Results/Procedures Lab Patient resulted labs reviewed. FIM Transfers Therapy Code Descriptions/Definitions Functional [place] Measure: 0=Not Assessed/NA 4=Minimal Assistance 1=Total Assistance 5=Supervision or Setup 2=Maximal Assistance 6=Modified [place] 3=Moderate Assistance 7=Complete [place] Therapy Quality Codes: 6 Independent with activity with or without an assistive device 5 Patient requires set up or clean up by helper. Patient completes activity by themselves 4 Supervision or touching assist (CGA). [place] provide cues , steadying assist 3 The helper provides less than half the effort to complete the activity 2 The helper provides more than half the effort to complete the activity 1 Dependent. The helper does all the effort to complete an activity 7 Patient refused to complete or attempt activity 9 The patient did not perform the activity before the current illness or injury 88 Not attempted due to Medical conditions or safety concerns Transfers (B, C, W/C) (FIM): 2 Scootin Rollin Roll Left to Right (QC): 1 Supine to/from Sit: 4 Sit to/from Stand: 2 Sit to Lying (QC): 1 Sit to Stand (QC): 1 Chair/Cwh-cc-Hyyyu Xfer(QC): 1 Bed to/from Chair: 2 Car Transfer (QC): 1 Gait Training Does the Patient Walk?: No and Walking Goal IS indicated Wheelchair Training Does the Pt Use a Wheelchair?: Yes Wheelchair (FIM): 2 Distance: 100' Wheelchair Level of Assist: 4 Type of Wheelchair: Manual Mental Status/Objective Comprehension: 5 Expression: 5 Social Interaction: 7 Problem Solvin Memory: 5 ADL-Treatment Feedin (requires set up) Eating (QC): 5 Groomin (required set up and sba for safety. blance, pt demo ability to perform shaving, washing face, washing hair, comb hair. ot reuqired cung to use LUE. pt stated "how am I suposed to do this" pt required reminders to use LUE ) Oral Hygiene (QC): 4 Bathin (X 2 person assist to stand to wash buttock. pt only required assist with washing buttock. ) Bathing Location: L Arm, R Arm, L Upper Leg, R Upper Leg, L Lower Leg (including foot), R Lower Leg (including foot), Chest, Abdomen, Buttocks, Perineal Area Shower/Bathe Self (QC): 1 (X 2 person assist ) Upper Extremity Dressin (required cuing for sequencing ) Upper Body Dressing (QC): 4 Lower Extremity Dressin (X 2 person assist to stand and 2nd person pulls up pants. pt demo ability to thread corie LE through pants with use of clinical quality manager and VC to techn. ) Lower Body Dressing (QC): 1 (X2 person assist ) On/Off Footwear (QC): 4 (corie socks with useof sock aid. set up provided and cuign for techn. ) Toiletin (X 2 person assist. pt reuqired asist with all 3 steps. ) Toileting Hygiene (QC): 1 Toilet/Commode Transfer: 1 (MAX A X2 person assist ) Toilet Transfer (QC): 1 Shower: 0 (NT secodanry to safety of pt ) Assessment/Plan Assessment and Plan Assess & Plan/Chief Complaint Assessment: Status post right femoral fracture on 06/04/2019 Right elbow fracture status post repair 06/04/2019 History of atrial fibrillation on amiodarone Multiple falls in the past Emotional problems Hypothyroidism GERD Hypertension Diabetes mellitus insulin requiring line hyperlipidemia Anemia from acute blood loss Iron deficiency receiving iron infusions Low albumin Possible Hyperglycemia Plan: Pain control Home meds Labs reviewed IV iron infusions to be completed Fall risk prevention Inpatient rehab protocols Appreciate Dr Abdullahi consultation Appreciate Dr Abdullahi managing the ortho surgical wounds Checked USG for right DVT which was negative Cognition seems to be clearing Check insulin medication (1) Right femoral fracture (2) Elbow fracture, right (3) Constipation (4) Iron deficiency (5) Fever (6) Anemia due to acute blood loss (7) Hypertension (8) Fall (9) Hypothyroidism (10) GERD without esophagitis (11) Hx of emotional problems (12) Diabetes mellitus (13) Hyponatremia (14) Serum albumin decreased (15) Cognitive decline Reviewed assessment and plan. Monitor pain which seems to be improved Incisions are improved and Dr Abdullahi has essentially signed off BM regimen to continue Reach out to Dr Donaldson to see when weight bearing restriction can be lifted (1) Right femoral fracture (2) Elbow fracture, right (3) Atrial fibrillation (4) Constipation (5) Iron deficiency (6) Fever (7) Anemia due to acute blood loss (8) Hypertension (9) Fall (10) Hypothyroidism (11) GERD without esophagitis (12) Hx of emotional problems (13) Diabetes mellitus (14) Hyponatremia (15) Serum albumin decreased (16) Cognitive decline QUIN COFFEY DO Jun 20, 2019 09:20
[2019-06-20] MEDS: PANTOPRAZOLE 40 MG (PROTONIX) TAB PO SCH (09:30)
[2019-06-20] MEDS: FUROSEMIDE 40 MG (LASIX) TAB PO SCH (09:30)
[2019-06-20] MEDS: KCL 20 MEQ TAB (K-DUR) PO SCH ×2 (09:30→21:00)
[2019-06-20] MEDS: QUEtiapine 25 MG (SEROquel) TAB IMMEDIATE RELEASE PO SCH ×2 (09:30→21:01)
[2019-06-20] MEDS: ASPIRIN 81 MG CHEW (CHILDREN'S ASA) PO SCH (09:31)
[2019-06-20] MEDS: LACTULOSE SYRUP 10GM/15ML (ENULOSE) 30ML UDC PO SCH ×2 (09:32→21:02)
[2019-06-20] MEDS: SENNA W/DOCUSATE (SENOKOT S) TABLET PO SCH ×2 (09:32→21:00)
[2019-06-20] MEDS: TRIAMCINOLONE 0.1% CR (KENALOG) 15 GM TUBE TOP SCH ×2 (09:33→21:03)
--- NOTE | 2019-06-20 10:17 | Progress Note - Hospitalist ---
SINANROGER, 06/20/19 1017: Progress Note Subjective/Events - Last Exam: Pt was pleasant this morning, but had difficulties with other staff No complaints Did mention L shoulder pain and tenderness on right hip No bowel movement this morning but is eating Feels like he is improving daily Warm compresses on old IV site to help with pain Had new IV placed but made nurse take out b/c of placement issue Questions when he will be going home daily, but understands he needs to stay to get better Objective: Vitals: stable Gen: alert and oriented, pleasant Cardiac: RRR, no murmurs, no bruits Respiratory: Clear bilaterally on auscultation, no wheezes Labs: glucometer 116 Assessment: Status post right femoral fracture on 06/04/2019 Right elbow fracture status post repair 06/04/2019 History of atrial fibrillation on amiodarone Multiple falls in the past Emotional problems Hypothyroidism GERD Hypertension Diabetes mellitus insulin requiring line hyperlipidemia Anemia from acute blood loss Iron deficiency receiving iron infusions - stopped 06/20/2019 Low albumin Possible hyperglycemia Plan: Pain control Home meds Labs reviewed IV iron infusions stopped 06/20/2019 Fall risk prevention Inpatient rehab protocols Appreciate Dr Abdullahi consultation Appreciate Dr Abdullahi managing the ortho surgical wounds Checked USG for right DVT which was negative Cognition seems to be clearing Check insulin medication Signed: Roger Menon OMS-III, medical student MARÍA COFFEY DO 06/20/192042: Supervisory-Addendum Brief Verification & Attestation Time: Verification & Attestat.: 09:00 Participated in pt care: history, MDM, physical Personally performed: exam, history, MDM, supervision of care Care discussed with: Medical Student Procedures: n/a Results interpretation: Verified all documentation Verification and Attestation of Medical Student E/M Service A medical student performed and documented this service in my presence. I reviewed and verified all information documented by the medical student and made modifications to such information, when appropriate. I personally performed the physical exam and medical decision making. María Coffey, Jun 20, 2019,20:43 ROGER MENON, Jun 20, 2019 10:17 MARÍA COFFEY DO Jun 20, 2019 20:43
--- NOTE | 2019-06-20 11:32 | Speech Therapy Daily Note ---
Speech Daily Progress Note Subjective Date Seen by Provider: Jun 20, 2019 Time Seen by Provider: 00:30 The patient was resting in is recliner after finishing his OT and PT. He stated he had to work very hard in his therapy today. Objective The patient completed problem solving tasks with q/a related to his needs for transfers and communicating his wants/needs to staff with 84% accuracy given decreased verbal cues and/or repetitions. Communication Comprehension: 5 Expression: 5 Social Cognition Social Interaction: 7 Problem Solvin Memory: 5 Speech Short Term Goals Short Term Goals Short Term Goals Patient will demonstrate simple problem solving and memory with 80% accuracy when given minimal to moderate cues Speech Warehouse Stocker Goals Warehouse Stocker Goals Patient will improve cognitive-communication necessary for safety and daily living tasks with minimal assist Speech-Plan Patient/Family Goals Patient/Family Goals: The patient plans on returning to his apartment post rehab. His progress has been slow so the possibility is great for going to a facility prior to returning home. Treatment Plan Speech Therapy Treatment Plan: Continue Plan of Care The patient is progressing with his cognitive level of function. Treatment Duration: Jun 24, 2019 Frequency: 5 times per week Estimated Hrs Per Day: .5 hour per day Rehab Potential: Fair Barriers to Learning: Patient''s memory and problem solving deficits. Pt/Family Agrees to Plan: Yes Safety Risks/Education Teaching Recipient: Patient Teaching Methods: Demonstration, Discussion Response to Teaching: Verbalize Understanding, Return Demonstration Education Topics Provided: Continued safety and communication of wants/needs. Time Speech Therapy Time In: 10:00 Speech Therapy Time Out: 10:30 Total Billed Time: 30 Billed Treatment Time [address] Jun 20, 2019 11:32
[2019-06-20] MEDS: diphenhydrAMINE 25 MG TAB (BENADRYL) PO PRN ×2 (14:28→21:01)
--- NOTE | 2019-06-20 14:30 | NUR ---
COMPLAIN RIGHT ARM ITCHING AND MEDICATED WITH BENADRYL.
--- NOTE | 2019-06-20 15:00 | NUR ---
TITRATED DOWN TO 2L O2 THIS AM. NOW ON RA WITH SAT 96%. WILL CONTINUE TO MONITOR.
[2019-06-20 15:33] VITALS: BP 114/63
--- NOTE | 2019-06-20 17:56 | Diagnostic Imaging Report ---
INDICATION: Hip revision. FINDINGS: There are postsurgical changes of right hip arthroplasty. There is a lateral buttress plate with multiple cerclage wires as well. Alignment is grossly normal. Soft tissues are unremarkable. IMPRESSION: Extensive postsurgical changes in right hip as described. Dictated by: Dictated on workstation # [id number]
--- NOTE | 2019-06-20 18:33 | Diagnostic Imaging Report ---
INDICATION: Fracture. EXAMINATION: Three views were obtained. FINDINGS: There has been open reduction and internal fixation of a proximal ulnar fracture with plate and screws. Fracture fragments appear to be in near anatomic alignment. Bones are osteopenic. Examination is limited as bones are partially encased within cast material. IMPRESSION: Postsurgical changes about the proximal ulna as described. Again, examination is somewhat limited due to positioning and overlying cast material. Dictated by: Dictated on workstation # [id number]
[2019-06-20] MEDS: ALPRAZolam 0.25 MG (XANAX) TAB PO PRN (21:01)
[2019-06-20] MEDS: MELATONIN 3 MG TABLET PO SCH (21:01)
[2019-06-20] MEDS: POLYETHYLENE GLYCOL 17 GM (MIRALAX) PACK PO SCH (21:02)
[2019-06-21 06:00] VITALS: BP 123/70
[2019-06-21 06:29] LABS: BASOPHILS % (AUTO) 0 % (0-10); EOSINOPHILS # (AUTO) 0.2 10^3/uL (0.0-0.3); EOSINOPHILS % (AUTO) 3 % (0-10); HEMATOCRIT 30 % (40-54); HEMOGLOBIN 9.6 G/DL (13.3-17.7); LYMPHOCYTES # (AUTO) 1.8 X 10^3 (1.0-4.0); LYMPHOCYTES % (AUTO) 24 % (12-44); MEAN CORPUSCULAR HEMOGLOBIN 31 PG (25-34); MEAN CORPUSCULAR HGB CONC 32 G/DL (32-36); MEAN CORPUSCULAR VOLUME 99 FL (80-99); MEAN PLATELET VOLUME 8.3 FL (7.4-10.4); MONOCYTES # (AUTO) 0.8 X 10^3 (0.0-1.0); MONOCYTES % (AUTO) 10 % (0-12); NEUTROPHILS # (AUTO) 4.6 X 10^3 (1.8-7.8); NEUTROPHILS % (AUTO) 62 % (42-75); PLATELET COUNT 314 10^3/uL (130-400); RED CELL DISTRIBUTION WIDTH 17.4 % (10.0-14.5); WHITE BLOOD COUNT 7.4 10^3/uL (4.3-11.0)
[2019-06-21] MEDS: LEVOTHYROXINE 25 MCG (LEVOTHROID) TAB PO SCH (06:35)
[2019-06-21] MEDS: LEVOTHYROXINE 112 MCG (LEVOTHROID) TAB PO SCH (06:35)
[2019-06-21] MEDS: inSUlin ASPART (NovoLOG) 1 UNIT/0.01 ML (CHARGE PER UNIT) SC SCH ×3 (06:36→16:39)
[2019-06-21] MEDS: meTOprolol TARTRATE 25 MG (LOPRESSOR) TABLET PO SCH ×2 (06:37→16:38)
[2019-06-21 06:53] LABS: ALANINE AMINOTRANSFERASE 8 U/L (0-55); ALBUMIN 3.1 GM/DL (3.2-4.5); ALKALINE PHOSPHATASE 90 U/L (40-136); BILIRUBIN,TOTAL 0.9 MG/DL (0.1-1.0); BUN/CREATININE RATIO 12; CALCIUM 9.1 MG/DL (8.5-10.1); CARBON DIOXIDE 29 MMOL/L (21-32); CHLORIDE 98 MMOL/L (98-107); CREATININE SERUM 0.82 MG/DL (0.60-1.30); GFR ESTIMATED > 60; GLUCOSE 103 MG/DL (70-105); POTASSIUM 4.3 MMOL/L (3.6-5.0); SODIUM 135 MMOL/L (135-145); TOTAL PROTEIN 6.5 GM/DL (6.4-8.2)
[2019-06-21] MEDS: SENNA W/DOCUSATE (SENOKOT S) TABLET PO SCH ×2 (08:17→20:22)
[2019-06-21] MEDS: FUROSEMIDE 40 MG (LASIX) TAB PO SCH (08:17)
[2019-06-21] MEDS: KCL 20 MEQ TAB (K-DUR) PO SCH ×2 (08:17→20:21)
[2019-06-21] MEDS: QUEtiapine 25 MG (SEROquel) TAB IMMEDIATE RELEASE PO SCH ×2 (08:17→20:22)
[2019-06-21] MEDS: PANTOPRAZOLE 40 MG (PROTONIX) TAB PO SCH (08:17)
[2019-06-21] MEDS: ASPIRIN 81 MG CHEW (CHILDREN'S ASA) PO SCH (08:18)
--- NOTE | 2019-06-21 08:18 | Progress Note - Hospitalist ---
KASSY SANDHU [facility] 06/21/19 0818: Progress Note 06/21/19 @7:45 Mr. Caballero stated he slept well last night He still said his right arm and right leg were in pain Stated his elbow was sore from bloodwork. Has not had a bowel movement but did pass gas last night He complained that the position of his arm and leg during the x-ray was painful Stated that he is ready to get out of the hospital. Denied Fevers, chills, chest pain, palpitations, SOB, numbness, tingling, Hot or cold intolerance General: A&Ox3, tired, groggy Heart: RRR, no murmurs Lungs: Clear to auscultation on the left. Abdomen: Not TTP Vascular: Dorsalis pedis 2/4 bilaterally, Radial on left 2/4 Neuro: Sensation intact bilaterally in lower extremities Labs: Showed increase in hemoglobin to 9.6 and glucose was stable this morning at 108. Imaging: at the elbow was significant for post surgical changes but was limited due to positioning and the cast At the hip was significant for post surgical changes Assessment: Status post right femoral fracture on 06/04/2019 Right elbow fracture status post repair 06/04/2019 History of atrial fibrillation on amiodarone Multiple falls in the past Emotional problems Hypothyroidism GERD Hypertension Diabetes mellitus insulin requiring line hyperlipidemia Anemia from acute blood loss Iron deficiency receiving iron infusions - stopped 06/20/2019 Low albumin Plan: Pain control Home meds Labs reviewed IV iron infusions stopped 06/20/2019 Fall risk prevention Inpatient rehab protocols Appreciate Dr Abdullahi consultation Appreciate Dr Abdullahi managing the ortho surgical wounds Checked USG for right DVT which was negative Cognition seems to be clearing MARÍA COFFEY DO 06/21/19 1652: Supervisory-Addendum Brief Verification & Attestation Time: Verification & Attestat.: 09:00 Participated in pt care: history, MDM, physical Personally performed: exam, history, MDM, supervision of care Care discussed with: Medical Student Procedures: n/a Results interpretation: Verified all documentation Verification and Attestation of Medical Student E/M Service A medical student performed and documented this service in my presence. I reviewed and verified all information documented by the medical student and made modifications to such information, when appropriate. I personally performed the physical exam and medical decision making. María Coffey, Jun 21, 2019,16:52 KASSY SANDHU MED STUD Jun 21, 2019 08:18 MARÍA COFFEY DO Jun 21, 2019 16:52
[2019-06-21] MEDS: DICLOFENAC 1% GEL 100 GM (VOLTAREN) TUBE TOP SCH ×3 (09:00→20:23)
[2019-06-21] MEDS: LACTULOSE SYRUP 10GM/15ML (ENULOSE) 30ML UDC PO SCH ×2 (09:00→20:21)
[2019-06-21] MEDS: TRIAMCINOLONE 0.1% CR (KENALOG) 15 GM TUBE TOP SCH ×2 (09:00→20:23)
--- NOTE | 2019-06-21 09:26 | PM&R Progress Note ---
Subjective HPI/CC On Admission Date Seen by Provider: Jun 21, 2019 Time Seen by Provider: 09:00 Chief complaint: Right hip fracture and right elbow fracture in need of inpatient rehab to return home History of present illness: This is a 79-year-old white male known to me from prior admissions long ago whose primary care provider is Dr. Bhat but who does not see a cooker sulfite regularly who has a history of atrial fibrillation, diabetes mellitus and falls in the past who presented to inpatient rehab after discharge from [facility] after suffering a right femoral fracture and right elbow fracture which required surgery for repair after a fall sustained at home when he was using his leaf blower on 06/04/2019. He did not require a transfusion while hospitalized at [facility]. He has not had a bowel move ment for 5 days. Pain is currently controlled with oxycodone. Patient does not usually require oxygen or CPAP machine. His prior level of functioning was without assistive device and completely independent with ADLs. I will consult Dr Regalado for Cardiology management. Subjective/Events-last exam Awaiting word from Dr. Donaldson orthopedic surgeon regarding weight bearing restriction lifting Now on room air and has been weaned off oxygen Mild hypotension at times but asymptomatic Hemoglobin is rebounding at 9.6 Slept well No bowel movement but does pass gas Pain is controlled but still an issue Always says he is ready to go home but he is really not even close X-rays were done and sent to Dr. Donaldson Conferred with RN Reviewed therapy notes Check meds and labs Review of Systems General: Fatigue Musculoskeletal: arm pain, leg pain Objective Exam Vital Signs Vital Signs Date Time Temp Pulse Resp B/P (MAP) Pulse Ox O2 Delivery O2 Flow Rate FiO2 06/21/19 16:26 97.0 80 16 128/76 (93) 94 Room Air 06/20/19 09:00 2.00 Capillary Refill : Less Than 3 Seconds General Appearance: No Apparent Distress, WD/WN, Chronically ill HEENT: PERRL/EOMI Neck: Normal Inspection, Non Tender, Supple Respiratory: Chest Non Tender, Lungs Clear, Normal Breath Sounds, No Accessory Muscle Use, No Respiratory Distress Cardiovascular: Regular Rate, Rhythm, No Edema, No Gallop, No JVD, No Murmur, Normal Peripheral Pulses Gastrointestinal: Normal Bowel Sounds, Soft Back: Normal Inspection, No CVA Tenderness, No Vertebral Tenderness Extremity: Other (Changed dressing on R UE and over R femur. visualized RUE wound and RLE incision - both clean, dry without signs of infection. Significant R UE contusion. ) Neurologic/Psychiatric: Alert, Oriented x3, No Motor/Sensory Deficits, Normal Mood/Affect, planer setter II-XII Norm as Tested, Disoriented Skin: Ecchymosis (right upper ext, incisions no signs of infection) Lymphatic: No Adenopathy Results/Procedures Lab Laboratory Tests 06/21/19 06:00 Patient resulted labs reviewed. FIM Transfers Therapy Code Descriptions/Definitions Functional [place] Measure: 0=Not Assessed/NA 4=Minimal Assistance 1=Total Assistance 5=Supervision or Setup 2=Maximal Assistance 6=Modified [place] 3=Moderate Assistance 7=Complete [place] Therapy Quality Codes: 6 Independent with activity with or without an assistive device 5 Patient requires set up or clean up by helper. Patient completes activity by themselves 4 Supervision or touching assist (CGA). [place] provide cues , steadying ass ist 3 The helper provides less than half the effort to complete the activity 2 The helper provides more than half the effort to complete the activity 1 Dependent. The helper does all the effort to complete an activity 7 Patient refused to complete or attempt activity 9 The patient did not perform the activity before the current illness or injury 88 Not attempted due to Medical conditions or safety concerns Transfers (B, C, W/C) (FIM): 2 Scootin Rollin Roll Left to Right (QC): 1 Supine to/from Sit: 4 Sit to/from Stand: 2 Sit to Lying (QC): 1 Sit to Stand (QC): 1 Chair/Rjh-ff-Nokkr Xfer(QC): 1 Bed to/from Chair: 2 Car Transfer (QC): 1 Gait Training Does the Patient Walk?: No and Walking Goal IS indicated Wheelchair Training Does the Pt Use a Wheelchair?: Yes Wheelchair (FIM): 2 Distance: 100' Wheelchair Level of Assist: 4 Type of Wheelchair: Manual Mental Status/Objective Comprehension: 5 Expression: 5 Social Interaction: 7 Problem Solvin Memory: 5 ADL-Treatment Feedin (requires set up) Eating (QC): 5 Groomin (required set up and sba for safety. blance, pt demo ability to perform shaving, washing face, washing hair, comb hair. ot reuqired cung to use LUE. pt stated "how am I suposed to do this" pt required reminders to use LUE ) Oral Hygiene (QC): 4 Bathin (X 2 person assist to stand to wash buttock. pt only required assist with washing buttock. ) Bathing Location: L Arm, R Arm, L Upper Leg, R Upper Leg, L Lower Leg (including foot), R Lower Leg (including foot), Chest, Abdomen, Buttocks, Perineal Area Shower/Bathe Self (QC): 1 (X 2 person assist ) Upper Extremity Dressin (required cuing for sequencing ) Upper Body Dressing (QC): 4 Lower Extremity Dressin (X 2 person assist to stand and 2nd person pulls up pants. pt demo ability to thread corie LE through pants with use of assistant kitchen manager and VC to techn. ) Lower Body Dressing (QC): 1 (X2 person assist ) On/Off Footwear (QC): 4 (corie socks with useof sock aid. set up provided and neha gn for techn. ) Toiletin (X 2 person assist. pt reuqired asist with all 3 steps. ) Toileting Hygiene (QC): 1 Toilet/Commode Transfer: 1 (MAX A X2 person assist ) Toilet Transfer (QC): 1 Shower: 0 (NT secodanry to safety of pt ) Assessment/Plan Assessment and Plan Assess & Plan/Chief Complaint Assessment: Status post right femoral fracture on 06/04/2019 Right elbow fracture status post repair 06/04/2019 History of atrial fibrillation on amiodarone but now DC since no evidence of AF per DR Regalado Multiple falls in the past Emotional problems Hypothyroidism GERD Hypertension Diabetes mellitus insulin requiring line hyperlipidemia Anemia from acute blood loss Iron deficiency receiving iron infusions Low albumin Possible Hyperglycemia Plan: Pain control Home meds Labs reviewed IV iron infusions to be completed Fall risk prevention Inpatient rehab protocols Appreciate Dr Abdullahi consultation Appreciate Dr Abdullahi managing the ortho surgical wounds Checked USG for right DVT which was negative Cognition seems to be clearing Check insulin medication (1) Right femoral fracture (2) Elbow fracture, right (3) Constipation (4) Iron deficiency (5) Fever (6) Anemia due to acute blood loss (7) Hypertension (8) Fall (9) Hypothyroidism (10) GERD without esophagitis (11) Hx of emotional problems (12) Diabetes mellitus (13) Hyponatremia (14) Serum albumin decreased (15) Cognitive decline Reviewed assessment and plan. Monitor pain which seems to be improved Incisions are improved and Dr Abdullahi has essentially signed off BM regimen to continue Reach out to Dr Donaldson to see when weight bearing restriction can be lifted (1) Right femoral fracture (2) Elbow fracture, right (3) Atrial fibrillation (4) Constipation (5) Iron deficiency (6) Fever (7) Anemia due to acute blood loss (8) Hypertension (9) Fall (10) Hypothyroidism (11) GERD without esophagitis (12) Hx of emotional problems (13) Diabetes mellitus (14) Hyponatremia (15) Serum albumin decreased (16) Cognitive decline QUIN COFFEY DO Jun 21, 2019 09:26
--- NOTE | 2019-06-21 10:54 | Physical Therapy Daily Note ---
PT Daily Note-Current Subjective Patient in wheelchair at bedside pre tx, agrees to PT, has 10/10 pain in right leg, nurse notified, she says he has already had pain meds. Appearance Patient in recliner post tx with nurse call, phone, tray, all needs met. Mental Status Patient Orientation: Person, Place, Situation Transfers Therapy Code Descriptions/Definitions Functional [place] Measure: 0=Not Assessed/NA 4=Minimal Assistance 1=Total Assistance 5=Supervision or Setup 2=Maximal Assistance 6=Modified [place] 3=Moderate Assistance 7=Complete [place] Therapy Quality Codes: 6 Independent with activity with or without an assistive device 5 Patient requires set up or clean up by helper. Patient completes activity by themselves 4 Supervision or touching assist (CGA). [place] provide cues , steadying assist 3 The helper provides less than half the effort to complete the activity 2 The helper provides more than half the effort to complete the activity 1 Dependent. The helper does all the effort to complete an activity 7 Patient refused to complete or attempt activity 9 The patient did not perform the activity before the current illness or injury 88 Not attempted due to Medical conditions or safety concerns Transfers (B, C, W/C) (FIM): 2 Sit to/from Stand: 2 Bed to/from Chair: 2 Needs cues for hand placement and positioning and to keep weight off of right arm and leg. Weight Bearing Non Weight Bearing also RUE NWB Wheelchair Training Does the Pt Use a Wheelchair?: Yes Wheelchair (FIM): 4 Distance: 150'x2 Wheelchair Level of Assist: 4 Type of Wheelchair: Manual Put a shoe on left leg and he is better able to control the wheelchair. He still needs assist turning through doorways but can keep WC going strait down the hallway. Exercises Seated Therapy Exercises: Ankle pumps, Long arc quads, Hip flexion, Hip abd/add Seated Reps: 20 stood x3 in the parallel bars with max assist, patient needs cues to keep weight off of right arm and leg Treatments standing, transfers, WC mobility, LE exercises Assessment Current Status: Poor Progress patient continues to need cues for positioning with every transfer and for his WB status, he did improve some with WC mobility due to shoe on left foot PT Short Term Goals Short Term Goals Time Frame: Jun 17, 2019 Transfers (B,C,W/C) (FIM): 3 Wheelchair Distance: 100' PT Prison Goals Channel 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 Goals PT Prison Goals Time Frame: Jul 01, 2019 Transfers (B,C,W/C) (FIM): 4 Sit to Lying (QC): 3 Lying-Sitting on Side/Bed(QC): 3 Sit to Stand (QC): 3 Rollin Roll Left to Right (QC): 3 Chair/Gis-dn-Bepyg Xfer(QC): 3 Car Transfer (QC): 3 Wheelchair (FIM): 6 Distance: 150' Wheelchair Level of Assist: 6 Wheel 50 feet with 2 turns (QC: 6 PT Plan Problem List Problem List: Activity Tolerance, Functional Strength, Safety, Balance, Gait, Transfer, Bed Mobility, ROM Treatment/Plan Treatment Plan: Continue Plan of Care Treatment Plan: Bed Mobility, Concurrent Therapy, Education, Functional Activity Tran, Functional Strength, Group Therapy, Gait, Safety, Therapeutic Exercise, Transfers Treatment Duration: Jul 01, 2019 Frequency: At least 5 of 7 days/Wk (IRF) Estimated Hrs Per Day: 1.5 hours per day Patient and/or Family Agrees t: Yes Safety Risks/Education Patient Education: Transfer Techniques, Reviewed Precautions, Correct Positioning, W/C Management, Safety Issues Teaching Recipient: Patient Teaching Methods: Demonstration, Discussion Response to Teaching: Reinforcement Needed Time/GCodes Time In: 1000 Time Out: 1100 Total Billed Treatment Time: 60 Total Billed Treatment 1 visit [facility] 20' EX 15' FA 25' WILLIAM KOROMA PT Jun 21, 2019 10:54
--- NOTE | 2019-06-21 11:42 | Speech Therapy Daily Note ---
Speech Daily Progress Note Subjective Date Seen by Provider: Jun 21, 2019 Time Seen by Provider: 00:30 The patient c/o pain in his "good" are where the IV had been taken out. Nurse notified. Objective The patient completed sequencing task cards for daily routine home tasks at 90% with min to mod visual/verbal cues. Assessment Assessment Current Status: Good Progress Treatment Plan Continue Plan of Care Communication Comprehension: 5 Expression: 5 Social Cognition Social Interaction: 7 Problem Solvin Memory: 5 Speech Short Term Goals Short Term Goals Short Term Goals Patient will demonstrate simple problem solving and memory with 80% accuracy when given minimal to moderate cues Speech Alf Goals Alf Goals Patient will improve cognitive-communication necessary for safety and daily living tasks with minimal assist Speech-Plan Patient/Family Goals Patient/Family Goals: The patient plans on returning home to his apartment, however due to delay in progress and pain he may possibly have to go to a facility for further therapy. Treatment Plan Speech Therapy Treatment Plan: Continue Plan of Care The patient has progressed with ST goals. Treatment Duration: Jun 24, 2019 Frequency: 5 times per week Estimated Hrs Per Day: .5 hour per day Rehab Potential: Fair Barriers to Learning: The patient has a lot of pain, cognitive deficits Pt/Family Agrees to Plan: Yes Safety Risks/Education Teaching Recipient: Patient Teaching Methods: Demonstration, Discussion Response to Teaching: Verbalize Understanding, Return Demonstration Education Topics Provided: Communication of wants/needs Time Speech Therapy Time In: 11:00 Speech Therapy Time Out: 11:30 Total Billed Time: 30 Billed Treatment Time 1, MELANIE Marino Jun 21, 2019 11:42
--- NOTE | 2019-06-21 11:49 | Occupational Ther Daily Note ---
OT Current Status-Daily Note Subjective pt agreed to OT TX session with focus on increasing independence with ADLS and functional transfers. pt c/o 10/10 pain in RUE/ RLE with activity Appearance pt no longer on O2. O2 saturations remained above 94% during OT session Mental Status/Objective Patient Orientation: Normal For Age Therapy Code Descriptions/Definitions Functional [place] Measure: 0=Not Assessed/NA 4=Minimal Assistance 1=Total Assistance 5=Supervision or Setup 2=Maximal Assistance 6=Modified [place] 3=Moderate Assistance 7=Complete [place] ADL-Treatment Therapy Code Descriptions/Definitions Functional [place] Measure: 0=Not Assessed/NA 4=Minimal Assistance 1=Total Assistance 5=Supervision or Setup 2=Maximal Assistance 6=Modified [place] 3=Moderate Assistance 7=Complete [place] Therapy Quality Codes: 6 Independent with activity with or without an assistive device 5 Patient requires set up or clean up by helper. Patient completes activity by themselves 4 Supervision or touching assist (CGA). [place] provide cues , steadying assist 3 The helper provides less than half the effort to complete the activity 2 The helper provides more than half the effort to complete the activity 1 Dependent. The helper does all the effort to complete an activity 7 Patient refused to complete or attempt activity 9 The patient did not perform the activity before the current illness or injury 88 Not attempted due to Medical conditions or safety concerns Eating (FIM): 5 (reuqired set up ) Grooming (FIM): 6 (shave, brush teeth, wash wace, comb hair, wash hair, MOD I seated at sink ) Bathing (FIM): 4 (required assist with buttock. pt use of LHS) Bathing Location: L Arm, R Arm, L Upper Leg, R Upper Leg, L Lower Leg (in cluding foot), R Lower Leg (including foot), Chest, Abdomen, Perineal Area Upper Body (FIM): 5 (reuqired cuing for proper techn. ) Lower Body Dressing (FIM): 4 (required assist with pull up of pants, and underpantsbil socks, underpants, pantsuse of dressing stick, hog slaughterer, sock aid. ) Toileting (FIM): 1 (required assist with 3/3 toielting tasks ) Transfers (B, C, W/C) (FIM): 3 (use of SB. reuqired placement of board and MOD A ) pt perform supine to sit with MIN A using leg wire harness design engineer. pt required cuing for safety during tasks. noted increase pain with activity. pt re education on use of all AE. pt required MOD_MAX A to perform sit to stands during ADLs and MOD A to maintain standing balance using GB with left hand. noted pt required MOD cuing to maintain WBS. post ADLs pt sitting in w/c, call light withn reach, all needs met. Education OT Patient Education: Energy conservation, Instructions to caregiver, Progress toward Goal/Update tx plan, Purpose of tx/functional activities, Reviewed precautions, Rehab process, Safety issues, Transfer techniques, Use of adapted equipment OT Short Term Goals Short Term Goals Eating(FIM): 6 Grooming(FIM): 4 Bathing(FIM): 3 Upper Body Dressing(FIM): 3 Lower Body Dressing(FIM): 3 Toileting(FIM): 3 Transfers (B,C,W/C) (FIM): 3 Toilet/Commode Transfer(FIM): 3 Shower Transfer(FIM): 3 Additional Short Term Goals: 1-Demonstrate ADL Tasks, 2-Verbalize Understanding, 3-ImproveStrength/Tran 1=Demonstrate adherence to instructed precautions during ADL tasks. 2=Patient will verbalize/demonstrate understanding of assistive devices/modifications for ADL. 3=Patient will improve strength/tolerance for activity to enable patient to perform ADL's. OT Fpc Goals Director Of Database Marketing Goals Time Frame: Jul 08, 2019 Eating (FIM): 6 Eating (QC): 6 Groomin Oral Hygiene (QC): 6 Bathing(FIM): 5 Bathing Location: L Arm, R Arm, L Upper Leg, R Upper Leg, L Lower Leg (including foot), R Lower Leg (including foot), Chest, Abdomen, Buttocks, Perineal Area Shower/Bathe Self (QC): 5 Upper Body Dressing(FIM): 6 Upper Body Dressing (QC): 6 Lower Body Dressing(FIM): 6 Lower Body Dressing (QC): 5 On/Off Footwear (QC): 5 Toileting(FIM): 5 Toileting Hygiene (QC): 5 Transfers (B,C,W/C) (FIM): 5 Toilet/Commode Transfer(FIM): 5 Toilet/Commode Transfer (QC): 4 Shower Transfer(FIM): 5 Additional Goals: 1-Demonstrate ADL Tasks, 2-Verbalize Understanding, 3- ImproveStrength/Tran 1=Demonstrate adherence to instructed precautions during ADL tasks. 2=Patient will verbalize/demonstrate understanding of assistive devices/modifications for ADL. 3=Patient will improve strength/tolerance for activity to enable patient to perform ADL's. OT Education/Plan Problem List/Assessment Assessment: Decreased Activ Tolerance, Decreased Safety Aware, Decreased UE Strength, Dependent Transfers, Edema (right hand), Impaired Bed Mobility, Impaired Cognition, Impaired Coordination, Impaired Funct Balance, Impaired I ADL's, Impaired Self-Care Skills, Restricted Funct UE ROM pt presents with functional limitations affecting areas of ADLs and functional transfers with then above mention deficits. pt would benefit from skilled OT services to increase independence with ADLS and functional transfers. Discharge Recommendations Plan/Recommendations: Continue POC Treatment Plan/Plan of Care Treatment,Training & Education: Yes Patient would benefit from OT for education, treatment and training to promote independence in ADL's, mobility, safety and/or upper extremity function for ADL's. Plan of Care: ADL Retraining, Caregiver Training, Functional Mobility, Group Exercise/Act as Ind, UE Funct Exercise/Act, W/C Management Training Treatment Duration: Jul 08, 2019 Frequency: At least 5 of 7 days/Wk (IRF) Estimated Hrs Per Day: 1 hour per day (60-90 minutes per day) Agreement: Yes Rehab Potential: Fair Time/GCodes Start Time: 08:30 Stop Time: 09:45 Billed Treatment Time ADL 75 minutes, 5 unit RAPHAEL VILLAFUERTE OT Jun 21, 2019 11:49
--- NOTE | 2019-06-21 13:18 | Physical Therapy Daily Note ---
PT Daily Note-Current Subjective Patient in recliner pre tx, agrees to PT, has no complaints of pain at rest. Appearance Patient in recliner post tx with nurse call, phone, tray, all needs met. Mental Status Patient Orientation: Person, Place, Situation Transfers Therapy Code Descriptions/Definitions Functional [place] Measure: 0=Not Assessed/NA 4=Minimal Assistance 1=Total Assistance 5=Supervision or Setup 2=Maximal Assistance 6=Modified [place] 3=Moderate Assistance 7=Complete [place] Therapy Quality Codes: 6 Independent with activity with or without an assistive device 5 Patient requires set up or clean up by helper. Patient completes activity by themselves 4 Supervision or touching assist (CGA). [place] provide cues , steadying assist 3 The helper provides less than half the effort to complete the activity 2 The helper provides more than half the effort to complete the activity 1 Dependent. The helper does all the effort to complete an activity 7 Patient refused to complete or attempt activity 9 The patient did not perform the activity before the current illness or injury 88 Not attempted due to Medical conditions or safety concerns Weight Bearing Non Weight Bearing also RUE NWB Exercises Supine Ex: Ankle pumps, Quad Set, Glut sets Supine Reps: 20 (with legs elevated in recliner) Seated Therapy Exercises: Long arc quads, Hip flexion, Hip abd/add Seated Reps: 20 Treatments LE exercise Assessment Current Status: Poor Progress PT Short Term Goals Short Term Goals Time Frame: Jun 17, 2019 Transfers (B,C,W/C) (FIM): 3 Wheelchair Distance: 150'x2 PT Mcfp Goals Cotton Factor Goals PT Mcfp Goals Time Frame: Jul 01, 2019 Transfers (B,C,W/C) (FIM): 4 Sit to Lying (QC): 3 Lying-Sitting on Side/Bed(QC): 3 Sit to Stand (QC): 3 Rollin Roll Left to Right (QC): 3 Chair/Kpt-eb-Gskiv Xfer(QC): 3 Car Transfer (QC): 3 Wheelchair (FIM): 6 Distance: 150' Wheelchair Level of Assist: 6 Wheel 50 feet with 2 turns (QC: 6 PT Plan Problem List Problem List: Activity Tolerance, Functional Strength, Safety, Balance, Gait, Transfer, Bed Mobility, ROM Treatment/Plan Treatment Plan: Continue Plan of Care Treatment Plan: Bed Mobility, Concurrent Therapy, Education, Functional Activity Tran, Functional Strength, Group Therapy, Gait, Safety, Therapeutic Exercise, Transfers Treatment Duration: Jul 01, 2019 Frequency: At least 5 of 7 days/Wk (IRF) Estimated Hrs Per Day: 1.5 hours per day Patient and/or Family Agrees t: Yes Safety Risks/Education Patient Education: Correct Positioning, Safety Issues Teaching Recipient: Patient Teaching Methods: Demonstration, Discussion Response to Teaching: Reinforcement Needed Time/GCodes Time In: 1300 Time Out: 1315 Total Billed Treatment Time: 15 Total Billed Treatment 1 visit EX WILLIAM BURCIAGA PT Jun 21, 2019 13:18
--- NOTE | 2019-06-21 14:00 | NUR ---
Noted that patient complained of pain on left forearm, which is an old IV site. Site is warm to touch, hard, red, and tender. Physician notified, orders obtained for a kpad and moist heat.
[2019-06-21 16:26] VITALS: BP 128/76
[2019-06-21] MEDS: POLYETHYLENE GLYCOL 17 GM (MIRALAX) PACK PO SCH (20:20)
[2019-06-21] MEDS: MELATONIN 3 MG TABLET PO SCH (20:22)
[2019-06-22] MEDS: inSUlin ASPART (NovoLOG) 1 UNIT/0.01 ML (CHARGE PER UNIT) SC SCH ×5 (00:20→21:00)
[2019-06-22 06:00] VITALS: BP 113/69
[2019-06-22] MEDS: meTOprolol TARTRATE 25 MG (LOPRESSOR) TABLET PO SCH ×2 (06:24→17:06)
[2019-06-22] MEDS: LEVOTHYROXINE 112 MCG (LEVOTHROID) TAB PO SCH (06:24)
[2019-06-22] MEDS: LEVOTHYROXINE 25 MCG (LEVOTHROID) TAB PO SCH (06:24)
[2019-06-22] MEDS: FUROSEMIDE 40 MG (LASIX) TAB PO SCH (08:46)
[2019-06-22] MEDS: PANTOPRAZOLE 40 MG (PROTONIX) TAB PO SCH (08:46)
[2019-06-22] MEDS: ASPIRIN 81 MG CHEW (CHILDREN'S ASA) PO SCH (08:48)
[2019-06-22] MEDS: KCL 20 MEQ TAB (K-DUR) PO SCH ×2 (08:48→21:43)
[2019-06-22] MEDS: SENNA W/DOCUSATE (SENOKOT S) TABLET PO SCH ×2 (08:53→21:52)
[2019-06-22] MEDS: LACTULOSE SYRUP 10GM/15ML (ENULOSE) 30ML UDC PO SCH ×2 (08:54→21:51)
[2019-06-22] MEDS: TRIAMCINOLONE 0.1% CR (KENALOG) 15 GM TUBE TOP SCH ×2 (08:55→21:00)
[2019-06-22] MEDS: DICLOFENAC 1% GEL 100 GM (VOLTAREN) TUBE TOP SCH ×3 (08:55→21:56)
--- NOTE | 2019-06-22 09:24 | Physical Therapy Daily Note ---
PT Daily Note-Current Subjective Patient in bed pre tx, agrees to PT, has no complaints of pain at rest, agrees to exercises in bed. Appearance Patient in bed post tx with nurse call, phone, tray, all needs met. Mental Status Patient Orientation: Person, Place, Situation Transfers Therapy Code Descriptions/Definitions Functional [place] Measure: 0=Not Assessed/NA 4=Minimal Assistance 1=Total Assistance 5=Supervision or Setup 2=Maximal Assistance 6=Modified [place] 3=Moderate Assistance 7=Complete [place] Therapy Quality Codes: 6 Independent with activity with or without an assistive device 5 Patient requires set up or clean up by helper. Patient completes activity by themselves 4 Supervision or touching assist (CGA). [place] provide cues , steadying assist 3 The helper provides less than half the effort to complete the activity 2 The helper provides more than half the effort to complete the activity 1 Dependent. The helper does all the effort to complete an activity 7 Patient refused to complete or attempt activity 9 The patient did not perform the activity before the current illness or injury 88 Not attempted due to Medical conditions or safety concerns Weight Bearing Non Weight Bearing also RUE NWB Exercises Supine Ex: Ankle pumps, Quad Set, Glut sets, Heel Slides (RLE AAROM), Straight leg raise (RLE AAROM), Hip abd/add (RLE AAROM) Treatments BLE exercises Assessment Current Status: Fair Progress improved AROM of the right leg PT Short Term Goals Short Term Goals Time Frame: Jun 17, 2019 Transfers (B,C,W/C) (FIM): 3 Wheelchair Distance: 150'x2 PT Shelter Goals Shelter Goals PT [employer] [place] Goals Time Frame: Jul 01, 2019 Transfers (B,C,W/C) (FIM): 4 Sit to Lying (QC): 3 Lying-Sitting on Side/Bed(QC): 3 Sit to Stand (QC): 3 Rollin Roll Left to Right (QC): 3 Chair/Dpw-tr-Ogkhu Xfer(QC): 3 Car Transfer (QC): 3 Wheelchair (FIM): 6 Distance: 150' Wheelchair Level of Assist: 6 Wheel 50 feet with 2 turns (QC: 6 PT Plan Problem List Problem List: Activity Tolerance, Functional Strength, Safety, Balance, Gait, Transfer, Bed Mobility, ROM Treatment/Plan Treatment Plan: Continue Plan of Care Treatment Plan: Bed Mobility, Concurrent Therapy, Education, Functional Activity Tran, Functional Strength, Group Therapy, Gait, Safety, Therapeutic Exercise, Transfers Treatment Duration: Jul 01, 2019 Frequency: At least 5 of 7 days/Wk (IRF) Estimated Hrs Per Day: 1.5 hours per day Patient and/or Family Agrees t: Yes Safety Risks/Education Patient Education: Correct Positioning, Safety Issues Teaching Recipient: Patient Teaching Methods: Demonstration, Discussion Response to Teaching: Reinforcement Needed Time/GCodes Time In: 0908 Time Out: 918 Total Billed Treatment Time: 11 Total Billed Treatment 1 visit EX 11' WILLIAM KOROMA PT Jun 22, 2019 09:24
[2019-06-22] MEDS: QUEtiapine 25 MG (SEROquel) TAB IMMEDIATE RELEASE PO SCH ×2 (09:53→21:43)
--- NOTE | 2019-06-22 13:00 | NUR ---
DR. COFFEY INFORMED OF PATIENT HITTING RIGHT ARM ON RAIL DUE TO ARM ITCHING. PATIENT STATES BENADRYL DOES NOT HELP ITCHING. SAID TO TRY TO MAKE DRESSING SHORTER ON ARM, BUT HAS ARM LENGTH CURVED SPLINT BOARD ON AND UNABLE TO SHORTEN DRESSING WITHOUT BOARD STICKING OUT. RED, SWOLLEN AREA ON LEFT ARM FROM PREVIOUS IV INFILTRATE. DR. COFFEY AWARE. RECOMMENDS TO CONTINUE KPAD. PATIENT STATES RIGHT HIP PAIN IS IMPROVED.
--- NOTE | 2019-06-22 13:01 | PM&R Progress Note ---
Subjective HPI/CC On Admission Date Seen by Provider: Jun 22, 2019 Time Seen by Provider: 12:30 Chief complaint: Right hip fracture and right elbow fracture in need of inpatient rehab to return home History of present illness: This is a 79-year-old white male known to me from prior admissions long ago whose primary care provider is Dr. 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 He did not require a transfusion while hospitalized at [facility]. He has not had a bowel movement for 5 days. Pain is currently controlled with oxycodone. Patient does not usually require oxygen or CPAP machine. His prior level of functioning was without assistive device and completely independent with ADLs. I will consult Dr Regalado for Cardiology management. Subjective/Events-last exam Awaiting word from Dr. Donaldson orthopedic surgeon regarding weight bearing restriction lifting and those x-rays were sent but no response yet so we'll plan on speaking him on Monday or else he may end up having to go to jail Now on room air and has been weaned off oxygen Itches really bad in his right arm so we'll remove the Raul wrap and Kerlix placed bare minimum dressings and allow the skin to breathe Hemoglobin is rebounding at 9.6 Slept well Having regular bowel movements Pain is controlled but still an issue Always says he is ready to go home but he is really not even close Conferred with RN Reviewed therapy notes Check meds and labs Review of Systems Musculoskeletal: arm pain Objective Exam Vital Signs Vital Signs Date Time Temp Pulse Resp B/P (MAP) Pulse Ox O2 Delivery O2 Flow Rate FiO2 06/22/19 09:00 Room Air 06/22/19 06:00 98.1 66 14 113/69 (84) 92 06/20/19 09:00 2.00 Capillary Refill : Less Than 3 Seconds General Appearance: No Apparent Distress, WD/WN, Chronically ill HEENT: PERRL/EOMI Neck: Normal Inspection, Non Tender, Supple Respiratory: Chest Non Tender, Lungs Clear, Normal Breath Sounds, No Accessory Muscle Use, No Respiratory Distress Cardiovascular: Regular Rate, Rhythm, No Edema, No Gallop, No JVD, No Murmur, Normal Peripheral Pulses Gastrointestinal: Normal Bowel Sounds, Soft Back: Normal Inspection, No CVA Tenderness, No Vertebral Tenderness Extremity: Normal Capillary Refill, Normal Inspection, Non Tender, Other (Changed dressing on R UE and over R femur. visualized RUE wound and RLE incision - both clean, dry without signs of infection. Significant R UE contusion. ) Neurologic/Psychiatric: Alert, Oriented x3, No Motor/Sensory Deficits, Normal Mood/Affect, shoeblack II-XII Norm as Tested, Disoriented Skin: Ecchymosis (right upper ext, incisions no signs of infection), Other (left lower arm with mild edema and erythema from IV infiltration) Lymphatic: No Adenopathy Results/Procedures Lab Patient resulted labs reviewed. FIM Transfers Therapy Code Descriptions/Definitions Functional [place] Measure: 0=Not Assessed/NA 4=Minimal Assistance 1=Total Assistance 5=Supervision or Setup 2=Maximal Assistance 6=Modified [place] 3=Moderate Assistance 7=Complete [place] Therapy Quality Codes: 6 Independent with activity with or without an assistive device 5 Patient requires set up or clean up by helper. Patient completes activity by themselves 4 Supervision or touching assist (CGA). Sherrill provide cues , steadying assist 3 The helper provides less than half the effort to complete the activity 2 The helper provides more than half the effort to complete the activity 1 Dependent. The helper does all the effort to complete an activity 7 Patient refused to complete or attempt activity 9 The patient did not perform the activity before the current illness or injury 88 Not attempted due to Medical conditions or safety concerns Transfers (B, C, W/C) (FIM): 3 (use of SB. reuqired placement of board and MOD A ) Scootin Rollin Roll Left to Right (QC): 1 Supine to/from Sit: 4 Sit to/from Stand: 2 Sit to Lying (QC): 1 Sit to Stand (QC): 1 Chair/[id number]-[id number] Xfer(QC): 1 Bed to/from Chair: 2 Car Transfer (QC): 1 Gait Training Does the Patient Walk?: No and Walking Goal IS indicated Wheelchair Training Does the Pt Use a Wheelchair?: Yes Wheelchair (FIM): 4 Distance: 150'x2 Wheelchair Level of Assist: 4 Type of Wheelchair: Manual Mental Status/Objective Comprehension: 5 Expression: 5 Social Interaction: 7 Problem Solvin Memory: 5 ADL-Treatment Feedin (reuqired set up ) Eating (QC): 5 Groomin (shave, brush teeth, wash wace, comb hair, wash hair, MOD I seated at sink ) Oral Hygiene (QC): 4 Bathin (required assist with buttock. pt use of LHS) Bathing Location: L Arm, R Arm, L Upper Leg, R Upper Leg, L Lower Leg (inclu ding foot), R Lower Leg (including foot), Chest, Abdomen, Perineal Area Shower/Bathe Self (QC): 1 (X 2 person assist ) Upper Extremity Dressin (reuqired cuing for proper techn. ) Upper Body Dressing (QC): 4 Lower Extremity Dressin (required assist with pull up of pants, and underpantsbil socks, underpants, pantsuse of dressing stick, delivery and installation subcontractor, sock aid. ) Lower Body Dressing (QC): 1 (X2 person assist ) On/Off Footwear (QC): 4 (ocrie socks with useof sock aid. set up provided and cuign for techn. ) Toiletin (required assist with 3/3 toielting tasks ) Toileting Hygiene (QC): 1 Toilet/Commode Transfer: 1 (MAX A X2 person assist ) Toilet Transfer (QC): 1 Shower: 0 (NT secodanry to safety of pt ) Assessment/Plan Assessment and Plan Assess & Plan/Chief Complaint Assessment: Status post right femoral fracture on 06/04/2019 Right elbow fracture status post repair 06/04/2019 History of atrial fibrillation on amiodarone but now DC since no evidence of AF per DR Regalado Multiple falls in the past Emotional problems Hypothyroidism GERD Hypertension Diabetes mellitus insulin requiring line hyperlipidemia Anemia from acute blood loss Iron deficiency receiving iron infusions Low albumin Hyperglycemia Left arm IV infiltration- placing K-pad Plan: Pain control Home meds Labs reviewed IV iron infusions completed Fall risk prevention Inpatient rehab protocols Appreciate Dr Abdullahi consultation Appreciate Dr Abdullahi managing the ortho surgical wounds Checked USG for right DVT which was negative Cognition seems to be clearing Check insulin medication Kpad to IV infiltration site (1) Right femoral fracture (2) Elbow fracture, right (3) Constipation (4) Iron deficiency (5) Fever (6) Anemia due to acute blood loss (7) Hypertension (8) Fall (9) Hypothyroidism (10) GERD without esophagitis (11) Hx of emotional problems (12) Diabetes mellitus (13) Hyponatremia (14) Serum albumin decreased (15) Cognitive decline Reviewed assessment and plan. Monitor pain which seems to be improved Incisions are improved and Dr Abdullahi has essentially signed off BM regimen to continue Reach out to Dr Donaldson to see when weight bearing restriction can be lifted (1) Right femoral fracture (2) Elbow fracture, right (3) Atrial fibrillation (4) Constipation (5) Iron deficiency (6) Fever (7) Anemia due to acute blood loss (8) Hypertension (9) Fall (10) Hypothyroidism (11) GERD without esophagitis (12) Hx of emotional problems (13) Diabetes mellitus (14) Hyponatremia (15) Serum albumin decreased (16) Cognitive decline QUIN COFFEY DO Jun 22, 2019 13:01
[2019-06-22] MEDS: CYCLOBENZAPRINE 10 MG (FLEXERIL) TAB PO PRN (14:50)
[2019-06-22] MEDS: IBUPROFEN TABLET 200 MG TAB PO PRN (17:07)
[2019-06-22 17:08] VITALS: BP 112/66
--- NOTE | 2019-06-22 19:25 | NUR ---
bedside report received from STACY HOLT, assume care of pt
--- NOTE | 2019-06-22 19:56 | NUR ---
c/o rt arm pain level 10/10 on numeric scale oxyir 10mg given
--- NOTE | 2019-06-22 20:40 | NUR ---
rates pain level 4/10 on numeric scale
--- NOTE | 2019-06-22 21:00 | NUR ---
assessments & interventions completed, see assessments & interventions, fsbs 139 no ss insulin req
--- NOTE | 2019-06-22 21:26 | NUR ---
refused bebeto & Jose Luis states had good BM today
[2019-06-22] MEDS: MELATONIN 3 MG TABLET PO SCH (21:42)
[2019-06-22] MEDS: POLYETHYLENE GLYCOL 17 GM (MIRALAX) PACK PO SCH (21:51)
[2019-06-23 06:00] VITALS: BP 116/69
[2019-06-23] MEDS: inSUlin ASPART (NovoLOG) 1 UNIT/0.01 ML (CHARGE PER UNIT) SC SCH ×4 (06:05→20:52)
[2019-06-23] MEDS: LEVOTHYROXINE 112 MCG (LEVOTHROID) TAB PO SCH (06:10)
[2019-06-23] MEDS: LEVOTHYROXINE 25 MCG (LEVOTHROID) TAB PO SCH (06:10)
[2019-06-23] MEDS: meTOprolol TARTRATE 25 MG (LOPRESSOR) TABLET PO SCH ×2 (06:10→16:41)
--- NOTE | 2019-06-23 07:25 | NUR ---
bedside report given to KAYLYN HOLT
[2019-06-23] MEDS: FUROSEMIDE 40 MG (LASIX) TAB PO SCH (08:18)
[2019-06-23] MEDS: PANTOPRAZOLE 40 MG (PROTONIX) TAB PO SCH (08:18)
[2019-06-23] MEDS: QUEtiapine 25 MG (SEROquel) TAB IMMEDIATE RELEASE PO SCH ×2 (08:18→21:21)
[2019-06-23] MEDS: ASPIRIN 81 MG CHEW (CHILDREN'S ASA) PO SCH (08:19)
[2019-06-23] MEDS: KCL 20 MEQ TAB (K-DUR) PO SCH ×2 (08:19→21:21)
[2019-06-23] MEDS: LACTULOSE SYRUP 10GM/15ML (ENULOSE) 30ML UDC PO SCH ×2 (08:19→20:52)
[2019-06-23] MEDS: SENNA W/DOCUSATE (SENOKOT S) TABLET PO SCH ×2 (08:19→21:21)
[2019-06-23] MEDS: TRIAMCINOLONE 0.1% CR (KENALOG) 15 GM TUBE TOP SCH ×2 (08:20→21:14)
[2019-06-23] MEDS: DICLOFENAC 1% GEL 100 GM (VOLTAREN) TUBE TOP SCH ×3 (08:21→21:22)
--- NOTE | 2019-06-23 12:16 | PM&R Progress Note ---
Subjective HPI/CC On Admission Date Seen by Provider: Jun 23, 2019 Time Seen by Provider: 12:00 Chief complaint: Right hip fracture and right elbow fracture in need of inpatient rehab to return home History of present illness: This is a 79-year-old white male known to me from prior admissions long ago whose primary care provider is Dr. 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 He did not require a transfusion while hospitalized at [facility]. He has not had a bowel movement for 5 days. Pain is currently controlled with oxycodone. Patient does not usually require oxygen or CPAP machine. His prior level of functioning was without assistive device and completely independent with ADLs. I will consult Dr Regalado for Cardiology management. Subjective/Events-last exam Awaiting word from Dr. Donaldson orthopedic surgeon regarding weight bearing restriction lifting and those x-rays were sent but no response yet so we'll plan on speaking him on Monday, tomorrow, or else he may end up having to go to senior living Now on room air and has been weaned off oxygen and has no desats at all Itches really bad in his right arm so we'll remove the Raul wrap and Kerlix placed bare minimum dressings and allow the skin to breathe and that seems to be helping a bit Hemoglobin is rebounding at 9.6 last check s/p iron infusions Slept well Having regular bowel movements Pain is controlled but still an issue Left arm IV infiltration is looking better with Kpad DC fluid restriction since sodium level 135 Conferred with RN Reviewed therapy notes Check meds and labs Review of Systems General: Fatigue Musculoskeletal: arm pain, leg pain Objective Exam Vital Signs Vital Signs Date Time Temp Pulse Resp B/P (MAP) Pulse Ox O2 Delivery O2 Flow Rate FiO2 06/23/19 09:57 Room Air 06/23/19 06:00 98.2 63 20 116/69 (85) 91 06/20/19 09:00 2.00 Capillary Refill : Less Than 3 Seconds General Appearance: No Apparent Distress, WD/WN, Chronically ill HEENT: PERRL/EOMI Neck: Normal Inspection, Non Tender, Supple Respiratory: Chest Non Tender, Lungs Clear, Normal Breath Sounds, No Accessory Muscle Use, No Respiratory Distress Cardiovascular: Regular Rate, Rhythm, No Edema, No Gallop, No JVD, No Murmur, Normal Peripheral Pulses Gastrointestinal: Normal Bowel Sounds, Soft Back: Normal Inspection, No CVA Tenderness, No Vertebral Tenderness Extremity: Normal Capillary Refill, Normal Inspection, Non Tender, Other (Changed dressing on R UE and over R femur. visualized RUE wound and RLE incision - both clean, dry without signs of infection. Significant R UE contusion. ) Neurologic/Psychiatric: Alert, Oriented x3, No Motor/Sensory Deficits, Normal Mood/Affect, integration assistant II-XII Norm as Tested, Disoriented Skin: Ecchymosis (right upper ext, incisions no signs of infection), Other (left lower arm with mild edema and erythema from IV infiltration) Lymphatic: No Adenopathy Results/Procedures Lab Patient resulted labs reviewed. FIM Transfers Therapy Code Descriptions/Definitions Functional [place] Measure: 0=Not Assessed/NA 4=Minimal Assistance 1=Total Assistance 5=Supervision or Setup 2=Maximal Assistance 6=Modified [place] 3=Moderate Assistance 7=Complete [place] Therapy Quality Codes: 6 Independent with activity with or without an assistive device 5 Patient requires set up or clean up by helper. Patient completes activity by themselves 4 Supervision or touching assist (CGA). Piercy provide cues , steadying assist 3 The helper provides less than half the effort to complete the activity 2 The helper provides more than half the effort to complete the activity 1 Dependent. The helper does all the effort to complete an activity 7 Patient refused to complete or attempt activity 9 The patient did not perform the activity before the current illness or injury 88 Not attempted due to Medical conditions or safety concerns Transfers (B, C, W/C) (FIM): 3 (use of SB. reuqired placement of board and MOD A ) Scootin Rollin Roll Left to Right (QC): 1 Supine to/from Sit: 4 Sit to/from Stand: 2 Sit to Lying (QC): 1 Sit to Stand (QC): 1 Chair/[id number]-Tyymg Xfer(QC): 1 Bed to/from Chair: 2 Car Transfer (QC): 1 Gait Training Does the Patient Walk?: No and Walking Goal IS indicated Wheelchair Training Does the Pt Use a Wheelchair?: Yes Wheelchair (FIM): 4 Distance: 150'x2 Wheelchair Level of Assist: 4 Type of Wheelchair: Manual Mental Status/Objective Comprehension: 5 Expression: 5 Social Interaction: 7 Problem Solvin Memory: 5 ADL-Treatment Feedin (reuqired set up ) Eating (QC): 5 Groomin (shave, brush teeth, wash wace, comb hair, wash hair, MOD I seated at sink ) Oral Hygiene (QC): 4 Bathin (required assist with buttock. pt use of LHS) Bathing Location: L Arm, R Arm, L Upper Leg, R Upper Leg, L Lower Leg (including foot), R Lower Leg (including foot), Chest, Abdomen, Perineal Area Shower/Bathe Self (QC): 1 (X 2 person assist ) Upper Extremity Dressin (reuqired cuing for proper techn. ) Upper Body Dressing (QC): 4 Lower Extremity Dressin (required assist with pull up of pants, and underpantsbil socks, underpants, pantsuse of dressing stick, door framer, sock aid. ) Lower Body Dressing (QC): 1 (X2 person assist ) On/Off Footwear (QC): 4 (corie socks with useof sock aid. set up provided and cuign for techn. ) Toiletin (required assist with 3/3 toielting tasks ) Toileting Hygiene (QC): 1 Toilet/Commode Transfer: 1 (MAX A X2 person assist ) Toilet Transfer (QC): 1 Shower: 0 (NT secodanry to safety of pt ) Assessment/Plan Assessment and Plan Assess & Plan/Chief Complaint Assessment: Status post right femoral fracture on 06/04/2019 Right elbow fracture status post repair 06/04/2019 History of atrial fibrillation on amiodarone but now DC since no evidence of AF per DR Regalado Multiple falls in the past Emotional problems Hypothyroidism GERD Hypertension Diabetes mellitus insulin requiring line hyperlipidemia Anemia from acute blood loss Iron deficiency receiving iron infusions Low albumin Hyperglycemia Left arm IV infiltration- placing K-pad and improved Plan: Pain control Home meds Labs reviewed IV iron infusions completed Fall risk prevention Inpatient rehab protocols Appreciate Dr Abdullahi consultation Appreciate Dr Abdullahi managing the ortho surgical wounds Checked USG for right DVT which was negative Cognition seems to be clearing Check insulin medication Kpad to IV infiltration site (1) Right femoral fracture (2) Elbow fracture, right (3) Constipation (4) Iron deficiency (5) Fever (6) Anemia due to acute blood loss (7) Hypertension (8) Fall (9) Hypothyroidism (10) GERD without esophagitis (11) Hx of emotional problems (12) Diabetes mellitus (13) Hyponatremia (14) Serum albumin decreased (15) Cognitive decline Reviewed assessment and plan. Monitor pain which seems to be improved Incisions are improved and Dr Abdullahi has essentially signed off BM regimen to continue Reach out to Dr Donaldson to see when weight bearing restriction can be lifted (1) Right femoral fracture (2) Elbow fracture, right (3) Atrial fibrillation (4) Constipation (5) Iron deficiency (6) Fever (7) Anemia due to acute blood loss (8) Hypertension (9) Fall (10) Hypothyroidism (11) GERD without esophagitis (12) Hx of emotional problems (13) Diabetes mellitus (14) Hyponatremia (15) Serum albumin decreased (16) Cognitive decline QUIN COFFEY DO Jun 23, 2019 12:16
--- NOTE | 2019-06-23 12:38 | NUR ---
Patient banging right arm on bedside table... states that arm "itches". Dr. Mascorro on floor and notified. Ok to remove JOHAN wraps and Kerlix in order to give patient breaks from splint throughout the day. Incision covered with [place] dressing. Dewayne intact. No redness or drainage noted. Patient up in chair with arm resting on splint and pillow.
--- NOTE | 2019-06-23 14:45 | Diagnostic Imaging Report ---
INDICATION: Pain EXAMINATION: Left shoulder from 06/23/2019 with no priors available for comparison FINDINGS: 2 views of the left shoulder. There is degenerative disease at the acromioclavicular joint. These findings appear chronic. Glenohumeral joint space also demonstrates degenerative findings, narrowing, spurring and sclerosis. There are irregularities but greater tuberosity consistent with rotator cuff tendinopathy. No acute fractures or dislocations appreciated. There is likely atelectasis or scarring visualized left base. IMPRESSION: 1. Diffuse chronic findings as noted including likely rotator cuff tendinopathy. No acute osseous abnormality. Dictated by: Dictated on workstation # [id number]
--- NOTE | 2019-06-23 15:09 | NUR ---
Dr. Mascorro notified of left shoulder XRAY results.
[2019-06-23 17:10] VITALS: BP 117/66
[2019-06-23] MEDS: POLYETHYLENE GLYCOL 17 GM (MIRALAX) PACK PO SCH (20:52)
[2019-06-23] MEDS: MELATONIN 3 MG TABLET PO SCH (21:21)
[2019-06-24] MEDS: LEVOTHYROXINE 112 MCG (LEVOTHROID) TAB PO SCH (05:25)
[2019-06-24] MEDS: meTOprolol TARTRATE 25 MG (LOPRESSOR) TABLET PO SCH ×2 (05:25→17:34)
[2019-06-24] MEDS: LEVOTHYROXINE 25 MCG (LEVOTHROID) TAB PO SCH (05:25)
[2019-06-24] MEDS: inSUlin ASPART (NovoLOG) 1 UNIT/0.01 ML (CHARGE PER UNIT) SC SCH ×4 (05:29→21:58)
[2019-06-24 06:46] VITALS: BP 122/68
--- NOTE | 2019-06-24 08:13 | PM&R Progress Note ---
Subjective HPI/CC On Admission Date Seen by Provider: Jun 24, 2019 Time Seen by Provider: 08:30 Chief complaint: Right hip fracture and right elbow fracture in need of inpatient rehab to return home History of present illness: This is a 79-year-old white male known to me from prior admissions long ago whose primary care provider is Dr. Bhat but who does not see a farm hand regularly who has a history of atrial fibrillation, diabetes mellitus and falls in the past who presented to inpatient rehab after discharge from [facility] after suffering a right femoral fracture and right elbow fracture which required surgery for repair after a fall sustained at home when he was using his leaf blower on 06/04/2019. He did not require a transfusion while hospitalized at [facility]. He has not had a bowel movement for 5 days. Pain is currently controlled with oxycodone. Patient does not usually require oxygen or CPAP machine. His prior level of functioning was without assistive device and completely independent with ADLs. I will consult Dr Regalado for Cardiology management. Subjective/Events-last exam Dr. Donaldson will be contacted regarding the weight bearing restrictions Right arm is better with less itching Bowels are moving Eating and drinking well Hopefully pt can do more with weight bearing in order to avoid going to a nursing facility Left arm IV infiltration is looking better with Kpad DC fluid restriction since sodium level 135 Conferred with RN Reviewed therapy notes Check meds and labs Review of Systems General: Fatigue Musculoskeletal: arm pain, leg pain Objective Exam Vital Signs Vital Signs Date Time Temp Pulse Resp B/P (MAP) Pulse Ox O2 Delivery O2 Flow Rate FiO2 06/24/19 17:33 98.6 65 18 121/61 (81) 96 Room Air 06/20/19 09:00 2.00 Capillary Refill : Less Than 3 Seconds General Appearance: No Apparent Distress, WD/WN, Chronically ill HEENT: PERRL/EOMI Neck: Normal Inspection, Non Tender, Supple Respiratory: Chest Non Tender, Lungs Clear, Normal Breath Sounds, No Accessory Muscle Use, No Respiratory Distress Cardiovascular: Regular Rate, Rhythm, No Edema, No Gallop, No JVD, No Murmur, Normal Peripheral Pulses Gastrointestinal: Normal Bowel Sounds, Soft Back: Normal Inspection, No CVA Tenderness, No Vertebral Tenderness Extremity: Normal Capillary Refill, Normal Inspection, Non Tender, Other (Changed dressing on R UE and over R femur. visualized RUE wound and RLE incision - both clean, dry without signs of infection. Significant R UE contusion. ) Neurologic/Psychiatric: Alert, Oriented x3, No Motor/Sensory Deficits, Normal Mood/Affect, superintendent gas distribution II-XII Norm as Tested, Disoriented Skin: Ecchymosis (right upper ext, incisions no signs of infection), Other (left lower arm with mild edema and erythema from IV infiltration) Lymphatic: No Adenopathy Results/Procedures Lab Patient resulted labs reviewed. FIM Transfers Therapy Code Descriptions/Definitions Functional [place] Measure: 0=Not Assessed/NA 4=Minimal Assistance 1=Total Assistance 5=Supervision or Setup 2=Maximal Assistance 6=Modified [place] 3=Moderate Assistance 7=Complete [place] Therapy Quality Codes: 6 Independent with activity with or without an assistive device 5 Patient requires set up or clean up by helper. Patient completes activity by themselves 4 Supervision or touching assist (CGA). [place] provide cues , steadying assist 3 The helper provides less than half the effort to complete the activity 2 The helper provides more than half the effort to complete the activity 1 Dependent. The helper does all the effort to complete an activity 7 Patient refused to complete or attempt activity 9 The patient did not perform the activity before the current illness or injury 88 Not attempted due to Medical conditions or safety concerns Transfers (B, C, W/C) (FIM): 3 (use of SB. reuqired placement of board and MOD A ) Scootin Rollin Roll Left to Right (QC): 1 Supine to/from Sit: 4 Sit to/from Stand: 2 Sit to Lying (QC): 1 Sit to Stand (QC): 1 Chair/[id number]-Yzrqs Xfer(QC): 1 Bed to/from Chair: 2 Car Transfer (QC): 1 Gait Training Does the Patient Walk?: No and Walking Goal IS indicated Wheelchair Training Does the Pt Use a Wheelchair?: Yes Wheelchair (FIM): 4 Distance: 150'x2 Wheelchair Level of Assist: 4 Type of Wheelchair: Manual Mental Status/Objective Comprehension: 5 Expression: 5 Social Interaction: 7 Problem Solvin Memory: 5 ADL-Treatment Feedin (reuqired set up ) Eating (QC): 5 Groomin (shave, brush teeth, wash wace, comb hair, wash hair, MOD I seated at sink ) Oral Hygiene (QC): 4 Bathin (required assist with buttock. pt use of LHS) Bathing Location: L Arm, R Arm, L Upper Leg, R Upper Leg, L Lower Leg (including foot), R Lower Leg (including foot), Chest, Abdomen, Perineal Area Shower/Bathe Self (QC): 1 (X 2 person assist ) Upper Extremity Dressin (reuqired cuing for proper techn. ) Upper Body Dressing (QC): 4 Lower Extremity Dressin (required assist with pull up of pants, and underpantsbil socks, underpants, pantsuse of dressing stick, gear finisher, sock aid. ) Lower Body Dressing (QC): 1 (X2 person assist ) On/Off Footwear (QC): 4 (corie socks with useof sock aid. set up provided and cuign for techn. ) Toiletin (required assist with 3/3 toielting tasks ) Toileting Hygiene (QC): 1 Toilet/Commode Transfer: 1 (MAX A X2 person assist ) Toilet Transfer (QC): 1 Shower: 0 (NT secodanry to safety of pt ) Assessment/Plan Assessment and Plan Assess & Plan/Chief Complaint Assessment: Status post right femoral fracture on 06/04/2019 Right elbow fracture status post repair 06/04/2019 History of atrial fibrillation on amiodarone but now DC since no evidence of AF per DR Reglaado Multiple falls in the past Emotional problems Hypothyroidism GERD Hypertension Diabetes mellitus insulin requiring line hyperlipidemia Anemia from acute blood loss Iron deficiency receiving iron infusions Low albumin Hyperglycemia Left arm IV infiltration- placing K-pad and improved Plan: Pain control Home meds Labs reviewed IV iron infusions completed Fall risk prevention Inpatient rehab protocols Appreciate Dr Abdullahi consultation Appreciate Dr Abdullahi managing the ortho surgical wounds Checked USG for right DVT which was negative Cognition seems to be clearing Check insulin medication Kpad to IV infiltration site (1) Right femoral fracture (2) Elbow fracture, right (3) Constipation (4) Iron deficiency (5) Fever (6) Anemia due to acute blood loss (7) Hypertension (8) Fall (9) Hypothyroidism (10) GERD without esophagitis (11) Hx of emotional problems (12) Diabetes mellitus (13) Hyponatremia (14) Serum albumin decreased (15) Cognitive decline Reviewed assessment and plan. Monitor pain which seems to be improved Incisions are improved and Dr Abdullahi has essentially signed off BM regimen to continue Reach out to Dr Donaldson to see when weight bearing restriction can be lifted (1) Right femoral fracture (2) Elbow fracture, right (3) Atrial fibrillation (4) Constipation (5) Iron deficiency (6) Fever (7) Anemia due to acute blood loss (8) Hypertension (9) Fall (10) Hypothyroidism (11) GERD without esophagitis (12) Hx of emotional problems (13) Diabetes mellitus (14) Hyponatremia (15) Serum albumin decreased (16) Cognitive decline QUIN COFFEY DO Jun 24, 2019 08:13
[2019-06-24] MEDS: FUROSEMIDE 40 MG (LASIX) TAB PO SCH (08:49)
[2019-06-24] MEDS: KCL 20 MEQ TAB (K-DUR) PO SCH ×2 (08:49→20:38)
[2019-06-24] MEDS: ASPIRIN 81 MG CHEW (CHILDREN'S ASA) PO SCH (08:49)
[2019-06-24] MEDS: TRIAMCINOLONE 0.1% CR (KENALOG) 15 GM TUBE TOP SCH ×2 (08:49→21:58)
[2019-06-24] MEDS: QUEtiapine 25 MG (SEROquel) TAB IMMEDIATE RELEASE PO SCH ×2 (08:49→20:38)
[2019-06-24] MEDS: PANTOPRAZOLE 40 MG (PROTONIX) TAB PO SCH (08:49)
[2019-06-24] MEDS: SENNA W/DOCUSATE (SENOKOT S) TABLET PO SCH ×2 (08:49→20:38)
[2019-06-24] MEDS: DICLOFENAC 1% GEL 100 GM (VOLTAREN) TUBE TOP SCH ×3 (08:49→21:58)
--- NOTE | 2019-06-24 08:49 | Cardiology Progress Note ---
Subjective Date Seen by Provider: Jun 24, 2019 Time Seen by Provider: 08:35 Subjective/Events-last exam Patient in bed, c/o right hip and right elbow pain, denies any chest pain or dyspnea. Denies any palpitations. Objective-Cardiology Exam Last Set of Vital Signs Vital Signs 06/20/19 06/24/19 09:00 06:46 Temp 97.5 Pulse 54 Resp 16 B/P (MAP) 122/68 (86) Pulse Ox 92 O2 Delivery Room Air O2 Flow Rate 2.00 Capillary Refill : Less Than 3 Seconds I&O Intake and Output 06/24/19 00:00 Intake Total 1100 ml Output Total 2550 ml Balance -1450 ml Intake Oral 1100 ml Output Urine Total 2550 ml # Bowel Movements 1 General: Alert, Oriented X3, No Acute Distress Neck: Supple, No JVD Lungs: Normal Air Movement Heart: Regular Rate, Normal S1, Normal S2 Abdomen: Normal Bowel Sounds, No Tenderness, No Hepatosplenomegaly Extremities: No Edema Skin: No Rashes, No Significant Lesion, Other (ecchymosis around incisions) Neuro: Sensation Intact (Right UE and Bilaterally in the LE) Psych/Mental Status: Mental Status NL A/P-Cardiology Admission Diagnosis right hip fracture right elbow fracture PAF HTN Assessment/Plan right hip fracture, secondary to fall, s/p repair, continue PT/OT right elbow fracture, secondary to fall PAF- per previous records, patient had brief episode of afib while hospitalized in 2014 in [place], no further episode documented. Amiodarone recently discontinued. Continue on Lopressor and ASA and continue to monitor. HTN -controlled, continue BP meds and continue to monitor. EKG, Echo. EKG 06/09/2019 shows sinus tachycardia. Echo 05/2019 shows LVH, Normal LVEF, DD 1, LAE. DM, management per medical services. Clinical Quality Measures DVT/VTE Risk/Contraindication: Risk Factor Score Per Nursin RFS Level Per Nursing on Admit: 4+=Very High GUMARO SANDOVAL Jun 24, 2019 08:49
[2019-06-24] MEDS: LACTULOSE SYRUP 10GM/15ML (ENULOSE) 30ML UDC PO SCH ×2 (09:00→21:58)
--- NOTE | 2019-06-24 10:59 | Physical Therapy Daily Note ---
PT Daily Note-Current Subjective Patient in bed pre tx, agrees to PT, has 7/10 pain in right leg. Will be co- treating with OT due to poor mobility, strength, endurance, the need to coordinate UE and LE during activity, and poor weight bearing compliance. Appearance Patient in wheelchair at bedside post tx with nurse call, phone, tray, all needs met. Mental Status Patient Orientation: Person, Place Transfers Therapy Code Descriptions/Definitions Functional [place] Measure: 0=Not Assessed/NA 4=Minimal Assistance 1=Total Assistance 5=Supervision or Setup 2=Maximal Assistance 6=Modified [place] 3=Moderate Assistance 7=Complete [place] Therapy Quality Codes: 6 Independent with activity with or without an assistive device 5 Patient requires set up or clean up by helper. Patient completes activity by themselves 4 Supervision or touching assist (CGA). [place] provide cues , steadying assist 3 The helper provides less than half the effort to complete the activity 2 The helper provides more than half the effort to complete the activity 1 Dependent. The helper does all the effort to complete an activity 7 Patient refused to complete or attempt activity 9 The patient did not perform the activity before the current illness or injury 88 Not attempted due to Medical conditions or safety concerns Transfers (B, C, W/C) (FIM): 3 Scootin Rollin Supine to/from Sit: 4 Sit to/from Stand: 3 Bed to/from Chair: 4 sit to stand with mod assist, sliding board transfer with min assist. Patient in bed needed dressed upper and lower, sits on the side of the bed, puts on pants and stands so therapists can slide them on, sits and puts on hospital gown and then slide boards over to wheelchair. Weight Bearing Non Weight Bearing also RUE NWB Wheelchair Training Does the Pt Use a Wheelchair?: Yes Wheelchair (FIM): 2 Distance: 120', 100' Wheelchair Level of Assist: 4 Type of Wheelchair: Manual needs assist around corners and obstacles, uses shoe on left foot Exercises slide board transfer to therapy table, performs reaching exercises with cones, sit to stand from table x5, and slide board back to wheelchair and propel most of the way back to his room. Treatments WC mobility, trunk stabilization and reaching exercise, sliding board transfers, dressing, sit to stand Assessment Current Status: Poor Progress no change in mobility, poor compliance with weight bearing PT Short Term Goals Short Term Goals Time Frame: Jun 17, 2019 Transfers (B,C,W/C) (FIM): 3 Wheelchair Distance: 150'x2 PT Refuse Collector Goals Refuse Collector Goals PT Refuse Collector Goals Time Frame: Jul 01, 2019 Transfers (B,C,W/C) (FIM): 4 Sit to Lying (QC): 3 Lying-Sitting on Side/Bed(QC): 3 Sit to Stand (QC): 3 Rollin Roll Left to Right (QC): 3 Chair/Huy-wp-Xazlj Xfer(QC): 3 Car Transfer (QC): 3 Wheelchair (FIM): 6 Distance: 150' Wheelchair Level of Assist: 6 Wheel 50 feet with 2 turns (QC: 6 PT Plan Problem List Problem List: Activity Tolerance, Functional Strength, Safety, Balance, Transfer, Bed Mobility, ROM Treatment/Plan Treatment Plan: Continue Plan of Care Treatment Plan: Bed Mobility, Concurrent Therapy, Education, Functional Activity Tran, Functional Strength, Group Therapy, Gait, Safety, Therapeutic Exercise, Transfers Treatment Duration: Jul 01, 2019 Frequency: At least 5 of 7 days/Wk (IRF) Estimated Hrs Per Day: 1.5 hours per day Patient and/or Family Agrees t: Yes Safety Risks/Education Patient Education: Transfer Techniques, Reviewed Precautions, Correct Positioning, W/C Management, Safety Issues Teaching Recipient: Patient Teaching Methods: Demonstration, Discussion Response to Teaching: Reinforcement Needed Time/GCodes Time In: 1000 Time Out: 1100 Total Billed Treatment Time: 60 Total Billed Treatment 1 visit EX 15' WCH 20' FA 25' WILLIAM KOROMA PT Jun 24, 2019 10:59
--- NOTE | 2019-06-24 11:17 | Occupational Ther Daily Note ---
OT Current Status-Daily Note Subjective pt agreed to OT/ PT tx session. pt reports 7/10 pain in RUE/ RLE Mental Status/Objective Patient Orientation: Normal For Age Therapy Code Descriptions/Definitions Functional [place] Measure: 0=Not Assessed/NA 4=Minimal Assistance 1=Total Assistance 5=Supervision or Setup 2=Maximal Assistance 6=Modified [place] 3=Moderate Assistance 7=Complete [place] ADL-Treatment Therapy Code Descriptions/Definitions Functional [place] Measure: 0=Not Assessed/NA 4=Minimal Assistance 1=Total Assistance 5=Supervision or Setup 2=Maximal Assistance 6=Modified [place] 3=Moderate Assistance 7=Complete [place] Therapy Quality Codes: 6 Independent with activity with or without an assistive device 5 Patient requires set up or clean up by helper. Patient completes activity by themselves 4 Supervision or touching assist (CGA). [place] provide cues , steadying assist 3 The helper provides less than half the effort to complete the activity 2 The helper provides more than half the effort to complete the activity 1 Dependent. The helper does all the effort to complete an activity 7 Patient refused to complete or attempt activity 9 The patient did not perform the activity before the current illness or injury 88 Not attempted due to Medical conditions or safety concerns Lower Body Dressing (FIM): 1 (X 2 person assist this date. pt demo ability to thread corie LE through pants using AD ) Other Treatment Co treatment perform with PT secondary to complexity of pt deficits and increase pain with therapy. OT focus on cuing/ sequencing, UE placement and ADLs while PT focus on gross movement, SB transfers, balance, and LE placement. pt perform SB transfers from bed to w/c with MIN A. pt required VC for proper techniques as no carry through noted from week prior. pt sat on therapy mat and perform reaching exercises with cones using RUE to increase ROM for daily activities. noted pt c.o no pain during this task. pt then perform 5 sit to stands with MOD A requiring cuing to maintain WB status. pt self propelled back toward room requiring cuing for techniques and safety. pt sitting in w/c post TX session, call light, phone, and tray within reach, all needs met. Education OT Patient Education: Modified ADL techniques, Progress toward Goal/Update tx plan, Purpose of tx/functional activities, Reviewed precautions, Rehab process, Safety issues, Transfer techniques, Use of adapted equipment, W/C management Teaching Recipient: Patient Teaching Methods: Demonstration, Discussion Response to Teaching: Verbalize Understanding, Return Demonstration OT Short Term Goals Short Term Goals Eating(FIM): 6 Grooming(FIM): 4 Bathing(FIM): 3 Upper Body Dressing(FIM): 3 Lower Body Dressing(FIM): 3 Toileting(FIM): 3 Transfers (B,C,W/C) (FIM): 3 Toilet/Commode Transfer(FIM): 3 Shower Transfer(FIM): 3 Additional Short Term Goals: 1-Demonstrate ADL Tasks, 2-Verbalize Understanding, 3-ImproveStrength/Tran 1=Demonstrate adherence to instructed precautions during ADL tasks. 2=Patient will verbalize/demonstrate understanding of assistive devices/modifications for ADL. 3=Patient will improve strength/tolerance for activity to enable patient to perform ADL's. OT Director Mba Goals Director Mba Goals Time Frame: Jul 08, 2019 Eating (FIM): 6 Eating (QC): 6 Groomin Oral Hygiene (QC): 6 Bathing(FIM): 5 Bathing Location: L Arm, R Arm, L Upper Leg, R Upper Leg, L Lower Leg (including foot), R Lower Leg (including foot), Chest, Abdomen, Buttocks, Perineal Area Shower/Bathe Self (QC): 5 Upper Body Dressing(FIM): 6 Upper Body Dressing (QC): 6 Lower Body Dressing(FIM): 6 Lower Body Dressing (QC): 5 On/Off Footwear (QC): 5 Toileting(FIM): 5 Toileting Hygiene (QC): 5 Transfers (B,C,W/C) (FIM): 5 Toilet/Commode Transfer(FIM): 5 Toilet/Commode Transfer (QC): 4 Shower Transfer(FIM): 5 Additional Goals: 1-Demonstrate ADL Tasks, 2-Verbalize Understanding, 3- ImproveStrength/Tran 1=Demonstrate adherence to instructed precautions during ADL tasks. 2=Patient will verbalize/demonstrate understanding of assistive devices/modifications for ADL. 3=Patient will improve strength/tolerance for activity to enable patient to perform ADL's. OT Education/Plan Problem List/Assessment Assessment: Decreased Activ Tolerance, Decreased Safety Aware, Decreased UE Str ength, Dependent Transfers, Impaired Coordination, Impaired Funct Balance, Impaired I ADL's, Impaired Self-Care Skills, Restricted Funct UE ROM pt presents with functional limitations affecting areas of ADLs and functional transfers with then above mention deficits. pt would benefit from skilled OT services to increase independence with ADLS and functional transfers. Discharge Recommendations Plan/Recommendations: Continue POC Equpiment Recommendations-D/C: [place]k Screen Painter, Sock Aide, Dressing Stick Treatment Plan/Plan of Care Treatment,Training & Education: Yes Patient would benefit from OT for education, treatment and training to promote independence in ADL's, mobility, safety and/or upper extremity function for ADL's. Plan of Care: ADL Retraining, Caregiver Training, Functional Mobility, Group Exercise/Act as Ind, UE Funct Exercise/Act, W/C Management Training Treatment Duration: Jul 08, 2019 Frequency: At least 5 of 7 days/Wk (IRF) Estimated Hrs Per Day: 1 hour per day (60-90 minutes per day) Agreement: Yes Rehab Potential: Fair Time/GCodes Start Time: 10:00 Stop Time: 11:00 Billed Treatment Time ADL 15 minutes, 1 unit FA 45 minutes, 3 units RAPHAEL VILLAFUERTE OT Jun 24, 2019 11:17
--- NOTE | 2019-06-24 11:56 | Occupational Ther Daily Note ---
OT Current Status-Daily Note Subjective pt sitting in w/c pt required to transfer to recliner chair. Mental Status/Objective Therapy Code Descriptions/Definitions Functional [place] Measure: 0=Not Assessed/NA 4=Minimal Assistance 1=Total Assistance 5=Supervision or Setup 2=Maximal Assistance 6=Modified [place] 3=Moderate Assistance 7=Complete [place] ADL-Treatment Therapy Code Descriptions/Definitions Functional [place] Measure: 0=Not Assessed/NA 4=Minimal Assistance 1=Total Assistance 5=Supervision or Setup 2=Maximal Assistance 6=Modified [place] 3=Moderate Assistance 7=Complete [place] Therapy Quality Codes: 6 Independent with activity with or without an assistive device 5 Patient requires set up or clean up by helper. Patient completes activity by themselves 4 Supervision or touching assist (CGA). [place] provide cues , steadying assist 3 The helper provides less than half the effort to complete the activity 2 The helper provides more than half the effort to complete the activity 1 Dependent. The helper does all the effort to complete an activity 7 Patient refused to complete or attempt activity 9 The patient did not perform the activity before the current illness or injury 88 Not attempted due to Medical conditions or safety concerns Other Treatment pt required TA to position w/c in proper positioning with 3 attempts to complete indep. pt education on WBS prior to transfers. pt perform stand pivot transfer toward left side with MAX A. noted pt non compliant with WBS on RLE. post sitting in recliner chair pt perform 1 sit to stand so pillow is place under buttocks for comfort. NSG present in room. pt recliner in recliner chair, all needs met. Education OT Patient Education: Progress toward Goal/Update tx plan, Purpose of tx/functional activities, Transfer techniques Teaching Recipient: Patient Teaching Methods: Demonstration, Discussion Response to Teaching: Reinforcement Needed OT Short Term Goals Short Term Goals Eating(FIM): 6 Grooming(FIM): 4 Bathing(FIM): 3 Upper Body Dressing(FIM): 3 Lower Body Dressing(FIM): 3 Toileting(FIM): 3 Transfers (B,C,W/C) (FIM): 3 Toilet/Commode Transfer(FIM): 3 Shower Transfer(FIM): 3 Additional Short Term Goals: 1-Demonstrate ADL Tasks, 2-Verbalize Understanding, 3-ImproveStrength/Tran 1=Demonstrate adherence to instructed precautions during ADL tasks. 2=Patient will verbalize/demonstrate understanding of assistive devices/modifications for ADL. 3=Patient will improve strength/tolerance for activity to enable patient to perform ADL's. OT Snf Goals Corrections Lieutenant Goals Time Frame: Jul 08, 2019 Eating (FIM): 6 Eating (QC): 6 Groomin Oral Hygiene (QC): 6 Bathing(FIM): 5 Bathing Location: L Arm, R Arm, L Upper Leg, R Upper Leg, L Lower Leg (including foot), R Lower Leg (including foot), Chest, Abdomen, Buttocks, Perineal Area Shower/Bathe Self (QC): 5 Upper Body Dressing(FIM): 6 Upper Body Dressing (QC): 6 Lower Body Dressing(FIM): 6 Lower Body Dressing (QC): 5 On/Off Footwear (QC): 5 Toileting(FIM): 5 Toileting Hygiene (QC): 5 Transfers (B,C,W/C) (FIM): 5 Toilet/Commode Transfer(FIM): 5 Toilet/Commode Transfer (QC): 4 Shower Transfer(FIM): 5 Additional Goals: 1-Demonstrate ADL Tasks, 2-Verbalize Understanding, 3- ImproveStrength/Tran 1=Demonstrate adherence to instructed precautions during ADL tasks. 2=Patient will verbalize/demonstrate understanding of assistive devices/modifications for ADL. 3=Patient will improve strength/tolerance for activity to enable patient to perform ADL's. OT Education/Plan Problem List/Assessment Assessment: Decreased Activ Tolerance, Decreased Safety Aware, Decreased UE Strength, Dependent Transfers, Impaired Coordination, Impaired Funct Balance, Impaired I ADL's, Impaired Self-Care Skills, Restricted Funct UE ROM pt presents with functional limitations affecting areas of ADLs and functional transfers with then above mention deficits. pt would benefit from skilled OT services to increase independence with ADLS and functional transfers. Discharge Recommendations Plan/Recommendations: Continue POC Treatment Plan/Plan of Care Treatment,Training & Education: Yes Patient would benefit from OT for education, treatment and training to promote independence in ADL's, mobility, safety and/or upper extremity function for ADL's. Plan of Care: ADL Retraining, Caregiver Training, Functional Mobility, Group Exercise/Act as Ind, UE Funct Exercise/Act, W/C Management Training Treatment Duration: Jul 08, 2019 Frequency: At least 5 of 7 days/Wk (IRF) Estimated Hrs Per Day: 1 hour per day (60-90 minutes per day) Agreement: Yes Rehab Potential: Fair Time/GCodes Start Time: 11:15 Stop Time: 11:30 Billed Treatment Time FA 15 minutes, 1 unit RAPHAEL VILLAFUERTE OT Jun 24, 2019 11:56
--- NOTE | 2019-06-24 13:35 | Speech Therapy Daily Note ---
Speech Daily Progress Note Subjective Date Seen by Provider: Jun 24, 2019 Time Seen by Provider: 00:30 The patient was resting in bed watching tv when I entered his room. Objective The patient completed a series of memory tasks: comparisons and descriptions of 2 items with 90% given minimal verbal cues. Assessment Assessment Current Status: Good Progress Treatment Plan Continue Plan of Care Communication Comprehension: 5 Expression: 5 Social Cognition Social Interaction: 7 Problem Solvin Memory: 5 Speech Short Term Goals Short Term Goals Short Term Goals Patient will demonstrate simple problem solving and memory with 80% accuracy when given minimal to moderate cues Speech Maintenance And Utilities Supervisor Goals Maintenance And Utilities Supervisor Goals Patient will improve cognitive-communication necessary for safety and daily l iving tasks with minimal assist Speech-Plan Patient/Family Goals Patient/Family Goals: The patient plans on returning to his previous living situation, however it is questionable at this time if he will be able to do so due to his pain and medical needs. Treatment Plan Speech Therapy Treatment Plan: Continue Plan of Care The patient is making good progress with ST goals. Treatment Duration: Jun 28, 2019 Frequency: 5 times per week Estimated Hrs Per Day: .5 hour per day Rehab Potential: Fair Barriers to Learning: The patient has mild cognitive deficits Pt/Family Agrees to Plan: Yes Safety Risks/Education Teaching Recipient: Patient Teaching Methods: Demonstration, Discussion Response to Teaching: Verbalize Understanding, Return Demonstration Education Topics Provided: Continued safety within his room and communication of his wants/needs Time Speech Therapy Time In: 09:30 Speech Therapy Time Out: 10:00 Total Billed Time: 30 Billed Treatment Time 1, MELANIE Marino Jun 24, 2019 13:35
--- NOTE | 2019-06-24 15:01 | Therapy Group Daily Note ---
Therapy Daily Group Note Patient Education Topic Other List Below (transfer (bed/car)) Exercises LE Seated Exercise, UE Exercise Session Ratio (pt:therapist): 3:1 Goal of Session: Education on ARU Expectations, UE/LE Strengthing, Safety with Transfers Goal Met for this Session: Yes Pt Benefit of Group: Contributions to Others, Increased Functional Safety, Increased Functional Strength, Improved Cognition, Recognition of Peers, Socialization Other/Notes Pt transported via recliner to [facility] for OT/PT group. Group consisted of introductions (name, place living, hottest day memory), socialization, seated UE/LE exercises, bed transfers/mobility, car transfers and description of ARU. Pt introduced self appropriately and actively listened to peers. Pt rolled dice for amount of reps needed for seated exercises that are led by pt. Pt verbalized understanding of educational topics by own personal stories and strategies. After therapy, pt sitting in recliner with call light/phone in reach. All needs met in room. Start Time: 13:00 Stop Time: 14:05 Total Billed Treatment Time: 65 Total Billed Treatment 1-GRP CHATO JEFFERS Jun 24, 2019 15:01
[2019-06-24 17:33] VITALS: BP 121/61
[2019-06-24] MEDS: MELATONIN 3 MG TABLET PO SCH (20:38)
[2019-06-24] MEDS: POLYETHYLENE GLYCOL 17 GM (MIRALAX) PACK PO SCH (21:58)
[2019-06-25 05:03] VITALS: BP 115/61
[2019-06-25] MEDS: inSUlin ASPART (NovoLOG) 1 UNIT/0.01 ML (CHARGE PER UNIT) SC SCH ×4 (06:05→20:28)
[2019-06-25] MEDS: LEVOTHYROXINE 25 MCG (LEVOTHROID) TAB PO SCH (06:08)
[2019-06-25] MEDS: meTOprolol TARTRATE 25 MG (LOPRESSOR) TABLET PO SCH ×2 (06:08→16:50)
[2019-06-25] MEDS: LEVOTHYROXINE 112 MCG (LEVOTHROID) TAB PO SCH (06:08)
--- NOTE | 2019-06-25 08:09 | Cardiology Progress Note ---
Subjective Date Seen by Provider: Jun 25, 2019 Time Seen by Provider: 08:00 Subjective/Events-last exam Patient in bed, no new complaints. Denies any chest pain or dyspnea. Objective-Cardiology Exam Last Set of Vital Signs Vital Signs 06/20/19 06/25/19 09:00 05:03 Temp 98.0 Pulse 58 Resp 20 B/P (MAP) 115/61 (79) Pulse Ox 93 O2 Delivery Room Air O2 Flow Rate 2.00 Capillary Refill : Less Than 3 Seconds I&O Intake and Output 06/25/19 00:00 Intake Total 1750 ml Output Total 1925 ml Balance -175 ml Intake Oral 1750 ml Output Urine Total 1925 ml General: Alert, Oriented X3, No Acute Distress Neck: Supple, No JVD Lungs: Normal Air Movement Heart: Regular Rate, Normal S1, Normal S2 Abdomen: Normal Bowel Sounds, No Tenderness, No Hepatosplenomegaly Extremities: No Edema Skin: No Rashes, No Significant Lesion, Other (ecchymosis around incisions) Neuro: Sensation Intact (Right UE and Bilaterally in the LE) Psych/Mental Status: Mental Status NL A/P-Cardiology Admission Diagnosis right hip fracture right elbow fracture PAF HTN Assessment/Plan right hip fracture, secondary to fall, s/p repair, continue PT/OT right elbow fracture, secondary to fall PAF- per previous records, patient had brief episode of afib while hospitalized in 2014 in [place], no further episode documented. Amiodarone recently discontinued. Continue on Lopressor and ASA and continue to monitor. HTN -controlled, continue BP meds and continue to monitor. EKG, Echo. EKG 06/09/2019 shows sinus tachycardia. Echo 05/2019 shows LVH, Normal LVEF, DD 1, LAE. DM, management per medical services. Clinical Quality Measures DVT/VTE Risk/Contraindication: Risk Factor Score Per Nursin RFS Level Per Nursing on Admit: 4+=Very High GUMARO SANDOVAL Jun 25, 2019 08:08
[2019-06-25] MEDS: SENNA W/DOCUSATE (SENOKOT S) TABLET PO SCH ×2 (08:14→20:28)
[2019-06-25] MEDS: FUROSEMIDE 40 MG (LASIX) TAB PO SCH (08:14)
[2019-06-25] MEDS: QUEtiapine 25 MG (SEROquel) TAB IMMEDIATE RELEASE PO SCH ×2 (08:14→20:27)
[2019-06-25] MEDS: TRIAMCINOLONE 0.1% CR (KENALOG) 15 GM TUBE TOP SCH ×2 (08:15→20:29)
[2019-06-25] MEDS: DICLOFENAC 1% GEL 100 GM (VOLTAREN) TUBE TOP SCH ×3 (08:15→20:29)
[2019-06-25] MEDS: KCL 20 MEQ TAB (K-DUR) PO SCH ×2 (08:15→20:27)
[2019-06-25] MEDS: PANTOPRAZOLE 40 MG (PROTONIX) TAB PO SCH (08:15)
[2019-06-25] MEDS: ASPIRIN 81 MG CHEW (CHILDREN'S ASA) PO SCH (08:15)
--- NOTE | 2019-06-25 08:47 | PM&R Progress Note ---
Subjective HPI/CC On Admission Date Seen by Provider: Jun 25, 2019 Time Seen by Provider: 08:45 Chief complaint: Right hip fracture and right elbow fracture in need of inpatient rehab to return home History of present illness: This is a 79-year-old white male known to me from prior admissions long ago whose primary care provider is Dr. Bhat but who does not see a social media editor regularly who has a history of atrial fibrillation, diabetes mellitus and falls in the past who presented to inpatient rehab after discharge from [facility] after suffering a right femoral fracture and right elbow fracture which required surgery for repair after a fall sustained at home when he was using his leaf blower on 06/04/2019. He did not require a transfusion while hospitalized at [facility]. He has not had a bowel movement for 5 days. Pain is currently controlled with oxycodone. Patient does not usually require oxygen or CPAP machine. His prior level of functioning was without assistive device and completely independent with ADLs. I will consult Dr Regalado for Cardiology management. Subjective/Events-last exam Pain meds are being decreased. Low sugar noted. Reaching out to Dr. Donaldson orthopedics in order to lift the weight-bearing restrictions or he may need to go to a detention. Right arm much improved, Bowels are moving, Eating and drinking well. Left arm IV infiltration is looking better with Kpad DC fluid restriction since sodium level 135 Conferred with RN Reviewed therapy notes Check meds and labs Review of Systems Musculoskeletal: arm pain, leg pain Objective Exam Vital Signs Vital Signs Date Time Temp Pulse Resp B/P (MAP) Pulse Ox O2 Delivery O2 Flow Rate FiO2 06/25/19 17:08 98.0 57 20 127/66 (86) 95 Room Air 06/20/19 09:00 2.00 Capillary Refill : Less Than 3 Seconds General Appearance: No Apparent Distress, WD/WN, Chronically ill HEENT: PERRL/EOMI Neck: Normal Inspection, Non Tender, Supple Respiratory: Chest Non Tender, Lungs Clear, Normal Breath Sounds, No Accessory Muscle Use, No Respiratory Distress Cardiovascular: Regular Rate, Rhythm, No Edema, No Gallop, No JVD, No Murmur, Normal Peripheral Pulses Gastrointestinal: Normal Bowel Sounds, Soft Back: Normal Inspection, No CVA Tenderness, No Vertebral Tenderness Extremity: Normal Capillary Refill, Normal Inspection, Non Tender, Other (Changed dressing on R UE and over R femur. visualized RUE wound and RLE incision - both clean, dry without signs of infection. Significant R UE contusion. ) Neurologic/Psychiatric: Alert, Oriented x3, No Motor/Sensory Deficits, Normal Mood/Affect, chief technical officer II-XII Norm as Tested, Disoriented Skin: Ecchymosis (right upper ext, incisions no signs of infection), Other (left lower arm with mild edema and erythema from IV infiltration) Lymphatic: No Adenopathy Results/Procedures Lab Patient resulted labs reviewed. FIM Transfers Therapy Code Descriptions/Definitions Functional [place] Measure: 0=Not Assessed/NA 4=Minimal Assistance 1=Total Assistance 5=Supervision or Setup 2=Maximal Assistance 6=Modified [place] 3=Moderate Assistance 7=Complete [place] Therapy Quality Codes: 6 Independent with activity with or without an assistive device 5 Patient requires set up or clean up by helper. Patient completes activity by themselves 4 Supervision or touching assist (CGA). [place] provide cues , steadying assist 3 The helper provides less than half the effort to complete the activity 2 The helper provides more than half the effort to complete the activity 1 Dependent. The helper does all the effort to complete an activity 7 Patient refused to complete or attempt activity 9 The patient did not perform the activity before the current illness or injury 88 Not attempted due to Medical conditions or safety concerns Transfers (B, C, W/C) (FIM): 3 Scootin Rollin Roll Left to Right (QC): 1 Supine to/from Sit: 4 Sit to/from Stand: 3 Sit to Lying (QC): 1 Sit to Stand (QC): 1 Chair/[id number]-hk-Dybfj Xfer(QC): 1 Bed to/from Chair: 4 Car Transfer (QC): 1 Gait Training Does the Patient Walk?: No and Walking Goal IS indicated Wheelchair Training Does the Pt Use a Wheelchair?: Yes Wheelchair (FIM): 2 Distance: 120', 100' Wheelchair Level of Assist: 4 Type of Wheelchair: Manual Mental Status/Objective Comprehension: 5 Expression: 5 Social Interaction: 7 Problem Solvin Memory: 5 ADL-Treatment Feedin (reuqired set up ) Eating (QC): 5 Groomin (shave, brush teeth, wash wace, comb hair, wash hair, MOD I seated at sink ) Oral Hygiene (QC): 4 Bathin (required assist with buttock. pt use of LHS) Bathing Location: L Arm, R Arm, L Upper Leg, R Upper Leg, L Lower Leg (including foot), R Lower Leg (including foot), Chest, Abdomen, Perineal Area Shower/Bathe Self (QC): 1 (X 2 person assist ) Upper Extremity Dressin (reuqired cuing for proper techn. ) Upper Body Dressing (QC): 4 Lower Extremity Dressin (X 2 person assist this date. pt demo ability to thread corie LE through pants using AD ) Lower Body Dressing (QC): 1 (X2 person assist ) On/Off Footwear (QC): 4 (corie socks with useof sock aid. set up provided and cuign for techn. ) Toiletin (required assist with 3/3 toielting tasks ) Toileting Hygiene (QC): 1 Toilet/Commode Transfer: 1 (MAX A X2 person assist ) Toilet Transfer (QC): 1 Shower: 0 (NT secodanry to safety of pt ) Assessment/Plan Assessment and Plan Assess & Plan/Chief Complaint Assessment: Status post right femoral fracture on 06/04/2019 Right elbow fracture status post repair 06/04/2019 History of atrial fibrillation on amiodarone but now DC since no evidence of AF per DR Regalado Multiple falls in the past Emotional problems Hypothyroidism GERD Hypertension Diabetes mellitus insulin requiring line hyperlipidemia Anemia from acute blood loss Iron deficiency receiving iron infusions Low albumin Hyperglycemia Left arm IV infiltration- placing K-pad and improved Plan: Pain control Home meds Labs reviewed IV iron infusions completed Fall risk prevention Inpatient rehab protocols Appreciate Dr Abdullahi consultation Appreciate Dr Abdullahi managing the ortho surgical wounds Checked USG for right DVT which was negative Cognition seems to be clearing Check insulin medication Kpad to IV infiltration site which is improved (1) Right femoral fracture (2) Elbow fracture, right (3) Constipation (4) Iron deficiency (5) Fever (6) Anemia due to acute blood loss (7) Hypertension (8) Fall (9) Hypothyroidism (10) GERD without esophagitis (11) Hx of emotional problems (12) Diabetes mellitus (13) Hyponatremia (14) Serum albumin decreased (15) Cognitive decline Reviewed assessment and plan. Monitor pain which seems to be improved Incisions are improved and Dr Abdullahi has essentially signed off BM regimen to continue Reach out to Dr Donaldson to see when weight bearing restriction can be lifted (1) Right femoral fracture (2) Elbow fracture, right (3) Atrial fibrillation (4) Constipation (5) Iron deficiency (6) Fever (7) Anemia due to acute blood loss (8) Hypertension (9) Fall (10) Hypothyroidism (11) GERD without esophagitis (12) Hx of emotional problems (13) Diabetes mellitus (14) Hyponatremia (15) Serum albumin decreased (16) Cognitive decline QUIN COFFEY DO Jun 25, 2019 08:47
[2019-06-25] MEDS: LACTULOSE SYRUP 10GM/15ML (ENULOSE) 30ML UDC PO SCH ×2 (09:00→20:28)
--- NOTE | 2019-06-25 10:25 | Physical Therapy Daily Note ---
PT Daily Note-Current Subjective Patient in bed pre tx, using bedpan for a BM, has 6/10 pain in right hip and arm. Will be co-treating with OT due to poor patient mobility, strength, endurance, balance, the need to coordinate UE and LE during activity and poor weight bearing compliance. Patient will need to be showered and dressed. Appearance Patient in recliner post tx with nurse call, phone, tray, all needs met, legs elevated. Mental Status Patient Orientation: Person, Place, Situation Transfers Therapy Code Descriptions/Definitions Functional [place] Measure: 0=Not Assessed/NA 4=Minimal Assistance 1=Total Assistance 5=Supervision or Setup 2=Maximal Assistance 6=Modified [place] 3=Moderate Assistance 7=Complete [place] Therapy Quality Codes: 6 Independent with activity with or without an assistive device 5 Patient requires set up or clean up by helper. Patient completes activity by themselves 4 Supervision or touching assist (CGA). [place] provide cues , steadying assist 3 The helper provides less than half the effort to complete the activity 2 The helper provides more than half the effort to complete the activity 1 Dependent. The helper does all the effort to complete an activity 7 Patient refused to complete or attempt activity 9 The patient did not perform the activity before the current illness or injury 88 Not attempted due to Medical conditions or safety concerns Transfers (B, C, W/C) (FIM): 2 Scootin Rollin Supine to/from Sit: 4 Sit to/from Stand: 2 Bed to/from Chair: 2 Patient can stand with mod assist from elevated surfaces but needs max assist from lower surfaces. Weight Bearing Non Weight Bearing also RUE NWB Treatments Patient in bed with bedpan. Patient rolls for cleaning and then transfers to bedside with min assist, transferred to wheelchair and taken to shower in his bathroom, transferred to shower bench, undressed, showers, transfers back to wheelchair, taken into his room, dressed, stands for pulling pants up, transfers to recliner. PT works on bed mobility and transfers, standing, leaning and positioning during shower, assist with dressing, OT works on cleaning BM, dressing, bathing, UE cues and positioning. Assessment Current Status: Poor Progress No change in mobility. Patient is not complaint with his weight bearing and needs constant cues for it. PT Short Term Goals Short Term Goals Time Frame: Jun 17, 2019 Transfers (B,C,W/C) (FIM): 3 Wheelchair Distance: 120', 100' PT Inbound Customer Service Agent Goals Inbound Customer Service Agent Goals PT Inbound Customer Service Agent Goals Time Frame: Jul 01, 2019 Transfers (B,C,W/C) (FIM): 4 Sit to Lying (QC): 3 Lying-Sitting on Side/Bed(QC): 3 Sit to Stand (QC): 3 Rollin Roll Left to Right (QC): 3 Chair/Orz-pg-Fjkbj Xfer(QC): 3 Car Transfer (QC): 3 Wheelchair (FIM): 6 Distance: 150' Wheelchair Level of Assist: 6 Wheel 50 feet with 2 turns (QC: 6 PT Plan Problem List Problem List: Activity Tolerance, Functional Strength, Safety, Balance, Haro sfer, Bed Mobility, ROM Treatment/Plan Treatment Plan: Continue Plan of Care Treatment Plan: Bed Mobility, Concurrent Therapy, Education, Functional Activity Tran, Functional Strength, Group Therapy, Gait, Safety, Therapeutic Exercise, Transfers Treatment Duration: Jul 01, 2019 Frequency: At least 5 of 7 days/Wk (IRF) Estimated Hrs Per Day: 1.5 hours per day Patient and/or Family Agrees t: Yes Safety Risks/Education Patient Education: Transfer Techniques, Correct Positioning, Safety Issues Teaching Recipient: Patient Teaching Methods: Demonstration, Discussion Response to Teaching: Reinforcement Needed Time/GCodes Time In: 0915 Time Out: 1030 Total Billed Treatment Time: 75 Total Billed Treatment 1 visit FA 75' WILLIAM KOROMA PT Jun 25, 2019 10:25
--- NOTE | 2019-06-25 10:47 | Occupational Ther Daily Note ---
OT Current Status-Daily Note Subjective pt laying in bed upon OT/ PT arrival. pt complains of 6/10 pain with no activity and 10/10 pain with activity. pt agreed to OT/. PT session with focus on increasing independence with ADLS and functional transfers. throughout session pt stated "I just want to leave here, But I know I can't" pt stated many inapp ropriate words during TX session out of frustration likely related to pain. Mental Status/Objective Patient Orientation: Normal For Age Therapy Code Descriptions/Definitions Functional [place] Measure: 0=Not Assessed/NA 4=Minimal Assistance 1=Total Assistance 5=Supervision or Setup 2=Maximal Assistance 6=Modified [place] 3=Moderate Assistance 7=Complete [place] ADL-Treatment Therapy Code Descriptions/Definitions Functional [place] Measure: 0=Not Assessed/NA 4=Minimal Assistance 1=Total Assistance 5=Supervision or Setup 2=Maximal Assistance 6=Modified [place] 3=Moderate Assistance 7=Complete [place] Therapy Quality Codes: 6 Independent with activity with or without an assistive device 5 Patient requires set up or clean up by helper. Patient completes activity by themselves 4 Supervision or touching assist (CGA). [place] provide cues , steadying assist 3 The helper provides less than half the effort to complete the activity 2 The helper provides more than half the effort to complete the activity 1 Dependent. The helper does all the effort to complete an activity 7 Patient refused to complete or attempt activity 9 The patient did not perform the activity before the current illness or injury 88 Not attempted due to Medical conditions or safety concerns Eating (FIM): 6 Eating (QC): 6 Grooming (FIM): 6 (seated at sink. increase timing to open objects. wash wash, wash hands. comb hair) Oral Hygiene (QC): 6 Bathing (FIM): 4 (required assist with buttock. pt lean toward left side while therapist assist. nosed use of LHS ) Bathing Location: L Arm, R Arm, L Upper Leg, R Upper Leg, L Lower Leg (i ncluding foot), R Lower Leg (including foot), Chest, Abdomen, Perineal Area Shower/Bathe Self (QC): 3 Upper Body (FIM): 5 (increase timing and cuing for proper technqiues. noted increase frustration with task.) Upper Body Dressing (QC): 4 Lower Body Dressing (FIM): 4 (required assist to pull up pants. noted use of AE. corie socks and pants., ) Lower Body Dressing (QC): 3 On/Off Footwear (QC): 4 Toileting (FIM): 1 (required TA ) Toileting Hygiene (QC): 1 Transfers (B, C, W/C) (FIM): 2 (MAX A. required cuing from seconds perform. noted increase cuing for WBS./ ) Toilet/Commode Transfer (FIM): 2 Toilet Transfer (QC): 1 Shower Transfer(FIM): 2 (MAX A. required cuing from seconds perform. noted increase cuing for WBS./ ) OT with focus on increasing independence with ADLS, UE positioning, and use of AE., while PT focus on gross transfers seated balance, and WBS. noted pt not compliant with UE/ LE WBS requiring frequent cuing. pt stated "I'm trying not to use my arm or leg but its hard. pt education on use of sock aid one handedly. noted pt would still use RUE required cuing not to use it. pt would stated "I'M NOT USING IT." noted muscle contraction on RUE. pt education on importance of maintaining WBS. pt verbalized understanding. during LB dressing pt became visibly frustrated and bagged application support manager against wall. post OT Session pt in recliner chair, NSG to redress RUE/ RLE. call light within reach, all needs met. Education OT Patient Education: Modified ADL techniques, Progress toward Goal/Update tx plan, Purpose of tx/functional activities, Reviewed precautions, Rehab process, Safety issues, Transfer techniques, Use of adapted equipment Teaching Recipient: Patient Teaching Methods: Demonstration, Discussion Response to Teaching: Verbalize Understanding, Return Demonstration OT Short Term Goals Short Term Goals Eating(FIM): 6 Grooming(FIM): 4 Bathing(FIM): 3 Upper Body Dressing(FIM): 3 Lower Body Dressing(FIM): 3 Toileting(FIM): 3 Transfers (B,C,W/C) (FIM): 3 Toilet/Commode Transfer(FIM): 3 Shower Transfer(FIM): 3 Additional Short Term Goals: 1-Demonstrate ADL Tasks, 2-Verbalize Understanding, 3-ImproveStrength/Tran 1=Demonstrate adherence to instructed precautions during ADL tasks. 2=Patient will verbalize/demonstrate understanding of assistive devices/modifications for ADL. 3=Patient will improve strength/tolerance for activity to enable patient to perform ADL's. OT Nursing Home Goals Toddler Guide Goals Time Frame: Jul 08, 2019 Eating (FIM): 6 Eating (QC): 6 Groomin Oral Hygiene (QC): 6 Bathing(FIM): 5 Bathing Location: L Arm, R Arm, L Upper Leg, R Upper Leg, L Lower Leg (including foot), R Lower Leg (including foot), Chest, Abdomen, Buttocks, Perineal Area Shower/Bathe Self (QC): 5 Upper Body Dressing(FIM): 6 Upper Body Dressing (QC): 6 Lower Body Dressing(FIM): 6 Lower Body Dressing (QC): 5 On/Off Footwear (QC): 5 Toileting(FIM): 5 Toileting Hygiene (QC): 5 Transfers (B,C,W/C) (FIM): 5 Toilet/Commode Transfer(FIM): 5 Toilet/Commode Transfer (QC): 4 Shower Transfer(FIM): 5 Additional Goals: 1-Demonstrate ADL Tasks, 2-Verbalize Understanding, 3- ImproveStrength/Tran 1=Demonstrate adherence to instructed precautions during ADL tasks. 2=Patient will verbalize/demonstrate understanding of assistive devices/modifications for ADL. 3=Patient will improve strength/tolerance for activity to enable patient to perform ADL's. OT Education/Plan Problem List/Assessment Assessment: Decreased Activ Tolerance, Decreased Safety Aware, Decreased UE St rength, Dependent Transfers, Impaired Cognition, Impaired Funct Balance, Impaired I ADL's, Impaired Self-Care Skills, Restricted Funct UE ROM pt presents with functional limitations affecting areas of ADLs and functional transfers with then above mention deficits. pt would benefit from skilled OT services to increase independence with ADLS and functional transfers. Discharge Recommendations Plan/Recommendations: Continue POC Barriers to Progress increase pain,, pt easily frustrated Treatment Plan/Plan of Care Treatment,Training & Education: Yes Patient would benefit from OT for education, treatment and training to promote independence in ADL's, mobility, safety and/or upper extremity function for ADL's. Plan of Care: ADL Retraining, Caregiver Training, Functional Mobility, Group Exercise/Act as Ind, UE Funct Exercise/Act, W/C Management Training Treatment Duration: Jul 08, 2019 Frequency: At least 5 of 7 days/Wk (IRF) Estimated Hrs Per Day: 1 hour per day (60-90 minutes per day) Agreement: Yes Rehab Potential: Fair Time/GCodes Start Time: 09:15 Stop Time: 10:30 Billed Treatment Time ADL 75 minutes, 5 units RAPHAEL VILLAFUERTE OT Jun 25, 2019 10:47
--- NOTE | 2019-06-25 11:16 | Speech Therapy Daily Note ---
Speech Daily Progress Note Subjective Date Seen by Provider: Jun 25, 2019 Time Seen by Provider: 00:30 The patient was pleasant and attentive during the therapy session. Objective The patient completed a series of problem solving tasks related to his personal needs and safety scenarios at 80% with minimal verbal and/or visual cuing. Assessment Assessment Current Status: Good Progress Treatment Plan Continue Plan of Care Communication Comprehension: 5 Expression: 5 Social Cognition Social Interaction: 7 Problem Solvin Memory: 5 Speech Short Term Goals Short Term Goals Short Term Goals Patient will demonstrate simple problem solving and memory with 80% accuracy when given minimal to moderate cues Speech Supervisor Product Inspection Goals Supervisor Product Inspection Goals Patient will improve cognitive-communication necessary for safety and daily living tasks with minimal assist Speech-Plan Patient/Family Goals Patient/Family Goals: The patient plans on returning home to his apartment post rehab. Treatment Plan Speech Therapy Treatment Plan: Continue Plan of Care The patient is meeting his ST goals as planned. Treatment Duration: Jun 28, 2019 Frequency: 5 times per week Estimated Hrs Per Day: .5 hour per day Rehab Potential: Fair Barriers to Learning: Mild cognitive deficits Pt/Family Agrees to Plan: Yes Safety Risks/Education Teaching Recipient: Patient Teaching Methods: Demonstration, Discussion Response to Teaching: Verbalize Understanding, Return Demonstration Education Topics Provided: Continued safety in his room and upon discharge. Time Speech Therapy Time In: 08:30 Speech Therapy Time Out: 09:00 Total Billed Time: 30 Billed Treatment Time 1MELISA BETHAN[address] ST Jun 25, 2019 11:16
--- NOTE | 2019-06-25 16:44 | Cardiology Progress Note ---
Subjective Date Seen by Provider: Jun 25, 2019 Time Seen by Provider: 16:44 Subjective/Events-last exam patient is sitting in a chair, comfortable, denied any chest pain or shortness of breath Review of Systems General: No Chills, No Night Sweats, No Fatigue, No Malaise, No Appetite, No Other HEENT: No Head Aches, No Visual Changes, No Eye Pain, No Ear Pain, No Dysphasia, No Sinus Congestion, No Post Nasal Drip, No Sore Throat, No Other Pulmonary: No Dyspnea, No Cough, No Pleuritic Chest Pain, No Other Cardiovascular: No: Chest Pain, Palpitations, Orthopnea, Paroxysmal Noc. Dyspnea, Edema, Lt Headedness, Other Objective-Cardiology Exam Last Set of Vital Signs Vital Signs 06/20/19 06/25/19 06/25/19 09:00 05:03 09:00 Temp 98.0 Pulse 58 Resp 20 B/P (MAP) 115/61 (79) Pulse Ox 93 O2 Delivery Room Air O2 Flow Rate 2.00 Capillary Refill : Less Than 3 Seconds I&O Intake and Output 06/25/19 00:00 Intake Total 1750 ml Output Total 1925 ml Balance -175 ml Intake Oral 1750 ml Output Urine Total 1925 ml General: Alert, Oriented X3, No Acute Distress HEENT: Atraumatic Neck: Supple, No JVD Lungs: Normal Air Movement Heart: Regular Rate, Normal S1, Normal S2 Abdomen: Normal Bowel Sounds, No Tenderness, No Hepatosplenomegaly Extremities: No Clubbing, No Edema Skin: No Rashes, No Significant Lesion, Other (ecchymosis around incisions) Neuro: Sensation Intact (Right UE and Bilaterally in the LE) Psych/Mental Status: Mental Status NL Results Lab Laboratory Tests Test 06/24/19 16:54 06/24/19 17:29 06/24/19 21:09 06/25/19 05:17 Range/Units Glucometer 70 109 105 101 70-110 MG/DL Test 06/25/19 10:52 06/25/19 15:18 Range/Units Glucometer 181 H 170 H 70-110 MG/DL A/P-Cardiology Admission Diagnosis right hip fracture right elbow fracture PAF HTN Assessment/Plan Right hip fracture, secondary to fall, s/p repair, continue PT/OT Right elbow fracture, secondary to fall PAF- per previous records, patient had brief episode of afib while hospitalized in 2014 in [place], no further episode documented. Amiodarone recently discontinued. Continue on Lopressor and ASA and continue to monitor. HTN -controlled, continue BP meds and continue to monitor. EKG, Echo. EKG 06/09/2019 shows sinus tachycardia. Echo 05/2019 shows LVH, Normal LVEF, DD 1, LAE. DM, management per medical services. Clinical Quality Measures DVT/VTE Risk/Contraindication: Risk Factor Score Per Nursin RFS Level Per Nursing on Admit: 4+=Very High CECILIO CUMMINGS MD Jun 25, 2019 16:44
[2019-06-25 17:08] VITALS: BP 127/66
--- NOTE | 2019-06-25 17:33 | NUR ---
Multiple calls made today and on 06/24/[address] Donaldson's office at [facility] regarding x-ray images sent via cloud last . Spoke with YANET Mcintyre for Dr. Donaldson today and she explained that images did not come through and that they had not been in the office for the last week and a half. Nursing Food Handler, Mary assisted by making sure that x-ray images were again sent from Radiology via cloud. This nurse called Miguelina back to let her know that images were sent and to please call back today regarding weight bearing status for patient. No further calls received from Miguelina. Another attempt made to call Miguelina with no answer, message left with call back number.
[2019-06-25] MEDS: MELATONIN 3 MG TABLET PO SCH (20:27)
[2019-06-25] MEDS: POLYETHYLENE GLYCOL 17 GM (MIRALAX) PACK PO SCH (20:28)
[2019-06-26 05:50] VITALS: BP 156/76
[2019-06-26] MEDS: inSUlin ASPART (NovoLOG) 1 UNIT/0.01 ML (CHARGE PER UNIT) SC SCH ×4 (06:09→21:00)
[2019-06-26] MEDS: LEVOTHYROXINE 25 MCG (LEVOTHROID) TAB PO SCH (06:15)
[2019-06-26] MEDS: meTOprolol TARTRATE 25 MG (LOPRESSOR) TABLET PO SCH ×2 (06:15→16:41)
[2019-06-26] MEDS: LEVOTHYROXINE 112 MCG (LEVOTHROID) TAB PO SCH (06:15)
[2019-06-26] MEDS: FUROSEMIDE 40 MG (LASIX) TAB PO SCH (08:46)
[2019-06-26] MEDS: QUEtiapine 25 MG (SEROquel) TAB IMMEDIATE RELEASE PO SCH ×2 (08:47→21:44)
[2019-06-26] MEDS: KCL 20 MEQ TAB (K-DUR) PO SCH ×2 (08:47→21:44)
[2019-06-26] MEDS: PANTOPRAZOLE 40 MG (PROTONIX) TAB PO SCH (08:47)
[2019-06-26] MEDS: ASPIRIN 81 MG CHEW (CHILDREN'S ASA) PO SCH (08:47)
--- NOTE | 2019-06-26 08:53 | PM&R Progress Note ---
Subjective HPI/CC On Admission Date Seen by Provider: Jun 26, 2019 Time Seen by Provider: 09:00 Chief complaint: Right hip fracture and right elbow fracture in need of inpatient rehab to return home History of present illness: This is a 79-year-old white male known to me from prior admissions long ago whose primary care provider is Dr. Bhat but who does not see a training director regularly who has a history of atrial fibrillation, diabetes mellitus and falls in the past who presented to inpatient rehab after discharge from [facility] after suffering a right femoral fracture and right elbow fracture which required surgery for repair after a fall sustained at home when he was using his leaf blower on 06/04/2019. He did not require a transfusion while hospitalized at [facility]. He has not had a bowel movement for 5 days. Pain is currently controlled with oxycodone. Patient does not usually require oxygen or CPAP machine. His prior level of functioning was without assistive device and completely independent with ADLs. I will consult Dr Regalado for Cardiology management. Subjective/Events-last exam Toe touch on the right leg will be initiated. IV infiltration of the IV iron noted to be stable and no evidence of any type of need for antibiotics or surgical consult. Pain is well controlled. Eating and drinking well . Bowels are moving, Eating and drinking well. DC fluid restriction since sodium level 135 Conferred with RN Reviewed therapy notes Check meds and labs Review of Systems Musculoskeletal: arm pain, leg pain Objective Exam Vital Signs Vital Signs Date Time Temp Pulse Resp B/P (MAP) Pulse Ox O2 Delivery O2 Flow Rate FiO2 06/26/19 17:21 100.0 72 22 144/72 (96) 94 Room Air 06/20/19 09:00 2.00 Capillary Refill : Less Than 3 Seconds General Appearance: No Apparent Distress, WD/WN, Chronically ill HEENT: PERRL/EOMI Neck: Normal Inspection, Non Tender, Supple Respiratory: Chest Non Tender, Lungs Clear, Normal Breath Sounds, No Accessory Muscle Use, No Respiratory Distress Cardiovascular: Regular Rate, Rhythm, No Edema, No Gallop, No JVD, No Murmur, Normal Peripheral Pulses Gastrointestinal: Normal Bowel Sounds, Soft Back: Normal Inspection, No CVA Tenderness, No Vertebral Tenderness Extremity: Normal Capillary Refill, Normal Inspection, Non Tender, Other (C hanged dressing on R UE and over R femur. visualized RUE wound and RLE incision - both clean, dry without signs of infection. Significant R UE contusion. ) Neurologic/Psychiatric: Alert, Oriented x3, No Motor/Sensory Deficits, Normal Mood/Affect, rn appeals II-XII Norm as Tested, Disoriented Skin: Ecchymosis (right upper ext, incisions no signs of infection), Other (left lower arm with mild edema and erythema from IV infiltration) Lymphatic: No Adenopathy Results/Procedures Lab Patient resulted labs reviewed. FIM Transfers Therapy Code Descriptions/Definitions Functional [place] Measure: 0=Not Assessed/NA 4=Minimal Assistance 1=Total Assistance 5=Supervision or Setup 2=Maximal Assistance 6=Modified [place] 3=Moderate Assistance 7=Complete [place] Therapy Quality Codes: 6 Independent with activity with or without an assistive device 5 Patient requires set up or clean up by helper. Patient completes activity by themselves 4 Supervision or touching assist (CGA). [place] provide cues , steadying as sist 3 The helper provides less than half the effort to complete the activity 2 The helper provides more than half the effort to complete the activity 1 Dependent. The helper does all the effort to complete an activity 7 Patient refused to complete or attempt activity 9 The patient did not perform the activity before the current illness or injury 88 Not attempted due to Medical conditions or safety concerns Transfers (B, C, W/C) (FIM): 2 (MAX A. required cuing from seconds perform. noted increase cuing for WBS./ ) Scootin Rollin Roll Left to Right (QC): 1 Supine to/from Sit: 4 Sit to/from Stand: 2 Sit to Lying (QC): 1 Sit to Stand (QC): 1 Chair/Fmg-eo-Ozrza Xfer(QC): 1 Bed to/from Chair: 2 Car Transfer (QC): 1 Gait Training Does the Patient Walk?: No and Walking Goal IS indicated Wheelchair Training Does the Pt Use a Wheelchair?: Yes Wheelchair (FIM): 2 Distance: 120', 100' Wheelchair Level of Assist: 4 Type of Wheelchair: Manual Mental Status/Objective Comprehension: 5 Expression: 5 Social Interaction: 7 Problem Solvin Memory: 5 ADL-Treatment Feedin Eating (QC): 6 Groomin (seated at sink. increase timing to open objects. wash wash, wash hands. comb hair) Oral Hygiene (QC): 6 Bathin (required assist with buttock. pt lean toward left side while therapist assist. nosed use of LHS ) Bathing Location: L Arm, R Arm, L Upper Leg, R Upper Leg, L Lower Leg (including foot), R Lower Leg (including foot), Chest, Abdomen, Perineal Area Shower/Bathe Self (QC): 3 Upper Extremity Dressin (increase timing and cuing for proper technqiues. n oted increase frustration with task.) Upper Body Dressing (QC): 4 Lower Extremity Dressin (required assist to pull up pants. noted use of AE. corie socks and pants., ) Lower Body Dressing (QC): 3 On/Off Footwear (QC): 4 Toiletin (required TA ) Toileting Hygiene (QC): 1 Toilet/Commode Transfer: 2 Toilet Transfer (QC): 1 Shower: 2 (MAX A. required cuing from seconds perform. noted increase cuing for WBS./ ) Assessment/Plan Assessment and Plan Assess & Plan/Chief Complaint Assessment: Status post right femoral fracture on 06/04/2019 Right elbow fracture status post repair 06/04/2019 History of atrial fibrillation on amiodarone but now DC since no evidence of AF per Dr Regalado Multiple falls in the past Emotional problems Hypothyroidism GERD Hypertension Diabetes mellitus insulin requiring line hyperlipidemia Anemia from acute blood loss Iron deficiency receiving iron infusions Low albumin Hyperglycemia Left arm IV infiltration- placing K-pad and improved Plan: Pain control Home meds Labs reviewed IV iron infusions completed Fall risk prevention Inpatient rehab protocols Appreciate Dr Abdullahi consultation Appreciate Dr Abdullahi managing the ortho surgical wounds Checked USG for right DVT which was negative Cognition seems to be clearing Check insulin medication Kpad to IV infiltration site which is improved Toe touch to progress PT protocol NHP? (1) Right femoral fracture (2) Elbow fracture, right (3) Constipation (4) Iron deficiency (5) Fever (6) Anemia due to acute blood loss (7) Hypertension (8) Fall (9) Hypothyroidism (10) GERD without esophagitis (11) Hx of emotional problems (12) Diabetes mellitus (13) Hyponatremia (14) Serum albumin decreased (15) Cognitive decline Reviewed assessment and plan. Monitor pain which seems to be improved Incisions are improved and Dr Abdullahi has essentially signed off BM regimen to continue Reach out to Dr Donaldson to see when weight bearing restriction can be lifted (1) Right femoral fracture (2) Elbow fracture, right (3) Atrial fibrillation (4) Constipation (5) Iron deficiency (6) Fever (7) Anemia due to acute blood loss (8) Hypertension (9) Fall (10) Hypothyroidism (11) GERD without esophagitis (12) Hx of emotional problems (13) Diabetes mellitus (14) Hyponatremia (15) Serum albumin decreased (16) Cognitive decline QUIN COFFEY DO Jun 26, 2019 08:53
[2019-06-26] MEDS: DICLOFENAC 1% GEL 100 GM (VOLTAREN) TUBE TOP SCH ×3 (08:54→21:48)
[2019-06-26] MEDS: LACTULOSE SYRUP 10GM/15ML (ENULOSE) 30ML UDC PO SCH ×2 (08:54→21:50)
[2019-06-26] MEDS: SENNA W/DOCUSATE (SENOKOT S) TABLET PO SCH ×2 (08:54→21:50)
[2019-06-26] MEDS: TRIAMCINOLONE 0.1% CR (KENALOG) 15 GM TUBE TOP SCH ×2 (08:55→21:48)
--- NOTE | 2019-06-26 09:00 | NUR ---
MEDICATED PRIOR TO THERAPY. LEFT ARM STILL RED AND SWOLLEN DUE TO PREVIOUS IV INFILTRATED. REFUSES TO USE KPAD. DR. COFFEY AWARE OF DR. GREEN'S OFFICE NOT RETURNING MESSAGES REGARDING WEIGHT STATUS. DR. COFFEY ORDERED TOE TOUCH WEIGHT BEARING RIGHT LEG.
--- NOTE | 2019-06-26 09:24 | Speech Therapy Daily Note ---
Speech Daily Progress Note Subjective Date Seen by Provider: Jun 26, 2019 Time Seen by Provider: 00:30 The patient was resting in bed and ordering his breakfast while I was in the room. Assistance required with the telephone due to having use of only one arm. Objective The patient completed a series of problem solving tasks related to his personal needs related to his meds and meal time process at 90% with minimal verbal and/or visual cuing. Assessment Assessment Current Status: Good Progress Treatment Plan Continue Plan of Care Communication Comprehension: 5 Expression: 5 Social Cognition Social Interaction: 7 Problem Solvin Memory: 5 Speech Short Term Goals Short Term Goals Short Term Goals Patient will demonstrate simple problem solving and memory with 80% accuracy when given minimal to moderate cues Speech In Store Marketer Goals In Store Marketer Goals Patient will improve cognitive-communication necessary for safety and daily living tasks with minimal assist Speech-Plan Patient/Family Goals Patient/Family Goals: The patient is planning to return home to his apartment, however he may need more assistance than is readily available in his home. Treatment Plan Speech Therapy Treatment Plan: Continue Plan of Care The patient is processing well with memory and problem solving related to his daily needs. Safety awareness has improved. He does exhibit behaviors of requesting assistance when he is capable of doing more for himself. Treatment Duration: Jun 28, 2019 Frequency: 5 times per week Estimated Hrs Per Day: .5 hour per day Rehab Potential: Fair Barriers to Learning: Patient has decreased self reliance, depending on others to meet his needs in which he is capable of. Pt/Family Agrees to Plan: Yes Safety Risks/Education Teaching Recipient: Patient Teaching Methods: Demonstration, Discussion Response to Teaching: Verbalize Understanding, Return Demonstration Education Topics Provided: Education in meeting his own needs in a more independent manner. Time Speech Therapy Time In: 08:30 Speech Therapy Time Out: 09:00 Total Billed Time: 30 Billed Treatment Time 1, EMMANUELSID MELANIE Conner Jun 26, 2019 09:24
--- NOTE | 2019-06-26 10:48 | Physical Therapy Daily Note ---
PT Daily Note-Current Subjective Pt. agrees to Rx. C/o pain in bilat LEs as well as RU extremity repeatedly through Rx , many explatives 05/22. Nursing applied Voltaen to bilat shoulders and pt. had received pain meds previously. Pt. states he feels he has some assist at home from SO and her son. Pts. SO approaches this BALANCE CLERK after Rx and states she has discussed pts status with Dr Mascorro and requests one more week on unit and then DC to skilled near by for healing and further therapies to take pt through to a time when he can weight bear more. Pain Location: Right Location Body Site: Hip (and right shoulder) Pain Description: Ache Mental Status Patient Orientation: Normal For Age Attachments: Other-See Comments (splint rigid semio cast R UE.) Transfers Therapy Code Descriptions/Definitions Functional [place] Measure: 0=Not Assessed/NA 4=Minimal Assistance 1=Total Assistance 5=Supervision or Setup 2=Maximal Assistance 6=Modified [place] 3=Moderate Assistance 7=Complete [place] Therapy Quality Codes: 6 Independent with activity with or without an assistive device 5 Patient requires set up or clean up by helper. Patient completes activity by themselves 4 Supervision or touching assist (CGA). [place] provide cues , steadying assist 3 The helper provides less than half the effort to complete the activity 2 The helper provides more than half the effort to complete the activity 1 Dependent. The helper does all the effort to complete an activity 7 Patient refused to complete or attempt activity 9 The patient did not perform the activity before the current illness or injury 88 Not attempted due to Medical conditions or safety concerns Transfers (B, C, W/C) (FIM): 3 Scootin Rollin Supine to/from Sit: 4 Sit to/from Stand: 3 Bed to/from Chair: 3 many TRF modes trialed, ie slide brd, SPTs, squat pivot etc, Pt. declined trial of pivot board. Dr Mascorro informs that pt. can now be TTWBing RLE. Pt. utilized slide brd with mod assist as he needs assist to place it, assist to keep it in place and instruction throughout . sit to stands at parallel bars with mod assist 1-2 with pt. using "pull up and push up" , pt. informs that he has bars in place at home. Weight Bearing Touch Toe Bearing also RUE NWB Gait Training no gait at this time, wt bearing restrictions prohibitive of functional gait Exercises Supine Ex: Ankle pumps, Quad Set, Rolling, Heel Slides, Short Arc Quads, Scooting, Straight leg raise, Hip abd/add Supine Reps: 12 (pt. requires min to CGA for RLE) Treatments PT OT co Rx session providing skilled stability and balance training during TRFs . coordination of U&L extremity wt bearing restrictions and precautions . Pt. dependent for safe TRFs from all standpoints Assessment Current Status: Fair Progress Pts current weight bearing restrictions as well as pain level c/o greatly limit his level of functional mobility. Pt. will likely remain NWB/ limited wt bearing U&L extremities on R for a significant amt of time. Pt. may profit from skilled stay for bone healing time and further therapies PT Short Term Goals Short Term Goals Time Frame: Jun 17, 2019 Transfers (B,C,W/C) (FIM): 3 Wheelchair Distance: 120', 100' PT Asian Studies Program Chair Goals Asian Studies Program Chair Goals PT Asian Studies Program Chair Goals Time Frame: Jul 01, 2019 Transfers (B,C,W/C) (FIM): 4 Sit to Lying (QC): 3 Lying-Sitting on Side/Bed(QC): 3 Sit to Stand (QC): 3 Rollin Roll Left to Right (QC): 3 Chair/Gpr-dv-Njodm Xfer(QC): 3 Car Transfer (QC): 3 Wheelchair (FIM): 6 Distance: 150' Wheelchair Level of Assist: 6 Wheel 50 feet with 2 turns (QC: 6 PT Plan Treatment/Plan Treatment Plan: Continue Plan of Care Treatment Plan: Bed Mobility, Concurrent Therapy, Education, Functional Activity Tran, Functional Strength, Group Therapy, Gait, Safety, Therapeutic Exercise, Transfers Treatment Duration: Jul 01, 2019 Frequency: At least 5 of 7 days/Wk (IRF) Estimated Hrs Per Day: 1.5 hours per day Patient and/or Family Agrees t: Yes Safety Risks/Education Patient Education: Transfer Techniques, Correct Positioning, W/C Management, Disease Process, Safety Issues Teaching Recipient: Patient Teaching Methods: Demonstration, Discussion Response to Teaching: Reinforcement Needed Time/GCodes Time In: 915 Time Out: 1030 Total Billed Treatment Time: 75 Total Billed Treatment co Rx : 1, FA60m,EX15m G Codes Necessary: No GOLDIE GABRIEL BALANCE CLERK Jun 26, 2019 10:48
--- NOTE | 2019-06-26 11:22 | Occupational Ther Daily Note ---
OT Current Status-Daily Note Subjective pt laying in bed upon OT/ PT arrival. pt agreed to TX session with focus on functional mobility for daily transfers. pt reports 10/10 pain with movement. in RUE/ RLE Mental Status/Objective Therapy Code Descriptions/Definitions Functional [place] Measure: 0=Not Assessed/NA 4=Minimal Assistance 1=Total Assistance 5=Supervision or Setup 2=Maximal Assistance 6=Modified [place] 3=Moderate Assistance 7=Complete [place] ADL-Treatment Therapy Code Descriptions/Definitions Functional [place] Measure: 0=Not Assessed/NA 4=Minimal Assistance 1=Total Assistance 5=Supervision or Setup 2=Maximal Assistance 6=Modified [place] 3=Moderate Assistance 7=Complete [place] Therapy Quality Codes: 6 Independent with activity with or without an assistive device 5 Patient requires set up or clean up by helper. Patient completes activity by themselves 4 Supervision or touching assist (CGA). [place] provide cues , steadying assist 3 The helper provides less than half the effort to complete the activity 2 The helper provides more than half the effort to complete the activity 1 Dependent. The helper does all the effort to complete an activity 7 Patient refused to complete or attempt activity 9 The patient did not perform the activity before the current illness or injury 88 Not attempted due to Medical conditions or safety concerns Other Treatment OT/ PT co treatment secondary to complexity of pt deficits requiring skilled of both disciplines that a flight data technician could not complete. OT focused on UE positioning, UE ROM. strength, functional transfers, and sequencing through tasks while PT focus on pt maintaining WBS, LE positioning and gross movements. pt performed supine to sit with SBA in bed. pt education on different transferring items such as pivot board. pt stated fear of falling refusing to t rail item. pt education on proper placement of SB. pt attempted several times but unsuccessful. pt transfers from bed to w/c using SB and BRISA. pt self propelled self to TX gym with SBA. once in gym pt perform 3 sit to stand at parallel bars with MOD A. noted pt non compliant with WBS status post re education. pt stated "i'm trying, it's hard" pt then transferred to mat table and perform UE/ LE ex of corie UE / LE to increase ROM/ Strength for daily activities. pt perform stand pivot transfer back to recliner chair and MOD A X 1 person assist. pt transported back to room. call light, tray, phone within reach, all needs met. Education OT Patient Education: Progress toward Goal/Update tx plan, Purpose of tx/functional activities, Transfer techniques Teaching Recipient: Patient Teaching Methods: Demonstration, Discussion Response to Teaching: Verbalize Understanding, Return Demonstration, Reinforcement Needed OT Short Term Goals Short Term Goals Eating(FIM): 6 Grooming(FIM): 4 Bathing(FIM): 3 Upper Body Dressing(FIM): 3 Lower Body Dressing(FIM): 3 Toileting(FIM): 3 Transfers (B,C,W/C) (FIM): 3 Toilet/Commode Transfer(FIM): 3 Shower Transfer(FIM): 3 Additional Short Term Goals: 1-Demonstrate ADL Tasks, 2-Verbalize Understanding, 3-ImproveStrength/Tran 1=Demonstrate adherence to instructed precautions during ADL tasks. 2=Patient will verbalize/demonstrate understanding of assistive devices/modifications for ADL. 3=Patient will improve strength/tolerance for activity to enable patient to perform ADL's. OT Truck Rental Service Attendant Goals Group Home Goals Time Frame: Jul 08, 2019 Eating (FIM): 6 Eating (QC): 6 Groomin Oral Hygiene (QC): 6 Bathing(FIM): 5 Bathing Location: L Arm, R Arm, L Upper Leg, R Upper Leg, L Lower Leg (including foot), R Lower Leg (including foot), Chest, Abdomen, Buttocks, Perineal Area Shower/Bathe Self (QC): 5 Upper Body Dressing(FIM): 6 Upper Body Dressing (QC): 6 Lower Body Dressing(FIM): 6 Lower Body Dressing (QC): 5 On/Off Footwear (QC): 5 Toileting(FIM): 5 Toileting Hygiene (QC): 5 Transfers (B,C,W/C) (FIM): 5 Toilet/Commode Transfer(FIM): 5 Toilet/Commode Transfer (QC): 4 Shower Transfer(FIM): 5 Additional Goals: 1-Demonstrate ADL Tasks, 2-Verbalize Understanding, 3- ImproveStrength/Tran 1=Demonstrate adherence to instructed precautions during ADL tasks. 2=Patient will verbalize/demonstrate understanding of assistive devices/modifications for ADL. 3=Patient will improve strength/tolerance for activity to enable patient to perform ADL's. OT Education/Plan Problem List/Assessment Assessment: Decreased Activ Tolerance, Decreased Safety Aware, Decreased UE Strength, Dependent Transfers, Impaired Bed Mobility, Impaired Cognition, Impaired Coordination, Impaired Funct Balance, Impaired I ADL's, Impaired Self- Care Skills, Restricted Funct UE ROM pt presents with functional limitations affecting areas of ADLs and functional transfers with then above mention deficits. pt would benefit from skilled OT services to increase independence with ADLS and functional transfers. Discharge Recommendations Plan/Recommendations: Continue POC Barriers to Progress cognition, pain Treatment Plan/Plan of Care Treatment,Training & Education: Yes Patient would benefit from OT for education, treatment and training to promote independence in ADL's, mobility, safety and/or upper extremity function for ADL's. Plan of Care: ADL Retraining, Caregiver Training, Functional Mobility, Group Exercise/Act as Ind, UE Funct Exercise/Act, W/C Management Training Treatment Duration: Jul 08, 2019 Frequency: At least 5 of 7 days/Wk (IRF) Estimated Hrs Per Day: 1 hour per day (60-90 minutes per day) Agreement: Yes Rehab Potential: Fair Time/GCodes Start Time: 09:15 Stop Time: 10:30 Billed Treatment Time FA 75 minutes, 5 units RAPHAEL VILLAFUERTE OT Jun 26, 2019 11:22
--- NOTE | 2019-06-26 11:57 | Progress Note - Hospitalist ---
SADAF ACRRAN[facility] 06/26/19 1157: Progress Note Mr Caballero is feeling well this morning. No acute events overnight. Spoke with patient about increasing activity. This seems to be his biggest barrier to disposition. Dr. Coffey approved increase of activity to TTWB. Will follow up with OT/ST this afternoon following status. Assessment/Plan Assessment and Plan Assess & Plan/Chief Complaint Assessment: Status post right femoral fracture on 06/04/2019 Right elbow fracture status post repair 06/04/2019 History of atrial fibrillation on amiodarone but now DC since no evidence of AF per DR Regalado Multiple falls in the past Emotional problems Hypothyroidism GERD Hypertension Diabetes mellitus insulin requiring line hyperlipidemia Anemia from acute blood loss Iron deficiency receiving iron infusions Low albumin Hyperglycemia Left arm IV infiltration- placing K-pad and improved Plan: Pain control Home meds Labs reviewed IV iron infusions completed Fall risk prevention Inpatient rehab protocols Appreciate Dr Abdullahi consultation Appreciate Dr Abdullahi managing the ortho surgical wounds Checked USG for right DVT which was negative Cognition seems to be clearing Check insulin medication Kpad to IV infiltration site which is improved MARÍA COFFEY DO 06/26/197: Supervisory-Addendum Brief Verification & Attestation Participated in pt care: history, MDM, physical Personally performed: exam, history, MDM, supervision of care Care discussed with: Medical Student Procedures: n/a Results interpretation: Verified all documentation Verification and Attestation of Medical Student E/M Service A medical student performed and documented this service in my presence. I reviewed and verified all information documented by the medical student and made modifications to such information, when appropriate. I personally performed the physical exam and medical decision making. María Coffey, Jun 26, 2019,21:17 SAD[facility] CARRANZA [facility] Jun 26, 2019 11:57 MARÍA COFFEY DO Jun 26, 2019 21:17
--- NOTE | 2019-06-26 13:09 | Cardiology Progress Note ---
Cardiology SOAP Progress Note Subjective: no cardiac complaints. Objective: I&O/Vital Signs 06/27/19 06/27/19 06:33 09:00 Temp 97.4 Pulse 58 Resp 16 B/P (MAP) 100/63 (75) Pulse Ox 94 O2 Delivery Room Air Room Air 06/27/19 00:00 Intake Total 840 ml Output Total 1725 ml Balance -885 ml Weight (Pounds): 215 Weight (Ounces): 9.6 Weight (Calculated Kilograms): [id number] Constitutional: appears stated age, AAO x 3; No apparent distress; well- developed, well-nourished Respiratory: No accessory muscle use, No respiratory distress, No chest tender, No chest expansion is symmetric; chest is bilaterally symmetric; No lungs clear to percussion; lungs clear to auscultation; No crackles, No rhonchi, No rales, No stridor, No wheezing, No pleural rub, No other Cardiovascular: regular rate-rhythm; No irregularly irregular, No extra beats, No parasternal heave is noted, No JVD, No edema, No bradycardia, No tachycardia, No point of maximal impulse, No cardiac thrills are palpable; S1 and S2; No gallop/S3, No gallop/S4, No diastolic murmur, No systolic murmur, No friction rub, No click, No other Gastrointestional: No tender, No soft, No round, No distended, No pulsatile mass, No organomegaly, No guarding, No rebound, No tenderness, No hernia, No mass, No audible bowel sounds, No abnormal bowel sounds, No abdominal bruits, No spleenomegaly, No other Extremities: No normal range of motion, No non-tender, No normal inspection, No pedal edema, No calf tenderness, No normal capillary refill, No pelvis stable, No calf tenderness, No inflammation, No pedal edema, No slow capillary refill, No swelling, No other, No abrasion, No clubbing, No cyanosis, No ecchymosis, No laceration, No no lower extremity edema bilateral, No significant edema, No tenderness, No wound Neurologic/Psychiatric: no motor/sensory deficits, alert, normal mood/affect, oriented x 3, power is 5/5 both on sides Skin: normal color, warm/dry Results/Procedures: Labs Laboratory Tests 06/26/19 15:26: Glucometer 135H 06/26/19 20:28: Glucometer 159H 06/27/19 06:12: Glucometer 112H 06/27/19 10:55: Glucometer 173H A/P: Assessment/Dx: Mechanical fall, status post right hip surgery, Hypertension, On amiodarone, Diabetes Plan: Inpatient rehabilitation - post hip surgery. DVT prophylaxis. HTN - continue BP meds. EKG, Echo. EKG 06/09/2019 shows sinus tachycardia. Echo 05/2019 shows LVH, Normal LVEF, DD 1, LAE. I have reviewed all the information sent from Dr. Bhat's office. All EKGs have sinus rhythm. We will discontinue amiodarone. DM Thank you for your consultation. Please call me if you have any questions. Roxie Regalado MD, FACP, FACC, FSCAI, FHRS, CCDS Interventional Cardiology Cardiac Electrophysiology Vascular Medicine and Endovascular Interventions Bryon REGALADO MD Jun 26, 2019 13:09
[2019-06-26] MEDS: IBUPROFEN TABLET 200 MG TAB PO PRN (15:58)
--- NOTE | 2019-06-26 16:00 | NUR ---
Team conference Discussed team conference with patient. Recommendation is for SNF placement for continued therapies before returning home. Tentative discharge date of 06/28/19, pending acceptance from SNF. Patient is in agreement and states he thinks it is a good idea. Patient requests referral be made to [facility] [place]. Choice form signed and referral made.
--- NOTE | 2019-06-26 17:00 | NUR ---
AFEBRILE NOW. TEMPERATURE 100.0 AND LEFT-SIDED HEADACHE AT 1600 AND MEDICATED WITH MOTRIN. FEELING BETTER.
[2019-06-26 17:21] VITALS: BP 144/72
--- NOTE | 2019-06-26 19:16 | NUR ---
bedside report received from STACY HOLT, assume care of pt
--- NOTE | 2019-06-26 21:30 | NUR ---
assessments & interventions completed, see assessments & interventions, fsbs 159
[2019-06-26] MEDS: MELATONIN 3 MG TABLET PO SCH (21:44)
[2019-06-26] MEDS: POLYETHYLENE GLYCOL 17 GM (MIRALAX) PACK PO SCH (21:50)
--- NOTE | 2019-06-26 21:55 | NUR ---
c/o rt arm pain level 8/10 on numeric scale oxyir 5mg given
--- NOTE | 2019-06-26 22:20 | NUR ---
resting quietly in bed, pain level 0/10 on flacc scale
[2019-06-27] MEDS: IBUPROFEN TABLET 200 MG TAB PO PRN ×3 (00:29→15:23)
--- NOTE | 2019-06-27 00:29 | NUR ---
c/o rt hip & arm pain level 9/10 Motrin 400mg po given
--- NOTE | 2019-06-27 01:15 | NUR ---
resting quietly in bed, pain level 0/10 on flacc scale
--- NOTE | 2019-06-27 03:28 | NUR ---
c/o rt arm pain level 10/10 on numeric scale, oxyir 5mg po given
--- NOTE | 2019-06-27 04:10 | NUR ---
resting quietly in bed, pain level 0/10 on flacc scale
[2019-06-27] MEDS: inSUlin ASPART (NovoLOG) 1 UNIT/0.01 ML (CHARGE PER UNIT) SC SCH ×4 (06:00→21:55)
[2019-06-27] MEDS ORDERED: IBUPROFEN TABLET 200 MG TAB PO ONE (06:21)
[2019-06-27 06:33] VITALS: BP 100/63
[2019-06-27] MEDS: LEVOTHYROXINE 112 MCG (LEVOTHROID) TAB PO SCH (06:33)
[2019-06-27] MEDS: LEVOTHYROXINE 25 MCG (LEVOTHROID) TAB PO SCH (06:33)
--- NOTE | 2019-06-27 06:34 | NUR ---
c/o rt arm pain level 8/10 on numeric scale, Motrin 400mg given
[2019-06-27] MEDS: meTOprolol TARTRATE 25 MG (LOPRESSOR) TABLET PO SCH ×2 (06:35→17:05)
--- NOTE | 2019-06-27 07:07 | NUR ---
rates pain at 5/10 on numeric scale
--- NOTE | 2019-06-27 07:20 | NUR ---
bedside report given to STACY HOLT
[2019-06-27] MEDS: PANTOPRAZOLE 40 MG (PROTONIX) TAB PO SCH (08:12)
[2019-06-27] MEDS: FUROSEMIDE 40 MG (LASIX) TAB PO SCH (08:13)
[2019-06-27] MEDS: KCL 20 MEQ TAB (K-DUR) PO SCH ×2 (08:13→21:49)
[2019-06-27] MEDS: ASPIRIN 81 MG CHEW (CHILDREN'S ASA) PO SCH (08:14)
[2019-06-27] MEDS: QUEtiapine 25 MG (SEROquel) TAB IMMEDIATE RELEASE PO SCH ×2 (08:14→21:50)
[2019-06-27] MEDS: SENNA W/DOCUSATE (SENOKOT S) TABLET PO SCH ×2 (08:15→21:50)
[2019-06-27] MEDS: LACTULOSE SYRUP 10GM/15ML (ENULOSE) 30ML UDC PO SCH ×2 (08:15→21:49)
[2019-06-27] MEDS: DICLOFENAC 1% GEL 100 GM (VOLTAREN) TUBE TOP SCH ×3 (08:21→21:51)
[2019-06-27] MEDS: TRIAMCINOLONE 0.1% CR (KENALOG) 15 GM TUBE TOP SCH ×2 (08:21→21:51)
--- NOTE | 2019-06-27 08:23 | PM&R Progress Note ---
Subjective HPI/CC On Admission Date Seen by Provider: Jun 27, 2019 Time Seen by Provider: 08:15 Chief complaint: Right hip fracture and right elbow fracture in need of inpatient rehab to return home History of present illness: This is a 79-year-old white male known to me from prior admissions long ago whose primary care provider is Dr. Bhat but who does not see a executive communications manager regularly who has a history of atrial fibrillation, diabetes mellitus and falls in the past who presented to inpatient rehab after discharge from [facility] after suffering a right femoral fracture and right elbow fracture which required surgery for repair after a fall sustained at home when he was using his leaf blower on 06/04/2019. He did not require a transfusion while hospitalized at [facility]. He has not had a bowel movement for 5 days. Pain is currently controlled with oxycodone. Patient does not usually require oxygen or CPAP machine. His prior level of functioning was without assistive device and completely independent with ADLs. I will consult Dr Regalado for Cardiology management. Subjective/Events-last exam Going to the snf tomorrow [facility] He's really okay going to the snf since he's been over there before Temperature at 100 non specific and no complaints Increase pain so will maintain pain medication at discharge Eating and drinking well. DC fluid restriction since sodium level 135 Conferred with RN Reviewed therapy notes Check meds and labs Review of Systems Musculoskeletal: leg pain Objective Exam Vital Signs Vital Signs Date Time Temp Pulse Resp B/P (MAP) Pulse Ox O2 Delivery O2 Flow Rate FiO2 06/27/19 18:00 98.2 71 20 147/81 (103) 94 Room Air Capillary Refill : Less Than 3 Seconds General Appearance: No Apparent Distress, WD/WN, Chronically ill HEENT: PERRL/EOMI Neck: Normal Inspection, Non Tender, Supple Respiratory: Chest Non Tender, Lungs Clear, Normal Breath Sounds, No Accessory Muscle Use, No Respiratory Distress Cardiovascular: Regular Rate, Rhythm, No Edema, No Gallop, No JVD, No Murmur, Normal Peripheral Pulses Gastrointestinal: Normal Bowel Sounds, Soft Back: Normal Inspection, No CVA Tenderness, No Vertebral Tenderness Extremity: Normal Capillary Refill, Normal Inspection, Non Tender, Other (Changed dressing on R UE and over R femur. visualized RUE wound and RLE incision - both clean, dry without signs of infection. Significant R UE contusion. 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 FIM Transfers Therapy Code Descriptions/Definitions Functional [place] Measure: 0=Not Assessed/NA 4=Minimal Assistance 1=Total Assistance 5=Supervision or Setup 2=Maximal Assistance 6=Modified [place] 3=Moderate Assistance 7=Complete [place] Therapy Quality Codes: 6 Independent with activity with or without an assistive device 5 Patient requires set up or clean up by helper. Patient completes activity by themselves 4 Supervision or touching assist (CGA). [place] provide cues , steadying assist 3 The helper provides less than half the effort to complete the activity 2 The helper provides more than half the effort to complete the activity 1 Dependent. The helper does all the effort to complete an activity 7 Patient refused to complete or attempt activity 9 The patient did not perform the activity before the current illness or injury 88 Not attempted due to Medical conditions or safety concerns Transfers (B, C, W/C) (FIM): 3 Scootin Rollin Roll Left to Right (QC): 1 Supine to/from Sit: 4 Sit to/from Stand: 3 Sit to Lying (QC): 1 Sit to Stand (QC): 1 Chair/Wpq-oc-[id number] Xfer(QC): 1 Bed to/from Chair: 3 Car Transfer (QC): 1 Gait Training Does the Patient Walk?: No and Walking Goal IS indicated Wheelchair Training Does the Pt Use a Wheelchair?: Yes Wheelchair (FIM): 2 Distance: 120', 100' Wheelchair Level of Assist: 4 Type of Wheelchair: Manual Mental Status/Objective Comprehension: 5 Expression: 5 Social Interaction: 7 Problem Solvin Memory: 5 ADL-Treatment Feedin Eating (QC): 6 Groomin (seated at sink. increase timing to open objects. wash wash, wash hands. comb hair) Oral Hygiene (QC): 6 Bathin (required assist with buttock. pt lean toward left side while therapist assist. nosed use of LHS ) Bathing Location: L Arm, R Arm, L Upper Leg, R Upper Leg, L Lower Leg (including foot), R Lower Leg (including foot), Chest, Abdomen, Perineal Area Shower/Bathe Self (QC): 3 Upper Extremity Dressin (increase timing and cuing for proper technqiues. noted increase frustration with task.) Upper Body Dressing (QC): 4 Lower Extremity Dressin (required assist to pull up pants. noted use of AE. corie socks and pants., ) Lower Body Dressing (QC): 3 On/Off Footwear (QC): 4 Toiletin (required TA ) Toileting Hygiene (QC): 1 Toilet/Commode Transfer: 2 Toilet Transfer (QC): 1 Shower: 2 (MAX A. required cuing from seconds perform. noted increase cuing for WBS./ ) Assessment/Plan Assessment and Plan Assess & Plan/Chief Complaint Assessment: Status post right femoral fracture on 06/04/2019 Right elbow fracture status post repair 06/04/2019 History of atrial fibrillation on amiodarone but now DC since no evidence of AF per Dr Regalado Multiple falls in the past Emotional problems Hypothyroidism GERD Hypertension Diabetes mellitus insulin requiring line hyperlipidemia Anemia from acute blood loss Iron deficiency receiving iron infusions Low albumin Hyperglycemia Left arm IV infiltration- placing K-pad and improved Plan: Pain control Home meds Labs reviewed IV iron infusions completed Fall risk prevention Inpatient rehab protocols Appreciate Dr Abdullahi consultation Appreciate Dr Abdullahi managing the ortho surgical wounds Checked USG for right DVT which was negative Cognition seems to be clearing Check insulin medication Kpad to IV infiltration site which is improved Toe touch to progress PT protocol NHP tomorrow (1) Right femoral fracture (2) Elbow fracture, right (3) Constipation (4) Iron deficiency (5) Fever (6) Anemia due to acute blood loss (7) Hypertension (8) Fall (9) Hypothyroidism (10) GERD without esophagitis (11) Hx of emotional problems (12) Diabetes mellitus (13) Hyponatremia (14) Serum albumin decreased (15) Cognitive decline Reviewed assessment and plan. Monitor pain which seems to be improved Incisions are improved and Dr Abdullahi has essentially signed off BM regimen to continue Reach out to Dr Donaldson to see when weight bearing restriction can be lifted (1) Right femoral fracture (2) Elbow fracture, right (3) Atrial fibrillation (4) Constipation (5) Iron deficiency (6) Fever (7) Anemia due to acute blood loss (8) Hypertension (9) Fall (10) Hypothyroidism (11) GERD without esophagitis (12) Hx of emotional problems (13) Diabetes mellitus (14) Hyponatremia (15) Serum albumin decreased (16) Cognitive decline QUIN COFFEY DO Jun 27, 2019 08:23
--- NOTE | 2019-06-27 09:08 | Speech Therapy Daily Note ---
Speech Daily Progress Note Subjective Date Seen by Provider: Jun 27, 2019 Time Seen by Provider: 00:30 The patient states he has had his pain meds already so he wasn't feeling too bad. Objective The patient completed a series of problem solving tasks related to his daily needs with 84% given minimal verbal cues. Assessment Assessment Current Status: Good Progress Treatment Plan Continue Plan of Care Communication Comprehension: 7 Expression: 6 Social Cognition Social Interaction: 7 Problem Solvin Memory: 6 Speech Short Term Goals Short Term Goals Short Term Goals Patient will demonstrate simple problem solving and memory with 80% accuracy when given minimal to moderate cues Speech Permit Technician Goals Care Home Goals Patient will improve cognitive-communication necessary for safety and daily living tasks with minimal assist Speech-Plan Patient/Family Goals Patient/Family Goals: The patient is scheduled to go to a local SNF on 06/28/2019 Treatment Plan Speech Therapy Treatment Plan: Continue Plan of Care The patient will continue to receive skilled services in the SNF. Treatment Duration: Jun 28, 2019 Frequency: 5 times per week Estimated Hrs Per Day: .5 hour per day Rehab Potential: Fair Barriers to Learning: Patient has mild cognitive deficits. Pt/Family Agrees to Plan: Yes Safety Risks/Education Teaching Recipient: Patient Teaching Methods: Demonstration, Discussion Response to Teaching: Verbalize Understanding, Return Demonstration Education Topics Provided: Continued safety upon discharge to SNF Time Speech Therapy Time In: 08:30 Speech Therapy Time Out: 09:00 Total Billed Time: 30 Billed Treatment Time 1M[address] Jun 27, 2019 09:08
--- NOTE | 2019-06-27 10:07 | Progress Note - Hospitalist ---
[facility]ARRAN[facility] 06/27/19 1007: Progress Note Mr Caballero had no acute events overnight. He continues to experience pain and is partially compliant with OT/PT. He states he was in some increased discomfort with the increase in activity level. I encouraged increased participation and compliance with OT/PT as pain would continue to increase with decreased movement. We also discussed his plan to dispo to jail tomorrow. Answered questions. MARÍA MASCORRO DO 06/27/19 2135: Supervisory-Addendum Brief Verification & Attestation Participated in pt care: history, MDM, physical Personally performed: exam, history, MDM, supervision of care Care discussed with: Medical Student Procedures: n/a Results interpretation: Verified all documentation Verification and Attestation of Medical Student E/M Service A medical student performed and documented this service in my presence. I reviewed and verified all information documented by the medical student and made modifications to such information, when appropriate. I personally performed the physical exam and medical decision making. María Mascorro, Jun 27, 2019,21:35 [facility] Jun 27, 2019 10:07 MARÍA MASCORRO DO Jun 27, 2019 21:35
--- NOTE | 2019-06-27 10:08 | Physical Therapy Daily Note ---
PT Daily Note-Current Subjective Patient in bed pre tx, agrees to PT, has 9/10 pain in right leg. Will be co- treating for most of the treatment due to poor patient mobility, strength, endurance, balance, poor compliance with weight bearing limitations, the need to coordinate UE and LE during activity. Appearance Patient in recliner post tx with nurse call, phone, tray, OT finishing up with patient. Mental Status Patient Orientation: Person, Place, Situation Transfers Therapy Code Descriptions/Definitions Functional [place] Measure: 0=Not Assessed/NA 4=Minimal Assistance 1=Total Assistance 5=Supervision or Setup 2=Maximal Assistance 6=Modified [place] 3=Moderate Assistance 7=Complete [place] Therapy Quality Codes: 6 Independent with activity with or without an assistive device 5 Patient requires set up or clean up by helper. Patient completes activity by themselves 4 Supervision or touching assist (CGA). [place] provide cues , steadying assist 3 The helper provides less than half the effort to complete the activity 2 The helper provides more than half the effort to complete the activity 1 Dependent. The helper does all the effort to complete an activity 7 Patient refused to complete or attempt activity 9 The patient did not perform the activity before the current illness or injury 88 Not attempted due to Medical conditions or safety concerns Transfers (B, C, W/C) (FIM): 3 Scootin Rollin Roll Left to Right (QC): 4 Supine to/from Sit: 4 Sit to/from Stand: 3 Sit to Lying (QC): 4 Sit to Stand (QC): 2 Chair/Cri-af-Bxiev Xfer(QC): 2 Bed to/from Chair: 3 Car Transfer (QC): 2 Patient performs bed mobility and supine to sit with CGA using a leg loop to help right leg, sit to stand mod assist, transfers mod assist, car transfer mod assist using a sliding board. Patient was totally non-compliant with weight bearing, taking steps and putting all of his weight on right leg even with many many cues. Patient complained of left side pain after a transfer but later said he no longer had pain there. Patient had to transfer to wheelchair and then to shower bench, showered, stood for dressing, transferred to wheelchair, stood again for dressing, wheelchair mobility, car transfer, WC back to room and then transferred to recliner. Weight Bearing Right Lower Extremity: Right Touch Toe Bearing Left Lower Extremity: Left Full Weight Bearing also RUE NWB Wheelchair Training Does the Pt Use a Wheelchair?: Yes Wheelchair (FIM): 2 Distance: 100'x2 Wheelchair Level of Assist: 4 Wheel 50 ft with 2 turns (QC): 3 Type of Wheelchair: Manual Treatments bed mobility and transfers, shower, dressing, WC mobility, car transfer Assessment Current Status: Poor Progress no change in mobility, poor compliance with weight bearing even with constant cues and education PT Short Term Goals Short Term Goals Time Frame: Jun 17, 2019 Transfers (B,C,W/C) (FIM): 3 Wheelchair Distance: 120', 100' PT Computer Builder Goals Computer Builder Goals PT Senior Living Goals Time Frame: Jul 01, 2019 Transfers (B,C,W/C) (FIM): 4 Sit to Lying (QC): 3 Lying-Sitting on Side/Bed(QC): 3 Sit to Stand (QC): 3 Rollin Roll Left to Right (QC): 3 Chair/Awh-iu-Pocwn Xfer(QC): 3 Car Transfer (QC): 3 Wheelchair (FIM): 6 Distance: 150' Wheelchair Level of Assist: 6 Wheel 50 feet with 2 turns (QC: 6 PT Plan Problem List Problem List: Activity Tolerance, Functional Strength, Safety, Balance, Gait, Transfer, Bed Mobility, ROM Treatment/Plan Treatment Plan: Continue Plan of Care Treatment Plan: Bed Mobility, Concurrent Therapy, Education, Functional Activity Tran, Functional Strength, Group Therapy, Gait, Safety, Therapeutic Exercise, Transfers Treatment Duration: Jul 01, 2019 Frequency: At least 5 of 7 days/Wk (IRF) Estimated Hrs Per Day: 1.5 hours per day Patient and/or Family Agrees t: Yes Safety Risks/Education Patient Education: Transfer Techniques, Correct Positioning, W/C Management, Safety Issues Teaching Recipient: Patient Teaching Methods: Demonstration, Discussion Response to Teaching: Reinforcement Needed Time/GCodes Time In: 0900 Time Out: 1015 Total Billed Treatment Time: 75 Total Billed Treatment 1 visit [facility] 15' FA 60' Co-treated for 45'. PT worked on bed mobility and transfers, standing, WC m obility, sliding board transfer, car transfer, assist with dressing, OT worked on dressing, bathing, assist with transfers. WILLIAM KOROMA PT Jun 27, 2019 10:08
--- NOTE | 2019-06-27 10:14 | Occupational Ther Daily Note ---
OT Current Status-Daily Note Subjective pt in w/c upon OT arrival. pt agreed to OT/ PT TX session with focus on increasing independence with ADLS And functional transfers Mental Status/Objective Patient Orientation: Person, Place, Time, Situation Therapy Code Descriptions/Definitions Functional [place] Measure: 0=Not Assessed/NA 4=Minimal Assistance 1=Total Assistance 5=Supervision or Setup 2=Maximal Assistance 6=Modified [place] 3=Moderate Assistance 7=Complete [place] ADL-Treatment Therapy Code Descriptions/Definitions Functional [place] Measure: 0=Not Assessed/NA 4=Minimal Assistance 1=Total Assistance 5=Supervision or Setup 2=Maximal Assistance 6=Modified [place] 3=Moderate Assistance 7=Complete [place] Therapy Quality Codes: 6 Independent with activity with or without an assistive device 5 Patient requires set up or clean up by helper. Patient completes activity by themselves 4 Supervision or touching assist (CGA). [place] provide cues , steadying assist 3 The helper provides less than half the effort to complete the activity 2 The helper provides more than half the effort to complete the activity 1 Dependent. The helper does all the effort to complete an activity 7 Patient refused to complete or attempt activity 9 The patient did not perform the activity before the current illness or injury 88 Not attempted due to Medical conditions or safety concerns Eating (FIM): 6 (dentures ) Eating (QC): 6 Grooming (FIM): 6 (seated at sink in w/c ) Oral Hygiene (QC): 6 Bathing (FIM): 4 (use of SC, GB, and LHS. required assist with buttock. pt lean to left side ) Bathing Location: L Arm, R Arm, L Upper Leg, R Upper Leg, L Lower Leg (including foot), R Lower Leg (including foot), Chest, Abdomen, Perineal Area Shower/Bathe Self (QC): 4 Upper Body (FIM): 5 (set up. mandrel puller shirt ) Upper Body Dressing (QC): 5 Lower Body Dressing (FIM): 4 (corie socks, pants. requried assist to pull up pants ) Lower Body Dressing (QC): 4 On/Off Footwear (QC): 5 (set up, use of AE) Toileting (FIM): 1 (required assist with 3/3 toileting tasks) Toileting Hygiene (QC): 1 Transfers (B, C, W/C) (FIM): 3 Toilet/Commode Transfer (FIM): 3 Toilet Transfer (QC): 2 Shower Transfer(FIM): 3 PT/ PT co treatment secondary to pt complexity of deficits. OT with focus on increasing independence with ADLS, UE positioning, and use of AE., while PT focus on gross transfers seated balance, and WBS. noted pt not compliant with UE/ LE WBS requiring frequent cuing. post shower transfers pt complains of discomfort on right ribs but stated pain decrease as time past. NSG is aware. post session pt in recliner chair, call light within reach, all needs met. Other Treatment pt participated in table top game (checkers) with right UE to increase shoulder ROM for daily activity. pt c/o of no pain during tasks. pt required cuing to use right UE during tasks. Education OT Patient Education: Correct positioning, Modified ADL techniques, Progress toward Goal/Update tx plan, Purpose of tx/functional activities, Reviewed precautions, Rehab process, Safety issues, Transfer techniques, Use of adapted equipment Teaching Recipient: Patient Teaching Methods: Demonstration, Discussion Response to Teaching: Verbalize Understanding, Return Demonstration OT Short Term Goals Short Term Goals Eating(FIM): 6 Grooming(FIM): 4 Bathing(FIM): 3 Upper Body Dressing(FIM): 3 Lower Body Dressing(FIM): 3 Toileting(FIM): 3 Transfers (B,C,W/C) (FIM): 3 Toilet/Commode Transfer(FIM): 3 Shower Transfer(FIM): 3 Additional Short Term Goals: 1-Demonstrate ADL Tasks, 2-Verbalize Understanding, 3-ImproveStrength/Tran 1=Demonstrate adherence to instructed precautions during ADL tasks. 2=Patient will verbalize/demonstrate understanding of assistive devices/modifications for ADL. 3=Patient will improve strength/tolerance for activity to enable patient to perform ADL's. OT Belt Buckle Maker Goals Intermediate Goals Time Frame: Jul 08, 2019 Eating (FIM): 6 (MET ) Eating (QC): 6 (MET ) Groomin (MET ) Oral Hygiene (QC): 6 (MET ) Bathing(FIM): 5 (NOT MET ) Bathing Location: L Arm, R Arm, L Upper Leg, R Upper Leg, L Lower Leg (including foot), R Lower Leg (including foot), Chest, Abdomen, Buttocks, Perineal Area Shower/Bathe Self (QC): 5 (NOT MET ) Upper Body Dressing(FIM): 6 (NOT MET ) Upper Body Dressing (QC): 6 (NOT MET ) Lower Body Dressing(FIM): 6 (NOT MET ) Lower Body Dressing (QC): 5 (NOT MET ) On/Off Footwear (QC): 5 (MET ) Toileting(FIM): 5 (NOT MET ) Toileting Hygiene (QC): 5 (NOT MET ) Transfers (B,C,W/C) (FIM): 5 (NOT MET ) Toilet/Commode Transfer(FIM): 5 (NOT MET ) Toilet/Commode Transfer (QC): 4 (NOT MET ) Shower Transfer(FIM): 5 (NOT MET ) Additional Goals: 1-Demonstrate ADL Tasks, 2-Verbalize Understanding, 3-ImproveStrength/Tran 1=Demonstrate adherence to instructed precautions during ADL tasks. 2=Patient will verbalize/demonstrate understanding of assistive devices/modifications for ADL. 3=Patient will improve strength/tolerance for activity to enable patient to perf orm ADL's. OT Education/Plan Problem List/Assessment Assessment: Decreased Activ Tolerance, Decreased Safety Aware, Decreased UE Strength, Dependent Transfers, Impaired Bed Mobility, Impaired Cognition, Impaired Coordination, Impaired Funct Balance, Impaired I ADL's, Impaired Self- Care Skills, Restricted Funct UE ROM pt presents with functional limitations affecting areas of ADLs and functional transfers with then above mention deficits. pt would benefit from skilled OT services to increase independence with ADLS and functional transfers. Discharge Recommendations Plan/Recommendations: Continue POC Therapy D/C Recommendations: 24 hr Supervision, Penitentiary (TCU/[facility]) Barriers to Progress pain, cognition Treatment Plan/Plan of Care Patient would benefit from OT for education, treatment and training to promote independence in ADL's, mobility, safety and/or upper extremity function for ADL's. Plan of Care: ADL Retraining, Caregiver Training, Functional Mobility, Group Ex ercise/Act as Ind, UE Funct Exercise/Act, W/C Management Training Treatment Duration: Jul 08, 2019 Frequency: At least 5 of 7 days/Wk (IRF) Estimated Hrs Per Day: 1 hour per day (60-90 minutes per day) Agreement: Yes Rehab Potential: Fair Time/GCodes Start Time: 09:15 Stop Time: 10:30 Billed Treatment Time ADL 60 minutes, 4 units FA 15 minutes, 1 unit RAPHAEL VILLAFUERTE OT Jun 27, 2019 10:14
--- NOTE | 2019-06-27 10:15 | NUR ---
Pastoral care visit.
--- NOTE | 2019-06-27 12:00 | NUR ---
[facility] accepted patient for admission to their SNF and can accept patient on 06/28/19. Patient notified and verbalizes understanding of discharge plan.
--- NOTE | 2019-06-27 16:08 | Cardiology Progress Note ---
Cardiology SOAP Progress Note Subjective: no cardiac complaints. Objective: I&O/Vital Signs 06/27/19 06/27/19 06:33 09:00 Temp 97.4 Pulse 58 Resp 16 B/P (MAP) 100/63 (75) Pulse Ox 94 O2 Delivery Room Air Room Air 06/27/19 00:00 Intake Total 840 ml Output Total 1725 ml Balance -885 ml Weight (Pounds): 215 Weight (Ounces): 9.6 Weight (Calculated Kilograms): 97.355046 Constitutional: appears stated age, AAO x 3; No apparent distress; well- developed, well-nourished Respiratory: No accessory muscle use, No respiratory distress, No chest tender, No chest expansion is symmetric; chest is bilaterally symmetric; No lungs clear to percussion; lungs clear to auscultation; No crackles, No rhonchi, No rales, No stridor, No wheezing, No pleural rub, No other Cardiovascular: regular rate-rhythm; No irregularly irregular, No extra beats, No parasternal heave is noted, No JVD, No edema, No bradycardia, No tachycardia, No point of maximal impulse, No cardiac thrills are palpable; S1 and S2; No gallop/S3, No gallop/S4, No diastolic murmur, No systolic murmur, No friction rub, No click, No other Gastrointestional: No tender, No soft, No round, No distended, No pulsatile mass, No organomegaly, No guarding, No rebound, No tenderness, No hernia, No mass, No audible bowel sounds, No abnormal bowel sounds, No abdominal bruits, No spleenomegaly, No other Extremities: No normal range of motion, No non-tender, No normal inspection, No pedal edema, No calf tenderness, No normal capillary refill, No pelvis stable, No calf tenderness, No inflammation, No pedal edema, No slow capillary refill, No swelling, No other, No abrasion, No clubbing, No cyanosis, No ecchymosis, No laceration, No no lower extremity edema bilateral, No significant edema, No tenderness, No wound Neurologic/Psychiatric: no motor/sensory deficits, alert, normal mood/affect, oriented x 3, power is 5/5 both on sides Skin: normal color, warm/dry Results/Procedures: Labs Laboratory Tests 06/26/19 20:28: Glucometer 159H 06/27/19 06:12: Glucometer 112H 06/27/19 10:55: Glucometer 173H A/P: Assessment/Dx: Mechanical fall, status post right hip surgery, Hypertension, On amiodarone, Diabetes Plan: Inpatient rehabilitation - post hip surgery. DVT prophylaxis. HTN - continue BP meds. EKG, Echo. EKG 06/09/2019 shows sinus tachycardia. Echo 05/2019 shows LVH, Normal LVEF, DD 1, LAE. I have reviewed all the information sent from Dr. Bhat's office. All EKGs have sinus rhythm. We will discontinue amiodarone. DM Thank you for your consultation. Please call me if you have any questions. Roxie Regalado MD, FACP, FACC, FSCAI, FHRS, CCDS Interventional Cardiology Cardiac Electrophysiology Vascular Medicine and Endovascular Interventions Bryon REGALADO MD Jun 27, 2019 16:08
[2019-06-27 18:00] VITALS: BP 147/81
--- NOTE | 2019-06-27 18:00 | NUR ---
HAS SPENT ALL AFTERNOON IN RECLINER. INTERMITTENT COMPLAINTS OF RIB PAIN AFTER SHOWERING THIS AM. ALSO COMPLAIN LEFT-SIDED HEADACHE WHICH IMPROVED AFTER MOTRIN.
[2019-06-27] MEDS: MELATONIN 3 MG TABLET PO SCH (21:50)
[2019-06-27] MEDS: POLYETHYLENE GLYCOL 17 GM (MIRALAX) PACK PO SCH (21:50)
[2019-06-28 05:59] VITALS: BP 129/66
[2019-06-28] MEDS: LEVOTHYROXINE 25 MCG (LEVOTHROID) TAB PO SCH (06:01)
[2019-06-28] MEDS: inSUlin ASPART (NovoLOG) 1 UNIT/0.01 ML (CHARGE PER UNIT) SC SCH ×2 (06:01→11:39)
[2019-06-28] MEDS: LEVOTHYROXINE 112 MCG (LEVOTHROID) TAB PO SCH (06:01)
[2019-06-28] MEDS: meTOprolol TARTRATE 25 MG (LOPRESSOR) TABLET PO SCH (06:01)
[2019-06-28 06:43] LABS: BASOPHILS % (AUTO) 0 % (0-10); EOSINOPHILS # (AUTO) 0.2 10^3/uL (0.0-0.3); EOSINOPHILS % (AUTO) 5 % (0-10); HEMATOCRIT 34 % (40-54); LYMPHOCYTES # (AUTO) 1.5 X 10^3 (1.0-4.0); LYMPHOCYTES % (AUTO) 33 % (12-44); MEAN CORPUSCULAR HEMOGLOBIN 31 PG (25-34); MEAN CORPUSCULAR HGB CONC 32 G/DL (32-36); MEAN CORPUSCULAR VOLUME 98 FL (80-99); MEAN PLATELET VOLUME 8.9 FL (7.4-10.4); MONOCYTES # (AUTO) 0.6 X 10^3 (0.0-1.0); MONOCYTES % (AUTO) 13 % (0-12); NEUTROPHILS # (AUTO) 2.1 X 10^3 (1.8-7.8); NEUTROPHILS % (AUTO) 48 % (42-75); PLATELET COUNT 218 10^3/uL (130-400); RED CELL DISTRIBUTION WIDTH 16.4 % (10.0-14.5); WHITE BLOOD COUNT 4.5 10^3/uL (4.3-11.0)
[2019-06-28 07:13] LABS: ALANINE AMINOTRANSFERASE 7 U/L (0-55); ALBUMIN 3.3 GM/DL (3.2-4.5); ALKALINE PHOSPHATASE 91 U/L (40-136); BILIRUBIN,TOTAL 0.9 MG/DL (0.1-1.0); BUN/CREATININE RATIO 14; CALCIUM 8.7 MG/DL (8.5-10.1); CARBON DIOXIDE 25 MMOL/L (21-32); CHLORIDE 98 MMOL/L (98-107); CREATININE SERUM 0.94 MG/DL (0.60-1.30); GFR ESTIMATED > 60; GLUCOSE 83 MG/DL (70-105); SODIUM 133 MMOL/L (135-145); TOTAL PROTEIN 6.8 GM/DL (6.4-8.2)
[2019-06-28] MEDS ORDERED: OXC5T PO (08:35)
[2019-06-28] MEDS ORDERED: PANT40TA3 PO (08:35)
[2019-06-28] MEDS ORDERED: SENN-20 PO (08:35)
[2019-06-28] MEDS ORDERED: DICL100G18 TOP (08:35)
[2019-06-28] MEDS ORDERED: QUET25TA73 PO (08:35)
[2019-06-28] MEDS ORDERED: ASPI-999 PO (08:35)
[2019-06-28] MEDS ORDERED: POLY17PO31 PO (08:35)
[2019-06-28] MEDS ORDERED: POTA20TA8 PO (08:35)
[2019-06-28] MEDS ORDERED: FURO40TA4 PO (08:35)
--- NOTE | 2019-06-28 08:36 | Discharge Inst-Skilled Nursing ---
Discharge Inst-Skilled NF Reconcile Patient Problems Problems Reviewed?: Yes Patient Instructions Patient Problems: Right hip fracture Right elbow fracture Anemia Consult/Follow Up/Orders Follow Up Appt.: Dr Bhat in 1 week Skilled NF Admit to: [facility] Certification ([facility]) I certify that [facility] services are required to be given on an inpatient basis because of the above named patient's need for assisted care on a continuing basis for the conditions(s) for which he/she was receiving inpatient hospital services prior to his/her transfer to the SNF. Group Home Facility Order: Nursing Services, Pharmacist-Evaluate & Treat, Physical Therapy-Evaluate & Treat Oxygen Delivery Method: Room Air Discharge Diet: No Restrictions Daily Activity as Tolerated: Yes New & Resume Previous Orders María Mascorro Jun 28, 2019 08:35 MARÍA MASCORRO DO Jun 28, 2019 08:36
--- NOTE | 2019-06-28 08:38 | Discharge Summary ---
Diagnosis/Chief Complaint Date of Admission Jun 09, 2019 at 09:28 Date of Discharge Discharge Date: Jun 28, 2019 Discharge Diagnosis Assessment: Status post right femoral fracture on 06/04/2019 Right elbow fracture status post repair 06/04/2019 History of atrial fibrillation on amiodarone but now DC since no evidence of AF per Dr Regalado Multiple falls in the past Emotional problems Hypothyroidism GERD Hypertension Diabetes mellitus insulin requiring line hyperlipidemia Anemia from acute blood loss Iron deficiency receiving iron infusions Low albumin Hyperglycemia Left arm IV infiltration- placing K-pad and improved Plan: Pain control Home meds Labs reviewed IV iron infusions completed Fall risk prevention Inpatient rehab protocols Appreciate Dr Abdullahi consultation Appreciate Dr Abdullahi managing the ortho surgical wounds Checked USG for right DVT which was negative Cognition seems to be clearing Check insulin medication Kpad to IV infiltration site which is improved Toe touch to progress PT protocol NHP tomorrow (1) Right femoral fracture (2) Elbow fracture, right (3) Constipation (4) Iron deficiency (5) Fever (6) Anemia due to acute blood loss (7) Hypertension (8) Fall (9) Hypothyroidism (10) GERD without esophagitis (11) Hx of emotional problems (12) Diabetes mellitus (13) Hyponatremia (14) Serum albumin decreased (15) Cognitive decline Discharge Summary Discharge Physical Examination Allergies: Coded Allergies: No Known Drug Allergies (Unverified Allergy, Mild, 09/30/08) No Known Allergies (Verified Allergy, Unknown, 01/09/06) Vitals & I&Os Vital Signs Date Time Temp Pulse Resp B/P (MAP) Pulse Ox O2 Delivery O2 Flow Rate FiO2 06/28/19 12:06 06/28/19 09:00 Room Air 06/28/19 05:59 98.3 60 20 94 General Appearance: Alert, Oriented X3, Cooperative Respiratory: Clear to Auscultation, Normal Air Movement Cardiovascular: Regular Rate, Normal S1, Normal S2 Psych/Mental Status: Mental Status NL, Mood NL Hospital Course Was the Problem List Reviewed?: Yes Hospital course: patient had a lengthy IRF course for 2.5 weeks after transferred from [place] after right hip fracture and right elbow shatter fracture in need of rehab. Patient received iron infusions for severe iron def anemia. Pain was treated with Oxycodone and ileus was managed conservatively by general surgery. Labs remained stable and fluid restriction was lifted after sodium level returned to normal. Patient was limited due to weight bearing restrictions and those were lifted but patient did not progress and was placed in [facility] for skilled care at a slower pace in order to [facility] Labs (last 24 hrs) Laboratory Tests 06/09/19 10:55: White Blood Count 8.2, Red Blood Count 2.40L, Hemoglobin 7.5L, Hematocrit 23L, Mean Corpuscular Volume 94, Mean Corpuscular Hemoglobin 31, Mean Corpuscular Hemoglobin Concent 33, Red Cell Distribution Width 13.5, Platelet Count 174, Mean Platelet Volume 8.0, Neutrophils (%) (Auto) 78H, Lymphocytes (%) (Auto) 13, Monocytes (%) (Auto) 8, Eosinophils (%) (Auto) 1, Basophils (%) (Auto) 0, Neutrophils # (Auto) 6.4, Lymphocytes # (Auto) 1.1, Monocytes # (Auto) 0.6, Eosinophils # (Auto) 0.1, Basophils # (Auto) 0.0, Sodium Level 133L, Potassium Level 4.1, Chloride Level 94L, Carbon Dioxide Level 29, Anion Gap 10, Blood Urea Nitrogen 10, Creatinine 0.75, Estimat Glomerular Filtration Rate > 60, BUN/Creatinine Ratio 13, Glucose Level 207H, Calcium Level 8.4L, Corrected Calcium 9.4, Total Bilirubin 0.9, Aspartate Amino Transf (AST/SGOT) 24, Alanine Aminotransferase (ALT/SGPT) 9, Alkaline Phosphatase 56, Total Protein 5.6L, Albumin 2.7L 06/09/19 10:57: Glucometer 213H 06/09/19 10:58: Iron Level 18L 06/09/19 17:01: Glucometer 227H 06/09/19 20:42: Glucometer 196H 06/10/19 05:18: Glucometer 139H 06/10/19 11:08: Glucometer 167H 06/10/19 16:05: Glucometer 218H 06/10/19 21:56: Glucometer 136H 06/11/19 05:40: Glucometer 125H 06/11/19 10:47: Glucometer 210H 06/11/19 16:52: Glucometer 133H 06/11/19 21:01: Glucometer 91 06/12/19 05:06: White Blood Count 6.9, Red Blood Count 2.28L, Hemoglobin 7.1L, Hematocrit 22L, Mean Corpuscular Volume 96, Mean Corpuscular Hemoglobin 31, Mean Corpuscular Hemoglobin Concent 32, Red Cell Distribution Width 14.0, Platelet Count 233, Mean Platelet Volume 8.7, Neutrophils (%) (Auto) 65, Lymphocytes (%) (Auto) 21, Monocytes (%) (Auto) 10, Eosinophils (%) (Auto) 4, Basophils (%) (Auto) 0, Neutrophils # (Auto) 4.5, Lymphocytes # (Auto) 1.5, Monocytes # (Auto) 0.7, Eosinophils # (Auto) 0.3, Basophils # (Auto) 0.0, Sodium Level 138, Potassium Level 3.7, Chloride Level 100, Carbon Dioxide Level 27, Anion Gap 11, Blood Urea Nitrogen 11, Creatinine 0.76, Estimat Glomerular Filtration Rate > 60, BUN/Creatinine Ratio 14, Glucose Level 85, Calcium Level 8.5, Corrected Calcium 9.6, Total Bilirubin 0.9, Aspartate Amino Transf (AST/SGOT) 18, Alanine Aminotransferase (ALT/SGPT) 11, Alkaline Phosphatase 54, Total Protein 5.3L, Albumin 2.6L 06/12/19 06:04: Glucometer 97 06/12/19 11:09: Glucometer 99 06/12/19 15:59: Glucometer 88 06/12/19 20:56: Glucometer 80 06/13/19 05:17: Glucometer 64L 06/13/19 10:55: Glucometer 236H 06/13/19 15:39: Glucometer 170H 06/13/19 20:12: Glucometer 208H 06/14/19 05:16: Glucometer 99 06/14/19 11:01: Glucometer 165H 06/14/19 15:28: Glucometer 183H 06/14/19 21:04: Glucometer 114H 06/15/19 05:24: Glucometer 100 06/15/19 11:28: Glucometer 196H 06/15/19 15:47: Glucometer 152H 06/15/19 21:29: Glucometer 135H 06/16/19 05:46: Glucometer 126H 06/16/19 11:11: Glucometer 181H 06/16/19 15:50: Glucometer 243H 06/16/19 20:23: Glucometer 150H 06/17/19 04:39: White Blood Count 7.7, Red Blood Count 2.77L, Hemoglobin 8.6#L, Hematocrit 28L, Mean Corpuscular Volume 100H, Mean Corpuscular Hemoglobin 31, Mean Corpuscular Hemoglobin Concent 31L, Red Cell Distribution Width 17.1H, Platelet Count 359, Mean Platelet Volume 8.7, Neutrophils (%) (Auto) 65, Lymphocytes (%) (Auto) 23, Monocytes (%) (Auto) 9, Eosinophils (%) (Auto) 3, Basophils (%) (Auto) 0, Neutrophils # (Auto) 5.0, Lymphocytes # (Auto) 1.8, Monocytes # (Auto) 0.7, Eosinophils # (Auto) 0.2, Basophils # (Auto) 0.0, Sodium Level 137, Potassium Level 3.7, Chloride Level 98, Carbon Dioxide Level 28, Anion Gap 11, Blood Urea Nitrogen 7, Creatinine 0.84, Estimat Glomerular Filtration Rate > 60, BUN/Creatinine Ratio 8, Glucose Level 87, Calcium Level 8.7, Corrected Calcium 9.7, Total Bilirubin 0.8, Aspartate Amino Transf (AST/SGOT) 14, Alanine Aminotransferase (ALT/SGPT) 10, Alkaline Phosphatase 68, Total Protein 6.6, Albumin 2.8L 06/17/19 11:44: Glucometer 137H 06/17/19 15:30: Glucometer 179H 06/17/19 20:51: Glucometer 160H 06/18/19 06:09: Glucometer 108 06/18/19 10:53: Glucometer 187H 06/18/19 16:00: Glucometer 207H 06/18/19 22:08: Glucometer 181H 06/19/19 06:03: Glucometer 119H 06/19/19 11:03: Glucometer 154H 06/19/19 15:26: Glucometer 150H 06/19/19 20:31: Glucometer 141H 06/20/19 05:31: Glucometer 116H 06/20/19 10:57: Glucometer 182H 06/20/19 15:32: Glucometer 163H 06/20/19 21:03: Glucometer 160H 06/21/19 06:00: White Blood Count 7.4, Red Blood Count 3.06L, Hemoglobin 9.6L, Hematocrit 30L, Mean Corpuscular Volume 99, Mean Corpuscular Hemoglobin 31, Mean Corpuscular Hemoglobin Concent 32, Red Cell Distribution Width 17.4H, Platelet Count 314, Mean Platelet Volume 8.3, Neutrophils (%) (Auto) 62, Lymphocytes (%) (Auto) 24, Monocytes (%) (Auto) 10, Eosinophils (%) (Auto) 3, Basophils (%) (Auto) 0, Neutrophils # (Auto) 4.6, Lymphocytes # (Auto) 1.8, Monocytes # (Auto) 0.8, Eosinophils # (Auto) 0.2, Basophils # (Auto) 0.0, Sodium Level 135, Potassium Level 4.3, Chloride Level 98, Carbon Dioxide Level 29, Anion Gap 8, Blood Urea Nitrogen 10, Creatinine 0.82, Estimat Glomerular Filtration Rate > 60, BUN/Creatinine Ratio 12, Glucose Level 103, Calcium Level 9.1, Corrected Calcium 9.8, Total Bilirubin 0.9, Aspartate Amino Transf (AST/SGOT) 13, Alanine Aminotransferase (ALT/SGPT) 8, Alkaline Phosphatase 90, Total Protein 6.5, Albumin 3.1L 06/21/19 06:34: Glucometer 108 06/21/19 10:55: Glucometer 180H 06/21/19 16:19: Glucometer 178H 06/21/19 22:00: Glucometer 169H 06/22/19 05:05: Glucometer 122H 06/22/19 11:42: Glucometer 155H 06/22/19 15:40: Glucometer 145H 06/22/19 20:53: Glucometer 139H 06/23/19 06:07: Glucometer 96 06/23/19 11:21: Glucometer 169H 06/23/19 15:20: Glucometer 151H 06/23/19 20:33: Glucometer 147H 06/24/19 05:15: Glucometer 119H 06/24/19 11:31: Glucometer 223H 06/24/19 16:54: Glucometer 70 06/24/19 17:29: Glucometer 109 06/24/19 21:09: Glucometer 105 06/25/19 05:17: Glucometer 101 06/25/19 10:52: Glucometer 181H 06/25/19 15:18: Glucometer 170H 06/25/19 20:26: Glucometer 135H 06/26/19 05:45: Glucometer 121H 06/26/19 11:12: Glucometer 215H 06/26/19 15:26: Glucometer 135H 06/26/19 20:28: Glucometer 159H 06/27/19 06:12: Glucometer 112H 06/27/19 10:55: Glucometer 173H 06/27/19 15:48: Glucometer 165H 06/27/19 21:54: Glucometer 101 06/28/19 06:00: White Blood Count 4.5, Red Blood Count 3.51L, Hemoglobin 11.0L, Hematocrit 34L, Mean Corpuscular Volume 98, Mean Corpuscular Hemoglobin 31, Mean Corpuscular Hemoglobin Concent 32, Red Cell Distribution Width 16.4H, Platelet Count 218, Mean Platelet Volume 8.9, Neutrophils (%) (Auto) 48, Lymphocytes (%) (Auto) 33, Monocytes (%) (Auto) 13H, Eosinophils (%) (Auto) 5, Basophils (%) (Auto) 0, Neutrophils # (Auto) 2.1, Lymphocytes # (Auto) 1.5, Monocytes # (Auto) 0.6, Eosinophils # (Auto) 0.2, Basophils # (Auto) 0.0, Sodium Level 133L, Potassium Level 4.0, Chloride Level 98, Carbon Dioxide Level 25, Anion Gap 10, Blood Urea Nitrogen 13, Creatinine 0.94, Estimat Glomerular Filtration Rate > 60, BUN/Creatinine Ratio 14, Glucose Level 83, Glucometer 91, Calcium Level 8.7, Corrected Calcium 9.3, Total Bilirubin 0.9, Aspartate Amino Transf (AST/SGOT) 13, Alanine Aminotransferase (ALT/SGPT) 7, Alkaline Phosphatase 91, Total Protein 6.8, Albumin 3.3 06/28/19 10:55: Glucometer 135H Pending Labs Laboratory Tests 06/09/19 10:55: White Blood Count 8.2, Red Blood Count 2.40, Hemoglobin 7.5, Hematocrit 23, Mean Corpuscular Volume 94, Mean Corpuscular Hemoglobin 31, Mean Corpuscular Hemoglobin Concent 33, Red Cell Distribution Width 13.5, Platelet Count 174, Mean Platelet Volume 8.0, Neutrophils (%) (Auto) 78, Lymphocytes (%) (Auto) 13, Monocytes (%) (Auto) 8, Eosinophils (%) (Auto) 1, Basophils (%) (Auto) 0, Neutrophils # (Auto) 6.4, Lymphocytes # (Auto) 1.1, Monocytes # (Auto) 0.6, Eosinophils # (Auto) 0.1, Basophils # (Auto) 0.0, Sodium Level 133, Potassium Level 4.1, Chloride Level 94, Carbon Dioxide Level 29, Anion Gap 10, Blood Urea Nitrogen 10, Creatinine 0.75, Estimat Glomerular Filtration Rate > 60, BUN/Creatinine Ratio 13, Glucose Level 207, Calcium Level 8.4, Corrected Calcium 9.4, Total Bilirubin 0.9, Aspartate Amino Transf (AST/SGOT) 24, Alanine Aminotransferase (ALT/SGPT) 9, Alkaline Phosphatase 56, Total Protein 5.6, Albumin 2.7 06/09/19 10:57: Glucometer 213 06/09/19 10:58: Iron Level 18 06/09/19 17:01: Glucometer 227 06/09/19 20:42: Glucometer 196 06/10/19 05:18: Glucometer 139 06/10/19 11:08: Glucometer 167 06/10/19 16:05: Glucometer 218 06/10/19 21:56: Glucometer 136 06/11/19 05:40: Glucometer 125 06/11/19 10:47: Glucometer 210 06/11/19 16:52: Glucometer 133 06/11/19 21:01: Glucometer 91 06/12/19 05:06: White Blood Count 6.9, Red Blood Count 2.28, Hemoglobin 7.1, Hematocrit 22, Mean Corpuscular Volume 96, Mean Corpuscular Hemoglobin 31, Mean Corpuscular Hemoglobin Concent 32, Red Cell Distribution Width 14.0, Platelet Count 233, Mean Platelet Volume 8.7, Neutrophils (%) (Auto) 65, Lymphocytes (%) (Auto) 21, Monocytes (%) (Auto) 10, Eosinophils (%) (Auto) 4, Basophils (%) (Auto) 0, Neutrophils # (Auto) 4.5, Lymphocytes # (Auto) 1.5, Monocytes # (Auto) 0.7, Eosinophils # (Auto) 0.3, Basophils # (Auto) 0.0, Sodium Level 138, Potassium Level 3.7, Chloride Level 100, Carbon Dioxide Level 27, Anion Gap 11, Blood Urea Nitrogen 11, Creatinine 0.76, Estimat Glomerular Filtration Rate > 60, BUN/Creatinine Ratio 14, Glucose Level 85, Calcium Level 8.5, Corrected Calcium 9.6, Total Bilirubin 0.9, Aspartate Amino Transf (AST/SGOT) 18, Alanine Aminotransferase (ALT/SGPT) 11, Alkaline Phosphatase 54, Total Protein 5.3, Albumin 2.6 06/12/19 06:04: Glucometer 97 06/12/19 11:09: Glucometer 99 06/12/19 15:59: Glucometer 88 06/12/19 20:56: Glucometer 80 06/13/19 05:17: Glucometer 64 06/13/19 10:55: Glucometer 236 06/13/19 15:39: Glucometer 170 06/13/19 20:12: Glucometer 208 06/14/19 05:16: Glucometer 99 06/14/19 11:01: Glucometer 165 06/14/19 15:28: Glucometer 183 06/14/19 21:04: Glucometer 114 06/15/19 05:24: Glucometer 100 06/15/19 11:28: Glucometer 196 06/15/19 15:47: Glucometer 152 06/15/19 21:29: Glucometer 135 06/16/19 05:46: Glucometer 126 06/16/19 11:11: Glucometer 181 06/16/19 15:50: Glucometer 243 06/16/19 20:23: Glucometer 150 06/17/19 04:39: White Blood Count 7.7, Red Blood Count 2.77, Hemoglobin 8.6, Hematocrit 28, Mean Corpuscular Volume 100, Mean Corpuscular Hemoglobin 31, Mean Corpuscular Hemoglobin Concent 31, Red Cell Distribution Width 17.1, Platelet Count 359, Mean Platelet Volume 8.7, Neutrophils (%) (Auto) 65, Lymphocytes (%) (Auto) 23, Monocytes (%) (Auto) 9, Eosinophils (%) (Auto) 3, Basophils (%) (Auto) 0, Neutrophils # (Auto) 5.0, Lymphocytes # (Auto) 1.8, Monocytes # (Auto) 0.7, Eosinophils # (Auto) 0.2, Basophils # (Auto) 0.0, Sodium Level 137, Potassium Level 3.7, Chloride Level 98, Carbon Dioxide Level 28, Anion Gap 11, Blood Urea Nitrogen 7, Creatinine 0.84, Estimat Glomerular Filtration Rate > 60, BUN/Creatinine Ratio 8, Glucose Level 87, Calcium Level 8.7, Corrected Calcium 9.7, Total Bilirubin 0.8, Aspartate Amino Transf (AST/SGOT) 14, Alanine Aminotransferase (ALT/SGPT) 10, Alkaline Phosphatase 68, Total Protein 6.6, Albumin 2.8 06/17/19 11:44: Glucometer 137 06/17/19 15:30: Glucometer 179 06/17/19 20:51: Glucometer 160 06/18/19 06:09: Glucometer 108 06/18/19 10:53: Glucometer 187 06/18/19 16:00: Glucometer 207 06/18/19 22:08: Glucometer 181 06/19/19 06:03: Glucometer 119 06/19/19 11:03: Glucometer 154 06/19/19 15:26: Glucometer 150 06/19/19 20:31: Glucometer 141 06/20/19 05:31: Glucometer 116 06/20/19 10:57: Glucometer 182 06/20/19 15:32: Glucometer 163 06/20/19 21:03: Glucometer 160 06/21/19 06:00: White Blood Count 7.4, Red Blood Count 3.06, Hemoglobin 9.6, Hematocrit 30, Mean Corpuscular Volume 99, Mean Corpuscular Hemoglobin 31, Mean Corpuscular Hemoglobin Concent 32, Red Cell Distribution Width 17.4, Platelet Count 314, Mean Platelet Volume 8.3, Neutrophils (%) (Auto) 62, Lymphocytes (%) (Auto) 24, Monocytes (%) (Auto) 10, Eosinophils (%) (Auto) 3, Basophils (%) (Auto) 0, Neutrophils # (Auto) 4.6, Lymphocytes # (Auto) 1.8, Monocytes # (Auto) 0.8, Eosinophils # (Auto) 0.2, Basophils # (Auto) 0.0, Sodium Level 135, Potassium Level 4.3, Chloride Level 98, Carbon Dioxide Level 29, Anion Gap 8, Blood Urea Nitrogen 10, Creatinine 0.82, Estimat Glomerular Filtration Rate > 60, BUN/Creatinine Ratio 12, Glucose Level 103, Calcium Level 9.1, Corrected Calcium 9.8, Total Bilirubin 0.9, Aspartate Amino Transf (AST/SGOT) 13, Alanine Aminotransferase (ALT/SGPT) 8, Alkaline Phosphatase 90, Total Protein 6.5, Albumin 3.1 06/21/19 06:34: Glucometer 108 06/21/19 10:55: Glucometer 180 06/21/19 16:19: Glucometer 178 06/21/19 22:00: Glucometer 169 06/22/19 05:05: Glucometer 122 06/22/19 11:42: Glucometer 155 06/22/19 15:40: Glucometer 145 06/22/19 20:53: Glucometer 139 06/23/19 06:07: Glucometer 96 06/23/19 11:21: Glucometer 169 06/23/19 15:20: Glucometer 151 06/23/19 20:33: Glucometer 147 06/24/19 05:15: Glucometer 119 06/24/19 11:31: Glucometer 223 06/24/19 16:54: Glucometer 70 06/24/19 17:29: Glucometer 109 06/24/19 21:09: Glucometer 105 06/25/19 05:17: Glucometer 101 06/25/19 10:52: Glucometer 181 06/25/19 15:18: Glucometer 170 06/25/19 20:26: Glucometer 135 06/26/19 05:45: Glucometer 121 06/26/19 11:12: Glucometer 215 06/26/19 15:26: Glucometer 135 06/26/19 20:28: Glucometer 159 06/27/19 06:12: Glucometer 112 06/27/19 10:55: Glucometer 173 06/27/19 15:48: Glucometer 165 06/27/19 21:54: Glucometer 101 06/28/19 06:00: White Blood Count 4.5, Red Blood Count 3.51, Hemoglobin 11.0, Hematocrit 34, Mean Corpuscular Volume 98, Mean Corpuscular Hemoglobin 31, Mean Corpuscular H emoglobin Concent 32, Red Cell Distribution Width 16.4, Platelet Count 218, Mean Platelet Volume 8.9, Neutrophils (%) (Auto) 48, Lymphocytes (%) (Auto) 33, Monocytes (%) (Auto) 13, Eosinophils (%) (Auto) 5, Basophils (%) (Auto) 0, Neutrophils # (Auto) 2.1, Lymphocytes # (Auto) 1.5, Monocytes # (Auto) 0.6, Eosinophils # (Auto) 0.2, Basophils # (Auto) 0.0, Sodium Level 133, Potassium Level 4.0, Chloride Level 98, Carbon Dioxide Level 25, Anion Gap 10, Blood Urea Nitrogen 13, Creatinine 0.94, Estimat Glomerular Filtration Rate > 60, BUN/Creatinine Ratio 14, Glucose Level 83, Glucometer 91, Calcium Level 8.7, Corrected Calcium 9.3, Total Bilirubin 0.9, Aspartate Amino Transf (AST/SGOT) 13, Alanine Aminotransferase (ALT/SGPT) 7, Alkaline Phosphatase 91, Total Pro tein 6.8, Albumin 3.3 06/28/19 10:55: Glucometer 135 Discharge Home Medications: Active Scripts Active Pantoprazole Sodium 40 Mg Tablet.dr 40 Mg PO DAILY 30 Days Senna-Time S Tablet (Sennosides/Docusate Sodium) 1 Each Tablet 1 Ea PO BID 30 Days Polyethylene Glycol 3350 17 Gm Powd.pack 17 Gm PO HS 30 Days Furosemide 40 Mg Tablet 40 Mg PO DAILY 30 Days Klor-Con M20 (Potassium Chloride) 20 Meq Tab.er.prt 20 Meq PO BID 30 Days Quetiapine Fumarate 25 Mg Tablet 50 Mg PO BID 30 Days Oxyir Tablet (Oxycodone HCl) 5 Mg Tab 5-10 Mg PO Q4H PRN Voltaren (Diclofenac Sodium) 100 Gm Gel..gram. 0 Gm TOP TID 30 Days Aspirin 81 Mg Tab.chew 81 Mg PO DAILY 30 Days Reported Naproxen 500 Mg Tablet 500 Mg PO BID Cyclobenzaprine HCl 5 Mg Tablet 5 Mg PO TID PRN Metoprolol Tartrate 25 Mg Tablet 25 Mg PO BID Tolterodine Tartrate ER (Tolterodine Tartrate) 4 Mg Cap.er.24h 4 Mg PO DAILY Folic Acid 1 Mg Tablet 1 Mg PO DAILY Flomax (Tamsulosin HCl) 0.4 Mg Cap 0.4 Mg PO HS One Daily Complete (Multivitamin with Minerals) 1 Each Tablet 1 Each PO DAILY Claritin (Loratadine) 10 Mg Capsule 10 Mg PO DAILY Fish Oil 1,000 mg Capsule ([place] 3 Polyunsat Fatty Acids) 1,000 Mg Cap 1,000 Mg PO DAILY Levothyroxine Sodium 125 Mcg Tablet 125 Mcg PO DAILY Instructions to patient/family Please see electronic discharge instructions given to patient. Diagnosis/Problems Diagnosis/Problems (1) Right femoral fracture (2) Elbow fracture, right (3) Atrial fibrillation (4) Constipation (5) Iron deficiency (6) Fever (7) Anemia due to acute blood loss (8) Hypertension (9) Fall (10) Hypothyroidism (11) GERD without esophagitis (12) Hx of emotional problems (13) Diabetes mellitus (14) Hyponatremia (15) Serum albumin decreased (16) Cognitive decline Clinical Quality Measures DVT/VTE Risk/Contraindication: Risk Factor Score Per Nursin RFS Level Per Nursing on Admit: 4+=Very High QUIN COFFEY DO Jun 28, 2019 08:38
[2019-06-28] MEDS: QUEtiapine 25 MG (SEROquel) TAB IMMEDIATE RELEASE PO SCH (09:44)
[2019-06-28] MEDS: SENNA W/DOCUSATE (SENOKOT S) TABLET PO SCH (09:44)
[2019-06-28] MEDS: KCL 20 MEQ TAB (K-DUR) PO SCH (09:44)
[2019-06-28] MEDS: FUROSEMIDE 40 MG (LASIX) TAB PO SCH (09:44)
[2019-06-28] MEDS: LACTULOSE SYRUP 10GM/15ML (ENULOSE) 30ML UDC PO SCH (09:44)
[2019-06-28] MEDS: PANTOPRAZOLE 40 MG (PROTONIX) TAB PO SCH (09:44)
[2019-06-28] MEDS: ASPIRIN 81 MG CHEW (CHILDREN'S ASA) PO SCH (09:45)
[2019-06-28] MEDS: DICLOFENAC 1% GEL 100 GM (VOLTAREN) TUBE TOP SCH (09:47)
[2019-06-28] MEDS: TRIAMCINOLONE 0.1% CR (KENALOG) 15 GM TUBE TOP SCH (09:48)
--- NOTE | 2019-06-28 09:52 | Cardiology Progress Note ---
Cardiology SOAP Progress Note Subjective: Patient had a fall yesterday and hit his chest. Complaining of chest pain with movement. Objective: I&O/Vital Signs 06/28/19 05:59 Temp 98.3 Pulse 60 Resp 20 B/P (MAP) 129/66 (87) Pulse Ox 94 O2 Delivery Room Air 06/28/19 00:00 Intake Total 1200 ml Output Total 1000 ml Balance 200 ml Weight (Pounds): 215 Weight (Ounces): 9.6 Weight (Calculated Kilograms): 97.729617 Constitutional: appears stated age, AAO x 3; No apparent distress; well- developed, well-nourished Respiratory: No accessory muscle use, No respiratory distress, No chest tender, No chest expansion is symmetric; chest is bilaterally symmetric; No lungs clear to percussion; lungs clear to auscultation; No crackles, No rhonchi, No rales, No stridor, No wheezing, No pleural rub, No other Cardiovascular: regular rate-rhythm; No irregularly irregular, No extra beats, No parasternal heave is noted, No JVD, No edema, No bradycardia, No tachycardia, No point of maximal impulse, No cardiac thrills are palpable; S1 and S2; No gallop/S3, No gallop/S4, No diastolic murmur, No systolic murmur, No friction rub, No click, No other Gastrointestional: No tender, No soft, No round, No distended, No pulsatile mass, No organomegaly, No guarding, No rebound, No tenderness, No hernia, No mass, No audible bowel sounds, No abnormal bowel sounds, No abdominal bruits, No spleenomegaly, No other Extremities: No normal range of motion, No non-tender, No normal inspection, No pedal edema, No calf tenderness, No normal capillary refill, No pelvis stable, No calf tenderness, No inflammation, No pedal edema, No slow capillary refill, No swelling, No other, No abrasion, No clubbing, No cyanosis, No ecchymosis, No laceration, No no lower extremity edema bilateral, No significant edema, No tenderness, No wound Neurologic/Psychiatric: no motor/sensory deficits, alert, normal mood/affect, oriented x 3, power is 5/5 both on sides Skin: normal color, warm/dry Results/Procedures: Labs Laboratory Tests 06/27/19 10:55: Glucometer 173H 06/27/19 15:48: Glucometer 165H 06/27/19 21:54: Glucometer 101 06/28/19 06:00: Glucometer 91, White Blood Count 4.5, Red Blood Count 3.51L, Hemoglobin 11.0L, Hematocrit 34L, Mean Corpuscular Volume 98, Mean Corpuscular Hemoglobin 31, Mean Corpuscular Hemoglobin Concent 32, Red Cell Distribution Width 16.4H, Platelet Count 218, Mean Platelet Volume 8.9, Neutrophils (%) (Auto) 48, Lymphocytes (%) (Auto) 33, Monocytes (%) (Auto) 13H, Eosinophils (%) (Auto) 5, Basophils (%) (Auto) 0, Neutrophils # (Auto) 2.1, Lymphocytes # (Auto) 1.5, Monocytes # (Auto) 0.6, Eosinophils # (Auto) 0.2, Basophils # (Auto) 0.0, Sodium Level 133L, Potassium Level 4.0, Chloride Level 98, Carbon Dioxide Level 25, Anion Gap 10, Blood Urea Nitrogen 13, Creatinine 0.94, Estimat Glomerular Filtration Rate > 60, BUN/Creatinine Ratio 14, Glucose Level 83, Calcium Level 8.7, Corrected Calcium 9.3, Total Bilirubin 0.9, Aspartate Amino Transf (AST/SGOT) 13, Alanine Aminotransferase (ALT/SGPT) 7, Alkaline Phosphatase 91, Total Protein 6.8, Albumin 3.3 A/P: Assessment/Dx: Mechanical fall, chest pain with movement. status post right hip surgery, Hypertension, On amiodarone, Diabetes Plan: Inpatient rehabilitation - post hip surgery. Mechanical fall, chest pain with movement. Recommend chest x-ray to rule out rib fracture. DVT prophylaxis. HTN - continue BP meds. EKG, Echo. EKG 06/09/2019 shows sinus tachycardia. Echo 05/2019 shows LVH, Normal LVEF, DD 1, LAE. I have reviewed all the information sent from Dr. Bhat's office. All EKGs have sinus rhythm. We will discontinue amiodarone. DM Thank you for your consultation. Please call me if you have any questions. Roxie Regalado MD, FACP, FACC, FSCAI, FHRS, CCDS Interventional Cardiology Cardiac Electrophysiology Vascular Medicine and Endovascular Interventions Bryon REGALADO MD Jun 28, 2019 9:52 am
--- NOTE | 2019-06-28 10:24 | Diagnostic Imaging Report ---
Indication: Left rib pain. Time of exam: 10:10 AM Correlation is made with prior chest from 09/30/2008. Right hemidiaphragm is elevated. There is subsegmental atelectasis in both lung bases. Otherwise lungs are clear. There is no failure. No effusion or pneumothorax is seen. Impression: Bibasilar subsegmental atelectasis. Dictated by: Dictated on workstation # [id number]
--- NOTE | 2019-06-28 10:31 | Therapy Team Discharge Summary ---
Therapy Discharge Summary Discharge Recommendations Date of Discharge Therapy D/C Recommendations: 24 hr Supervision, Nursing Home (TCU/NH) Occupational Therapy Decreased Activ Tolerance, Decreased Safety Aware, Decreased UE Strength, Dependent Transfers, Impaired Bed Mobility, Impaired Cognition, Impaired Coordination, Impaired Funct Balance, Impaired I ADL's, Impaired Self-Care Skills, Restricted Funct UE ROM Speech-Language Pathology The patient was admitted to the ARU s/p hip and arm fracture due to a fall. He was evaluated with the [facility] which indicated a decreased cognitive functional level. He has received skilled ST for cognitive related to memory, problem solving and safety. He has made good progress with goals met. He is being discharged to SNF today and from ST as well. 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 [employer] Goals Supervisor [employer] Goals PT Long-Term Goals Time Frame: Jul 01, 2019 Transfers (B,C,W/C) (FIM): 4 Roll Left to Right (QC): 3 Sit to Lying (QC): 3 Lying-Sitting on Side/Bed(QC): 3 Sit to Stand (QC): 3 Chair/Ssg-yb-Xuswp Xfer(QC): 3 Car Transfer (QC): 3 Wheelchair (FIM): 6 Distance: 150' Wheelchair Level of Assist: 6 Wheel 50 feet with 2 turns (QC: 6 OT Supervisor [employer] Goals Supervisor [employer] Goals Time Frame: Jul 08, 2019 Eating (FIM): 6 (MET ) Eating (QC): 6 (MET ) Oral Hygiene (QC): 6 (MET ) Grooming(FIM): 6 (MET ) Bathing(FIM): 5 (NOT MET ) Bathing Location: L Arm, R Arm, L Upper Leg, R Upper Leg, L Lower Leg (including foot), R Lower Leg (including foot), Chest, Abdomen, Buttocks, Perineal Area Shower/Bathe Self (QC): 5 (NOT MET ) Upper Body Dressing(FIM): 6 (NOT MET ) Upper Body Dressing (QC): 6 (NOT MET ) Lower Body Dressing(FIM): 6 (NOT MET ) Lower Body Dressing (QC): 5 (NOT MET ) On/Off Footwear (QC): 5 (MET ) Toileting(FIM): 5 (NOT MET ) Toileting Hygiene (QC): 5 (NOT MET ) Transfers (B,C,W/C) (FIM): 5 (NOT MET ) Toilet/Commode Transfer(FIM): 5 (NOT MET ) Toilet/Commode Transfer (QC): 4 (NOT MET ) Shower Transfer(FIM): 5 (NOT MET ) Additional Goals: 1-Demonstrate ADL Tasks, 2-Verbalize Understanding, 3- ImproveStrength/Tran 1=Demonstrate adherence to instructed precautions during ADL tasks. 2=Patient will verbalize/demonstrate understanding of assistive devices/modifications for ADL. 3=Patient will improve strength/tolerance for activity to enable patient to perform ADL's. Speech Long-Term Goals Supervisor [employer] Goals Patient will improve cognitive-communication necessary for safety and daily living tasks with minimal assist. Met MELANIE ROJO Jun 28, 2019 10:31
--- NOTE | 2019-06-28 13:34 | Therapy Team Discharge Summary ---
Therapy Discharge Summary Discharge Recommendations Date of Discharge Jun 28, 2019 at 11:35 Therapy D/C Recommendations: 24 hr Supervision, Assisted (TCU/NH) Occupational Therapy OT has focused on increasing independence with ADLs, functional transfers, use of AE, maintaining WB status of UE/ LE , SB training, UE ROM/ strength, increasing pt overall motivation, and overall safety with functional tasks. pt biggest barrier is pain in RUE/ RLE, maintaining WBS, and decrease carry through of trained techniques. Currently pt is able to perform eating and grooming with setup, bathing BRISA secondary to requiring assist washing buttock while leaning toward left side. UE dressing with SBA, LB dressing MIN A requiring assist to pull up pants. toileting total assist, and all functional transfers using SB MIN A, stand pivot transfers MOD-MAX A. .pt does not maintain WBS during sessions and required strong VC to do so. pt d/c to SNF. pt would benefit from continued OT services to increase independence with ADLS and functional transfers. recommended d/c AE: non skid mats, shower chair, exchange clerk, sock aid, dressing stick, and w/c. Decreased Activ Tolerance, Decreased Safety Aware, Decreased UE Strength, Dependent Transfers, Impaired Bed Mobility, Impaired Cognition, Impaired Coordination, Impaired Funct Balance, Impaired I ADL's, Impaired Self-Care Skills, Restricted Funct UE ROM PT Residential Goals Amr Physician Goals PT Amr Physician Goals Time Frame: Jul 01, 2019 Transfers (B,C,W/C) (FIM): 4 Roll Left to Right (QC): 3 Sit to Lying (QC): 3 Lying-Sitting on Side/Bed(QC): 3 Sit to Stand (QC): 3 Chair/Nly-bd-Vqwpf Xfer(QC): 3 Car Transfer (QC): 3 Wheelchair (FIM): 6 Distance: 150' Wheelchair Level of Assist: 6 Wheel 50 feet with 2 turns (QC: 6 OT Amr Physician Goals Amr Physician Goals Time Frame: Jul 08, 2019 Eating (FIM): 6 (MET ) Eating (QC): 6 (MET ) Oral Hygiene (QC): 6 (MET ) Grooming(FIM): 6 (MET ) Bathing(FIM): 5 (NOT MET ) Bathing Location: L Arm, R Arm, L Upper Leg, R Upper Leg, L Lower Leg (including foot), R Lower Leg (including foot), Chest, Abdomen, Buttocks, Perineal Area Shower/Bathe Self (QC): 5 (NOT MET ) Upper Body Dressing(FIM): 6 (NOT MET ) Upper Body Dressing (QC): 6 (NOT MET ) Lower Body Dressing(FIM): 6 (NOT MET ) Lower Body Dressing (QC): 5 (NOT MET ) On/Off Footwear (QC): 5 (MET ) Toileting(FIM): 5 (NOT MET ) Toileting Hygiene (QC): 5 (NOT MET ) Transfers (B,C,W/C) (FIM): 5 (NOT MET ) Toilet/Commode Transfer(FIM): 5 (NOT MET ) Toilet/Commode Transfer (QC): 4 (NOT MET ) Shower Transfer(FIM): 5 (NOT MET ) Additional Goals: 1-Demonstrate ADL Tasks, 2-Verbalize Understanding, 3- ImproveStrength/Tran 1=Demonstrate adherence to instructed precautions during ADL tasks. 2=Patient will verbalize/demonstrate understanding of assistive devices/modifications for ADL. 3=Patient will improve strength/tolerance for activity to enable patient to perform ADL's. Speech Amr Physician Goals Residential Goals Patient will improve cognitive-communication necessary for safety and daily living tasks with minimal assist. Met RAPHAEL VILLAFUERTE OT Jun 28, 2019 13:34
--- NOTE | 2019-06-28 13:44 | Therapy Team Discharge Summary ---
Therapy Discharge Summary Discharge Recommendations Date of Discharge Jun 28, 2019 at 11:35 Therapy D/C Recommendations: 24 hr Supervision, Intermediate (TCU/NH) Physical Therapy Patient came to rehab with right femoral fracture; right elbow fracture. Upon evaluation patient was dependent for all bed mobility and transfers. Patient has been performing bed mobility and transfer training, balance and endurance training, functional strengthening, and education, and wheelchair mobility training. 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 Now, patient performs bed mobility and supine to sit with CGA using a leg loop to help right leg, sit to stand mod assist, transfers mod assist, car transfer mod assist using a sliding board, and propels a manual wheelchair 100' with min assist. Patient was discharged from this facility today and will be discharged from PT at this time. 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 Goals [facility]iary Goals PT [facility] Goals Time Frame: Jul 01, 2019 Transfers (B,C,W/C) (FIM): 4 Roll Left to Right (QC): 3 Sit to Lying (QC): 3 Lying-Sitting on Side/Bed(QC): 3 Sit to Stand (QC): 3 Chair/Laz-bj-Koaki Xfer(QC): 3 Car Transfer (QC): 3 Wheelchair (FIM): 6 Distance: 150' Wheelchair Level of Assist: 6 Wheel 50 feet with 2 turns (QC: 6 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 Goals [facility]it[facility]iary Goals Time Frame: Jul 08, 2019 Eating (FIM): 6 (MET ) Eating (QC): 6 (MET ) Oral Hygiene (QC): 6 (MET ) Grooming(FIM): 6 (MET ) Bathing(FIM): 5 (NOT MET ) Bathing Location: L Arm, R Arm, L Upper Leg, R Upper Leg, L Lower Leg (including foot), R Lower Leg (including foot), Chest, Abdomen, Buttocks, Perineal Area Shower/Bathe Self (QC): 5 (NOT MET ) Upper Body Dressing(FIM): 6 (NOT MET ) Upper Body Dressing (QC): 6 (NOT MET ) Lower Body Dressing(FIM): 6 (NOT MET ) Lower Body Dressing (QC): 5 (NOT MET ) On/Off Footwear (QC): 5 (MET ) Toileting(FIM): 5 (NOT MET ) Toileting Hygiene (QC): 5 (NOT MET ) Transfers (B,C,W/C) (FIM): 5 (NOT MET ) Toilet/Commode Transfer(FIM): 5 (NOT MET ) Toilet/Commode Transfer (QC): 4 (NOT MET ) Shower Transfer(FIM): 5 (NOT MET ) Additional Goals: 1-Demonstrate ADL Tasks, 2-Verbalize Understanding, 3- ImproveStrength/Tran 1=Demonstrate adherence to instructed precautions during ADL tasks. 2=Patient will verbalize/demonstrate understanding of assistive devices/modif ications for ADL. 3=Patient will improve strength/tolerance for activity to enable patient to perform ADL's. Speech Penitentiary Goals Penitentiary Goals Patient will improve cognitive-communication necessary for safety and daily living tasks with minimal assist. Met WILLIAM KOROMA PT Jun 28, 2019 13:44
== END 2019-06-28 11:35 | DRG 560 ==
PROVIDERS: ADMIT Internal Medicine; ATTEND Internal Medicine
DX: S72.91XD Unspecified fracture of right femur, subsequent encounter for closed fracture with routine healing (principal); S42.401D Unspecified fracture of lower end of right humerus, subsequent encounter for fracture with routine healing; K56.7 Ileus, unspecified; D62 Acute posthemorrhagic anemia; E87.1 Hypo-osmolality and hyponatremia; T80.89XD Other complications following infusion, transfusion and therapeutic injection, subsequent encounter; I48.91 Unspecified atrial fibrillation; E11.65 Type 2 diabetes mellitus with hyperglycemia; I25.10 Atherosclerotic heart disease of native coronary artery without angina pectoris; I10 Essential (primary) hypertension; E61.1 Iron deficiency; F41.9 Anxiety disorder, unspecified; F32.9 Major depressive disorder, single episode, unspecified; M54.9 Dorsalgia, unspecified; E03.9 Hypothyroidism, unspecified; K21.9 Gastro-esophageal reflux disease without esophagitis; E78.5 Hyperlipidemia, unspecified; K59.00 Constipation, unspecified; R45.89 Other symptoms and signs involving emotional state; Z87.891 Personal history of nicotine dependence; Z91.81 History of falling; W19.XXXD Unspecified fall, subsequent encounter; Y92.017 Garden or yard in single-family (private) house as the place of occurrence of the external cause; Y93.H9 Activity, other involving exterior property and land maintenance, building and construction
CPT/HCPCS: 36415; 71045; 73030; 73080; 73502; 74018; 74177; 80053; 82962; 83540; 85025; 93005; 93306

== ENCOUNTER → 2021-03-30 | Outpatient (CLI) | payer MEDICARE, OTHER ==
[~2021-03-30] MED LIST changes: +ACHD5005 PO; +ASPI-999 PO; +CYCL5TAB PO; +DICL100G18 TOP; +FOLI1TAB33 PO; +FURO20TA4 PO; +FURO40TA4 PO; +METO-333 PO; +MULT-436 PO; +NAPR-915 PO; +OXC5T PO; +PANT40TA52 PO; +POLY17PO54 PO; +POTA10TA10 PO; +POTA20TA8 PO; +QUET25TA34 PO; +SENN-20 PO; +TMSL.4C PO; +TOLT4CAP13 PO; -TRAM50TA2 PO; +TRM50T PO
== END ==
LOC: WOUNDCARE 09:02
PROVIDERS: ATTEND Surgery
DX: I87.331 Chronic venous hypertension (idiopathic) with ulcer and inflammation of right lower extremity (principal); L97.212 Non-pressure chronic ulcer of right calf with fat layer exposed; S81.801A Unspecified open wound, right lower leg, initial encounter; I70.232 Atherosclerosis of native arteries of right leg with ulceration of calf; J44.9 Chronic obstructive pulmonary disease, unspecified
CPT/HCPCS: 99213

== ENCOUNTER → 2021-04-06 | Outpatient (CLI) | payer MEDICARE, OTHER | LOC: WOUNDCARE 14:39 | PROVIDERS: ATTEND Surgery | DX: S80.11XA Contusion of right lower leg, initial encounter (principal); I87.331 Chronic venous hypertension (idiopathic) with ulcer and inflammation of right lower extremity; L97.212 Non-pressure chronic ulcer of right calf with fat layer exposed; S81.801A Unspecified open wound, right lower leg, initial encounter; I70.232 Atherosclerosis of native arteries of right leg with ulceration of calf; J44.9 Chronic obstructive pulmonary disease, unspecified; I96 Gangrene, not elsewhere classified | CPT/HCPCS: 10140; G0463 ==

== ENCOUNTER → 2021-04-13 | Outpatient (CLI) | payer MEDICARE, OTHER | LOC: WOUNDCARE 13:09 | PROVIDERS: ATTEND Surgery | DX: I87.331 Chronic venous hypertension (idiopathic) with ulcer and inflammation of right lower extremity (principal); L97.213 Non-pressure chronic ulcer of right calf with necrosis of muscle; S81.801A Unspecified open wound, right lower leg, initial encounter; S80.11XA Contusion of right lower leg, initial encounter; J44.9 Chronic obstructive pulmonary disease, unspecified; I96 Gangrene, not elsewhere classified | CPT/HCPCS: 11043; 11046; G0463 ==

== ENCOUNTER → 2021-04-27 | Outpatient (CLI) | payer MEDICARE, OTHER | LOC: WOUNDCARE 11:14 | PROVIDERS: ATTEND Surgery | DX: S80.11XA Contusion of right lower leg, initial encounter (principal); I87.331 Chronic venous hypertension (idiopathic) with ulcer and inflammation of right lower extremity; I96 Gangrene, not elsewhere classified; L97.213 Non-pressure chronic ulcer of right calf with necrosis of muscle; J44.9 Chronic obstructive pulmonary disease, unspecified | CPT/HCPCS: 11043; 11046; G0463 ==

== ENCOUNTER → 2021-05-04 | Outpatient (CLI) | payer MEDICARE, OTHER | LOC: WOUNDCARE 11:29 | PROVIDERS: ATTEND Surgery | DX: I87.331 Chronic venous hypertension (idiopathic) with ulcer and inflammation of right lower extremity (principal); L97.213 Non-pressure chronic ulcer of right calf with necrosis of muscle; S81.801A Unspecified open wound, right lower leg, initial encounter; S80.11XA Contusion of right lower leg, initial encounter; J44.9 Chronic obstructive pulmonary disease, unspecified; I96 Gangrene, not elsewhere classified | CPT/HCPCS: 11043; 11046; G0463 ==

== ENCOUNTER → 2021-05-11 | Outpatient (CLI) | payer MEDICARE, OTHER | LOC: WOUNDCARE 14:57 | PROVIDERS: ATTEND Surgery | DX: I87.331 Chronic venous hypertension (idiopathic) with ulcer and inflammation of right lower extremity (principal); I96 Gangrene, not elsewhere classified; L97.213 Non-pressure chronic ulcer of right calf with necrosis of muscle; S81.801A Unspecified open wound, right lower leg, initial encounter; S80.11XA Contusion of right lower leg, initial encounter; J44.9 Chronic obstructive pulmonary disease, unspecified | CPT/HCPCS: 11042; 11045; G0463 ==

== ENCOUNTER → 2021-05-18 | Outpatient (CLI) | payer MEDICARE, OTHER | LOC: WOUNDCARE 14:10 | PROVIDERS: ATTEND Surgery | DX: S80.11XA Contusion of right lower leg, initial encounter (principal); I87.331 Chronic venous hypertension (idiopathic) with ulcer and inflammation of right lower extremity; I96 Gangrene, not elsewhere classified; L97.213 Non-pressure chronic ulcer of right calf with necrosis of muscle; S81.801A Unspecified open wound, right lower leg, initial encounter; J44.9 Chronic obstructive pulmonary disease, unspecified | CPT/HCPCS: 11043; 11046; G0463 ==

== ENCOUNTER → 2021-05-25 | Outpatient (CLI) | payer MEDICARE, OTHER | LOC: WOUNDCARE 14:01 | PROVIDERS: ATTEND Surgery | DX: I87.331 Chronic venous hypertension (idiopathic) with ulcer and inflammation of right lower extremity (principal); I96 Gangrene, not elsewhere classified; L97.212 Non-pressure chronic ulcer of right calf with fat layer exposed; S81.801A Unspecified open wound, right lower leg, initial encounter; S80.11XA Contusion of right lower leg, initial encounter; J44.9 Chronic obstructive pulmonary disease, unspecified | CPT/HCPCS: 11042; 11045; G0463 ==

== ENCOUNTER → 2021-05-31 | Outpatient (CLI) | payer MEDICARE, OTHER | LOC: WOUNDCARE 14:10 | PROVIDERS: ATTEND Surgery | DX: I87.331 Chronic venous hypertension (idiopathic) with ulcer and inflammation of right lower extremity (principal); L97.212 Non-pressure chronic ulcer of right calf with fat layer exposed; S81.801A Unspecified open wound, right lower leg, initial encounter; S80.11XA Contusion of right lower leg, initial encounter; J44.9 Chronic obstructive pulmonary disease, unspecified; I96 Gangrene, not elsewhere classified | CPT/HCPCS: 11042; 11045; G0463 ==

== ENCOUNTER → 2021-06-07 | Outpatient (CLI) | payer MEDICARE, OTHER ==
[~2021-06-07] MED LIST changes: -TOLT4CAP13 PO; +TOLT4CAP26 PO
== END ==
LOC: WOUNDCARE 14:33
PROVIDERS: ATTEND Surgery
DX: S80.11XA Contusion of right lower leg, initial encounter (principal); S81.801A Unspecified open wound, right lower leg, initial encounter; I87.331 Chronic venous hypertension (idiopathic) with ulcer and inflammation of right lower extremity; I96 Gangrene, not elsewhere classified; L97.212 Non-pressure chronic ulcer of right calf with fat layer exposed; J44.9 Chronic obstructive pulmonary disease, unspecified
CPT/HCPCS: 15271; 29581; G0463

== ENCOUNTER → 2021-06-14 | Outpatient (CLI) | payer MEDICARE, OTHER | LOC: WOUNDCARE 14:24 | PROVIDERS: ATTEND Surgery | DX: I87.331 Chronic venous hypertension (idiopathic) with ulcer and inflammation of right lower extremity (principal); L97.212 Non-pressure chronic ulcer of right calf with fat layer exposed; S81.801A Unspecified open wound, right lower leg, initial encounter; S80.11XA Contusion of right lower leg, initial encounter; J44.9 Chronic obstructive pulmonary disease, unspecified; I96 Gangrene, not elsewhere classified | CPT/HCPCS: 15271; A6253; G0463 ==

== ENCOUNTER → 2021-06-22 | Outpatient (CLI) | payer MEDICARE, OTHER | LOC: WOUNDCARE 13:45 | PROVIDERS: ATTEND Surgery | DX: I87.331 Chronic venous hypertension (idiopathic) with ulcer and inflammation of right lower extremity (principal); L97.212 Non-pressure chronic ulcer of right calf with fat layer exposed; S81.801A Unspecified open wound, right lower leg, initial encounter; S80.11XA Contusion of right lower leg, initial encounter; J44.9 Chronic obstructive pulmonary disease, unspecified; I96 Gangrene, not elsewhere classified | CPT/HCPCS: 15271; G0463 ==

== ENCOUNTER → 2021-06-28 | Outpatient (CLI) | payer MEDICARE, OTHER | LOC: WOUNDCARE 14:07 | PROVIDERS: ATTEND Surgery | DX: I87.331 Chronic venous hypertension (idiopathic) with ulcer and inflammation of right lower extremity (principal); L97.212 Non-pressure chronic ulcer of right calf with fat layer exposed; S81.801A Unspecified open wound, right lower leg, initial encounter; S80.11XA Contusion of right lower leg, initial encounter; J44.9 Chronic obstructive pulmonary disease, unspecified; I96 Gangrene, not elsewhere classified | CPT/HCPCS: 15271; G0463 ==

== ENCOUNTER → 2021-07-05 | Outpatient (CLI) | payer MEDICARE, OTHER | LOC: WOUNDCARE 14:25 | PROVIDERS: ATTEND Surgery | DX: S81.801A Unspecified open wound, right lower leg, initial encounter (principal); S80.11XA Contusion of right lower leg, initial encounter; I87.331 Chronic venous hypertension (idiopathic) with ulcer and inflammation of right lower extremity; I96 Gangrene, not elsewhere classified; L97.212 Non-pressure chronic ulcer of right calf with fat layer exposed; J44.9 Chronic obstructive pulmonary disease, unspecified | CPT/HCPCS: 15271; G0463 ==

== ENCOUNTER → 2021-07-12 | Outpatient (CLI) | payer MEDICARE, OTHER | LOC: WOUNDCARE 14:07 | PROVIDERS: ATTEND Surgery | DX: I87.331 Chronic venous hypertension (idiopathic) with ulcer and inflammation of right lower extremity (principal); I96 Gangrene, not elsewhere classified; L97.212 Non-pressure chronic ulcer of right calf with fat layer exposed; S81.801A Unspecified open wound, right lower leg, initial encounter; S80.11XA Contusion of right lower leg, initial encounter; J44.9 Chronic obstructive pulmonary disease, unspecified | CPT/HCPCS: 11042; G0463 ==

== ENCOUNTER → 2021-07-20 | Outpatient (CLI) | payer MEDICARE, OTHER | LOC: WOUNDCARE 13:49 | PROVIDERS: ATTEND Surgery | DX: I87.331 Chronic venous hypertension (idiopathic) with ulcer and inflammation of right lower extremity (principal); L97.212 Non-pressure chronic ulcer of right calf with fat layer exposed; S81.801A Unspecified open wound, right lower leg, initial encounter; S80.11XA Contusion of right lower leg, initial encounter; J44.9 Chronic obstructive pulmonary disease, unspecified; I96 Gangrene, not elsewhere classified ==

== ENCOUNTER → 2021-07-27 | Outpatient (CLI) | payer MEDICARE, OTHER | LOC: WOUNDCARE 14:14 | PROVIDERS: ATTEND Surgery | DX: S81.801A Unspecified open wound, right lower leg, initial encounter (principal); I87.331 Chronic venous hypertension (idiopathic) with ulcer and inflammation of right lower extremity; I96 Gangrene, not elsewhere classified; L97.212 Non-pressure chronic ulcer of right calf with fat layer exposed; J44.9 Chronic obstructive pulmonary disease, unspecified | CPT/HCPCS: 11042; G0463 ==

== ENCOUNTER → 2021-08-02 | Outpatient (CLI) | payer MEDICARE, OTHER | LOC: WOUNDCARE 14:06 | PROVIDERS: ATTEND Surgery | DX: I87.331 Chronic venous hypertension (idiopathic) with ulcer and inflammation of right lower extremity (principal); L97.212 Non-pressure chronic ulcer of right calf with fat layer exposed; S81.801A Unspecified open wound, right lower leg, initial encounter; S80.11XA Contusion of right lower leg, initial encounter; J44.9 Chronic obstructive pulmonary disease, unspecified; I96 Gangrene, not elsewhere classified | CPT/HCPCS: 11042; G0463 ==

== ENCOUNTER → 2021-08-09 | Outpatient (CLI) | payer MEDICARE, OTHER ==
[~2021-08-09] MED LIST changes: -QUET25TA34 PO; +QUET25TA35 PO
== END ==
LOC: WOUNDCARE 14:10
PROVIDERS: ATTEND Surgery
DX: S80.11XA Contusion of right lower leg, initial encounter (principal); S81.801A Unspecified open wound, right lower leg, initial encounter; I87.331 Chronic venous hypertension (idiopathic) with ulcer and inflammation of right lower extremity; I96 Gangrene, not elsewhere classified; L97.212 Non-pressure chronic ulcer of right calf with fat layer exposed; J44.9 Chronic obstructive pulmonary disease, unspecified
CPT/HCPCS: 11042; G0463

== ENCOUNTER → 2021-08-16 | Outpatient (CLI) | payer MEDICARE, OTHER | LOC: WOUNDCARE 14:37 | PROVIDERS: ATTEND Surgery | DX: I87.331 Chronic venous hypertension (idiopathic) with ulcer and inflammation of right lower extremity (principal); I96 Gangrene, not elsewhere classified; L97.212 Non-pressure chronic ulcer of right calf with fat layer exposed; S81.801A Unspecified open wound, right lower leg, initial encounter; S80.11XA Contusion of right lower leg, initial encounter; J44.9 Chronic obstructive pulmonary disease, unspecified | CPT/HCPCS: 11043; G0463 ==

== ENCOUNTER → 2021-08-23 | Outpatient (CLI) | payer MEDICARE, OTHER | LOC: WOUNDCARE 14:32 | PROVIDERS: ATTEND Surgery | DX: I87.331 Chronic venous hypertension (idiopathic) with ulcer and inflammation of right lower extremity (principal); I96 Gangrene, not elsewhere classified; L97.212 Non-pressure chronic ulcer of right calf with fat layer exposed; S81.801A Unspecified open wound, right lower leg, initial encounter; S80.11XA Contusion of right lower leg, initial encounter; J44.9 Chronic obstructive pulmonary disease, unspecified; X58.XXXA Exposure to other specified factors, initial encounter | CPT/HCPCS: A6197; G0463; 99212 ==

== ENCOUNTER → 2021-08-30 | Outpatient (CLI) | payer MEDICARE, OTHER | LOC: WOUNDCARE 14:26 | PROVIDERS: ATTEND Family Medicine | DX: I87.331 Chronic venous hypertension (idiopathic) with ulcer and inflammation of right lower extremity (principal); L97.212 Non-pressure chronic ulcer of right calf with fat layer exposed; S81.801A Unspecified open wound, right lower leg, initial encounter; S80.11XA Contusion of right lower leg, initial encounter; J44.9 Chronic obstructive pulmonary disease, unspecified; X58.XXXA Exposure to other specified factors, initial encounter | CPT/HCPCS: 99212 ==

== ENCOUNTER → 2021-09-07 | Outpatient (CLI) | payer MEDICARE, OTHER | LOC: WOUNDCARE 12:21 | PROVIDERS: ATTEND Family Medicine | DX: I96 Gangrene, not elsewhere classified (principal); I87.331 Chronic venous hypertension (idiopathic) with ulcer and inflammation of right lower extremity; L97.212 Non-pressure chronic ulcer of right calf with fat layer exposed; S81.801A Unspecified open wound, right lower leg, initial encounter; S80.11XA Contusion of right lower leg, initial encounter; J44.9 Chronic obstructive pulmonary disease, unspecified | CPT/HCPCS: 99212 ==

== ENCOUNTER → 2021-09-13 | Outpatient (CLI) | payer MEDICARE, OTHER | LOC: WOUNDCARE 14:20 | PROVIDERS: ATTEND Family Medicine | DX: I87.331 Chronic venous hypertension (idiopathic) with ulcer and inflammation of right lower extremity (principal); L97.212 Non-pressure chronic ulcer of right calf with fat layer exposed; S81.801A Unspecified open wound, right lower leg, initial encounter; S80.11XA Contusion of right lower leg, initial encounter; J44.9 Chronic obstructive pulmonary disease, unspecified; X58.XXXA Exposure to other specified factors, initial encounter | CPT/HCPCS: 99212 ==

== ENCOUNTER → 2021-09-20 | Outpatient (CLI) | payer MEDICARE, OTHER | LOC: WOUNDCARE 11:33 | PROVIDERS: ATTEND Family Medicine | DX: J44.9 Chronic obstructive pulmonary disease, unspecified (principal); I87.331 Chronic venous hypertension (idiopathic) with ulcer and inflammation of right lower extremity | CPT/HCPCS: 99212 ==

== ENCOUNTER → 2021-11-04 | Outpatient (CLI) | payer MEDICARE, OTHER ==
[~2021-11-04] MED LIST changes: +POTA-169 PO; -POTA20TA8 PO
== END ==
LOC: WOUNDCARE 09:04
PROVIDERS: ATTEND Family Medicine
DX: I87.311 Chronic venous hypertension (idiopathic) with ulcer of right lower extremity (principal); L97.212 Non-pressure chronic ulcer of right calf with fat layer exposed; I89.0 Lymphedema, not elsewhere classified; E11.622 Type 2 diabetes mellitus with other skin ulcer
CPT/HCPCS: 11042; A6197; G0463

== ENCOUNTER → 2021-11-08 | Outpatient (CLI) | payer MEDICARE, OTHER | LOC: WOUNDCARE 14:13 | PROVIDERS: ATTEND Family Medicine | DX: I87.311 Chronic venous hypertension (idiopathic) with ulcer of right lower extremity (principal); L97.212 Non-pressure chronic ulcer of right calf with fat layer exposed; I89.0 Lymphedema, not elsewhere classified; E11.622 Type 2 diabetes mellitus with other skin ulcer; E11.52 Type 2 diabetes mellitus with diabetic peripheral angiopathy with gangrene | CPT/HCPCS: 11042; A6207; G0463 ==

== ENCOUNTER → 2021-11-15 | Outpatient (CLI) | payer MEDICARE, OTHER | LOC: WOUNDCARE 14:56 | PROVIDERS: ATTEND Family Medicine | DX: I87.311 Chronic venous hypertension (idiopathic) with ulcer of right lower extremity (principal); L97.212 Non-pressure chronic ulcer of right calf with fat layer exposed; I89.0 Lymphedema, not elsewhere classified; E11.622 Type 2 diabetes mellitus with other skin ulcer; E11.52 Type 2 diabetes mellitus with diabetic peripheral angiopathy with gangrene | CPT/HCPCS: 11042; G0463 ==

== ENCOUNTER → 2021-11-22 | Outpatient (CLI) | payer MEDICARE, OTHER | LOC: WOUNDCARE 14:22 | PROVIDERS: ATTEND Family Medicine | DX: I87.311 Chronic venous hypertension (idiopathic) with ulcer of right lower extremity (principal); L97.212 Non-pressure chronic ulcer of right calf with fat layer exposed; I89.0 Lymphedema, not elsewhere classified; E11.622 Type 2 diabetes mellitus with other skin ulcer; E11.52 Type 2 diabetes mellitus with diabetic peripheral angiopathy with gangrene | CPT/HCPCS: 11042; G0463 ==

== ENCOUNTER → 2021-12-06 | Outpatient (CLI) | payer MEDICARE, OTHER | LOC: WOUNDCARE 14:10 | PROVIDERS: ATTEND Family Medicine | DX: I87.311 Chronic venous hypertension (idiopathic) with ulcer of right lower extremity (principal); L97.212 Non-pressure chronic ulcer of right calf with fat layer exposed; I89.0 Lymphedema, not elsewhere classified; E11.622 Type 2 diabetes mellitus with other skin ulcer | CPT/HCPCS: 99212 ==